=== PATIENT | female | born 1945 | race Caucasian/White ===

== ENCOUNTER → 2017-09-20 13:49 | Outpatient (CLI) | payer MEDICARE, SELFPAY ==
--- NOTE | 2017-09-20 | DI.RAD.S_ITS ---
PROCEDURE: XR CERVICAL SPINE 4V OR 5V INDICATIONS: neck pain TECHNIQUE: 5 views of the cervical spine acquired. COMPARISON: None. FINDINGS: Bones: No fractures or dislocations to the C7 level. There is diffuse, severe disc space narrowing throughout the cervical spine from the level of C3-C7. Diffuse facet arthropathy. Multilevel endplate spurring and sclerosis. On the right, there is severe diffuse bony foraminal narrowing at all levels. On the left, there is diffuse severe bony foraminal stenoses, with relative sparing at C5-C6. Soft tissues: No prevertebral soft tissue swelling. IMPRESSION: Multilevel C3-C7 severe cervical disc degeneration and facet arthropathy. Bilateral severe diffuse bony neuroforaminal stenoses, as above. Dictated by: David Melgar M.D. on 09/20/2017 at 14:56 Approved by: David Melgar M.D. on 09/20/2017 at 14:58
== END ==
PROVIDERS: Family Provider Internal Medicine; PCP Internal Medicine; Visit Provider Internal Medicine
DX: M50.30 Other cervical disc degeneration, unspecified cervical region (principal); M47.812 Spondylosis without myelopathy or radiculopathy, cervical region
CPT/HCPCS: 72050; 99214

== ENCOUNTER → 2017-11-07 16:53 | Outpatient (CLI) | payer MEDICARE, SELFPAY ==
--- NOTE | 2017-11-07 | DI.MRI.S_ITS ---
PROCEDURE: MR LUMBAR SPINE WO CON INDICATIONS: LUMBAR SPINE PAIN TECHNIQUE: Noncontrast sagittal T1 spin echo and T2 fast echo, sagittal STIR, axial T1 and T2 fast spin echo through the lumbar spine. In cases with scoliosis, additional coronal T2 fast spin echo may be performed. COMPARISON: [facility], MR, L-SPINE WITHOUT CONTRAST, 11/16/2013, 8:33. FINDINGS: Image quality: Excellent. Alignment and Curvature: Grade 1 anterolisthesis of L4-L5. This appears unchanged. Bone Marrow: Marrow is of normal overall signal. No acute vertebral body compression fractures. Spinal Cord: Conus medullaris terminates at the L2 level. Visualized cord demonstrates normal signal and size. Paraspinous Soft Tissues: No paravertebral masses. L1-L2: Normal appearance. L2-L3: Mild broad-based posterior disc bulge and bilateral facet arthropathy. Mild canal narrowing with partial effacement of the anterior thecal sac, which has progressed since 11/16/13. Mild left and moderate right foraminal stenoses, with slight interval progression on the right. L3-L4: Broad-based posterior disc bulge and bilateral facet arthropathy. There is also mild dorsal epidural lipomatosis. Moderate canal stenosis which has minimally progressed. Mild bilateral foraminal narrowing which has slightly progressed.. L4-L5: Broad-based posterior disc bulge, bilateral facet arthropathy and ligamentum flavum hypertrophy, with severe canal stenosis. Mild dorsal epidural lipomatosis is present. This is grossly unchanged since the prior study. Mild left and moderate right foraminal narrowing, no interval change. L5-S1: Posterior annular fissure and broad-based posterior disc bulge with small superimposed central disc protrusion. Bilateral facet arthropathy. There is mild epidural lipomatosis. Mild canal narrowing, unchanged. [id number]-[id number] left and right foraminal stenoses which appear grossly unchanged. IMPRESSION: Slight interval worsening of right L2-L3 foraminal narrowing, bilateral L3-L4 foraminal narrowing, and canal narrowing at L2-L3 and L3-L4. Otherwise, unchanged examination as detailed above by spinal level. Grade 1 anterolisthesis of L4 and L5 as before. Dictated by: David Melgar M.D. on 11/08/2017 at 9:20 Approved by: David Melgar M.D. on 11/08/2017 at 9:34
== END ==
PROVIDERS: PCP Internal Medicine; Visit Provider Orthopaedic Surgery Orthopaedic Surgery of the Spine
DX: M48.061 Spinal stenosis, lumbar region without neurogenic claudication (principal); M43.16 Spondylolisthesis, lumbar region; M54.5 Low back pain
CPT/HCPCS: 72148

== ENCOUNTER → 2017-11-21 16:30 | Outpatient (CLI) | payer MEDICARE, SELFPAY ==
--- NOTE | 2017-11-21 16:35 | DI.MRI.S_ITS ---
PROCEDURE: MR CERVICAL SPINE WO CON INDICATIONS: BILATERAL ARM RADICULOPATHY TECHNIQUE: Noncontrast sagittal T1 spin echo and T2 fast spin echo, sagittal STIR, foraminal oblique sagittal T2 fast spin echo, and axial gradient echo or T2 fast spin echo through the cervical spine. COMPARISON: None. FINDINGS: Image quality: Excellent. Alignment and Curvature: Straightening of the normal cervical lordosis. Grade 1 anterolisthesis of C4 on C5 grade 1 retrolisthesis of C5 on C6. Bone Marrow: Multilevel endplate degenerative signal change and spurring. Spinal Cord: Visualized spinal cord has normal size and signal. No cerebellar tonsillar herniation. Paraspinous Soft Tissues: No paravertebral masses. Prevertebral soft tissues are normal in thickness. C2-C3: Bilateral facet arthropathy, left greater than right. No definite canal stenosis. Moderate left foraminal narrowing. Mild right foraminal stenosis. C3-C4: Bilateral uncovertebral arthropathy and posterior intervening disc osteophyte complex, and bilateral facet disease. Moderate canal stenosis with effacement of anterior and posterior thecal sac. Moderate bilateral foraminal stenoses. C4-C5: Bilateral uncovertebral arthropathy and posterior intervening disc osteophyte complex, and bilateral facet arthropathy. Moderate to severe canal stenosis. Severe bilateral foraminal stenoses. C5-C6: Bilateral uncovertebral arthropathy and posterior intervening disc osteophyte complex, and bilateral facet arthropathy. Severe canal stenosis. Severe bilateral foraminal stenoses. C6-C7: No canal stenosis. Mild bilateral foraminal narrowing. Bilateral facet disease, mild. C7-T1: Normal appearance. IMPRESSION: Multilevel cervical disc degeneration, with high grade canal stenoses at C3-C4, C4-C5 and C5-C6. Diffuse bilateral foraminal stenoses as detailed above, most pronounced at C4-C5 (bilateral) and C5-C6 (bilateral). Grade 1 anterolisthesis of C4 on C5 and grade 1 retrolisthesis of C5 on C6. Dictated by: David Melgar M.D. on 11/21/2017 at 17:28 Approved by: David Melgar M.D. on 11/21/2017 at 17:35
== END ==
PROVIDERS: PCP Internal Medicine; Visit Provider Orthopaedic Surgery Orthopaedic Surgery of the Spine
DX: M50.11 Cervical disc disorder with radiculopathy, high cervical region (principal); M48.02 Spinal stenosis, cervical region; M43.12 Spondylolisthesis, cervical region
CPT/HCPCS: 72141

== ENCOUNTER → 2017-12-30 14:31 | Outpatient (CLI) | payer MEDICARE, SELFPAY ==
[2017-12-30 17:06] LABS: Add Manual Diff / Slide Review NO; Basophils Percent Auto 0.7 % (0-2); Eosinophils Percent Auto 1.3 % (2-4); Hematocrit 33.1 % (36-46); Hemoglobin 11.5 g/dL (12.0-16.0); Lymphocytes Percent Auto 30.8 % (25-40); Mean Corpuscular HGB Conc 34.8 % (30-36); Mean Corpuscular Hemoglobin 33.4 PG (26-34); Monocytes Percent Auto 7.5 % (3-14); Neutrophils Absolute Auto 5400 /uL (3000-5900); Neutrophils Percent Auto 59.7 % (50-75); Platelet Count 319 X10^3/uL (150-400); Red Blood Cell Count 3.45 X10^6/uL (4.0-5.2); Red Cell Distribution Width 12.8 % (11.6-14.8)
[2017-12-30 17:23] LABS: BUN Creatinine Ratio 22.2 (6-22); Blood Urea Nitrogen 20 mg/dL (7-17); Carbon Dioxide 25 mmol/L (22-32); Chloride 95 mmol/L (98-107); Estimated Glomerular Filt Rate > 60.0 mL/min (>60); Glucose 92 mg/dL (80-110); HEMOLYSIS < 15 (0-50); Sodium 134 mmol/L (137-145)
== END ==
PROVIDERS: PCP Internal Medicine; Visit Provider Physician Assistant
DX: M43.16 Spondylolisthesis, lumbar region (principal); M48.061 Spinal stenosis, lumbar region without neurogenic claudication; Z01.812 Encounter for preprocedural laboratory examination; Z01.818 Encounter for other preprocedural examination; I10 Essential (primary) hypertension
CPT/HCPCS: 36415; 80048; 85025

== ENCOUNTER 2018-01-12 06:26 | Inpatient (IN) | payer MEDICARE, SELFPAY ==
[2017-12-27 09:06] VITALS: BMI 28.6
[2018-01-12] VITALS (20 sets, daily range): BP systolic 99–183; BP diastolic 63–94; PULSE 67–106; RESP 9–20; TEMP 35.9–36.6; O2SAT 90–100; BMI 29.3
[2018-01-12] MEDS: LACTATED RINGERS 1,000 ML 42 ML IV ×2 (07:15→09:53)
[2018-01-12] MEDS: CEFAZOLIN 2 GM/100 ML FROZ.PIGGY IV ×3 (08:08→23:51)
--- NOTE | 2018-01-12 08:55 | SUR.OPER ---
Prone on spine table, head in foam head support, padded chest and pelvic supports, gel pad at knees, lower legs supported by pillows; nipples, genitalia and toes free of pressure, arms secured on foam padded arm boards at <90 degrees abduction. Tape over blanket at thigh secured to table.
[2018-01-12] MEDS: BUPIVACAINE 0.25% W/ EPI VIAL 50 ML INJ (09:17)
[2018-01-12] MEDS: BUPIVACAINE LIPOSOME 266 MG/20 ML VIAL INJ (09:34)
--- NOTE | 2018-01-12 11:24 | P.OP_ITS ---
Operative Date/Time/Diagnoses Date of procedure: 01/12/18 Time of procedure: 08:21 Pre-op diagnosis: 1. L4-5 spondylolisthesis 2. L4-5, L5-S1 spinal stenosis 3. L4-5, L5-S1 spondylosis with radiculopathy Post-op diagnosis: same Procedure & Clinicians Procedure: 1. L4-5, L5-S1 Postero-lateral and posterior interbody fusion 2. L4-5, L5-S1 interbody cage placement. 3. L4-5, L5-S1 decompressive laminectomy with bilateral facetecomies 4. L4-5, L5-S1 Posterior segmental instrumentation 5. [place] of bone marrow from iliac crest 6. Utilization of microsurgical technique and operating microscope Same procedure as scheduled: Yes Indications: Patient has been having chronic back pain and worsening lumbar radiculopathy. Patient failed multiple conservative management with worsening pain weakness and numbness in her lower extremity. Patient has been having difficulty performing activity of daily living. After discussing risks benefits of treatment options, patient elected proceed with surgery. Surgeon: Dorian John Promotions Producer: Alexsandra Avery Click Yes if Unassisted: No Anesthesia Type: General Operative Notes Closure Type: primary Specimen(s): none sent Implants & Drains: Globus revolve screws, Rise cages Applied: catheter Estimated Blood Loss (mL): 100 Blood products transfused: none Procedure in detail: Patient was seen in the preoperative area. Risks and benefits of the surgery was discussed with the patient. Informed consent was obtained from the patient and placed in the chart. Surgical site was marked. Patient was taken to the operative room. General anesthesia was administered. Prophylactic antibiotic was given to the patient less than 30 min before the incision was made. Patient was placed into a prone position on the Guru table. Patient's back was then prepped and draped in the sterile fashion. Time- out was performed at this time. Using AP and lateral C-arm imaging the interval between L4-S1 was identified and marked on patient's back. A 2 inch incision 2 in from midline was made on the left side first. The fascia was incised in line with skin incision. Globus MARS retractors was placed inside the incision and docked onto the L4 and L5 lamina. Using microsurgical technique and operating microscope, a L4 and L5 laminectomy and L4-5 L5-S1 facetectomy was performed using a Kerrison rongeur. The disc space at L4-5, L5-S1 was identified. And a total diskectomy was performed at L4-5, L5-S1 level. The endplates were decorticated using a rasp and shaver. The total diskectomy and decortication was performed at L4-5, L5- S1 level in order to to accomplish a L4-5, L5-S1 fusion. The local bone from the laminectomy and facetectomy was saved for local bone grafting. After the total diskectomy and decortication was completed, Globus viacell bone graft material was combined with local bone that was harvested earlier. At this time , a separate skin is incision was made over the iliac crest. A Jamshidi needle was inserted into the iliac crest through a separate skin incision. 5 cc of bone marrow aspiration was obtained through the separate skin incision using a Jamshidi needle from the iliac crest. The bone marrow aspiration was combined with local bone and the via cell bone grafting material. The bone grafting material was placed into the L4-5, L5-S1 interbody space along with two cages, one expandable cage at each level. The cages were expanded to their maximum height using the torque limiting screwdriver. At this time a mirror image incision was made on the right side. The fascia was incised in line with the skin incision. Globus MARS retractor was inserted and docked onto the L4-5, L5-S1 posterolateral gutter. Using the power drill, posterior-lateral decortication was performed at L4-5, L5-S1 level until bleeding cortical bone was identified. The remaining bone grafting material was placed into the L4-5 L5-S1 posterior lateral gutter he order to accomplish posterolateral fusion at the L4-5 L5-S1 levels. Using the double C-arm technique, pedicle screws were placed into the L4, L5, S1 pedicles bilaterally. This was done by placing the Jamshidi needle into the pedicles, then placing the guidewires over the Jamshidi needle, and finally placing the cannulated screws over the guidewires bilaterally. After the pedicle screws were placed, 2 titanium rods was locked into the heads of the pedicle screws using locking caps and torque limiting screwdriver. Total 6 pedicles screws were placed. After all the hardware was placed, and confirmed with AP and lateral C-arm imaging, the wound was then irrigated with sterile normal saline and packed with Ray-Dorota gauze for 3 min to accomplish hemostasis. After the gauze was removed the deep fascia was closed with #1 Vicryl suture. The subcutaneous layer was closed with 2-0 Vicryl. The skin was closed with skin lucius. Patient tolerated the procedure well. There were no complications. Complications: none Condition: stable Disposition: Acute Care Plan for aftercare: Admit to inpatient hospital
--- NOTE | 2018-01-12 11:36 | DI.RAD.S_ITS ---
PROCEDURE: XR LUMBAR SPINE 2-3V INDICATIONS: L4-5, L5-S1 TLIF TECHNIQUE: Fluoroscopic images were obtained during an operative procedure and submitted for interpretation following the completion of the procedure. COMPARISON: [facility], , MR LUMBAR SPINE WO CON, 11/07/2017, 17:09. FINDINGS: These fluoroscopic images were performed for intraoperative localization. On these images, pedicle screws are seen at the L4, L5, and S1 levels. Disc spacers are seen at L4-L5 and L5-S1. Please correlate with intraoperative findings. IMPRESSION: Normal intraoperative examination. Dictated by: Sherman Corea M.D. on 01/12/2018 at 11:47 Approved by: Sherman Corea M.D. on 01/12/2018 at 11:47
[2018-01-12] MEDS: HYDROMORPHONE 2 MG INJ 0.25 MG IV ×4 (11:56→12:21)
--- NOTE | 2018-01-12 12:52 | SUR.PHASEI ---
late entry: pt arrived to pacu, awake, followed commands, medicated with Dilaudid initially by dr sanchez, then by this rn, dressing remained c/d/i. and neuro checks wnl. pain started at 8/10 down to 5/10 tolerated oral fluids and pt stated she was comfortable. transported upn to room 212 with 02 n/c and left in stable condition.
[2018-01-12] MEDS: SODIUM CHLORIDE 0.9% 1,000 ML 100 ML IV ×2 (13:39→23:18)
[2018-01-12] MEDS: ONDANSETRON 4 MG/2 ML INJ IV ×2 (13:39→18:06)
[2018-01-12] MEDS: hydrOXYzine pamoate 25 MG CAPSULE PO ×3 (13:58→21:41)
[2018-01-12] MEDS: HYDROCODONE/ACET 5/325 TABLET 2 TAB PO ×2 (15:11→19:04)
--- NOTE | 2018-01-12 15:25 | PT.IIE ---
Current Diagnoses Sleep apnea, unspecified (01/12/18) Shortness of breath (01/12/18) Personal history of nicotine dependence (01/12/18) Surgery Performed Operation Date: 01/12/18 07:45 Actual Procedures p L4-5,L5-S1 TLIF w/Posterior Fusion - Dorian John MD Surgical History (Last Updated 12/27/17 @ 10:42 by Laisha Peck, RN) H/O oral surgery (Acute) H/O thumb surgery (Acute) History of appendectomy (Acute) History of colonoscopy with polypectomy (Acute) History of hernia repair (Acute) History of total abdominal hysterectomy (Acute) Medical History (Last Updated 12/27/17 @ 11:14 by Laisha Peck, RN) ADHD (Acute) Abnormal EKG (Acute) Anemia (Acute) Anxiety disorder (Acute) Asthma (Acute) Atrophic vaginitis (Acute) Benign positional vertigo (Acute) Bruises easily (Acute) CAD (coronary artery disease) (Acute) Concussion (Acute) Disorder of left rotator cuff (Acute) Familial tremor (Acute) Fibromyalgia (Acute) Former smoker (Acute) GERD (gastroesophageal reflux disease) (Acute) History of frequent headaches (Acute) History of left heart catheterization (Acute) History of stomach ulcers (Acute) Hyperlipidemia (Acute) Hypertension (Acute) Impaired hearing (Acute) Impaired vision (Acute) Osteoarthritis (Acute) PTSD (post-traumatic stress disorder) (Acute) PVCs (premature ventricular contractions) (Acute) Palpitations (Acute) Panic attacks (Acute) Peripheral sensory neuropathy (Acute) Precancerous lesion (Acute) Shortness of breath (Acute) Spastic colon (Acute) Spinal stenosis of lumbar region at multiple levels (Acute) Spondylolisthesis at L4-L5 level (Acute) Syncope (Acute) Physical Therapy Inpatient Evaluation/Re-Eval M1 PT/OT-IP Prior Functional Status Start: 01/12/18 16:54 Freq: NEEDED Status: Active Protocol: Document 01/12/18 15:25 AB (Rec: 01/12/18 17:11 AB [id number]) Medical Review Prior Functional Status Medical History Reviewed Yes Communication able to make needs known Mobility and Gait stated that she is modified independent with all mobilities and ambulation without AD indoors but uses SPC for outdoor mobility Social History Household Members spouse Living Arrangements RV Number of Floors (Floors) Two Floors Number of Stairs To Enter/Railing? has 5 steps to enter with L rail ascending; has 2 steps to bathroom without rails Home Environment Standard Height Toilet Walk in Shower Built-In Shower Seat Home Equipment Straight Cane Hand Held Shower Employment Status Retired Additional Social History Comment spouse still works but stated that he will be off work until jan.23 M2 PT-IP Current Condition Start: 01/12/18 16:54 Freq: NEEDED Status: Active Protocol: Document 01/12/18 15:25 AB (Rec: 01/12/18 17:11 AB [id number]) Physical Therapy Current Condition Current Condition Evaluation Date 01/12/18 Treatment Diagnosis s/p L4-5 L5S1 fusion/ laminectomy; difficulty in walking Onset Date 01/12/18 Precautions Lumbar Precautions Log Roll No Twisting Limit Bending Lifting Restriction of 10 lbs Gait Belt above Incisional Area M3 PT-IP Subjective Start: 01/12/18 16:54 Freq: NEEDED Status: Active Protocol: Document 01/12/18 15:25 AB (Rec: 01/12/18 17:11 AB [id number]) Subjective Physical Therapy Visit Type Type Initial Evaluation Visit Start Time 15:25 Visit Stop Time 16:20 Total Visit Minutes 55 Number of GERIATRIC PSYCHIATRIST Visits 0 Physical Therapy Visit Comments Patient Comments pt stated that she will try to move but she faints easily Therapy Pain Assessment Pain When Pain Assessed At Rest Pain Present Pain Present Pain Reported Location back Intensity 7 Scale Used Numeric (1 - 10) Pain Management Techniques Re-positioning Timing of Activity with Medications M4 PT-IP Mobility and Gait Start: 01/12/18 16:54 Freq: NEEDED Status: Active Protocol: Document 01/12/18 15:25 AB (Rec: 01/12/18 17:11 AB [id number]) PT-Bed Mobility Assessment Rolling Type of Rolling Log Rolling Level of Assist Moderate Assistance 1 Person Assistance Supine to Sit Supine to Sit Moderate Assistance 1 Person Assistance Sit to Supine Sit to Supine Moderate Assistance 1 Person Assistance Scooting Scooting to Edge of Bed Minimal Assistance PT-Transfer Assessment Sit to and From Stand Sit to and from Stand Moderate Assistance 1 Person Assistance Use of Upper Extremities Equipment Transfer Assistive Device Gait Belt Front Wheeled Walker Orthotic/Prosthetic Devices or Brace: No Comments Mobility Comments BP prior to standing 183/94; after standin/65 pt with c/o nausea with activity limiting movement. pt was able to take 2 steps forward and backwards using FWW mod A and requested to go back to bed afterwards. positioned pt in bed and requested to be on her side. ice pack provided. call light and table placed within reach . Left pt with spouse in room . PT-Balance Assessment Sitting Balance and Reactions Static Sitting Balance Ability Good Dynamic Sitting Balance Ability Fair Standing Balance and Reactions Static Standing Balance Ability Poor Dynamic Standing Balance Ability Poor Device Used FWW M5 PT-IP Objective Assessments Start: 01/12/18 16:54 Freq: NEEDED Status: Active Protocol: Document 01/12/18 15:25 AB (Rec: 01/12/18 17:11 AB [id number]) Orientation Orientation/Cognition Level of Alertness Alert Orientation Name Age Birthday Month Date Year Day of Week Place Situation Safety Awareness Decreased Safety Awareness Memory Description Short Term Impaired Gross Range of Motion Lower Extremity ROM Assessment Within Functional Limits Strength Lower Extremity Strength Assessment Bilaterally Impaired Hip 4-/5 Knee 4-/5 Sensation Assessment Sensation Gross Sensation Right LE Impaired Left LE Impaired Sensation Description Tingling Comments Sensation Comments pt stated that she has tingling on BLE even prior to surgery Muscle Tone Muscle Tone WNL Yes M6 PT-IP Treatment Start: 01/12/18 16:54 Freq: NEEDED Status: Active Protocol: Document 01/12/18 15:25 AB (Rec: 01/12/18 17:11 AB [id number]) Physical Therapy Treatment Education Education Provided Precautions Weight Bearing Status Post-Op Packet Safety M7 PT-IP Assessment and Plan Start: 01/12/18 16:54 Freq: NEEDED Status: Active Protocol: Document 01/12/18 15:25 AB (Rec: 01/12/18 17:11 AB [id number]) PT Summary Assessment and Plan Potential Rehabilitation Potential Fair Status of Condition at Evaluation Evolving Summary Impairments Pain ROM Strength Balance Coordination Sensation Tone Cognition Bed Mobility Transfers Gait Activity Tolerance Assessment Summary pt requiring mod A with sit to stand and has limitied activity tolerance at this time with c/o nausea with activity. pt plans to ghome with spouse to assist her at home. informed pt and spouse to acquire a FWW and ageed. will continue to assess pt for d/c plans. Goals Bed Mobility Goal Standby Assistance Transfer Goal Standby Assistance Front Wheeled Walker Gait Goal Standby Assistance Front Wheel Walker Gait Distance 150 Other Goals up/down steps with L rail ascending up/down 2 steps without rails using SPC/ FWW Days to Meet Goals 5 Frequency of Treatment Frequency Of Treatment Twice a Day Treatment Plan Physical Therapy Treatment Plan Bed Mobility Training Transfer Training Gait Training Therapeutic Exercise Balance Retraining Post Op Education Discharge Planning Hot or Cold Pack Neuromuscular Re-ed Coordination Retraining Manual Therapy Recommendations To Nursing Amount of Assist Needed 1 Person Assist Discharge Recommendations PT Discharge Recommendations Home with 15/11 Assist Home Health Equipment Needed for Home Before FWW Discharge
--- NOTE | 2018-01-12 15:26 | PC.NURSE ---
POST-OP PATIENT CONVERSANT. REPORTS MINIMAL PAIN. BARBARA CDI. IVF INFUSING PER ORDERS. REPORTS NAUSEA. ZOFRAN GIVEN FOLLOWED BY [facility]. DRINKING CRANBERRY JUICE. VSS.
[2018-01-12] MEDS: LOSARTAN 25 MG TABLET PO (17:17)
[2018-01-12] MEDS: ACETAMINOPHEN 325 MG TABLET 650 MG PO (18:00)
[2018-01-12] MEDS: DOCUSATE 100 MG CAPSULE PO (20:09)
[2018-01-12] MEDS: SENNOSIDES 8.6 MG TABLET 17.2 MG PO (20:10)
[2018-01-13] MEDS: ONDANSETRON 4 MG/2 ML INJ IV (00:49)
[2018-01-13] MEDS: ACETAMINOPHEN 325 MG TABLET 650 MG PO ×3 (00:52→12:30)
[2018-01-13 01:00] VITALS: BP 141/62; PULSE 75; RESP 18; TEMP 36.7; O2SAT 100
--- NOTE | 2018-01-13 01:07 | PC.NURSE ---
Addendum entered by Khadijah Mendez R.N. 01/13/18 07:00: Medicated with Tylenol for 4/10 back pain; requested not to have any Vicodin. Original Note: Addendum entered by Khadijah Mendez R.N. 01/13/18 06:59: Dressing completely off back except for some border tape. Patient states I probably did that with my scooting around in bed. Reminded she should not be twisting; verbalized understanding. Old dressing completely removed and coversite dressing applied. Original Note: Addendum entered by Khadijah Mendez R.N. 01/13/18 01:13: Patient reports history of balance problems and several near misses but no falls in past 3 months. Original Note: Patient is alert and oriented. Breath sounds are CTA. Currently on bipap (per home regimen) with 2L/min oxygen bled in and sat at 97% so decreased O2 to 1L/min. HRR. Complains of slight nausea without current emesis so medicated with Zofran. BT hypoactive and denies flatus. Indwelling catheter is patent and intact. Dressing to back intact with shadow drainage noted and outlined. States pain is 0/10 at rest but 4/10 with movement; requested only Tylenol so medicated as requested. Was able to turn self with help to position pillows. CMS intact but does have intermittent sciatica pain down left leg which was present pre-op. Wearing bilateral foot SCD's. Fall risk score is high and bed alarm is activated.
[2018-01-13] MEDS: PANTOPRAZOLE 20 MG TABLET PO (05:57)
[2018-01-13 06:12] VITALS: BP 118/83; PULSE 66; RESP 18; TEMP 36.8
[2018-01-13 06:22] LABS: Hematocrit 27.2 % (36-46); Hemoglobin 9.2 g/dL (12.0-16.0)
[2018-01-13 06:44] VITALS: O2SAT 97
--- NOTE | 2018-01-13 07:38 | P.PN_ITS ---
Subjective Date Patient Seen: 01/13/18 Time Patient Seen: 07:34 Interval history: POD #1 s/p lumbar fusion with Dr. John. Pain is well controlled with Tylenol, [place], and Vistaril. Patient has been up with physical therapy yesterday. She notes a history of fainting since she was 8, so she is just ambulating slowly and taking her time. She has a [place] catheter in. Exam Vital Signs (past 8 hours): - 01/13/18 01:00 01/13/18 06:12 01/13/18 06:44 Temperature 98.0 F 98.2 F Pulse Rate 75 66 Respiratory Rate 18 18 Blood Pressure 141/62 H 118/83 Pulse Oximetry 100 97 Oxygen Delivery Method BiPAP Oxygen Flow Rate 0 Narrative Exam Narrative: Patient is lying in bed in no acute distress. She is alert and oriented x3. Dressing on back is CDI. Calves are soft, compressible, nontender bilaterally. Objective Labs Result Diagrams: 01/13/18 06:05 Labs: Laboratory Results - last 24 hr 01/13/18 06:05 Hgb 9.2 L Hct 27.2 L Assessment & Plan Post-op (1) S/P lumbar fusion: Current Visit: Yes Status: Acute Postoperative Procedures Operation Date: 01/12/18 07:45 Actual Procedures Side Surgeon p L4-5,L5-S1 TLIF w/Posterior Fusion Dorian John MD POD #1 s/p lumbar fusion with Dr. John. DC Ha[place]on today. Continue to ambulate with PT. Continue to follow precautions of no excessive bending, lifting, or twisting. Plan to discharge home in next 1-2 days. Quality VTE Deep Vein Thrombosis/Pulmonary Embolism Present on Admission: No
[2018-01-13 07:55] VITALS: BP 139/49; PULSE 70; RESP 18; TEMP 36.5; O2SAT 99
[2018-01-13 08:42] VITALS: BP 139/61; PULSE 83
[2018-01-13] MEDS: DOCUSATE 100 MG CAPSULE PO (08:42)
[2018-01-13] MEDS: LOSARTAN 25 MG TABLET PO (08:42)
[2018-01-13] MEDS: ATORVASTATIN 20 MG TABLET 40 MG PO (08:42)
[2018-01-13] MEDS: METOPROLOL ER 50 MG TABLET PO (08:43)
[2018-01-13 09:23] VITALS: O2SAT 93
--- NOTE | 2018-01-13 10:30 | PT.IPTN ---
Current Diagnoses Sleep apnea, unspecified (01/12/18) Shortness of breath (01/12/18) Personal history of nicotine dependence (01/12/18) Arthrodesis status (01/12/18) Surgery Performed Operation Date: 01/12/18 07:45 Actual Procedures p L4-5,L5-S1 TLIF w/Posterior Fusion - Dorian John MD Physical Therapy Treatment Note M2 PT-IP Current Condition Start: 01/12/18 16:54 Freq: NEEDED Status: Active Protocol: Document 01/12/18 15:25 AB (Rec: 01/12/18 17:11 AB [id number]) Physical Therapy Current Condition Current Condition Evaluation Date 01/12/18 Treatment Diagnosis s/p L4-5 L5S1 fusion/ laminectomy; difficulty in walking Onset Date 01/12/18 Precautions Lumbar Precautions Log Roll No Twisting Limit Bending Lifting Restriction of 10 lbs Gait Belt above Incisional Area M3 PT-IP Subjective Start: 01/12/18 16:54 Freq: NEEDED Status: Active Protocol: Document 01/13/18 10:30 GGD (Rec: 01/13/18 12:12 GGD [id number]) Subjective Physical Therapy Visit Type Type Treatment Note Visit Start Time 10:05 Visit Stop Time 10:30 Total Visit Minutes 25 Number of SUSTAINABILITY COORDINATOR Visits 1 Physical Therapy Visit Comments Patient Comments Pt states she feeling better. Therapy Pain Assessment Pain When Pain Assessed At Rest Pain Present Pain Present Pain Reported Location back Intensity 2 Scale Used Numeric (1 - 10) M4 PT-IP Mobility and Gait Start: 01/12/18 16:54 Freq: NEEDED Status: Active Protocol: Document 01/13/18 10:30 GGD (Rec: 01/13/18 12:12 GGD [id number]) PT-Bed Mobility Assessment Rolling Type of Rolling Log Rolling Level of Assist Standby Assistance Supine to Sit Supine to Sit Contact Guard Assistance Sit to Supine Sit to Supine Contact Guard Assistance Scooting Scooting to Edge of Bed Standby Assistance PT-Transfer Assessment Sit to and From Stand Sit to and from Stand Contact Guard Assistance Use of Upper Extremities Equipment Transfer Assistive Device Gait Belt Front Wheeled Walker Orthotic/Prosthetic Devices or Brace: No Transfers Transfer Destination Chair Comments Mobility Comments BP supine 142/57, sitting 157/ 92, standing 157/94, after gait in sitting 167/27 Gait Assessment Gait Gait Assistance Required: Contact Guard Assist Distance (Feet) 75 Able to Maintain Weight Bearing Status Yes During Gait Assistive Devices Assistive Device Gait Belt Front Wheeled Walker Orthotic/Prosthetic Devices or Brace: No Gait Deviations General Gait Pattern Decreased Stride Length Decreased Feet Clearance Factors Limiting Gait Function Factors Limiting Gait Function Decreased Activity Tolerance Decreased Strength Limited Range of Motion Pain M5 PT-IP Objective Assessments Start: 01/12/18 16:54 Freq: NEEDED Status: Active Protocol: Document 01/12/18 15:25 AB (Rec: 01/12/18 17:11 AB [id number]) Orientation Orientation/Cognition Level of Alertness Alert Orientation Name Age Birthday Month Date Year Day of Week Place Situation Safety Awareness Decreased Safety Awareness Memory Description Short Term Impaired Gross Range of Motion Lower Extremity ROM Assessment Within Functional Limits Strength Lower Extremity Strength Assessment Bilaterally Impaired Hip 4-/5 Knee 4-/5 Sensation Assessment Sensation Gross Sensation Right LE Impaired Left LE Impaired Sensation Description Tingling Comments Sensation Comments pt stated that she has tingling on BLE even prior to surgery Muscle Tone Muscle Tone WNL Yes M6 PT-IP Treatment Start: 01/12/18 16:54 Freq: NEEDED Status: Active Protocol: Document 01/13/18 10:30 GGD (Rec: 01/13/18 12:12 GGD [id number]) Physical Therapy Treatment Education Education Provided Precautions M7 PT-IP Assessment and Plan Start: 01/12/18 16:54 Freq: NEEDED Status: Active Protocol: Document 01/13/18 10:30 GGD (Rec: 01/13/18 12:12 GGD [id number]) PT Summary Assessment and Plan Summary Assessment Summary Pt improving with mobility. She improved with bed mobility and didn't need assist, min v . cues. She was able to ambulate without increase in nausea. She does need a FWW, before D/C home. Frequency of Treatment Frequency Of Treatment Twice a Day Treatment Plan Physical Therapy Treatment Plan Bed Mobility Training Transfer Training Gait Training Therapeutic Exercise Balance Retraining Post Op Education Discharge Planning Hot or Cold Pack Neuromuscular Re-ed Coordination Retraining Manual Therapy Other Recommendations and Next Treatment stair training. Focus Recommendations To Nursing Amount of Assist Needed 1 Person Assist Discharge Recommendations PT Discharge Recommendations Home with Assistance Equipment Needed for Home Before FWW Discharge
--- NOTE | 2018-01-13 10:31 | PC.NURSE ---
Addendum entered by Jennifer Mcneill R.N. 01/13/18 14:44: Pt taken out to car by [employer] and to drive pt home. Original Note: Pt worked with PT/OT, [place] taken out and pt tolerated well. Sitting up in chair and resting comfortably.
--- NOTE | 2018-01-13 11:10 | OT.IP.EVAL ---
Current Diagnoses Sleep apnea, unspecified (01/12/18) Shortness of breath (01/12/18) Personal history of nicotine dependence (01/12/18) Arthrodesis status (01/12/18) Surgery Performed Operation Date: 01/12/18 07:45 Actual Procedures p L4-5,L5-S1 TLIF w/Posterior Fusion - Dorian John MD Past Medical History (Last Updated 12/27/17 @ 11:14 by Laisha Peck, RN) ADHD (Acute) Abnormal EKG (Acute) Anemia (Acute) Anxiety disorder (Acute) Asthma (Acute) Atrophic vaginitis (Acute) Benign positional vertigo (Acute) Bruises easily (Acute) CAD (coronary artery disease) (Acute) Concussion (Acute) Disorder of left rotator cuff (Acute) Familial tremor (Acute) Fibromyalgia (Acute) Former smoker (Acute) GERD (gastroesophageal reflux disease) (Acute) History of frequent headaches (Acute) History of left heart catheterization (Acute) History of stomach ulcers (Acute) Hyperlipidemia (Acute) Hypertension (Acute) Impaired hearing (Acute) Impaired vision (Acute) Osteoarthritis (Acute) PTSD (post-traumatic stress disorder) (Acute) PVCs (premature ventricular contractions) (Acute) Palpitations (Acute) Panic attacks (Acute) Peripheral sensory neuropathy (Acute) Precancerous lesion (Acute) Shortness of breath (Acute) Spastic colon (Acute) Spinal stenosis of lumbar region at multiple levels (Acute) Spondylolisthesis at L4-L5 level (Acute) Syncope (Acute) Surgical History (Last Updated 12/27/17 @ 10:42 by Laisha Peck RN) H/O oral surgery (Acute) H/O thumb surgery (Acute) History of appendectomy (Acute) History of colonoscopy with polypectomy (Acute) History of hernia repair (Acute) History of total abdominal hysterectomy (Acute) Occupational Therapy Inpatient Evaluation/Re-Eval M1 PT/OT-IP Prior Functional Status Start: 01/12/18 16:54 Freq: NEEDED Status: Active Protocol: Document 01/12/18 15:25 AB (Rec: 01/12/18 17:11 AB [id number]) Medical Review Prior Functional Status Medical History Reviewed Yes Communication able to make needs known Mobility and Gait stated that she is modified independent with all mobilities and ambulation without AD indoors but uses SPC for outdoor mobility Social History Household Members spouse Living Arrangements RV Number of Floors (Floors) Two Floors Number of Stairs To Enter/Railing? has 5 steps to enter with L rail ascending; has 2 steps to bathroom without rails Home Environment Standard Height Toilet Walk in Shower Built-In Shower Seat Home Equipment Straight Cane Hand Held Shower Employment Status Retired Additional Social History Comment spouse still works but stated that he will be off work until jan.23 M1 PT/OT-IP Prior Functional Status Start: 01/13/18 10:51 Freq: NEEDED Status: Active Protocol: Document 01/13/18 10:52 [facility] (Rec: 01/13/18 11:09 [facility] [id number]) Medical Review Prior Functional Status Medical History Reviewed Yes Communication able to make needs known Mobility and Gait stated that she is modified independent with all mobilities and ambulation without AD indoors but uses SPC for outdoor mobility Activities of Daily Living and IADL's Due to pain having a harder time with ADl's and hygiene needs for pericare. Social History Household Members spouse Living Arrangements RV Number of Floors (Floors) Two Floors Number of Stairs To Enter/Railing? has 5 steps to enter with L rail ascending; has 2 steps to bathroom without rails Home Environment Standard Height Toilet Walk in Shower Built-In Shower Seat Home Equipment Straight Cane Hand Held Shower Employment Status Retired Additional Social History Comment spouse still works but stated that he will be off work until jan.23 M2 OT-IP Current Condition Start: 01/13/18 10:51 Freq: Status: Active Protocol: Document 01/13/18 10:52 [facility] (Rec: 01/13/18 11:09 [facility] [id number]) Occupational Therapy Current Condition Current Condition Evaluation Date 01/13/18 Treatment Diagnosis SPinal stenosis, s/p L4-5, L5- S1 TLIF with Post. fusion Diagnosis Onset Date 01/12/18 Post Operative Precautions Lumbar Precautions Log Roll No Twisting Limit Bending Lifting Restriction of 10 lbs Gait Belt above Incisional Area M3 OT- IP Subjective and Pain Start: 01/13/18 10:51 Freq: Status: Active Protocol: Document 01/13/18 10:52 [facility] (Rec: 01/13/18 11:09 [facility] [id number]) OT- Subjective Occupational Therapy Visit Type Type Initial Evaluation Visit Start Time 10:05 Visit Stop Time 10:50 Total Visit Minutes 45 Occupational Therapy Visit Comments Patient/Caregiver Goals Pt wanting to go home today. OT Pain Assessment Pain When Pain Assessed At Rest Pain Present Pain Present Pain Reported Location back Intensity 3 Scale Used Numeric (1 - 10) Description Aching Management Techniques Re-positioning Timing of Activity with Medications M4 OT- IP ADL's Start: 01/13/18 10:51 Freq: Status: Active Protocol: Document 01/13/18 10:52 [facility] (Rec: 01/13/18 11:09 [facility] [id number]) OT ADL-Grooming General Evaluation Grooming Ability Independent OT ADL-Dressing General Eval Upper Body Dressing Ability Standby Assistance Lower Body Dressing Ability Moderate Assistance Areas Needing Assistance Socks Comments OT Dressing Comments Able to educate pt on use of AED for LB dressing needs and able to demonstrate good safety and awareness. OT ADL-Toileting Comments OT Toileting Comments Pt states has difficulty wiping and able to suggest use of toilet aid especially as , too squimish to assist. in addition to wipes for pericare needs. In addition, pt would benefit from BSC and to stand for pericare needs. OT ADL-Bathing Comments OT Bathing Comments Pt has a built in seat for WIS and HHS and will be there to assist. M6 OT- IP Functional Cognition Start: 01/13/18 10:51 Freq: Status: Active Protocol: Document 01/13/18 10:52 [facility] (Rec: 01/13/18 11:09 [facility] [id number]) Cognitive Factors Limiting Selfcare Function Cognitive Ability Level of Alertness Alert Drowsy Patient Orientation Name Place Situation Attention Span Ability Capable of Focused Attention Capable of Sustained Attention Ability to Follow Commands Able to Follow Multi-Step Commands Memory Description No Deficits Noted Safety Awareness Underestimates Need for Assistance Cognitive Comments Cognitive Assessment Comments Pt a bit droswy and needing increased time to process information and follow directions. OT- Vision and Hearing OT- Hearing Assessment OT- Hearing Assessment WFL M7 OT- IP Mobility and Balance Start: 01/13/18 10:51 Freq: Status: Active Protocol: Document 01/13/18 10:52 [facility] (Rec: 01/13/18 11:09 [facility] [id number]) OT- Bed Mobility Assessment Rolling Type of Rolling Roll to Left Level of Assistance Bedrails Supine to Sit Supine to Sit Assist Standby Assistance Sit to Supine Sit to Supine Assist Standby Assistance Scooting Scooting to Edge of Bed Standby Assistance Scooting Up and Down in Bed Standby Assistance OT-Transfer Assessment Sit to and From Stand Sit to and from Stand Standby Assistance Contact Guard Assistance Transfers Transfer Ability Standby Assistance Contact Guard Assistance Technique Transfer Destination Bed Chair Transfer Technique Stand Step Pivot Devices Transfer Assistive Devices Gait Belt Front Wheeled Walker Comments Mobility Comments CGA-SBA as pt a bit whoozy while initially getting up BP supine 142/57 and sitting 157/ 92. VC to push up from the chair/bed before standing. OT- Balance Assessment Sitting Balance and Reactions Static Sitting Balance Ability Normal Dynamic Sitting Balance Ability Normal Standing Balance and Reactions Static Standing Balance Ability Good Dynamic Standing Balance Ability Fair M8 OT- IP Objective Assessments Start: 01/13/18 10:51 Freq: Status: Active Protocol: Document 01/13/18 10:52 [facility] (Rec: 01/13/18 11:09 [facility] [id number]) OT Gross Range of Motion Upper Extremity Range of Motion Assessment Within Functional Limits OT Strength Comments Strength Comments Weakness in hands as having difficulty with her hands to get sock on all the way to the socks aid. M9 OT- IP Assessment and Plan Start: 01/13/18 10:51 Freq: Status: Active Protocol: Document 01/13/18 10:52 [facility] (Rec: 01/13/18 11:09 [facility] [id number]) OT Summary Assessment and Plan Potential Rehabilitation Potential Excellent Analytic Complexity at Evaluation Low Summary OT Impairments Pain Strength Balance Coordination Functional Cognition Functional Mobility Dressing Toileting Bathing Toilet Transfers Shower Transfers Progress Towards Goals Progressing Toward Goals Assessment Summary Pt Low complexity and main barrier is steps to RV . Pt will need assist for ADL's and safety awareness, per pt has a supportive to assist . Goals Dressing Goal Standby Assistance Toileting Goal Standby Assistance Bathing Goal Contact Guard Assistance Toilet Transfer Goal Contact Guard Assistance Shower Transfer Goal Contact Guard Assistance Patient/Caregiver Education Goal Demonstrate Post-Op Precautions Caregiver Independent Assisting Patient Days to Meet Goals 1 Frequency of Treatment Frequency Of Treatment Once a Day Treatment Plan OT Treatment Plan ADL Training Functional Cognition Training Functional Mobility Patient/Family Education Discharge Planning Other Treatment Recommendations and Next Family Training with . Treatment Focus Discharge Recommendations OT Discharge Recommendations Home with Assistance Home Equipment Needs BSC, FWW
--- NOTE | 2018-01-13 11:53 | PM.CN ---
History of Present Illness Chief complaint: [id number] Reason for consult: Obstructive sleep apnea Requesting provider: Dorian John Narrative: The patient is a 72-year-old female with a history of obstructive sleep apnea times 4-5 months on BiPAP, asthma, hypertension, history of right carotid artery stenosis who consultation of the hospitalist service will was to manage her obstructive sleep apnea. Patient states she was diagnosed with obstructive sleep apnea approximately 4-5 months ago. She has since been placed on BiPAP and is using her home BiPAP for her obstructive sleep apnea. She denies any chest tightness increased shortness of breath cough. [facility] Medical History ADHD (Acute) Abnormal EKG (Acute) Anemia (Acute) Anxiety disorder (Acute) Asthma (Acute) Atrophic vaginitis (Acute) Benign positional vertigo (Acute) Bruises easily (Acute) CAD (coronary artery disease) (Acute) Concussion (Acute) Disorder of left rotator cuff (Acute) Familial tremor (Acute) Fibromyalgia (Acute) Former smoker (Acute) GERD (gastroesophageal reflux disease) (Acute) History of frequent headaches (Acute) History of left heart catheterization (Acute) History of stomach ulcers (Acute) Hyperlipidemia (Acute) Hypertension (Acute) Impaired hearing (Acute) Impaired vision (Acute) Osteoarthritis (Acute) PTSD (post-traumatic stress disorder) (Acute) PVCs (premature ventricular contractions) (Acute) Palpitations (Acute) Panic attacks (Acute) Peripheral sensory neuropathy (Acute) Precancerous lesion (Acute) Shortness of breath (Acute) Spastic colon (Acute) Spinal stenosis of lumbar region at multiple levels (Acute) Spondylolisthesis at L4-L5 level (Acute) Syncope (Acute) Surgical History H/O oral surgery (Acute) H/O thumb surgery (Acute) History of appendectomy (Acute) History of colonoscopy with polypectomy (Acute) History of hernia repair (Acute) History of total abdominal hysterectomy (Acute) Social History household members: spouse Smoking Status: Former smoker alcohol intake: current Meds Home Medications Medication Instructions Recorded Confirmed Type [TURMERIC CURCUMIN] 500 mg PO Q DAY #0 03/18/16 01/12/18 History atorvastatin [Lipitor] 40 mg PO QDAY #0 03/18/16 01/12/18 History losartan 25 mg PO BID #0 03/18/16 01/12/18 History acetaminophen [Tylenol Arthritis 650 mg PO Q8H PRN 12/27/17 01/12/18 History Pain] calcium citrate-vitamin D3 1 tab PO BEDTIME 12/27/17 01/12/18 History [Citracal + D Petites] esomeprazole magnesium [Nexium] 20 mg PO DAILY 12/27/17 01/12/18 History estradiol 1 g VAGINAL DAILY PRN 12/27/17 01/12/18 History metoprolol succinate 50 mg PO DAILY 12/27/17 01/12/18 History hydrocodone-acetaminophen 1 tab PO Q4HR PRN #20 tab 01/13/18 Rx hydroxyzine pamoate 25 mg PO Q6HR #40 cap 01/13/18 Rx walker #1 each 01/13/18 Rx Allergies Allergy/AdvReac Type Severity Reaction Status Date / Time aspirin [ASPIRIN] Allergy Severe SUPRESSES Verified 01/12/18 07:06 BREATHING benazepril Allergy Severe Cough Verified 12/27/17 12:35 erythromycin base Allergy Severe RASH Verified 01/12/18 07:06 [ERYTHROMYCIN BASE] MOVING ABOUT BODY-6 MONTHS iodine Allergy Severe Couldn't Verified 01/12/18 07:06 breath, itch lisinopril Allergy Severe Cough Verified 01/12/18 07:06 oxycodone [OXYCODONE] Allergy Severe HIVES AND Verified 01/12/18 07:06 WELTS sertraline [From ZOLOFT] Allergy Severe IMPAIRED Verified 01/12/18 07:06 BALANCE NEUROLOGIST: BECAME TOXIC latex [LATEX] Allergy Intermediate BREATHING Verified 01/12/18 07:06 DIFFICULTIES rofecoxib [From VIOXX] Allergy Intermediate COULDN'T Verified 01/12/18 07:06 URINATE FOR A COUPLE OF DAYS ibuprofen Allergy Mild Impaired Verified 12/27/17 10:37 breathing, worse over time meloxicam Allergy Mild Unknown Verified 01/12/18 07:06 amlodipine Allergy Unknown Rash, Verified 12/27/17 12:35 trouble breathing, bradycardia Sulfa (Sulfonamide Allergy Unknown DON'T Verified 01/12/18 07:06 Antibiotics) REMEMBER [SULFA (SULFONAMIDE ANTIBIOTICS)] alprazolam AdvReac Severe confusion, Verified 01/12/18 07:06 stumbling, suicidal ideation diazepam [From VALIUM] AdvReac Intermediate GOT Verified 01/12/18 07:06 TERRIBLY DEPRESSED zolpidem [From Ambien] AdvReac Intermediate Slept for Verified 01/12/18 07:06 3 hours, then couldn't sleep lithium [LITHIUM] AdvReac Mild ELEVATED Verified 01/12/18 07:06 BP & DELIRIOUS simvastatin [From Zocor] AdvReac Mild Muscle Verified 12/27/17 10:37 cramps hydrochlorothiazide AdvReac Unknown DEPLETED Verified 01/12/18 07:06 [HYDROCHLOROTHIAZIDE] POTASSIUM, IN DAYS, DEHYDRATION meperidine [From Demerol] AdvReac Unknown Falling, Verified 12/27/17 10:37 my arms would flip out Review of Systems Review of Systems All systems reviewed & are unremarkable except as noted in HPI and below Exam Vital Signs (past 8 hours): - 01/13/18 06:12 01/13/18 06:44 01/13/18 07:55 Temperature 98.2 F 97.7 F Pulse Rate 66 70 Respiratory Rate 18 18 Blood Pressure 118/83 139/49 L Pulse Oximetry 97 99 01/13/18 08:42 01/13/18 09:23 Temperature Pulse Rate 83 Respiratory Rate Blood Pressure 139/61 Pulse Oximetry 93 Oxygen Delivery Method Room Air Oxygen Flow Rate 0 Narrative Exam Narrative: General NAD HEENT normocephalic atraumatic extraocular movement was intact pupils were equal round reactive fundi were not visualized sclera were nonicteric oropharynx was clear Neck is supple without thyromegaly bruits or jugular venous distention Respiratory clear to auscultation Cardiovascular regular rhythm S1-S2 was normal there were no loose sees rubs murmurs present Abdomen was rotund benign bowel sounds active Extremities no clubbing edema or cyanosis pulses are 2+ and equal active Neurologic grossly physiologic Psych gastric awake alert oriented x3 mood and affect were normal Objective Labs Result Diagrams: 01/13/18 06:05 Labs: Laboratory Results - last 24 hr 01/13/18 06:05 Hgb 9.2 L Hct 27.2 L Assessment & Plan Plan: Assessment/Plan Narrative: 1. Obstructive sleep apnea on BiPAP Patient states that she uses her BiPAP at night. As mentioned she has no increase the symptoms of shortness of breath or chest discomfort Plan continue her BiPAP nightly 2. Asthma Patient without any pulmonary symptoms. Physical exam was unremarkable for any adventitious breath sounds such as wheezes or rhonchi Will order duo nebs in case there should be any pulmonary problems Plan DuoNeb as needed 3. Hypertension Blood pressures are well controlled Plan Continue her Cozaar and Toprol XL 4. Hyponatremia Her sodium is slightly low at 134 will continue to monitor Plan Chem panel in a.m.
--- NOTE | 2018-01-13 14:15 | PT.IPTN ---
Current Diagnoses Sleep apnea, unspecified (01/12/18) Shortness of breath (01/12/18) Personal history of nicotine dependence (01/12/18) Arthrodesis status (01/12/18) Surgery Performed Operation Date: 01/12/18 07:45 Actual Procedures p L4-5,L5-S1 TLIF w/Posterior Fusion - Dorian John MD Physical Therapy Treatment Note M2 PT-IP Current Condition Start: 01/12/18 16:54 Freq: NEEDED Status: Discharge Protocol: Document 01/12/18 15:25 AB (Rec: 01/12/18 17:11 AB [id number]) Physical Therapy Current Condition Current Condition Evaluation Date 01/12/18 Treatment Diagnosis s/p L4-5 L5S1 fusion/ laminectomy; difficulty in walking Onset Date 01/12/18 Precautions Lumbar Precautions Log Roll No Twisting Limit Bending Lifting Restriction of 10 lbs Gait Belt above Incisional Area M3 PT-IP Subjective Start: 01/12/18 16:54 Freq: NEEDED Status: Discharge Protocol: Document 01/13/18 14:15 GGD (Rec: 01/13/18 16:02 GGD [id number]) Subjective Physical Therapy Visit Type Type Treatment Note Visit Start Time 13:45 Visit Stop Time 14:15 Total Visit Minutes 30 Number of SYSTEMS INTEGRATION ADVISOR Visits 2 Physical Therapy Visit Comments Patient Comments Pt states the got a FWW and BSC. Therapy Pain Assessment Pain When Pain Assessed At Rest Pain Present Pain Present Pain Reported M4 PT-IP Mobility and Gait Start: 01/12/18 16:54 Freq: NEEDED Status: Discharge Protocol: Document 01/13/18 14:15 GGD (Rec: 01/13/18 16:02 GGD [id number]) PT-Bed Mobility Assessment Rolling Type of Rolling Log Rolling Level of Assist Standby Assistance Supine to Sit Supine to Sit Contact Guard Assistance Sit to Supine Sit to Supine Contact Guard Assistance Scooting Scooting to Edge of Bed Standby Assistance PT-Transfer Assessment Sit to and From Stand Sit to and from Stand Contact Guard Assistance Use of Upper Extremities Equipment Transfer Assistive Device Gait Belt Front Wheeled Walker Orthotic/Prosthetic Devices or Brace: No Transfers Transfer Destination Chair Gait Assessment Gait Gait Assistance Required: Contact Guard Assist Distance (Feet) 100 Able to Maintain Weight Bearing Status Yes During Gait Assistive Devices Assistive Device Gait Belt Front Wheeled Walker Orthotic/Prosthetic Devices or Brace: No Gait Deviations General Gait Pattern Decreased Stride Length Decreased Feet Clearance Factors Limiting Gait Function Factors Limiting Gait Function Decreased Activity Tolerance Decreased Strength Limited Range of Motion Pain Stair Climbing Assessment Evaluation Level of Assist On Stairs Contact Guard Assistance Devices Stair Climbing Assistive Devices Straight Cane Left Railing Technique/Endurance Stair Climbing Direction Ascend and Descend Stair Climbing Technique Step to Step Number of Steps Climbed 3 Query Text: Stair Climbing Set # Repetitions (reps) 2 Comments Stair Climbing Comments 3 step stair trianing x1 with Left rail and SPC and x1 with SPC. M5 PT-IP Objective Assessments Start: 01/12/18 16:54 Freq: NEEDED Status: Discharge Protocol: Document 01/12/18 15:25 AB (Rec: 01/12/18 17:11 AB [id number]) Orientation Orientation/Cognition Level of Alertness Alert Orientation Name Age Birthday Month Date Year Day of Week Place Situation Safety Awareness Decreased Safety Awareness Memory Description Short Term Impaired Gross Range of Motion Lower Extremity ROM Assessment Within Functional Limits Strength Lower Extremity Strength Assessment Bilaterally Impaired Hip 4-/5 Knee 4-/5 Sensation Assessment Sensation Gross Sensation Right LE Impaired Left LE Impaired Sensation Description Tingling Comments Sensation Comments pt stated that she has tingling on BLE even prior to surgery Muscle Tone Muscle Tone WNL Yes M6 PT-IP Treatment Start: 01/12/18 16:54 Freq: NEEDED Status: Discharge Protocol: Document 01/13/18 14:15 GGD (Rec: 01/13/18 16:02 GGD [id number]) Physical Therapy Treatment Education Education Provided Precautions M7 PT-IP Assessment and Plan Start: 01/12/18 16:54 Freq: NEEDED Status: Discharge Protocol: Document 01/13/18 14:15 GGD (Rec: 01/13/18 16:02 GGD [id number]) PT Summary Assessment and Plan Summary Assessment Summary Pt improving with mobility. She able to progress gait distance. She was safe and stable with stair mobility. She is safe for home D/C when medically stable. Frequency of Treatment Frequency Of Treatment Twice a Day Treatment Plan Physical Therapy Treatment Plan Bed Mobility Training Transfer Training Gait Training Therapeutic Exercise Balance Retraining Post Op Education Discharge Planning Hot or Cold Pack Neuromuscular Re-ed Coordination Retraining Manual Therapy Other Recommendations and Next Treatment stair training. Focus Recommendations To Nursing Amount of Assist Needed 1 Person Assist Discharge Recommendations PT Discharge Recommendations Home with Assistance Equipment Needed for Home Before FWW Discharge
--- NOTE | 2018-01-13 15:19 | PM.DS.1 ---
History of Present Illness Date Patient Seen: 01/13/18 Time Patient Seen: 08:19 Chief complaint: [id number] Narrative: Courtney presented for lumbar fusion with Dr. John. Discharge Providers Date of admission: 01/12/18 06:26 Primary care physician: Mat Moran MD Consults: 01/12/18 12:51 Consult to Occupational Therapy Evaluate & Treat Comment: Physician Instructions: Evaluate and treat Consult to Physical Therapy Evaluate & Treat Comment: Physician Instructions: Evaluate and Treat 01/12/18 13:53 Consult to Pastoral Services Routine Comment: per patient request Discharge provider: Dilcia Castellon PA-C Summary Discharge Diagnosis: Status post lumbar fusion Hyperlipidemia GERD Hypertension Hospital Course: Courtney was admitted for lumbar fusion with Dr. John, and she consented to procedure. Hospital course was unremarkable. On postop day 1. She was feeling well and want to go home. She is eating and voiding without difficulty or assistance. She has been up with physical therapy and ambulating in the [facility]. She is taking Tylenol, and Vistaril with good control pain. [place] was removed prior to discharge. Exam Vital Signs (past 8 hours): - 01/13/18 07:55 01/13/18 08:42 01/13/18 09:23 Temperature 97.7 F Pulse Rate 70 83 Respiratory Rate 18 Blood Pressure 139/49 L 139/61 Pulse Oximetry 99 93 Oxygen Delivery Method Room Air Oxygen Flow Rate 0 Narrative Exam Narrative: Patient lying in bed in no acute distress. She is alert and oriented x3. Dressing on back is CDI. Calves are soft, compressible, nontender bilaterally. Sensation intact to light touch throughout bilateral lower extremities. She is able to actively dorsiflex plantar flex. Her pain is well controlled. She denies any nausea or lightheadedness. Objective Labs Result Diagrams: 01/13/18 06:05 01/13/18 14:05 Labs: Laboratory Results - last 24 hr 01/13/18 06:05 Hgb 9.2 L Hct 27.2 L Discharge Plan Discharge Plan Patient Disposition: Home Discharge comment: DC home today with coversite dressing on Discharge Med Rec/Prescriptions Prescriptions: New hydroxyzine pamoate 25 mg Capsule 25 mg PO Q6HR Qty: 40 RF: 1 hydrocodone-acetaminophen 5-325 mg Tablet 1 tab PO Q4HR PRN (Reason: Pain, Severe (7-10)) Qty: 20 RF: 0 walker misc .ROUTE .MEDSUPPLY Qty: 1 RF: 0 Continue atorvastatin [Lipitor] 40 MG tablet 40 mg PO QDAY Qty: 0 RF: 0 losartan 25 MG tablet 25 mg PO BID Qty: 0 RF: 0 [TURMERIC CURCUMIN] 500 mg PO Q DAY Qty: 0 RF: 0 metoprolol succinate 50 mg Tablet Extended Release 24 Hr 50 mg PO DAILY RF: 0 estradiol 0.01 % (0.1 mg/gram) Cream 1 g VAGINAL DAILY PRN (Reason: unknown) RF: 0 acetaminophen [Tylenol Arthritis Pain] 650 mg Tablet Extended Release 650 mg PO Q8H PRN (Reason: Pain) RF: 0 esomeprazole magnesium [Nexium] 20 mg Capsule,Delayed Release(Dr/Ec) 20 mg PO DAILY RF: 0 calcium citrate-vitamin D3 [Citracal + D Petites] 200 mg calcium -250 unit Tablet 1 tab PO BEDTIME RF: 0 Follow up/Referrals: Mat Moran MD [Primary Care Provider] - Dorian John MD [Physician] - (Please follow up in 10-14 days) Provider Discharge Instructions Diet: Diet as Tolerated Activity: No excessive bending, lifting, or twisting Cold/Heat Therapy: As needed Skin/Wound/Dressing Care Report to your healthcare provider any signs of infection, such as:: chills, fever and increased pain Dressing: Dressing in place until appointment Visit Report/Discharge Packet Instructions: Hydrocodone, DI for Transforaminal Lumbar Interbody Fusion Visit Report Forms: Stroke Signs & Symptoms Discharge Data Primary Care Provider: Mat Moran Attending Provider: Dorian John Admit Date/Time: 01/12/18 06:26 Discharges patient from system. Discharge Date/Time: 01/13/18 12:38 Quality VTE Deep Vein Thrombosis/Pulmonary Embolism Present on Admission: No
[2018-01-13 15:22] LABS: Blood Urea Nitrogen 14 mg/dL (7-17); Carbon Dioxide 28 mmol/L (22-32); Chloride 98 mmol/L (98-107); Estimated Glomerular Filt Rate > 60.0 mL/min (>60); Glucose 151 mg/dL (80-110); HEMOLYSIS < 15 (0-50); Potassium 4.7 mmol/L (3.4-5.1); Sodium 135 mmol/L (137-145)
== END 2018-01-13 12:38 | disposition home or self-care (01) | DRG 455 ==
PROVIDERS: Internal Medicine; Admitting Provider Orthopaedic Surgery Orthopaedic Surgery of the Spine; PCP Internal Medicine; Visit Provider Orthopaedic Surgery Orthopaedic Surgery of the Spine
PROC: 0SG00AJ Fusion of Lumbar Vertebral Joint with Interbody Fusion Device, Posterior Approach, Anterior Column, Open Approach (ICD-10-PCS; principal; 2018-01-12 07:45)
DX: M48.061 Spinal stenosis, lumbar region without neurogenic claudication (principal); M43.16 Spondylolisthesis, lumbar region; G47.33 Obstructive sleep apnea (adult) (pediatric); I10 Essential (primary) hypertension; E78.5 Hyperlipidemia, unspecified; K21.9 Gastro-esophageal reflux disease without esophagitis; M79.7 Fibromyalgia; J45.909 Unspecified asthma, uncomplicated; Z87.891 Personal history of nicotine dependence; G25.0 Essential tremor; M48.07 Spinal stenosis, lumbosacral region; M47.27 Other spondylosis with radiculopathy, lumbosacral region; I25.10 Atherosclerotic heart disease of native coronary artery without angina pectoris
CPT/HCPCS: 36415; 72100; 76001; 80048; 85014; 85018; 94760; 97116; 97162; 97165; 97530; 97535; C1776; C9290; J0330; J0690; J1100; J1170; J2250; J2405; J2704; J3010

== ENCOUNTER 2018-01-22 10:11 | Emergency (ER) | payer MEDICARE, SELFPAY ==
[2018-01-12 13:44] VITALS: BMI 29.3
[2018-01-22 10:19] VITALS: PULSE 168; RESP 104; TEMP 36.8; O2SAT 18; BMI 29.2
--- NOTE | 2018-01-22 10:29 | PC.NURSE ---
Recent back surgery. 2 incisions to low back are clean and healing. [place] intact
--- NOTE | 2018-01-22 10:51 | ED.FEMALEGU ---
HPI - Female Genitourinary General Chief complaint: Urogenital-Female Stated complaint: FEVER Time Seen by Provider: 01/22/18 10:31 Source: patient and old records reviewed History of Present Illness HPI Narrative: Patient is a 72-year-old male who presents with painful frequent bloody urination. She thought she had a bladder infection prior to her surgery. She took 4 days of Bactrim and had a reaction to it so she stopped. She had a lumbar fusion on 01/12/2018. She had a catheter at that time and she said it was a difficult procedure. She started having weakness and fever during the night. She now has blood in her urine which is how her UTIs present. She denies any back pain numbness or tingling. She feels like her back surgery went well. MD Complaint: dysuria and UTI Related Data Home Medications Medication Instructions Recorded Confirmed [TURMERIC CURCUMIN] 500 mg PO Q DAY #0 03/18/16 01/12/18 atorvastatin [Lipitor] 40 mg PO QDAY #0 03/18/16 01/12/18 losartan 25 mg PO BID #0 03/18/16 01/12/18 acetaminophen [Tylenol Arthritis 650 mg PO Q8H PRN 12/27/17 01/12/18 Pain] calcium citrate-vitamin D3 1 tab PO BEDTIME 12/27/17 01/12/18 [Citracal + D Petites] esomeprazole magnesium [Nexium] 20 mg PO DAILY 12/27/17 01/12/18 estradiol 1 g VAGINAL DAILY PRN 12/27/17 01/12/18 metoprolol succinate 50 mg PO DAILY 12/27/17 01/12/18 Previous Rx's Medication Instructions Recorded hydrocodone-acetaminophen 1 tab PO Q4HR PRN #20 tab 01/13/18 hydroxyzine pamoate 25 mg PO Q6HR #40 cap 01/13/18 walker #1 each 01/13/18 levofloxacin 750 mg PO DAILY #7 tab 01/22/18 Allergies Allergy/AdvReac Type Severity Reaction Status Date / Time aspirin [ASPIRIN] Allergy Severe SUPRESSES Verified 01/22/18 10:19 BREATHING benazepril Allergy Severe Cough Verified 01/22/18 10:19 erythromycin base Allergy Severe RASH Verified 01/22/18 10:19 [ERYTHROMYCIN BASE] MOVING ABOUT BODY-6 MONTHS iodine Allergy Severe Couldn't Verified 01/22/18 10:19 breath, itch lisinopril Allergy Severe Cough Verified 01/22/18 10:19 oxycodone [OXYCODONE] Allergy Severe HIVES AND Verified 01/22/18 10:19 WELTS sertraline [From ZOLOFT] Allergy Severe IMPAIRED Verified 01/22/18 10:19 BALANCE NEUROLOGIST: BECAME TOXIC latex [LATEX] Allergy Intermediate BREATHING Verified 01/22/18 10:19 DIFFICULTIES rofecoxib [From VIOXX] Allergy Intermediate COULDN'T Verified 01/22/18 10:19 URINATE FOR A COUPLE OF DAYS ibuprofen Allergy Mild Impaired Verified 01/22/18 10:19 breathing, worse over time meloxicam Allergy Mild Unknown Verified 01/22/18 10:19 amlodipine Allergy Unknown Rash, Verified 01/22/18 10:19 trouble breathing, bradycardia Sulfa (Sulfonamide Allergy Unknown DON'T Verified 01/22/18 10:19 Antibiotics) REMEMBER [SULFA (SULFONAMIDE ANTIBIOTICS)] alprazolam AdvReac Severe confusion, Verified 01/22/18 10:19 stumbling, suicidal ideation diazepam [From VALIUM] AdvReac Intermediate GOT Verified 01/22/18 10:19 TERRIBLY DEPRESSED zolpidem [From Ambien] AdvReac Intermediate Slept for Verified 01/22/18 10:19 3 hours, then couldn't sleep lithium [LITHIUM] AdvReac Mild ELEVATED Verified 01/22/18 10:19 BP & DELIRIOUS simvastatin [From Zocor] AdvReac Mild Muscle Verified 01/22/18 10:19 cramps hydrochlorothiazide AdvReac Unknown DEPLETED Verified 01/22/18 10:19 [HYDROCHLOROTHIAZIDE] POTASSIUM, IN DAYS, DEHYDRATION meperidine [From Demerol] AdvReac Unknown Falling, Verified 01/22/18 10:19 my arms would flip out Review of Systems Review of Systems All systems reviewed & are unremarkable except as noted in HPI and below Constitutional Reports body ache(s), Reports chills and Reports fever(s) Cardiovascular Denies chest pain, Denies irregular heart rhythm, Denies lightheadedness, Denies palpitations, Denies dyspnea, Denies dyspnea on exertion and Denies orthopnea Respiratory Denies cough, Denies dyspnea, Denies dyspnea on exertion and Denies wheezing Gastrointestinal Gastrointestinal: Denies abdominal pain, Denies change in bowel habits, Denies diarrhea, Denies nausea and Denies vomiting Genitourinary Reports as per HPI Musculoskeletal Denies back pain, Denies muscle weakness, Denies numbness and Denies tingling Integumentary/Breasts Denies pruritus, Denies erythema, Denies rash and Denies wounds Neurologic Denies numbness and Denies tingling Endocrine Denies palpitations Allergic/Immunologic Denies wheezing PFSH Medical History ADHD (Acute) Abnormal EKG (Acute) Anemia (Acute) Anxiety disorder (Acute) Asthma (Acute) Atrophic vaginitis (Acute) Benign positional vertigo (Acute) Bruises easily (Acute) CAD (coronary artery disease) (Acute) Concussion (Acute) Disorder of left rotator cuff (Acute) Familial tremor (Acute) Fibromyalgia (Acute) Former smoker (Acute) GERD (gastroesophageal reflux disease) (Acute) History of frequent headaches (Acute) History of left heart catheterization (Acute) History of stomach ulcers (Acute) Hyperlipidemia (Acute) Hypertension (Acute) Impaired hearing (Acute) Impaired vision (Acute) Osteoarthritis (Acute) PTSD (post-traumatic stress disorder) (Acute) PVCs (premature ventricular contractions) (Acute) Palpitations (Acute) Panic attacks (Acute) Peripheral sensory neuropathy (Acute) Precancerous lesion (Acute) Shortness of breath (Acute) Spastic colon (Acute) Spinal stenosis of lumbar region at multiple levels (Acute) Spondylolisthesis at L4-L5 level (Acute) Syncope (Acute) Surgical History H/O oral surgery (Acute) H/O thumb surgery (Acute) History of appendectomy (Acute) History of colonoscopy with polypectomy (Acute) History of hernia repair (Acute) History of total abdominal hysterectomy (Acute) Social History household members: spouse Smoking Status: Former smoker alcohol intake: current Exam Initial Vital Signs Initial Vital Signs: Vital Signs Temperature 98.2 F 01/22/18 10:19 Pulse Rate 168 H 01/22/18 10:19 Respiratory Rate 104 H 01/22/18 10:19 Pulse Oximetry 18 L 01/22/18 10:19 GENERAL: Well-appearing, well-nourished and in no acute distress. HEENT: Head atraumatic,EOMI, pupils reactive, face symmetric, CARDIOVASCULAR: Regular rate and rhythm without murmurs, rubs or gallops. RESPIRATORY: Breath sounds equal bilaterally, no wheezes rales or rhonchi. ABDOMEN: Soft, nontender. Normoactive bowel sounds all 4 quadrants. No guarding or rebound. : No CVA tenderness EXTREMITIES: Normal range of motion, no clubbing or edema. Neurovascularly intact NEUROLOGICAL: Alert and oriented x4.Normal gait and speech. Cranial nerves II through XII grossly intact. SKIN: Incision site is clean and dry he has no sign of infection. She does have some mild contusions Scores qSOFA Altered Mental Status (GCS <15): No Respiratory rate greater than/equal to 22: No Systolic blood pressure less than or equal to 100: No qSOFA Total: 0 0-1 Not High Risk 1-3 High risk Course Orders Ordered: ED Orders 01/22/18 10:30 Urine Microscopic Stat 01/22/18 11:15 Complete Blood Count AUTO DIFF Stat Comprehensive Metabolic Panel Stat Lactate (Lactic Acid) Stat Procalcitonin Stat 01/22/18 11:52 XR chest 1V Stat 01/22/18 11:55 Blood Culture Stat Discontinued Medications Sodium Chloride (Normal Saline 0.9%) 1,000 mls @ 1,000 mls/hr IV CONT LINETTE Last Infusion: 01/22/18 12:19 Dose: 0 mls/hr Admin: 01/22/18 11:20 Dose: 1,000 mls/hr Ceftriaxone Sodium/Dextrose (Rocephin) 1 gm in 50 mls @ 100 mls/hr IV NOW ONE Stop: 01/22/18 12:21 Last Infusion: 01/22/18 12:22 Dose: 0 mls/hr Admin: 01/22/18 11:57 Dose: 100 mls/hr Vital Signs - 8 hr 01/22/18 10:19 01/22/18 11:30 01/22/18 12:00 Temperature 98.2 F Pulse Rate 168 H 95 H 87 Respiratory Rate 104 H 25 H 24 Blood Pressure Blood Pressure [Right Arm] 157/60 H 155/68 H Pulse Oximetry 18 L 97 97 01/22/18 12:55 01/22/18 13:03 Temperature Pulse Rate 86 90 Respiratory Rate 21 18 Blood Pressure 176/66 H Blood Pressure [Right Arm] 176/86 H Pulse Oximetry 97 97 MDM - Female Genitourinary Lab Data Result diagrams: 01/22/18 11:15 01/22/18 11:15 Lab Results 01/22/18 01/22/18 01/22/18 Range/Units 10:30 11:15 11:15 WBC 24.4 H (4.5-11.0) X10^3/uL RBC 3.15 L (4.0-5.2) X10^6/uL Hgb 10.2 L (12.0-16.0) g/dL Hct 29.8 L (36-46) % MCV 94.5 (80-100) fL MCH 32.3 (26-34) PG MCHC 34.2 (30-36) % RDW 12.4 (11.6-14.8) % Plt Count 442 H (150-400) X10^3/uL Neut % (Auto) 89.9 H (50-75) % Lymph % (Auto) 6.2 L (25-40) % [place] % (Auto) 3.6 (3-14) % Eos % (Auto) 0.0 L (2-4) % Baso % (Auto) 0.3 (0-2) % Neut # (Auto) 94646 H (0315-5389) /uL Sodium (137-145) mmol/L Potassium (3.4-5.1) mmol/L Chloride (98-107) mmol/L Carbon Dioxide (22-32) mmol/L BUN (7-17) mg/dL Creatinine (0.52-1.04) mg/dL Estimated GFR (>60) mL/min BUN/Creatinine Ratio (6-22) Glucose (80-110) mg/dL Lactate (0.7-2.1) mmol/L Calcium (8.4-10.2) mg/dL Total Bilirubin (0.2-1.3) mg/dL AST (14-36) IU/L ALT (9-52) IU/L Alkaline Phosphatase (38-126) U/L Total Protein (6.3-8.2) g/dL Albumin (3.5-5.0) g/dL Globulin (1.7-4.1) g/dL Albumin/Globulin Ratio (1.0-2.8) Procalcitonin < 0.05 (<0.5) ng/mL Urine RBC 0-1/hpf (0-5/HPF) Urine WBC None seen (0-5/HPF) Ur Squamous Epith Cells 0-1 /hpf Urine Bacteria None seen (None) Ur Culture Indicated? Cult not indicated Micro UA Comment Not Reportable 01/22/18 01/22/18 Range/Units 11:15 11:15 WBC (4.5-11.0) X10^3/uL RBC (4.0-5.2) X10^6/uL Hgb (12.0-16.0) g/dL Hct (36-46) % MCV (80-100) fL MCH (26-34) PG MCHC (30-36) % RDW (11.6-14.8) % Plt Count (150-400) X10^3/uL Neut % (Auto) (50-75) % Lymph % (Auto) (25-40) % [place] % (Auto) (3-14) % Eos % (Auto) (2-4) % Baso % (Auto) (0-2) % Neut # (Auto) (3887-4925) /uL Sodium 130 L (137-145) mmol/L Potassium 4.5 (3.4-5.1) mmol/L Chloride 92 L (98-107) mmol/L Carbon Dioxide 25 (22-32) mmol/L BUN 15 (7-17) mg/dL Creatinine 0.60 (0.52-1.04) mg/dL Estimated GFR > 60.0 (>60) mL/min BUN/Creatinine Ratio 25.0 H (6-22) Glucose 132 H (80-110) mg/dL Lactate 1.1 (0.7-2.1) mmol/L Calcium 9.7 (8.4-10.2) mg/dL Total Bilirubin 0.8 (0.2-1.3) mg/dL AST 24 (14-36) IU/L ALT 34 (9-52) IU/L Alkaline Phosphatase 106 (38-126) U/L Total Protein 8.0 (6.3-8.2) g/dL Albumin 4.7 (3.5-5.0) g/dL Globulin 3.3 (1.7-4.1) g/dL Albumin/Globulin Ratio 1.4 (1.0-2.8) Procalcitonin (<0.5) ng/mL Urine RBC (0-5/HPF) Urine WBC (0-5/HPF) Ur Squamous Epith Cells Urine Bacteria (None) Ur Culture Indicated? Micro UA Comment Urine Dip Bedside Urine Glucose Negative Bedside Urine Bilirubin - Negative Bedside Urine Ketone - Negative Urine Specific [place] 1.020 Bedside Urine Occult Blood +/- Bedside Urine pH 6.0 Bedside Urine Protein - Negative Bedside Urine Urobilinogen - Negative Bedside Urine Nitrite - Negative Bedside Urine Leukocytes - Negative Esterase MDM Narrative Medical decision making narrative: The patient has elevated white count SIRS negative but normal lactic acid normal procalcitonin. She is has signs and symptoms consistent with a UTI and blood in her urine. At this time I will treat her for UTI. She otherwise looks well and is not toxic. Discharge Plan Departure Patient Disposition: Home Clinical Impression: UTI (urinary tract infection) Discharge Date/Time: 01/22/18 13:04 Interventions: ED Discharge Assessment Last Done: 01/22/18 13:03 Instructions: DI for Urinary Tract Infection (UTI) Activity Restrictions/Additional Instructions: *You have been diagnosed with UTI *What to do: Elevated white count but other labs are within normal limits. At this time indication for outpatient antibiotics. *Continue to take medications as directed Levaquin 1 tablet once a day for 7 days *Follow up with your primary care provider in 2-3 days *Return to ER if you should have increasing fever, weakness, confusion or any new, worsening or concerning symptoms Prescriptions: New levofloxacin 750 mg tablet 750 mg PO DAILY Qty: 7 RF: 0 No Action atorvastatin [Lipitor] 40 MG tablet 40 mg PO QDAY Qty: 0 RF: 0 losartan 25 MG tablet 25 mg PO BID Qty: 0 RF: 0 [TURMERIC CURCUMIN] 500 mg PO Q DAY Qty: 0 RF: 0 metoprolol succinate 50 mg Tablet Extended Release 24 Hr 50 mg PO DAILY RF: 0 estradiol 0.01 % (0.1 mg/gram) Cream 1 g VAGINAL DAILY PRN (Reason: unknown) RF: 0 acetaminophen [Tylenol Arthritis Pain] 650 mg Tablet Extended Release 650 mg PO Q8H PRN (Reason: Pain) RF: 0 esomeprazole magnesium [Nexium] 20 mg Capsule,Delayed Release(Dr/Ec) 20 mg PO DAILY RF: 0 calcium citrate-vitamin D3 [Citracal + D Petites] 200 mg calcium -250 unit Tablet 1 tab PO BEDTIME RF: 0 hydroxyzine pamoate 25 mg Capsule 25 mg PO Q6HR Qty: 40 RF: 1 hydrocodone-acetaminophen 5-325 mg Tablet 1 tab PO Q4HR PRN (Reason: Pain, Severe (7-10)) Qty: 20 RF: 0 walker misc .ROUTE .MEDSUPPLY Qty: 1 RF: 0
[2018-01-22 11:14] LABS: Bacteria Urine None Seen; WBC Urine None Seen (0-5/HPF)
[2018-01-22] MEDS: SODIUM CHLORIDE 0.9% 1,000 ML 1000 ML IV (11:20)
[2018-01-22 11:23] LABS: Culture Indicated Urine Cult Not Indicated; RBC Urine 0-1/HPF (0-5/HPF); Squamous Epithelial Cell Urine 0-1 /HPF
[2018-01-22 11:30] VITALS: BP 157/60; PULSE 95; RESP 25; O2SAT 97
[2018-01-22 11:37] LABS: Lactate (Lactic Acid) 1.1 mmol/L (0.7-2.1)
[2018-01-22 11:41] LABS: Add Manual Diff / Slide Review NO; Alanine Aminotransferase 34 IU/L (9-52); Albumin 4.7 g/dL (3.5-5.0); Albumin Globulin Ratio 1.4 (1.0-2.8); Alkaline Phosphatase 106 U/L (38-126); Aspartate Aminotransferase 24 IU/L (14-36); Basophils Percent Auto 0.3 % (0-2); Bilirubin Total 0.8 mg/dL (0.2-1.3); Blood Urea Nitrogen 15 mg/dL (7-17); Calcium 9.7 mg/dL (8.4-10.2); Carbon Dioxide 25 mmol/L (22-32); Chloride 92 mmol/L (98-107); Estimated Glomerular Filt Rate > 60.0 mL/min (>60); Globulin 3.3 g/dL (1.7-4.1); Glucose 132 mg/dL (80-110); HEMOLYSIS < 15 (0-50); Hematocrit 29.8 % (36-46); Hemoglobin 10.2 g/dL (12.0-16.0); Lymphocytes Percent Auto 6.2 % (25-40); Mean Corpuscular HGB Conc 34.2 % (30-36); Mean Corpuscular Hemoglobin 32.3 PG (26-34); Mean Corpuscular Volume 94.5 fL (80-100); Monocytes Percent Auto 3.6 % (3-14); Neutrophils Absolute Auto 22000 /uL (3000-5900); Neutrophils Percent Auto 89.9 % (50-75); Platelet Count 442 X10^3/uL (150-400); Potassium 4.5 mmol/L (3.4-5.1); Red Blood Cell Count 3.15 X10^6/uL (4.0-5.2); Red Cell Distribution Width 12.4 % (11.6-14.8); Sodium 130 mmol/L (137-145); White Blood Cell Count 24.4 X10^3/uL (4.5-11.0)
--- NOTE | 2018-01-22 11:52 | DI.RAD.S_ITS ---
PROCEDURE: XR CHEST 1V INDICATIONS: fever TECHNIQUE: One view of the chest was acquired. COMPARISON: None. FINDINGS: Surgical changes and devices: None. Lungs and pleura: No pleural effusions or pneumothorax. Lungs are clear. Mediastinum: Mediastinal contours appear normal. Heart size is normal. Bones and chest wall: No suspicious bony lesions. Overlying soft tissues appear unremarkable. IMPRESSION: No acute cardiopulmonary disease. Dictated by: Bret Guerrero M.D. on 01/22/2018 at 12:23 Approved by: Bret Guerrero M.D. on 01/22/2018 at 12:24
[2018-01-22] MEDS: CEFTRIAXONE 1 GM/50 ML FROZ.PIGGY IV (11:57)
[2018-01-22 12:00] VITALS: BP 155/68; PULSE 87; RESP 24; O2SAT 97
[2018-01-22 12:02] LABS: Procalcitonin < 0.05 ng/mL (<0.5)
[2018-01-22 12:55] VITALS: BP 176/86; PULSE 86; RESP 21; O2SAT 97
[2018-01-22 13:03] VITALS: BP 176/66; PULSE 90; RESP 18; O2SAT 97
== END 2018-01-22 13:04 | disposition home or self-care (01) ==
PROVIDERS: Emergency Provider Emergency Medicine; PCP Internal Medicine
DX: N39.0 Urinary tract infection, site not specified (principal)
CPT/HCPCS: 36415; 36591; 71045; 80053; 81003; 81015; 83605; 84145; 85025; 87040; 96361; 96365; 99284

== ENCOUNTER → 2018-01-26 09:54 | Outpatient (CLI) | payer MEDICARE, SELFPAY ==
[2018-01-12 13:44] VITALS: BMI 29.3
--- NOTE | 2018-01-26 | DI.CT.S_ITS ---
PROCEDURE: CT ABDOMEN PELVIS W CON INDICATIONS: ABDOMINAL PAIN TECHNIQUE: After the administration of oral and intravenous contrast, 5 mm thick sections acquired from the diaphragms to the symphysis. 5 mm thick coronal and sagittal reformats were performed. For radiation dose reduction, the following was used: automated exposure control, adjustment of mA and/or kV according to patient size. COMPARISON: [facility], CT, ABDOMEN/PELVIS WITH CONTRAST, 05/21/2016, 10:13. FINDINGS: Image quality: Excellent. ABDOMEN: No acute consolidation. There is scattered atelectasis and/or scarring Heart size is normal Esophagus is grossly unremarkable Solid organs: Scattered sub-5 cm hepatic hypodensities are present, too small to characterize although grossly unchanged. Gallbladder negative. Biliary system is non-dilated. Pancreas enhances normally. Spleen is normal in size and enhancement. No adrenal nodules. Kidneys are normal in size and enhancement, without hydronephrosis. Peritoneum and bowel: Stomach, small bowel, and colon loops are normal in caliber and wall thickness. No free fluid or air. The appendix is not clearly identified however no suspicious pericecal inflammatory changes are identified. Nodes and vessels: No retroperitoneal or mesenteric adenopathy. Aorta and inferior vena cava are normal in caliber. Miscellaneous: No ventral hernias. PELVIS: Genitourinary: Bladder wall thickness is normal. Miscellaneous: No inguinal hernias or adenopathy. Bones: Lower lumbar postsurgical changes related to paraspinal janeen and pedicle screw fixation. Interbody cage graft present at the L4-L5 level. There is also posterior decompression. Hardware appears intact. No definite paravertebral fluid collection is seen given the constraints of hardware artifact. There is superficial fascial fluid and overlying edema which may be postoperative although recommend clinical correlation. IMPRESSION: Overall, no intra-abdominal or intrapelvic abnormality. The appendix is not clearly identified however no suspicious pericecal inflammatory changes are identified No evidence of bowel obstruction. Dictated by: David Melgar M.D. on 01/26/2018 at 11:24 Approved by: David Melgar M.D. on 01/26/2018 at 11:39
== END ==
PROVIDERS: Visit Provider Student in an Organized Health Care Education/Training Program
DX: R10.9 Unspecified abdominal pain (principal)
CPT/HCPCS: 74177; Q9967

== ENCOUNTER → 2018-03-01 12:25 | Outpatient (CLI) | payer MEDICARE, SELFPAY ==
[2018-01-12 13:44] VITALS: BMI 29.3
[2018-03-01 13:29] LABS: Hematocrit 33.3 % (36-46); Hemoglobin 11.4 g/dL (12.0-16.0); Mean Corpuscular HGB Conc 34.3 % (30-36); Mean Corpuscular Hemoglobin 32.5 PG (26-34); Mean Corpuscular Volume 94.8 fL (80-100); Platelet Count 364 X10^3/uL (150-400); Red Blood Cell Count 3.51 X10^6/uL (4.0-5.2); Red Cell Distribution Width 13.1 % (11.6-14.8); White Blood Cell Count 7.2 X10^3/uL (4.5-11.0)
[2018-03-01 13:43] LABS: BUN Creatinine Ratio 28.3 (6-22); Blood Urea Nitrogen 17 mg/dL (7-17); Calcium 10.2 mg/dL (8.4-10.2); Carbon Dioxide 25 mmol/L (22-32); Chloride 95 mmol/L (98-107); Estimated Glomerular Filt Rate > 60.0 mL/min (>60); Glucose 100 mg/dL (80-110); HEMOLYSIS < 15 (0-50); Sodium 134 mmol/L (137-145)
[2018-03-01 13:45] LABS: Potassium 5.4 mmol/L (3.4-5.1)
== END ==
PROVIDERS: Physician Assistant; Visit Provider Orthopaedic Surgery Orthopaedic Surgery of the Spine
DX: Z01.818 Encounter for other preprocedural examination (principal)
CPT/HCPCS: 36415; 80048; 85027

== ENCOUNTER 2018-03-20 13:02 | Inpatient (IN) | payer MEDICARE, SELFPAY ==
[2018-01-12 13:44] VITALS: BMI 29.3
[2018-03-10 12:04] VITALS: BMI 29.0
[2018-03-20] VITALS (24 sets, daily range): BP systolic 113–220; BP diastolic 44–107; PULSE 70–97; RESP 10–20; TEMP 36.3–37.3; O2SAT 91–99; BMI 29.6
--- NOTE | 2018-03-20 | DI.RAD.S_ITS ---
PROCEDURE: XR CERVICAL SPINE 2V OR 3V INDICATIONS: C4-5, C5-6 ACDF TECHNIQUE: Fluoroscopic images were obtained during an operative procedure and submitted for interpretation following the completion of the procedure. COMPARISON: Merged With [facility], MR, MR CERVICAL SPINE WO CON, 11/21/2017, 17:01. Merged With [facility], CR, XR CERVICAL SPINE 4V OR 5V, 09/20/2017, 13:34. FINDINGS: These fluoroscopic images were performed for intraoperative localization. On these images, there is placement of anterior fixation plate from C4-C6. Please correlate with intraoperative findings. Intraoperative equipment can be seen. IMPRESSION: Normal intraoperative examination. Dictated by: Sherman Corea M.D. on 03/20/2018 at 10:52 Approved by: Sherman Corea M.D. on 03/20/2018 at 10:53
[2018-03-20] MEDS: LACTATED RINGERS 1,000 ML 42 ML IV ×2 (07:12→09:22)
--- NOTE | 2018-03-20 07:22 | SUR.PREOP ---
Pt has baseline tremors. Pt also reports has numbness and tingling in both arms.
--- NOTE | 2018-03-20 07:57 | PM.PREOP ---
Pre-operative Note Interval Note Pre-op Check: Yes History & Physical Reviewed by Physician, Yes Exam Performed and Yes History & Physical exam performed today by Physician Changes: No
[2018-03-20] MEDS: CEFAZOLIN 2 GM/100 ML FROZ.PIGGY IV ×3 (08:03→23:38)
--- NOTE | 2018-03-20 08:35 | SUR.OPER ---
Supine on padded OR bed, head on gel pad, towel roll between shoulders, arm papoosed wigh gel pads, legs uncrossed, safety belt at thigh, tape over blanket over lower legs. Surgeon taped pt from shoulders to foot of bed.
[2018-03-20] MEDS: ACETAMINOPHEN IV 1,000 MG/100 ML VIAL 400 MG IV (09:34)
--- NOTE | 2018-03-20 10:24 | PM.OP.1 ---
Operative Date/Time/Diagnoses Date of procedure: 03/20/18 Time of procedure: 08:25 Pre-op diagnosis: 1. C4-5, C5-6 spinal stenosis 2. C4-5, C5-6 spondylolisthesis Post-op diagnosis: same Procedure & Clinicians Procedure: 1. C4-5, C5-6 anterior cervical diskectomy and fusion 2. C4-5, C5-6 anterior interbody cage placement 3. C4-5, C5-6 anterior instrumentation with plate and screw placement in C4-5, C5-6 vertebrae 4. Utilization of microsurgical technique and operating microscope Same procedure as scheduled: Yes Indications: Patient has been having chronic neck pain and worsening cervical radiculopathy. Patient failed multiple conservative management with worsening pain weakness and numbness in her upper extremity. Patient has been having difficulty performing activity of daily living. After discussing risks benefits of treatment options, patient elected proceed with surgery. Surgeon: Dorian John Licensed Optical Dispenser: Alexsandra Avery Click Yes if Unassisted: No Anesthesia Type: General Operative Notes Closure Type: primary Specimen(s): none sent Implants & Drains: Globus Extend plate, PEEK cages Estimated Blood Loss (mL): 50 Blood products transfused: none Procedure in detail: Patient was seen in the preoperative area. Risks and benefits of the surgery was discussed with the patient. Operative consent was obtained and placed in the chart. Patient was then taken to the operative room. Prophylactic antibiotic was given less than 0.5 hr prior to skin incision. General anesthesia was administered. Patient was placed into a supine position on her radiolucent table. Bilateral shoulders were taped down to allow proper C-arm imaging. Anterior cervical area was prepped and draped in a sterile fashion. Time-out was performed at this time. Using lateral C-arm imaging, the level between C4-5, C5-6 was identified and marked on patient's neck. A oblique incision from midline towards medial border of sternocleidomastoid muscle was made. The platysma muscle was incised in line with skin incision. Metzenbaum scissor was used to develop the plane between the medial border of sternocleidomastoid d and the strap muscles medially. The carotid sheath and its contents were identified and protected behind the hand-held retractor during the entire case. The plane between the carotid sheath and strap muscles was developed with Metzenbaum scissors. Dissection was made down to the level of the anterior cervical fascia. Longus colli muscle was incised on the anterior aspect of vertebral bodies bilaterally from C4-5, C5-6. Spinal needle was placed into the C5-6 disc space and confirmed with lateral C-arm imaging. Using microsurgical technique and operative microscope, anterior cervical diskectomy was performed at C4-5, C5-6 level. This was done by removing the disc material, removing the anterior and posterior osteophytes posterior longitudinal ligaments along with performing bilateral foraminotomies at both levels. Patient was found to have severe central and foraminal stenosis at both levels. Patient's stenosis was fully decompressed after decompression was completed. After the diskectomy was completed, 2 anterior interbody cages were obtained. The cages were packed with globus via cell bone grafting material. One cage each along with the bone grafting material was then packed into the interbody spaces from C4-5, C5-6 with one cage into each interbody level. After the cages were placed, the anterior cervical plate was stabilized to the C4-5, C5-6 vertebrae using 2 screws at each each level. Total 6 screws were placed. After confirming placement of the hardware with AP and lateral C-arm imaging, the screws were locked into the plate using the locking mechanism and torque limiting screwdriver. After the hardware was placed and confirmed with AP and lateral C-arm imaging, the wound was irrigated with sterile normal saline. The platysma muscle and the subcutaneous tissue was closed with 2-0 Vicryl. The skin was closed with 4-0 Monocryl and Steri-Strips. Patient tolerated the procedure well. Patient was transferred recovery room in stable condition. There were no complications. Complications: none Condition: stable Disposition: other Plan for aftercare: Admit to hospital for over night
[2018-03-20] MEDS: hydrOXYzine 50 MG/ML INJ 25 MG IM (10:50)
[2018-03-20] MEDS: METOPROLOL TARTRATE 5 MG/5 ML INJ IV (10:52)
[2018-03-20] MEDS: fentaNYL 100 MCG/2 ML INJ 50 MCG IV ×2 (10:55→11:28)
[2018-03-20] MEDS: HYDRALAZINE 20 MG/ML VIAL 5 MG IV (11:16)
--- NOTE | 2018-03-20 11:17 | SUR.PHASEI ---
DR BOSTON IN TO SEE PT REGARDING HIGH BP, WILL CONTINUE TO MEDICATE AND OBSERVE PT. PT ABLE TO DOZE OFF TO SLEEP, C/O PAIN IN NECK, ICE PACK TO NECK , SOFT COLLAR ON DRESSING REMAINS DRY AND INTACT, NO SWELLING NOTED AROUND INCISION SITE, PT TOLERATING PO ICE CHIPS, CPAP ON PT IS SLEEPY.
--- NOTE | 2018-03-20 11:22 | SUR.PHASEI ---
REPORT OFF TO YOON KOEHLER
--- NOTE | 2018-03-20 11:33 | SUR.PREOP ---
Pt. currently having difficulty getting comfortable with neck brace inplace. This author/RN placed a rolled towel behind pt. neck and one just behind pt. head, slight improvement but still trying to get comfortable.
[2018-03-20] MEDS: HYDROMORPHONE 2 MG INJ 0.5 MG IV ×2 (11:59→12:06)
[2018-03-20] MEDS: ONDANSETRON 4 MG/2 ML INJ IV (12:02)
--- NOTE | 2018-03-20 14:48 | PT.IPTN ---
Current Diagnoses Spondylolisthesis, cervical region (03/20/18) Other spondylosis with radiculopathy, cervical region (03/20/18) Spinal stenosis, cervical region (03/20/18) Surgery Performed Operation Date: 03/20/18 07:45 Actual Procedures p C4-5, C5-6 ACDF w/Anterior Instru. - Dorian John MD Physical Therapy Treatment Note Notes RN reports pt is having high pain levels at the moment and is unable to handle stronger pain meds. RN recommends pt not participate in PT until tomorrow.
--- NOTE | 2018-03-20 14:56 | PC.NURSE ---
Pt to floor from PACU following ant cervical fusion. Dressing to ant neck CDI. Pt anxious about C-PAP - RT called to advise staff cannot change settings. Set up so that O2 bleeds through it. Wearing her mask at this time. Got up with 2 person assist and voided 850 cc of urine. C/of dizziness but pt remains hypertensive. Plan to advise surgeon to order prn meds.
[2018-03-20] MEDS: LOSARTAN 25 MG TABLET PO (16:35)
[2018-03-20] MEDS: ACETAMINOPHEN 325 MG TABLET 975 MG PO ×2 (16:57→23:37)
[2018-03-20] MEDS: ATORVASTATIN 20 MG TABLET 40 MG PO (21:04)
[2018-03-20] MEDS: DOCUSATE 100 MG CAPSULE PO (21:04)
[2018-03-20] MEDS: SENNOSIDES 8.6 MG TABLET 17.2 MG PO (21:04)
[2018-03-20] MEDS: SODIUM CHLORIDE 0.9% 1,000 ML 100 ML IV ×2 (22:12)
--- NOTE | 2018-03-20 22:15 | PC.NURSE ---
kyara shift- assumed care of pt from outgoing shift at 1500. PA in to assess pt about high bp and new orders written. Pt frequently asks about meds and when they are due even though discussed and pt verbalized understanding. Pt in and helping with dinner. Pt compliant and voids at [facility]. up with SBA and walker to br to void as well. asking for Tylenol and ice. given per request. 2200- Pt uses call light. bed alarm on. pt has some anxiety about medications she is taking and keeps making sure doses are correct and states that she takes only what she will want and that shes worried we are giving her too much medication. Pt also worried about CPAP and oxygen saturation. continuous pulse ox on as per order. discussed with pt her tylenol orders and doses and frequency as she stated that the doctor earlier had her taking too much so she was worried. then she forgot that we had changed it. and that she takes something different at home for the arthritis. pt refuses narcotics and felt very groggy from the Vistaril she got post op. Pt had a sore throat but once she drank a little more that seemed to get better. pt does take her time drinking/eating. will continue to monitor pt for safety.
[2018-03-21] VITALS: O2SAT 97
[2018-03-21 04:55] VITALS: BP 162/84; PULSE 80; RESP 16; TEMP 36.9; O2SAT 98
[2018-03-21] MEDS: ACETAMINOPHEN 325 MG TABLET 975 MG PO (05:34)
[2018-03-21 05:56] LABS: Hematocrit 30.2 % (36-46)
--- NOTE | 2018-03-21 07:16 | PM.DS.1 ---
History of Present Illness Date Patient Seen: 03/21/18 Time Patient Seen: 07:25 Chief complaint: [id number] C4-5 C5-6 ACDF Narrative: Patient seen bedside s/p C4-5, C5-6 ACDF on 03/20/[address] John. Patient is doing well, she is more awake and less anxious. She has been taking tylenol only for her pain. She did have a dose of vistaril but it made her feel sleepy. Her blood pressure has improved since yesterday. She no longer has a diastolic of >100. She denies any numbness/tingling into the UE, no SOB, CP. Her throat is a little sore. Discharge Providers Date of admission: 03/20/18 06:03 Consults: 03/20/18 12:25 Consult to Occupational Therapy Evaluate & Treat Comment: Physician Instructions: Evaluate and treat Consult to Physical Therapy Evaluate & Treat Comment: Physician Instructions: Evaluate and Treat 03/20/18 12:54 Consult to Pastoral Services Routine Comment: would like to have prayers 03/20/18 15:23 Consult to Respiratory Therapy Evaluate & Treat Comment: Physician Instructions: Evaluate and treat Discharge provider: Amber Lopez PA-C Discharge Date: 03/21/18 Summary Discharge Diagnosis: 1. C4-5, C5-6 spinal stenosis 2. C4-5, C5-6 spondylolisthesis Hospital Course: Patient was admitted s/p C4-5, C5-[address] John on 03/20/18. Patient tolerated the procedure well with no major complications except for a spike in her blood pressure in the PACU. She was given IV hydralazine which had the desired effect. She was transferred to the acute care floor where she continued to have hypertension. She was given her home dose of Losartan as well as PRN PO hydralazine and her pressure improved. Her blood pressure was stable overnight. She was seen by PT and recommended for discharge home on 03/21/18. She was discharged with a prescription for vistaril only per patient request. Status at Discharge Cognitive/behavioral status at discharge: Alert & oriented x3 Functional status at discharge: independent ambulation Overall status at discharge: patient is progressing back to baseline Time Spent with Patient Less than 30 minutes Exam Vital Signs (past 8 hours): - 03/20/18 23:25 03/21/18 00:00 03/21/18 04:55 Temperature 99.2 F 98.4 F Pulse Rate 85 80 Respiratory Rate 16 16 Blood Pressure 187/82 H 162/84 H Pulse Oximetry 97 97 98 Oxygen Delivery Method CPAP Oxygen Flow Rate 0 Narrative Exam Narrative: WDWN NAD A&OX3. Dressing on anterior neck is CDI with minimal swelling. No focal deficits noted in upper extremities, pulses present. Objective Labs Result Diagrams: 03/21/18 05:08 Labs: Laboratory Results - last 24 hr 03/21/18 05:08 Hgb 10.0 L Hct 30.2 L Discharge Plan Discharge Plan Patient Disposition: Home Discharge Med Rec/Prescriptions Prescriptions: New hydroxyzine pamoate 25 mg Capsule 25 mg PO Q4HR PRN (Reason: Nausea And Vomiting) Qty: 60 RF: 0 Continue atorvastatin [Lipitor] 40 MG tablet 40 mg PO QDAY Qty: 0 RF: 0 losartan 25 MG tablet 25 mg PO BID Qty: 0 RF: 0 metoprolol succinate 50 mg Tablet Extended Release 24 Hr 50 mg PO DAILY RF: 0 estradiol 0.01 % (0.1 mg/gram) Cream 1 g VAGINAL DAILY PRN (Reason: unknown) RF: 0 acetaminophen [Tylenol Arthritis Pain] 650 mg Tablet Extended Release 1,300 mg PO Q8H PRN (Reason: Pain) RF: 0 esomeprazole magnesium [Nexium] 20 mg Capsule,Delayed Release(Dr/Ec) 20 mg PO DAILY RF: 0 calcium citrate-vitamin D3 [Citracal + D Petites] 200 mg calcium -250 unit Tablet 1 tab PO BEDTIME RF: 0 walker misc .ROUTE .MEDSUPPLY Qty: 1 RF: 0 Provider Discharge Instructions Diet: Diet as Tolerated Activity: Weightbearing as tolerated, limit turning head, wear soft collar, no lifting greater than 10 lbs. Cold/Heat Therapy: Apply ice 10 minutes at a time as needed for swelling/pain. Other treatments: May use Chloraseptic spray as needed for sore throat Skin/Wound/Dressing Care Report to your healthcare provider any signs of infection, such as:: chills, fever, night sweats, increased pain and unusual drainage Dressing: Keep surgical dressing clean, dry, and intact until 1st post-op visit. Visit Report/Discharge Packet Instructions: DI for Anterior Cervical Discectomy and Fusion Visit Report Forms: Stroke Signs & Symptoms Discharge Data Attending Provider: Dorian John Admit Date/Time: 03/20/18 06:03 Discharges patient from system. Discharge Date/Time: 03/21/18 10:23 Quality VTE Deep Vein Thrombosis/Pulmonary Embolism Present on Admission: No
[2018-03-21 07:45] VITALS: BP 151/76; PULSE 69; RESP 18; TEMP 36.6; O2SAT 95
[2018-03-21] MEDS: LOSARTAN 25 MG TABLET PO (08:38)
[2018-03-21] MEDS: DOCUSATE 100 MG CAPSULE PO (08:39)
[2018-03-21] MEDS: PANTOPRAZOLE 20 MG TABLET PO (08:39)
[2018-03-21] MEDS: METOPROLOL ER 50 MG TABLET PO (08:39)
--- NOTE | 2018-03-21 08:47 | PT.IIE ---
Current Diagnoses Anxiety disorder, unspecified (03/20/18) Obstructive sleep apnea (adult) (pediatric) (03/20/18) Spondylolisthesis, cervical region (03/20/18) Other spondylosis with radiculopathy, cervical region (03/20/18) Spinal stenosis, cervical region (03/20/18) Surgery Performed Operation Date: 03/20/18 07:45 Actual Procedures p C4-5, C5-6 ACDF w/Anterior Instru. - Dorian John MD Surgical History (Last Updated 03/10/18 @ 12:40 by Laisha Peck, RN) H/O oral surgery (Acute) H/O thumb surgery (Acute) History of appendectomy (Acute) History of breast biopsy (Acute) History of colonoscopy with polypectomy (Acute) History of hernia repair (Acute) History of total abdominal hysterectomy (Acute) Medical History (Last Updated 03/10/18 @ 12:40 by Laisha Peck, RN) ADHD (Acute) Abnormal EKG (Acute) Anemia (Acute) Anxiety disorder (Acute) Asthma (Acute) Atrophic vaginitis (Acute) Benign positional vertigo (Acute) Bruises easily (Acute) CAD (coronary artery disease) (Acute) Cervical spinal stenosis (Acute) Concussion (Acute) Disorder of left rotator cuff (Acute) Familial tremor (Acute) Fibromyalgia (Acute) Former smoker (Acute) Fracture (Acute) GERD (gastroesophageal reflux disease) (Acute) History of endometriosis (Acute) History of frequent headaches (Acute) History of left heart catheterization (Acute) History of stomach ulcers (Acute) Hyperlipidemia (Acute) Hypertension (Acute) Impaired hearing (Acute) Impaired vision (Acute) Leg weakness (Acute) Lumbar pain (Acute) Lumbar spinal stenosis (Acute) Osteoarthritis (Acute) Osteomyelitis (Acute) PTSD (post-traumatic stress disorder) (Acute) PVCs (premature ventricular contractions) (Acute) Palpitations (Acute) Panic attacks (Acute) Peripheral sensory neuropathy (Acute) Precancerous lesion (Acute) Shortness of breath (Acute) Sleep apnea treated with nocturnal BiPAP (Acute) Spastic colon (Acute) Spinal stenosis of lumbar region at multiple levels (Acute) Spondylolisthesis at L4-L5 level (Acute) Stenosis of right carotid artery (Acute) Syncope (Acute) Physical Therapy Inpatient Evaluation/Re-Eval M1 PT/OT-IP Prior Functional Status Start: 03/20/18 14:47 Freq: NEEDED Status: Active Protocol: Document 03/21/18 08:20 AMB (Rec: 03/21/18 08:47 AMB [email or web address]) Medical Review Prior Functional Status Medical History Reviewed Yes Mobility and Gait Recent lumbar surgery Social History Household Members spouse Living Arrangements RV Number of Stairs To Enter/Railing? 5 stairs into the RV with a handle, 3 steps into bedroom without (but has a wall). Home Environment Standard Height Toilet Employment Status Retired Additional Social History Comment Lives with who will be available 15/11. M2 PT-IP Current Condition Start: 03/20/18 14:47 Freq: NEEDED Status: Active Protocol: Document 03/21/18 08:20 AMB (Rec: 03/21/18 08:47 AMB [email or web address]) Physical Therapy Current Condition Current Condition Evaluation Date 03/21/18 Treatment Diagnosis s/p C4-5, C5-6 anterior diskectomy and fusion Onset Date 03/20/18 Precautions Cervical Spine Precautions Soft Collar for Comfort Soft Collar at all Times No Heavy Lifting Log Roll Weight Bearing Status Weight Bearing Status Full Weight Bearing M3 PT-IP Subjective Start: 03/20/18 14:47 Freq: NEEDED Status: Active Protocol: Document 03/21/18 08:20 AMB (Rec: 03/21/18 08:47 AMB [email or web address]) Subjective Physical Therapy Visit Type Type Initial Evaluation Visit Start Time 07:45 Visit Stop Time 08:10 Total Visit Minutes 25 Physical Therapy Visit Comments Patient Comments Pt is up from bathroom when PT enters. Not using assistive device. Patient Goals Go home with . Therapy Pain Assessment Pain When Pain Assessed At Rest Pain Present Pain Present Pain Reported Location Neck Intensity 2 Scale Used Numeric (1 - 10) M4 PT-IP Mobility and Gait Start: 03/20/18 14:47 Freq: NEEDED Status: Active Protocol: Document 03/21/18 08:20 AMB (Rec: 03/21/18 08:47 AMB [email or web address]) PT-Bed Mobility Assessment Rolling Type of Rolling Log Rolling Level of Assist Independent Supine to Sit Supine to Sit Independent Sit to Supine Sit to Supine Independent PT-Transfer Assessment Sit to and From Stand Sit to and from Stand Independent Equipment Transfer Assistive Device None Transfers Transfer Destination Chair Gait Assessment Gait Gait Assistance Required: Independent Distance (Feet) 400 Assistive Devices Assistive Device None Gait Deviations General Gait Pattern Decreased Stride Length Decreased Feet Clearance Factors Limiting Gait Function Factors Limiting Gait Function Pain Stair Climbing Assessment Evaluation Level of Assist On Stairs Standby Assistance Devices Stair Climbing Assistive Devices Right Railing Technique/Endurance Stair Climbing Direction Ascend and Descend Stair Climbing Technique Step to Step Stair Climbing Set # Repetitions (reps) 2 PT-Balance Assessment Sitting Balance and Reactions Static Sitting Balance Ability Normal Dynamic Sitting Balance Ability Normal Standing Balance and Reactions Static Standing Balance Ability Good Dynamic Standing Balance Ability Good M5 PT-IP Objective Assessments Start: 03/20/18 14:47 Freq: NEEDED Status: Active Protocol: Document 03/21/18 08:20 AMB (Rec: 03/21/18 08:47 AMB [email or web address]) Sensation Assessment Comments Sensation Comments bilateral hand numbness M6 PT-IP Treatment Start: 03/20/18 14:47 Freq: NEEDED Status: Active Protocol: Document 03/21/18 08:20 AMB (Rec: 03/21/18 08:47 AMB [email or web address]) Physical Therapy Treatment Education Education Provided Precautions M7 PT-IP Assessment and Plan Start: 03/20/18 14:47 Freq: NEEDED Status: Active Protocol: Document 03/21/18 08:20 AMB (Rec: 03/21/18 08:47 AMB [email or web address]) PT Summary Assessment and Plan Potential Rehabilitation Potential Good Status of Condition at Evaluation Stable Summary Impairments Pain Activity Tolerance Assessment Summary The patient attends s/p cervical fusion. She was able to independently ambulate and ascend and descend stairs. Her will be able to assist her at home and she has outpatient therapy set up. She is cleared for discharge home when medically stable. Goals Bed Mobility Goal Independent Transfer Goal Independent Gait Goal Independent Frequency of Treatment Frequency Of Treatment Discharge Recommendations To Nursing Amount of Assist Needed Standby Assistance Discharge Recommendations PT Discharge Recommendations Home with Assistance
--- NOTE | 2018-03-21 09:19 | OT.IP.EVAL ---
Current Diagnoses Anxiety disorder, unspecified (03/20/18) Obstructive sleep apnea (adult) (pediatric) (03/20/18) Spondylolisthesis, cervical region (03/20/18) Other spondylosis with radiculopathy, cervical region (03/20/18) Spinal stenosis, cervical region (03/20/18) Surgery Performed Operation Date: 03/20/18 07:45 Actual Procedures p C4-5, C5-6 ACDF w/Anterior Instru. - Dorian John MD Past Medical History (Last Updated 03/10/18 @ 12:40 by Laisha Peck, RN) ADHD (Acute) Abnormal EKG (Acute) Anemia (Acute) Anxiety disorder (Acute) Asthma (Acute) Atrophic vaginitis (Acute) Benign positional vertigo (Acute) Bruises easily (Acute) CAD (coronary artery disease) (Acute) Cervical spinal stenosis (Acute) Concussion (Acute) Disorder of left rotator cuff (Acute) Familial tremor (Acute) Fibromyalgia (Acute) Former smoker (Acute) Fracture (Acute) GERD (gastroesophageal reflux disease) (Acute) History of endometriosis (Acute) History of frequent headaches (Acute) History of left heart catheterization (Acute) History of stomach ulcers (Acute) Hyperlipidemia (Acute) Hypertension (Acute) Impaired hearing (Acute) Impaired vision (Acute) Leg weakness (Acute) Lumbar pain (Acute) Lumbar spinal stenosis (Acute) Osteoarthritis (Acute) Osteomyelitis (Acute) PTSD (post-traumatic stress disorder) (Acute) PVCs (premature ventricular contractions) (Acute) Palpitations (Acute) Panic attacks (Acute) Peripheral sensory neuropathy (Acute) Precancerous lesion (Acute) Shortness of breath (Acute) Sleep apnea treated with nocturnal BiPAP (Acute) Spastic colon (Acute) Spinal stenosis of lumbar region at multiple levels (Acute) Spondylolisthesis at L4-L5 level (Acute) Stenosis of right carotid artery (Acute) Syncope (Acute) Surgical History (Last Updated 03/10/18 @ 12:40 by Laisha Peck RN) H/O oral surgery (Acute) H/O thumb surgery (Acute) History of appendectomy (Acute) History of breast biopsy (Acute) History of colonoscopy with polypectomy (Acute) History of hernia repair (Acute) History of total abdominal hysterectomy (Acute) Occupational Therapy Inpatient Evaluation/Re-Eval M1 PT/OT-IP Prior Functional Status Start: 03/21/18 17:32 Freq: NEEDED Status: Active Protocol: Document 03/21/18 09:19 PJM (Rec: 03/21/18 17:45 PJ [id number]) Medical Review Prior Functional Status Medical History Reviewed Yes Diet/Fluid Consistency Regular Communication WNL Mobility and Gait Recent lumbar surgery 12/2017 but fully recovered per pt; pt ambulating without a device Activities of Daily Living and IADL's Independent with all self care , IADLS, driving Social History Household Members spouse Living Arrangements RV Number of Stairs To Enter/Railing? 5 stairs into the 43 ft RV with a handle, 3 steps into bedroom without (but has a door jamb). Home Environment Standard Height Toilet Walk in Shower Built-In Shower Seat Employment Status Retired Additional Social History Comment Lives with who will be available 15/11. M2 OT-IP Current Condition Start: 03/21/18 17:32 Freq: Status: Active Protocol: Document 03/21/18 09:19 PJM (Rec: 03/21/18 17:45 PJ [id number]) Occupational Therapy Current Condition Current Condition Evaluation Date 03/21/18 Treatment Diagnosis C4-6 ACDF Diagnosis Onset Date 03/20/18 Post Operative Precautions Cervical Spine Precautions Soft Collar for Comfort Soft Collar at all Times No Heavy Lifting Log Roll Weight Bearing Status Weight Bearing Status Full Weight Bearing M3 OT- IP Subjective and Pain Start: 03/21/18 17:32 Freq: Status: Active Protocol: Document 03/21/18 09:19 PJM (Rec: 03/21/18 17:45 PJM [id number]) OT- Subjective Occupational Therapy Visit Type Type Initial Evaluation Visit Start Time 08:50 Visit Stop Time 09:19 Total Visit Minutes 29 Occupational Therapy Visit Comments Patient Comments My is on his way here. Patient/Caregiver Goals to go home today OT Pain Assessment Pain When Pain Assessed After Treatment Pain Present Pain Present Pain Reported Location Neck Intensity 1 Scale Used sore throat Description Aching Acute M4 OT- IP ADL's Start: 03/21/18 17:32 Freq: Status: Active Protocol: Document 03/21/18 09:19 PJM (Rec: 03/21/18 17:45 PJ [id number]) OT [id number] General Evaluation Self-Feeding Ability Independent Comments OT Self-Feeding Comments recommended soft foods to pt OT ADL-Grooming General Evaluation Grooming Ability Independent Areas Needing Assistance Combing/Brushing Hair Face Washing Comments OT Grooming Comments standing at sink after education re: body mechanics OT ADL-Oral Care General Eval Oral Care Ability Independent Areas of Assistance Brushing Teeth Comments Oral Care Comments standing at sink after education re: body mechanics OT ADL-Dressing General Eval Upper Body Dressing Ability Independent Lower Body Dressing Ability Independent Areas Needing Assistance Pull-Over Shirt Pants/Shorts Socks Shoes Comments OT Dressing Comments wears slip on shoes; 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 Provided education re: methods to keep incision dry. M5 OT- IP IADL's Start: 03/21/18 17:32 Freq: Status: Active Protocol: Document 03/21/18 09:19 PJ (Rec: 03/21/18 17:45 [facility] [id number]) OT-Instrumental Activities of Daily Living Deficits IADL Deficits Identified Deficits Home Safety Awareness Awareness of Need for Assistance at Home Good Awareness Ability to Problem Solve Emergency Able to Problem Solve Situations Medication Management Medication Management No Deficits Identified Money Management Money Management No Deficits Identified Meal Preparation Meal Preparation Caregiver Provides Assist Meal Preparation Comments to assist until pt able Manufacturing Team Leader Manufacturing Team Leader Caregiver Provides Assist Manufacturing Team Leader Comments to assist until pt able Driving Driving Caregiver Provides Assist Driving Comments to assist until pt able M6 OT- IP Functional Cognition Start: 03/21/18 17:32 Freq: Status: Active Protocol: Document 03/21/18 09:19 PJM (Rec: 03/21/18 17:45 [facility] [id number]) Cognitive Factors Limiting Selfcare Function Cognitive Ability Level of Alertness Alert Patient Orientation Name Age Birthday Month Date Year Day of Week Place Situation Attention Span Ability Capable of Focused Attention Capable of Sustained Attention Ability to Follow Commands Able to Follow Multi-Step Commands Memory Description No Deficits Noted Safety Awareness No Deficits Noted Problem Solving Ability No deficits Noted Executive Function Ability No Deficits Noted Abstract Thinking Ability No Deficits Noted OT- Vision and Hearing OT- Hearing Assessment OT- Hearing Assessment WFL OT- Vision Assessment Visual Acuity WFL Vision Assessment Comments Pt denies any recent vision changes. M7 OT- IP Mobility and Balance Start: 03/21/18 17:32 Freq: Status: Active Protocol: Document 03/21/18 09:19 PJ (Rec: 03/21/18 17:45 [facility] NR) OT-Transfer Assessment Sit to and From Stand Sit to and from Stand Independent Transfers Transfer Ability Independent Technique Transfer Destination Chair Transfer Technique Stand Step Pivot Comments Mobility Comments Pt up in chair when therapist arrived. OT- Gait Assessment Gait Gait Assistance Required: Independent Comments Gait Ability Comments pt up in room ad akin without a device OT- Balance Assessment Sitting Balance and Reactions Static Sitting Balance Ability Good Dynamic Sitting Balance Ability Good Standing Balance and Reactions Static Standing Balance Ability Good Dynamic Standing Balance Ability Good M8 OT- IP Objective Assessments Start: 03/21/18 17:32 Freq: Status: Active Protocol: Document 03/21/18 09:19 PJ (Rec: 03/21/18 17:45 [facility] NR) OT Gross Range of Motion Upper Extremity Range of Motion Assessment Within Functional Limits ROM Impairments within C spine precautions OT Strength Upper Extremity Strength Assessment Within Functional Limits Hand Bark Scaler Strength Hand Dominance Right Comments Strength Comments strength not formally tested due to recent C spine surgery OT- Coordination Assessment Upper Extremity Finger to Nose Test Within Functional Limits Finger Tapping Test Within Functional Limits OT-Muscle Tone Assessment Muscle Tone WNL Yes OT Sensation Assessment Comments Summary Comments Pt reports episodes of tingling down BUE's into finders (not thumbs), but none of these symptoms since surgery. Edema Edema Absent M9 OT- IP Assessment and Plan Start: 03/21/18 17:32 Freq: Status: Active Protocol: Document 03/21/18 09:19 PJ (Rec: 03/21/18 17:45 [facility] NR) OT Summary Assessment and Plan Potential Rehabilitation Potential Excellent Analytic Complexity at Evaluation Low Summary Progress Towards Goals Safe For Discharge Assessment Summary Low complexity OT assessment and all OT education completed in one session with emphasis on C spine precautions. Pt familiar with some adapted self care techniques from recent lumbar surgery 2 months ago. Pt plans to d/c home today with 24 hr assist from supportive . No further OT services needed. Frequency of Treatment Frequency Of Treatment Discharge Discharge Recommendations OT Discharge Recommendations Home with 24/7 Assist
== END 2018-03-21 10:23 | disposition home or self-care (01) | DRG 473 ==
LOC: AC 03-21 07:14 → OR 03-21 14:14 → AC 03-21 14:19 → OR 03-21 14:19
PROVIDERS: Admitting Provider Orthopaedic Surgery Orthopaedic Surgery of the Spine; Visit Provider Orthopaedic Surgery Orthopaedic Surgery of the Spine
PROC: 0RG20A0 Fusion of 2 or more Cervical Vertebral Joints with Interbody Fusion Device, Anterior Approach, Anterior Column, Open Approach (ICD-10-PCS; principal; 2018-03-20 07:45)
DX: M47.22 Other spondylosis with radiculopathy, cervical region (principal); M48.02 Spinal stenosis, cervical region; M43.12 Spondylolisthesis, cervical region; G47.33 Obstructive sleep apnea (adult) (pediatric); I10 Essential (primary) hypertension; E78.5 Hyperlipidemia, unspecified; K21.9 Gastro-esophageal reflux disease without esophagitis; M79.7 Fibromyalgia; Z87.891 Personal history of nicotine dependence; J45.909 Unspecified asthma, uncomplicated
CPT/HCPCS: 36415; 72040; 76001; 85014; 85018; 97161; 97165; 97535; C1776; J0131; J0330; J0360; J0690; J1100; J1170; J2250; J2405; J2704; J3010; J3410

== ENCOUNTER 2018-03-28 21:25 | Emergency (ER) | payer MEDICARE, SELFPAY ==
[2018-03-20 12:38] VITALS: BMI 29.6
[2018-03-28 21:36] VITALS: BP 199/96; PULSE 90; RESP 18; TEMP 36.9; O2SAT 100; BMI 28.8
--- NOTE | 2018-03-28 21:38 | DI.RAD.S_ITS ---
PROCEDURE: XR CHEST 1V INDICATIONS: chest pain, HTN emergency TECHNIQUE: One view of the chest was acquired. COMPARISON: [facility], CR, XR CHEST 1V, 01/22/2018, 11:59. FINDINGS: Surgical changes and devices: Post-fusion hardware in lower cervical spine is seen. Lungs and pleura: No pleural effusions or pneumothorax. Lungs are clear. Mediastinum: Mediastinal contours appear normal. Heart size is enlarged. Bones and chest wall: No suspicious bony lesions. Overlying soft tissues appear unremarkable. IMPRESSION: No acute cardiopulmonary pathology. Dictated by: Jacoby Gorman M.D. on 03/28/2018 at 21:55 Approved by: Jacoby Gorman M.D. on 03/28/2018 at 21:56
--- NOTE | 2018-03-28 22:06 | DI.CT.S_ITS ---
PROCEDURE: CT HEAD/BRAIN WO CON INDICATIONS: BOYCE, RUE weakness, HTN emergency TECHNIQUE: Noncontrast 4.5 mm thick angled axial sections acquired from the foramen magnum to the vertex, with coronal and sagittal reformats. For radiation dose reduction, the following was used: automated exposure control, adjustment of mA and/or kV according to patient size. COMPARISON: [facility], CT, CT ANGIO HEAD AND NECK, 03/28/2018, 22:55. FINDINGS: Image quality: Excellent. CSF spaces: Basal cisterns are patent. No extra-axial fluid collections. The ventricles are symmetric in size and shape. Brain: No intracranial bleeds or masses. There is mild cerebral volume loss for age, with resultant ventricular and sulcal prominence. There are mild periventricular and deep white matter chronic small vessel ischemic changes. Skull and face: Calvarium and visualized facial bones appear intact, without suspicious lesions. Sinuses: Visualized sinuses and mastoids are clear. IMPRESSION: No acute intracranial disease process. Dictated by: Patria Burr MD, PhD on 03/29/2018 at 7:24 Approved by: Patria Burr MD, PhD on 03/29/2018 at 7:27
[2018-03-28] MEDS: SODIUM CHLORIDE 0.9% 1,000 ML 150 ML IV (22:10)
[2018-03-28 22:11] LABS: Add Manual Diff / Slide Review NO; Basophils Percent Auto 0.6 % (0-2); Eosinophils Percent Auto 0.6 % (2-4); Hemoglobin 12.4 g/dL (12.0-16.0); Lymphocytes Percent Auto 26.4 % (25-40); Mean Corpuscular HGB Conc 33.6 % (30-36); Mean Corpuscular Hemoglobin 31.8 PG (26-34); Mean Corpuscular Volume 94.6 fL (80-100); Monocytes Percent Auto 7.5 % (3-14); Neutrophils Absolute Auto 7600 /uL (3000-5900); Neutrophils Percent Auto 64.9 % (50-75); Platelet Count 468 X10^3/uL (150-400); Red Blood Cell Count 3.91 X10^6/uL (4.0-5.2); Red Cell Distribution Width 13.4 % (11.6-14.8); White Blood Cell Count 11.7 X10^3/uL (4.5-11.0)
[2018-03-28 22:19] LABS: Alanine Aminotransferase 29 IU/L (9-52); Albumin Globulin Ratio 1.4 (1.0-2.8); Alkaline Phosphatase 74 U/L (38-126); Aspartate Aminotransferase 22 IU/L (14-36); BUN Creatinine Ratio 31.7 (6-22); Bilirubin Total 0.7 mg/dL (0.2-1.3); Blood Urea Nitrogen 19 mg/dL (7-17); Carbon Dioxide 24 mmol/L (22-32); Chloride 87 mmol/L (98-107); Creatine Kinase 33 U/L (30-135); Estimated Glomerular Filt Rate > 60.0 mL/min (>60); Globulin 3.5 g/dL (1.7-4.1); Glucose 132 mg/dL (80-110); HEMOLYSIS < 15 (0-50); Lipase 169 U/L (23-300); Sodium 127 mmol/L (137-145); Total Protein 8.5 g/dL (6.3-8.2)
[2018-03-28 22:32] VITALS: BP 173/87; PULSE 81; RESP 18; O2SAT 99
[2018-03-28 22:40] LABS: Troponin I < 0.012 ng/mL (0.01-0.034)
--- NOTE | 2018-03-28 22:58 | DI.CT.S_ITS ---
PROCEDURE: CT ANGIO HEAD AND NECK INDICATIONS: Headache, Right upper extremety weakness, recent cervical spinal surgery TECHNIQUE: Pre-contrast 4.5 mm thick sections acquired from the foramen magnum to the vertex. After the administration of intravenous contrast, 1 mm thick sections acquired from the aortic arch through the [place]. Post-contrast 4.5 mm thick sections then re-acquired from the foramen magnum to the vertex. 3-dimensional wapdqmy-[id number]-tmyohhnjhx (MIP) and/or volume rendering reformats were acquired of the central intracranial vasculature and neck separately. COMPARISON: None. FINDINGS: Image quality: Excellent. BRAIN: CSF spaces: Ventricles are normal in size and shape. Basal cisterns are patent. No extra-axial fluid collections. Brain: No midline shift. No intracranial bleeds or masses. Reyes-white matter interface appears intact. Skull and face: Calvarium and facial bones appear intact, without suspicious lesions. Orbits appear normal. Sinuses: Sinuses and mastoids are clear. HEAD CT ANGIOGRAPHY: Anterior circulation: Intracranial internal carotid arteries are normal in size and flow. The flow within the paired anterior cerebral arteries is normal and symmetric. 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 The flow within the middle cerebral arteries is normal and symmetric. The anterior communicating artery is seen. No aneurysms are seen. Posterior circulation: Visualized portions of the vertebral arteries demonstrate normal caliber, and join to form a normal appearing basilar artery. Flow within the posterior cerebral arteries is normal and symmetric. Left posterior cerebral artery has a No aneurysms are seen. NECK CT ANGIOGRAPHY: Carotid system: The great vessels demonstrate a conventional anatomy as they arise from the aortic arch. The origins of the common carotid arteries appear patent. The common carotid arteries demonstrate normal caliber and courses. The bifurcation regions are both widely patent. The internal carotid arteries demonstrate normal courses. Calcified atherosclerotic plaque noted in the origin of the right internal carotid artery which causes moderate, approximately 50-60% stenosis of the vessel. Atherosclerotic plaque noted in the origin of the left internal carotid artery which causes less than 50% stenosis of the vessel. Posterior circulation: The origins of the vertebral arteries both appear widely patent. 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 The more superior extracranial portions of both vertebral arteries also demonstrate normal courses and calibers. Patient is left vertebral artery dominant. They join to form a normal appearing basilar artery. Soft tissues: Visualized neck soft tissues demonstrate no suspicious abnormalities. Bones: No suspicious bony lesions. Spine degenerative disc disease and facet arthropathy. Postsurgical changes compatible C4-C6 ACDF are noted. Visualized cervical spine appears normally aligned. IMPRESSION: 1. No acute intracranial disease process. 2. 50-60% stenosis of the origin of the right internal carotid artery. Less than 50% stenosis of the origin of the left internal carotid artery. 3. Vertebral arteries appear fully patent. 4. No large vessel occlusion, vascular dissection or cerebral aneurysm. Any quantitative measurements of stenosis were performed using NASCET criteria. Dictated by: Patria Burr MD, PhD on 03/29/2018 at 7:27 Approved by: Patria Burr MD, PhD on 03/29/2018 at 14:56
[2018-03-29] MEDS: HYDROCODONE/ACET 5/325 TABLET 0.5 TAB PO (00:01)
--- NOTE | 2018-03-29 00:39 | ED_ITS ---
HPI - Chest Pain General Chief Complaint: Chest Pain Stated Complaint: STATES HIGH BP Time Seen by Provider: 03/28/18 21:33 Source: patient and family Mode of arrival: ambulatory Limitations: no limitations History of Present Illness HPI narrative: 72-year-old female, former smoker, presents with her and a chief complaint of elevated blood pressure with some mild headache and epigastric discomfort. Her epigastric discomfort had resolved prior to arrival. She had blood pressures at home in the 200s over 100s which has been occurring off and on since before a recent cervical fusion performed here on March 21. At 1 point during her admission she was receiving hydralazine to help supplement her metoprolol and losartan. Since 1 or 2 days after the surgery the patient has had profound weakness of her right upper extremity which has been addressed by her orthopedist on multiple occasions, as recently as earlier today. Initially she had near complete paralysis of the arm but she is demonstrating the ability to move the wrist and move her fingers in his going forward under her surgeons care. She denies shortness of breath and is not dizzy nor weak or lightheaded. She denies any new neurologic findings. She denies any abdominal pain or nausea, vomiting MD complaint: chest pain Onset (ago): hour(s) Duration: now resolved Onset: during rest Pain location: epigastric Severity: mild Quality: heaviness Pain radiation: none Relieving factors: nothing Exacerbating factors: nothing Context: recent surgery Treatments prior to arrival chest pain: none Related Data Home Medications Medication Instructions Recorded Confirmed atorvastatin [Lipitor] 40 mg PO QDAY #0 03/18/16 03/28/18 losartan 25 mg PO BID #0 03/18/16 03/28/18 acetaminophen [Tylenol Arthritis 1,300 mg PO Q8H PRN 12/27/17 03/28/18 Pain] calcium citrate-vitamin D3 1 tab PO BEDTIME 12/27/17 03/28/18 [Citracal + D Petites] esomeprazole magnesium [Nexium] 20 mg PO DAILY 12/27/17 03/28/18 estradiol 1 g VAGINAL DAILY PRN 12/27/17 03/28/18 metoprolol succinate 50 mg PO DAILY 12/27/17 03/28/18 cyclobenzaprine 10 mg PO TID PRN 03/28/18 03/28/18 tramadol 50 mg PO PRN PRN 03/28/18 03/28/18 Previous Rx's Medication Instructions Recorded walker #1 each 01/13/18 hydroxyzine pamoate 25 mg PO Q4HR PRN #60 cap 03/21/18 Allergies Allergy/AdvReac Type Severity Reaction Status Date / Time aspirin [ASPIRIN] Allergy Severe SUPRESSES Verified 03/28/18 21:46 BREATHING benazepril Allergy Severe Cough Verified 03/28/18 21:46 erythromycin base Allergy Severe RASH Verified 03/28/18 21:46 [ERYTHROMYCIN BASE] MOVING ABOUT BODY-6 MONTHS iodine Allergy Severe Couldn't Verified 03/28/18 21:46 breath, itch lisinopril Allergy Severe Cough Verified 03/28/18 21:46 oxycodone [OXYCODONE] Allergy Severe HIVES AND Verified 03/28/18 21:46 WELTS sertraline [From ZOLOFT] Allergy Severe IMPAIRED Verified 03/28/18 21:46 BALANCE NEUROLOGIST: BECAME TOXIC latex [LATEX] Allergy Intermediate BREATHING Verified 03/28/18 21:46 DIFFICULTIES rofecoxib [From VIOXX] Allergy Intermediate COULDN'T Verified 03/28/18 21:46 URINATE FOR A COUPLE OF DAYS ibuprofen Allergy Mild Impaired Verified 03/28/18 21:46 breathing, worse over time meloxicam Allergy Mild Unknown Verified 03/28/18 21:46 amlodipine Allergy Unknown Rash, Verified 03/28/18 21:46 trouble breathing, bradycardia naproxen Allergy Unknown Unlisted Verified 03/28/18 21:46 nitroglycerin Allergy Unknown Unlisted Verified 03/28/18 21:46 Sulfa (Sulfonamide Allergy Unknown DON'T Verified 03/28/18 21:46 Antibiotics) REMEMBER [SULFA (SULFONAMIDE ANTIBIOTICS)] alprazolam AdvReac Severe confusion, Verified 03/28/18 21:46 stumbling, suicidal ideation diazepam [From VALIUM] AdvReac Intermediate GOT Verified 03/28/18 21:46 TERRIBLY DEPRESSED zolpidem [From Ambien] AdvReac Intermediate Slept for Verified 03/28/18 21:46 3 hours, then couldn't sleep lithium [LITHIUM] AdvReac Mild ELEVATED Verified 03/28/18 21:46 BP & DELIRIOUS simvastatin [From Zocor] AdvReac Mild Muscle Verified 03/28/18 21:46 cramps hydrochlorothiazide AdvReac Unknown DEPLETED Verified 03/28/18 21:46 [HYDROCHLOROTHIAZIDE] POTASSIUM, IN DAYS, DEHYDRATION meperidine [From Demerol] AdvReac Unknown Falling, Verified 03/28/18 21:46 my arms would flip out Review of Systems Review of Systems All systems reviewed & are unremarkable except as noted in HPI and below Constitutional Denies chills, Denies fever(s), Reports headache(s), Denies lethargy and Denies weakness Eyes Denies change in vision, Denies eye discharge, Denies irritation and Denies loss of vision ENT Ears, Nose, Mouth, and Throat: Denies change in voice, Reports headache(s), Denies neck pain and Denies sore throat Cardiovascular Reports chest pain, Denies irregular heart rhythm, Denies lightheadedness, Denies palpitations, Denies dyspnea, Denies dyspnea on exertion and Denies orthopnea Respiratory Denies cough, Denies dyspnea, Denies dyspnea on exertion and Denies wheezing Gastrointestinal Gastrointestinal: Denies abdominal pain, Denies change in bowel habits, Denies diarrhea, Denies nausea and Denies vomiting Genitourinary Denies hematuria, Denies flank pain, Denies urinary incontinence and Denies urinary urgency Musculoskeletal Denies neck pain Integumentary/Breasts Denies pruritus, Denies erythema, Denies rash and Denies wounds Neurologic Denies confusion, Reports headache(s), Reports focal weakness, Denies loss of vision and Denies weakness Psychiatric Denies anxiety, Denies confusion, Denies depression, Denies homicidal ideation and Denies suicidal ideation Endocrine Denies palpitations Hematologic/Lymphatic Denies easy bruising Allergic/Immunologic Denies wheezing [facility] Medical History Obstructive sleep apnea of adult (Chronic) Snoring (Resolved) ADHD (Acute) Abnormal EKG (Acute) Anemia (Acute) Anxiety disorder (Acute) Asthma (Acute) Atrophic vaginitis (Acute) Benign positional vertigo (Acute) Bruises easily (Acute) CAD (coronary artery disease) (Acute) Cervical spinal stenosis (Acute) Concussion (Acute) Disorder of left rotator cuff (Acute) Familial tremor (Acute) Fibromyalgia (Acute) Former smoker (Acute) Fracture (Acute) GERD (gastroesophageal reflux disease) (Acute) History of endometriosis (Acute) History of frequent headaches (Acute) History of left heart catheterization (Acute) History of stomach ulcers (Acute) Hyperlipidemia (Acute) Hypertension (Acute) Impaired hearing (Acute) Impaired vision (Acute) Leg weakness (Acute) Lumbar pain (Acute) Lumbar spinal stenosis (Acute) Osteoarthritis (Acute) Osteomyelitis (Acute) PTSD (post-traumatic stress disorder) (Acute) PVCs (premature ventricular contractions) (Acute) Palpitations (Acute) Panic attacks (Acute) Peripheral sensory neuropathy (Acute) Precancerous lesion (Acute) Shortness of breath (Acute) Sleep apnea treated with nocturnal BiPAP (Acute) Spastic colon (Acute) Spinal stenosis of lumbar region at multiple levels (Acute) Spondylolisthesis at L4-L5 level (Acute) Stenosis of right carotid artery (Acute) Syncope (Acute) Surgical History H/O oral surgery (Acute) H/O thumb surgery (Acute) History of appendectomy (Acute) History of breast biopsy (Acute) History of cervical spinal arthrodesis (Acute 03/20/18) History of colonoscopy with polypectomy (Acute) History of hernia repair (Acute) History of lumbar spinal fusion (Acute 01/13/18) History of total abdominal hysterectomy (Acute) Social History household members: spouse Smoking Status: Former smoker alcohol intake: current Exam Narrative Exam Narrative: GENERAL: 72-year-old female is resting comfortably in no obvious distress HEAD: Atraumatic. Normocephalic. No temporal or scalp tenderness. EYES: Pupils equal round and reactive. Extraocular motions intact. No scleral icterus. No injection or drainage. ENT: Nose without bleeding, purulent drainage or septal hematoma. Throat without erythema, tonsillar hypertrophy or exudate. Uvula midline. Airway patent. NECK: Trachea midline. No JVD or lymphadenopathy. Supple, nontender, no meningeal signs. CARDIOVASCULAR: Regular rate and rhythm without murmurs, gallops, or rubs. RESPIRATORY: Clear to auscultation. Breath sounds equal bilaterally. No wheezes , rales, or rhonchi. GASTROINTESTINAL: Abdomen soft, non-tender, nondistended. No hepato-splenomegaly , or palpable masses. No guarding. EXTREMITIES: No clubbing, cyanosis, or edema. No joint tenderness, effusion, or edema noted. BACK: Nontender without deformity or crepitance. No flank tenderness. NEURO: AOx3. RUE with 4/5 strength at wrist/fingers, sensation in tact. 1/5 strength at biceps SKIN: No rash or erythema. Initial Vital Signs Initial Vital Signs: Vital Signs Temperature 98.4 F 03/28/18 21:36 Pulse Rate 90 03/28/18 21:36 Respiratory Rate 18 03/28/18 21:36 Blood Pressure 199/96 H 03/28/18 21:36 Pulse Oximetry 100 03/28/18 21:36 Course Orders Ordered: ED Orders 03/28/18 21:38 XR chest 1V Stat EKG-12 Lead Stat 03/28/18 21:55 Complete Blood Count AUTO DIFF Stat Comprehensive Metabolic Panel Stat Lipase Stat Troponin & CK Cardiac Panel Stat 03/28/18 22:06 CT head/brain wo con Stat 03/28/18 22:58 CT angio head and neck Stat Discontinued Medications Hydrocodone Bitart/Acetaminophen ([place] 5/325) 0.5 tab PO NOW ONE Stop: 03/28/18 23:54 Last Admin: 03/29/18 00:01 Dose: 0.5 tab Aspirin (Aspirin Chew) 324 mg PO NOW ONE Stop: 03/28/18 21:39 Last Admin: 03/28/18 21:47 Dose: Not Given Sodium Chloride (Normal Saline 0.9%) 1,000 mls @ 150 mls/hr IV CONT LINETTE Last Infusion: 03/29/18 01:26 Dose: 0 mls/hr Admin: 03/28/18 22:10 Dose: 150 mls/hr Vital Signs - 8 hr 03/28/18 21:36 03/28/18 22:32 03/29/18 01:26 Temperature 98.4 F Pulse Rate 90 81 77 Respiratory Rate 18 18 Blood Pressure 199/96 H 162/91 H Blood Pressure [Left Arm] 173/87 H Pulse Oximetry 100 99 MDM - Chest Pain Lab Data Result diagrams: 03/28/18 21:55 03/28/18 21:55 Lab Results 03/28/18 03/28/18 Range/Units 21:55 21:55 WBC 11.7 H (4.5-11.0) X10^3/uL RBC 3.91 L (4.0-5.2) X10^6/uL Hgb 12.4 (12.0-16.0) g/dL Hct 37.0 (36-46) % MCV 94.6 (80-100) fL MCH 31.8 (26-34) PG MCHC 33.6 (30-36) % RDW 13.4 (11.6-14.8) % Plt Count 468 H (150-400) X10^3/uL Neut % (Auto) 64.9 (50-75) % Lymph % (Auto) 26.4 (25-40) % Loving % (Auto) 7.5 (3-14) % Eos % (Auto) 0.6 L (2-4) % Baso % (Auto) 0.6 (0-2) % Neut # (Auto) 7600 H (1226-6515) /uL Sodium 127 L (137-145) mmol/L Potassium 4.0 (3.4-5.1) mmol/L Chloride 87 L (98-107) mmol/L Carbon Dioxide 24 (22-32) mmol/L BUN 19 H (7-17) mg/dL Creatinine 0.60 (0.52-1.04) mg/dL Estimated GFR > 60.0 (>60) mL/min BUN/Creatinine Ratio 31.7 H (6-22) Glucose 132 H (80-110) mg/dL Calcium 10.0 (8.4-10.2) mg/dL Total Bilirubin 0.7 (0.2-1.3) mg/dL AST 22 (14-36) IU/L ALT 29 (9-52) IU/L Alkaline Phosphatase 74 (38-126) U/L Total Creatine Kinase 33 (30-135) U/L CK-MB (CK-2) TNP CK-MB (CK-2) Rel Index TNP Troponin I < 0.012 (0.01-0.034) ng/mL Total Protein 8.5 H (6.3-8.2) g/dL Albumin 5.0 (3.5-5.0) g/dL Globulin 3.5 (1.7-4.1) g/dL Albumin/Globulin Ratio 1.4 (1.0-2.8) Lipase 169 (23-300) U/L Urine Dip Bedside Urine Glucose Negative Bedside Urine Bilirubin - Negative Bedside Urine Ketone - Negative Urine Specific [place] 1.015 Bedside Urine Occult Blood - Negative Bedside Urine pH 6.5 Bedside Urine Protein - Negative Bedside Urine Urobilinogen - Negative Bedside Urine Nitrite - Negative Bedside Urine Leukocytes - Negative Esterase Discharge Plan Departure Patient Disposition: Home Clinical Impression: HTN (hypertension) Discharge Date/Time: 03/29/18 01:27 Interventions: ED Discharge Assessment Last Done: 03/29/18 01:26 Instructions: Essential Hypertension Activity Restrictions/Additional Instructions: *You have been diagnosed with [ hypertension post surgical neck pain ] *What to do: *Take medications as directed *Follow up with your primary care provider in 2-3 days, call for an appointment. Let them know you were seen in the Emergency Department and that we ask that you be seen in follow up *Return to ER if you should have any new, worsening or concerning symptoms , such as [increasing pain, worsening numbness, tingling or weakness of her extremities, worsening headache, chest pain or other bothersome symptoms ] Prescriptions: No Action atorvastatin [Lipitor] 40 MG tablet 40 mg PO QDAY Qty: 0 RF: 0 losartan 25 MG tablet 25 mg PO BID Qty: 0 RF: 0 metoprolol succinate 50 mg Tablet Extended Release 24 Hr 50 mg PO DAILY RF: 0 estradiol 0.01 % (0.1 mg/gram) Cream 1 g VAGINAL DAILY PRN (Reason: unknown) RF: 0 acetaminophen [Tylenol Arthritis Pain] 650 mg Tablet Extended Release 1,300 mg PO Q8H PRN (Reason: Pain) RF: 0 esomeprazole magnesium [Nexium] 20 mg Capsule,Delayed Release(Dr/Ec) 20 mg PO DAILY RF: 0 calcium citrate-vitamin D3 [Citracal + D Petites] 200 mg calcium -250 unit Tablet 1 tab PO BEDTIME RF: 0 walker misc .ROUTE .MEDSUPPLY Qty: 1 RF: 0 hydroxyzine pamoate 25 mg Capsule 25 mg PO Q4HR PRN (Reason: Nausea And Vomiting) Qty: 60 RF: 0 cyclobenzaprine 10 mg Tablet 10 mg PO TID PRN (Reason: Muscle Spasm) RF: 0 tramadol 50 mg tablet 50 mg PO PRN PRN (Reason: Pain (Scale Score 1-3)) RF: 0
[2018-03-29 01:26] VITALS: BP 162/91; PULSE 77
== END 2018-03-29 01:27 | disposition home or self-care (01) ==
PROVIDERS: Emergency Provider Emergency Medicine
DX: I10 Essential (primary) hypertension (principal); R07.89 Other chest pain; R51 Headache
CPT/HCPCS: 36591; 70450; 70496; 70498; 71045; 80053; 81003; 82550; 83690; 84484; 85025; 93005; 93010; 96360; 96361; 99283; 99285; Q9967

== ENCOUNTER 2018-04-03 13:30 | Inpatient (IN) | payer MEDICARE, SELFPAY ==
[2018-03-20 12:38] VITALS: BMI 29.6
[2018-03-31 09:17] VITALS: BMI 29.1
[2018-04-03] VITALS (10 sets, daily range): BP systolic 163–218; BP diastolic 79–122; PULSE 77–96; RESP 12–22; TEMP 36.3–36.8; O2SAT 94–100; BMI 29.1
--- NOTE | 2018-04-03 | DI.RAD.S_ITS ---
PROCEDURE: XR CERVICAL SPINE 2V OR 3V INDICATIONS: C4-5, C5-6 HARDWARE REVISION TECHNIQUE: 2 view(s) of the cervical spine were acquired. COMPARISON: [facility], CT, CT CERVICAL SPINE WITHOUT CONTRAST, 03/23/2018, 16:42. [facility], CR, XR CERVICAL SPINE 2V OR 3V, 03/20/2018, 8:43. FINDINGS: 2 intraoperative fluoroscopy images demonstrate discectomy and anterior fusion at C4-C5 and C5-C6. IMPRESSION: C4-C5 and C5-C6 anterior fusion. Dictated by: Noe Peguero M.D. on 04/03/2018 at 18:26 Approved by: Noe Peguero M.D. on 04/03/2018 at 18:28
[2018-04-03] MEDS: LACTATED RINGERS 1,000 ML 42 ML IV ×2 (14:15→17:31)
--- NOTE | 2018-04-03 16:10 | PM.PREOP ---
Pre-operative Note Interval Note Pre-op Check: Yes History & Physical Reviewed by Physician, Yes Exam Performed and Yes History & Physical exam performed today by Physician Changes: No
[2018-04-03] MEDS: CEFAZOLIN 2 GM/100 ML FROZ.PIGGY IV (16:26)
--- NOTE | 2018-04-03 16:55 | SUR.OPER ---
Supine on padded OR bed, head on pillow, arms wrapped in gel and papoosed with draw sheet, legs uncrossed, safety belt at thigh, tape over blanket over lower legs.
--- NOTE | 2018-04-03 18:02 | P.OP_ITS ---
Operative Date/Time/Diagnoses Date of procedure: 04/03/18 Time of procedure: 16:02 Pre-op diagnosis: 1. Hx of C5-6, C6-7 anterior cervical discectomy and fusion 2. 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 C5-6, C6-7 anterior instrumentation removal 2. C5-6, C6-7 interbody cage removal 3. C5-6, C6-7 epidural space irrigation and debridement 4. C5-6, C6-7 anterior interbody cage placement with revision of interbody spacer 5. Anterior instrumentation with C5-6, C6-7 plate and screw placement 6. Utilization of microsurgical technique and operating microscope Same procedure as scheduled: Yes Indications: Ms. Jackson is a 72 yo F 10 days post C5-6, C6-7 ACDF. She was doing well post op. 2 days after surgery, she developed right deltoid and biceps weakness that progressed over the next couple of days. CT of c-spine showed no obvious hardware complication with post op findings expected. Due to acute onset of her nerve root palsy at C5 level, plans for exploration and revision hardware surgery was discussed with patient. Risks and benefits was discussed, patient understands and would like to proceed. Surgeon: [facility] Administrator: Dilcia Marin'Brien Click Yes if Unassisted: No Anesthesia Type: General Operative Notes Closure Type: primary Implants & Drains: Globus extend plate, peek cages Estimated Blood Loss (mL): 20 Procedure in detail: Patient was seen in the preoperative area. Risks and benefits of the surgery was discussed with the patient. Operative consent was obtained and placed in the chart. Patient was then taken to the operative room. Prophylactic antibiotic was given less than 0.5 hr prior to skin incision. General anesthesia was administered. Patient was placed into a supine position on her radiolucent table. Bilateral shoulders were taped down to allow proper C-arm imaging. Anterior cervical area was prepped and draped in a sterile fashion. Time-out was performed at this time. Using lateral C-arm imaging, the level between C5 and C7 was identified and marked on patient's neck. A oblique incision from midline towards medial border of sternocleidomastoid muscle was made. The platysma muscle was incised in line with skin incision. Metzenbaum scissor was used to develop the plane between the medial border of sternocleidomastoid d and the strap muscles medially. The carotid sheath and its contents were identified and protected behind the hand- held retractor during the entire case. The plane between the carotid sheath and strap muscles was developed with Metzenbaum scissors. Dissection was made down to the level of the anterior cervical fascia. Anterior cervical plate placed previously was visualized. Using the Globus screw feedmobile driver for locking mechanism and for the screws, the hardware was removed from the C5, C6, C7 vertebrae without difficulty. The interbody cages were re-assembled onto the insertion tool and removed from the C5-6, C6-7 disc spaces. The epidural spaces at C5-6, C6-7 was explorated. Revision foramenotomies was performed at C5-6, C6-7 level using microsurgical technique and operating microscope. There was small amount of epidural blood which was cleared using irrigation and currette and removed from the wound. There was no compression on the thecal sac or the neuro structures. One 6-mm and one 7-mm PEEK interbody cage was obtained and packed with Osteocel bone grafting material that was inside of the previously placed cages. After the cages were placed. The removed anterior cervical plate was re- insertated and secured to the anterior vertebral bodies of C5, C6, and C7 using two screws at each level. Total 6 screws were placed. After confirming placement of the hardware with AP and lateral C-arm imaging, the screws were locked into the plate using the locking mechanism and torque limiting screwdriver. After the hardware was placed and confirmed with AP and lateral C-arm imaging, the wound was irrigated with sterile normal saline. The platysma muscle and the subcutaneous tissue was closed with 2-0 Vicryl. The skin was closed with 4- 0Monocryl and Steri-Strips. Patient tolerated the procedure well. Patient was transferred recovery room in stable condition. There were no complications. Complications: none Condition: stable Disposition: PACU Plan for aftercare: Discharge to home
[2018-04-03] MEDS: HYDROMORPHONE 2 MG INJ 0.5 MG IV ×4 (18:16→18:38)
[2018-04-03] MEDS: HYDROMORPHONE 0.5 MG INJ IV (19:45)
--- NOTE | 2018-04-03 19:48 | SUR.PHASEI ---
called Dr. John to obtain admission orders for icu nurse
[2018-04-03] MEDS: SODIUM CHLORIDE 0.9% 1,000 ML 100 ML IV (20:47)
[2018-04-03] MEDS: HYDROCODONE/ACET 10/325 TABLET 1 TAB PO (20:49)
[2018-04-03] MEDS: LOSARTAN 25 MG TABLET PO (21:11)
[2018-04-03] MEDS: GABAPENTIN 300 MG CAPSULE PO (21:12)
--- NOTE | 2018-04-03 23:22 | PC.NURSE ---
1914- Patient arrived from PACU via stretcher. Assisted to the bed in room 102. Patient states her pain is 9/10. Patient arrived with no transfer orders or admit orders. Dr. John called and verbal orders obtained. Patient medicated per orders.
[2018-04-04] VITALS (11 sets, daily range): BP systolic 117–187; BP diastolic 58–119; PULSE 66–91; RESP 14–18; TEMP 36–37.1; O2SAT 96–100
--- NOTE | 2018-04-04 01:23 | PC.NURSE ---
At 0100 patients BP 174/119 (133) up to bedside commode. At 0115 patients BP 181/83 back in bed.
[2018-04-04] MEDS: ACETAMINOPHEN 325 MG TABLET 975 MG PO (05:32)
--- NOTE | 2018-04-04 05:47 | PC.NURSE ---
Up to BSC and cheri well,talking easier and swelling appears decreased around neck. Taking H2O with no choking or coughing and able to swallow Tylenol whole without problem. Will saline lock IV when bag empty.
--- NOTE | 2018-04-04 08:29 | PM.DS.1 ---
History of Present Illness Date Patient Seen: 04/04/18 Time Patient Seen: 08:29 Chief complaint: [id number] C4-5 C5-6 EXPLORATION OF WOUND Narrative: Hospital day 2, postop day 1 following C5-6, C6-7 hardware removal and new cage and anterior plate. Patient was hypertensive and had some trouble with swallowing and was brought to ICU for stabilization. Remained stable overnight. Used [place] for pain. Does have some discomfort with swallowing but does able to swallow fluids. She thinks her right arm has improved a little bit in regards to function since this last surgery. Still has weakness of arm. Discharge Providers Primary care physician: Mat Moran MD Consults: 04/03/18 21:36 Consult to Pastoral Services Routine Comment: Recent multiple life stressors Discharge provider: Nixon Perez PA-C Discharge Date: 04/04/18 Summary Discharge Diagnosis: Status post C5-6, C6-7 hardware removal, fusion exploration and replacement cage and anterior plate. Hospital Course: Patient brought to hospital on 04/03/2018 for above-noted surgery. She was hypertensive postoperatively and brought to the ICU where she remained stable. Patient doing better in the morning. Some discomfort with swallowing. Her right arm weakness has improved some since her last surgery. She was stable and ready for discharge home on postop day 1. Status at Discharge Cognitive/behavioral status at discharge: Alert, oriented no acute distress. Overall status at discharge: patient is progressing back to baseline Time Spent with Patient Less than 30 minutes Exam Vital Signs (past 8 hours): - 04/04/18 00:34 04/04/18 01:01 04/04/18 01:22 Temperature 96.8 F L Pulse Rate 74 84 84 Respiratory Rate 14 14 Blood Pressure 187/91 H 174/119 H 181/83 H Pulse Oximetry 100 100 100 04/04/18 03:03 04/04/18 04:49 04/04/18 06:00 Temperature Pulse Rate 66 67 91 H Respiratory Rate 14 14 16 Blood Pressure 117/63 119/62 122/58 L Pulse Oximetry 99 98 97 04/04/18 07:25 04/04/18 07:59 Temperature 98.7 F Pulse Rate 68 Respiratory Rate 18 Blood Pressure 145/70 H 169/93 H Pulse Oximetry 96 Oxygen Delivery Method CPAP Oxygen Flow Rate 0 Narrative Exam Narrative: Neck. Soft collar in place. Dressing to left anterior neck is dry without drainage. 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 Pulses symmetrical. Sensation symmetrical to touch to both hands. Arm strength notes weakness to elbow flexion but good strength on extension. Weak right shoulder AB duction. Legs. Good strength bilateral. Pulses and sensation symmetrical. Discharge Plan Discharge Plan Patient Disposition: Home Discharge comment: She will use a soft cervical collar for over the next week stabilization. Keep dressing to left neck dry. Discharge Med Rec/Prescriptions Prescriptions: New tramadol 50 mg tablet 50 mg PO Q4-6H PRN (Reason: pain) Qty: 60 RF: 0 cyclobenzaprine 10 mg tablet 10 mg PO Q6-8H PRN (Reason: muscle spasm) Qty: 30 RF: 0 acetaminophen 325 mg Tablet 975 mg PO Q8HR PRN (Reason: Mild pain) Qty: 30 RF: 0 benzocaine-menthol [Cepacol Sore Throat (chapis-men)] 15-3.6 mg Lozenge 1 ea PO Q1HR PRN (Reason: Sore Throat) 30 Days RF: 0 Continue atorvastatin [Lipitor] 40 MG tablet 40 mg PO QDAY Qty: 0 RF: 0 losartan 25 MG tablet 25 mg PO BID Qty: 0 RF: 0 estradiol 0.01 % (0.1 mg/gram) Cream 1 g VAGINAL DAILY PRN (Reason: unknown) RF: 0 acetaminophen [Tylenol Arthritis Pain] 650 mg Tablet Extended Release 1,300 mg PO Q8H PRN (Reason: Pain) RF: 0 esomeprazole magnesium [Nexium] 20 mg Capsule,Delayed Release(Dr/Ec) 20 mg PO DAILY RF: 0 calcium citrate-vitamin D3 [Citracal + D Petites] 200 mg calcium -250 unit Tablet 1 tab PO BEDTIME RF: 0 walker misc .ROUTE .MEDSUPPLY Qty: 1 RF: 0 hydroxyzine pamoate 25 mg Capsule 25 mg PO Q4HR PRN (Reason: Nausea And Vomiting) Qty: 60 RF: 0 metoprolol succinate 50 mg Tablet Extended Release 24 Hr 50 mg PO DAILY RF: 0 hydrocodone-acetaminophen [[place]] 5-325 mg Tablet 1 - 2 tab PO Q4-6H PRN (Reason: Pain) RF: 0 methylprednisolone [Medrol (Abdiel)] 4 mg Tablets,Dose Pack DIRECTED RF: 0 gabapentin 300 mg 300 mg TID RF: 0 Discontinued cyclobenzaprine 10 mg Tablet 10 mg PO Q12H PRN (Reason: Pain/Muscle Spasm) RF: 0 tramadol 50 mg tablet 50 mg PO PRN PRN (Reason: Pain (Scale Score 1-3)) RF: 0 Follow up/Referrals: Mat Moran MD [Primary Care Provider] - Discharge Orders: Discharge (Order); Ordered 04/04/18 Ordered By: Dorian John Provider Discharge Instructions Diet: Diet as Tolerated and Regular Diet comment: Liquid and soft diet until she is able to swallow well. Activity: Limit neck bending and twisting Wear soft collar as needed for comfort and support Skin/Wound/Dressing Care Report to your healthcare provider any signs of infection, such as:: chills, fever, night sweats, increased pain, unusual drainage and unusual redness Dressing: Keep dressing clean and dry for 1 week and keep incision clean and dry and cover to shower for 2 weeks. Visit Report/Discharge Packet Instructions: DI for Anterior Cervical Discectomy and Fusion Stand Alone Forms: Surgery Discharge Discharge Data Primary Care Provider: Mat Moran Attending Provider: Dorian John
--- NOTE | 2018-04-04 08:35 | P.DS_ITS ---
History of Present Illness Date Patient Seen: 04/04/18 Time Patient Seen: 08:29 Chief complaint: [id number] C4-5 C5-6 EXPLORATION OF WOUND Narrative: Hospital day 2, postop day 1 following C5-6, C6-7 hardware removal and new cage and anterior plate. Patient was hypertensive and had some trouble with swallowing and was brought to ICU for stabilization. Remained stable overnight. Used [place] for pain. Does have some discomfort with swallowing but does able to swallow fluids. She thinks her right arm has improved a little bit in regards to function since this last surgery. Still has weakness of arm. Discharge Providers Primary care physician: aMt Moran MD Consults: 04/03/18 21:36 Consult to Pastoral Services Routine Comment: Recent multiple life stressors Discharge provider: Nixon Perez PA-C Discharge Date: 04/04/18 Summary Discharge Diagnosis: Status post C5-6, C6-7 hardware removal, fusion exploration and replacement cage and anterior plate. Hospital Course: Patient brought to hospital on 04/03/2018 for above-noted surgery. She was hypertensive postoperatively and brought to the ICU where she remained stable. Patient doing better in the morning. Some discomfort with swallowing. Her right arm weakness has improved some since her last surgery. She was stable and ready for discharge home on postop day 1. Status at Discharge Cognitive/behavioral status at discharge: Alert, oriented no acute distress. Overall status at discharge: patient is progressing back to baseline Time Spent with Patient Less than 30 minutes Exam Vital Signs (past 8 hours): - 04/04/18 00:34 04/04/18 01:01 04/04/18 01:22 Temperature 96.8 F L Pulse Rate 74 84 84 Respiratory Rate 14 14 Blood Pressure 187/91 H 174/119 H 181/83 H Pulse Oximetry 100 100 100 04/04/18 03:03 04/04/18 04:49 04/04/18 06:00 Temperature Pulse Rate 66 67 91 H Respiratory Rate 14 14 16 Blood Pressure 117/63 119/62 122/58 L Pulse Oximetry 99 98 97 04/04/18 07:25 04/04/18 07:59 Temperature 98.7 F Pulse Rate 68 Respiratory Rate 18 Blood Pressure 145/70 H 169/93 H Pulse Oximetry 96 Oxygen Delivery Method CPAP Oxygen Flow Rate 0 Narrative Exam Narrative: Neck. Soft collar in place. Dressing to left anterior neck is dry without drainage. 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 Pulses symmetrical. Sensation symmetrical to touch to both hands. Arm strength notes weakness to elbow flexion but good strength on extension. Weak right shoulder AB duction. Legs. Good strength bilateral. Pulses and sensation symmetrical. Discharge Plan Discharge Plan Patient Disposition: Home Discharge comment: She will use a soft cervical collar for over the next week stabilization. Keep dressing to left neck dry. Discharge Med Rec/Prescriptions Prescriptions: New tramadol 50 mg tablet 50 mg PO Q4-6H PRN (Reason: pain) Qty: 60 RF: 0 cyclobenzaprine 10 mg tablet 10 mg PO Q6-8H PRN (Reason: muscle spasm) Qty: 30 RF: 0 acetaminophen 325 mg Tablet 975 mg PO Q8HR PRN (Reason: Mild pain) Qty: 30 RF: 0 benzocaine-menthol [Cepacol Sore Throat (chapis-men)] 15-3.6 mg Lozenge 1 ea PO Q1HR PRN (Reason: Sore Throat) 30 Days RF: 0 Continue atorvastatin [Lipitor] 40 MG tablet 40 mg PO QDAY Qty: 0 RF: 0 losartan 25 MG tablet 25 mg PO BID Qty: 0 RF: 0 estradiol 0.01 % (0.1 mg/gram) Cream 1 g VAGINAL DAILY PRN (Reason: unknown) RF: 0 acetaminophen [Tylenol Arthritis Pain] 650 mg Tablet Extended Release 1,300 mg PO Q8H PRN (Reason: Pain) RF: 0 esomeprazole magnesium [Nexium] 20 mg Capsule,Delayed Release(Dr/Ec) 20 mg PO DAILY RF: 0 calcium citrate-vitamin D3 [Citracal + D Petites] 200 mg calcium -250 unit Tablet 1 tab PO BEDTIME RF: 0 walker misc .ROUTE .MEDSUPPLY Qty: 1 RF: 0 hydroxyzine pamoate 25 mg Capsule 25 mg PO Q4HR PRN (Reason: Nausea And Vomiting) Qty: 60 RF: 0 metoprolol succinate 50 mg Tablet Extended Release 24 Hr 50 mg PO DAILY RF: 0 hydrocodone-acetaminophen [[place]] 5-325 mg Tablet 1 - 2 tab PO Q4-6H PRN (Reason: Pain) RF: 0 methylprednisolone [Medrol (Abdiel)] 4 mg Tablets,Dose Pack DIRECTED RF: 0 gabapentin 300 mg 300 mg TID RF: 0 Discontinued cyclobenzaprine 10 mg Tablet 10 mg PO Q12H PRN (Reason: Pain/Muscle Spasm) RF: 0 tramadol 50 mg tablet 50 mg PO PRN PRN (Reason: Pain (Scale Score 1-3)) RF: 0 Follow up/Referrals: Mat Moran MD [Primary Care Provider] - Discharge Orders: Discharge (Order); Ordered 04/04/18 Ordered By: Dorian John Provider Discharge Instructions Diet: Diet as Tolerated and Regular Diet comment: Liquid and soft diet until she is able to swallow well. Activity: Limit neck bending and twisting Wear soft collar as needed for comfort and support Skin/Wound/Dressing Care Report to your healthcare provider any signs of infection, such as:: chills, fever, night sweats, increased pain, unusual drainage and unusual redness Dressing: Keep dressing clean and dry for 1 week and keep incision clean and dry and cover to shower for 2 weeks. Visit Report/Discharge Packet Instructions: DI for Anterior Cervical Discectomy and Fusion Stand Alone Forms: Surgery Discharge Discharge Data Primary Care Provider: Mat Moran Attending Provider: Dorian John
[2018-04-04] MEDS: GABAPENTIN 300 MG CAPSULE PO (09:29)
[2018-04-04] MEDS: METOPROLOL ER 50 MG TABLET PO (09:30)
[2018-04-04] MEDS: LOSARTAN 25 MG TABLET PO (10:01)
[2018-04-04] MEDS: PANTOPRAZOLE 40 MG VIAL 20 MG IV (10:03)
[2018-04-04] MEDS: BENZOCAINE/MENTHOL 1 LOZ PKT 1 EACH PO (10:08)
--- NOTE | 2018-04-04 11:20 | PT.IIE ---
Addendum entered and electronically signed by Kindra He, PT 04/04/18 13:58: I certify I directly supervised and guided this session. Amara He DPT Original Note: Current Diagnoses Nerve root and plexus disorder, unspecified (04/03/18) Spondylolisthesis, cervical region (04/03/18) Spinal stenosis, cervical region (04/03/18) Surgery Performed Operation Date: 04/03/18 15:45 Actual Procedures p C4-5,C5-6 exploration of wound, Irrigation and debridement, Hardware revision - Dorian John MD Surgical History (Last Updated 03/31/18 @ 10:21 by Laisha Peck, RN) H/O oral surgery (Acute) H/O thumb surgery (Acute) History of appendectomy (Acute) History of breast biopsy (Acute) History of colonoscopy with polypectomy (Acute) History of hernia repair (Acute) History of lumbar spinal fusion (Acute 01/13/18) History of tonsillectomy (Acute) History of total abdominal hysterectomy (Acute) Status post cervical spinal fusion (Acute ~03/20/18) Medical History (Last Updated 03/31/18 @ 10:18 by Laisha Peck, RN) Obstructive sleep apnea of adult (Chronic) Snoring (Resolved) ADHD (Acute) Abnormal EKG (Acute) Anemia (Acute) Anxiety disorder (Acute) Arrhythmia (Acute) Asthma (Acute) Atrophic vaginitis (Acute) Benign positional vertigo (Acute) Bruises easily (Acute) CAD (coronary artery disease) (Acute) Cervical spinal stenosis (Acute) Concussion (Acute) Difficulty sleeping (Acute) Disorder of left rotator cuff (Acute) Familial tremor (Acute) Fibromyalgia (Acute) Former smoker (Acute) Fracture (Acute) GERD (gastroesophageal reflux disease) (Acute) History of endometriosis (Acute) History of frequent headaches (Acute) History of left heart catheterization (Acute) History of stomach ulcers (Acute) Hyperlipidemia (Acute) Hypertension (Acute) Impaired hearing (Acute) Impaired vision (Acute) Leg weakness (Acute) Lumbar pain (Acute) Lumbar spinal stenosis (Acute) Osteoarthritis (Acute) Osteoarthritis cervical spine (Acute) Osteomyelitis (Acute) PTSD (post-traumatic stress disorder) (Acute) PVCs (premature ventricular contractions) (Acute) Palpitations (Acute) Panic attacks (Acute) Peripheral sensory neuropathy (Acute) Precancerous lesion (Acute) Shortness of breath (Acute) Sleep apnea treated with nocturnal BiPAP (Acute) Spastic colon (Acute) Spinal stenosis of lumbar region at multiple levels (Acute) Spondylolisthesis at L4-L5 level (Acute) Spondylolisthesis of cervical region (Acute) Stenosis of right carotid artery (Acute) Syncope (Acute) Physical Therapy Inpatient Evaluation/Re-Eval M1 PT/OT-IP Prior Functional Status Start: 04/04/18 10:55 Freq: NEEDED Status: Discharge Protocol: Document 04/04/18 11:20 (Rec: 04/04/18 13:45 [email or web address]) Medical Review Prior Functional Status Medical History Reviewed Yes Communication No deficits noted. Mobility and Gait Previously ambulates using no AD. She did use a spc for some time after her last lumbar surgery, however has not used any AD in the last 6 wks. Ambulation distances are limited. She can get through her shopping, but uses the cart for balance. Self care and driving are independent ( although she has not driven for a long time since her last lumbar surgery). Social History Household Members spouse Living Arrangements RV Number of Floors (Floors) Two Floors Number of Stairs To Enter/Railing? 5 steps L grab bar to enter. 3 steps to upper floor where bed and bathroom are located. Home Environment Standard Height Toilet Walk in Shower Built-In Shower Seat Home Equipment Straight Cane Hand Held Shower Employment Status Retired Additional Social History Comment Pt can reach the threshold to grab onto ascending 3 steps up to bed/bath. Ascending from toilet can also reach door threshold to assist sit <> stand. M2 PT-IP Current Condition Start: 04/04/18 10:55 Freq: NEEDED Status: Discharge Protocol: Document 04/04/18 11:20 (Rec: 04/04/18 13:45 [email or web address]) Physical Therapy Current Condition Current Condition Evaluation Date 04/04/18 Treatment Diagnosis Cervical spine fusion/ laminectomy; difficulty walking Onset Date 04/03/18 Precautions Cervical Spine Precautions Soft Collar for Comfort Soft Collar at all Times No Heavy Lifting Log Roll M3 PT-IP Subjective Start: 04/04/18 10:55 Freq: NEEDED Status: Discharge Protocol: Document 04/04/18 11:20 (Rec: 04/04/18 13:45 [email or web address]) Subjective Physical Therapy Visit Type Type Initial Evaluation Visit Start Time 11:20 Visit Stop Time 11:52 Total Visit Minutes 32 Number of MEDICAL ASSISTANT OB GYN Visits 0 Physical Therapy Visit Comments Patient Comments Pt agreeable to mobilize with PT. Patient Goals Pt looking forward to going home with her . Therapy Pain Assessment Pain Present Pain Present Pain Reported Location RUE Intensity 3 Scale Used Numeric (1 - 10) Pain Management Techniques Modification of Treatment Timing of Activity with Medications M4 PT-IP Mobility and Gait Start: 04/04/18 10:55 Freq: NEEDED Status: Discharge Protocol: Document 04/04/18 11:20 (Rec: 04/04/18 13:45 [email or web address]) PT-Transfer Assessment Sit to and From Stand Sit to and from Stand Independent Use of Upper Extremities Equipment Transfer Assistive Device None Gait Belt Orthotic/Prosthetic Devices or Brace: Yes Comments Mobility Comments Seated BP 178/75 HR 115. Pt states that she has been doing a log roll for a long time now. She has been up and out of bed with ease with nursing. States very comfortable with bed mobility, thus not formally assessed. Sit <> stand from recliner is performed independently, no AD . She denies symptoms of dizziness or BOYCE and is agreeable to ambulate. Gait Assessment Gait Gait Assistance Required: Standby Assistance Distance (Feet) 300 Able to Maintain Weight Bearing Status Yes During Gait Assistive Devices Assistive Device None Gait Belt Orthotic/Prosthetic Devices or Brace: No Gait Deviations General Gait Pattern Decreased Stride Length Narrow Based Gait Factors Limiting Gait Function Factors Limiting Gait Function Decreased Activity Tolerance Decreased Strength Limited Range of Motion Pain Poor Balance Comments Gait Comments Pt ambulates 300 ft to/from stairs with no AD SBA. Gait is notable for slight sway with walking, and narrow step width. No LOB noted and pt able to improve step width with min cues. Stair Climbing Assessment Evaluation Level of Assist On Stairs Contact Guard Assistance Devices Stair Climbing Assistive Devices Left Railing Technique/Endurance Stair Climbing Direction Ascend and Descend Stair Climbing Technique Step Over Step Number of Steps Climbed 6 Query Text: Stair Climbing Set # Repetitions (reps) 1 Comments Stair Climbing Comments Pt demonstrates up/down 6 steps with L rail, her provides CGA (PT SBA for safety). requires min cues but is able to complete safely and both pt and state feeling comfortable with performance. PT-Balance Assessment Sitting Balance and Reactions Static Sitting Balance Ability Good Dynamic Sitting Balance Ability Good Standing Balance and Reactions Static Standing Balance Ability Good Dynamic Standing Balance Ability Fair Device Used no AD M5 PT-IP Objective Assessments Start: 04/04/18 10:55 Freq: NEEDED Status: Discharge Protocol: Document 04/04/18 11:20 (Rec: 04/04/18 13:45 [email or web address]) Orientation Orientation/Cognition Level of Alertness Alert Orientation Name Age Birthday Month Date Year Day of Week Place Situation Language Function Ability No Deficits Noted Memory Description No Deficits Noted Gross Range of Motion Lower Extremity ROM Assessment Within Functional Limits Strength Upper Extremity Strength Assessment Right Impaired Lower Extremity Strength Assessment Within Functional Limits Comments Strength Comments Pt unable to flex R shoulder or elbow. 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 Pt states R hand dominance. M6 PT-IP Treatment Start: 04/04/18 10:55 Freq: NEEDED Status: Discharge Protocol: Document 04/04/18 11:20 (Rec: 04/04/18 13:45 [email or web address]) Physical Therapy Treatment Education Education Provided Precautions Weight Bearing Status Post-Op Packet Safety Brace Education [place] Patient Caregiver Other Treatments Other Treatment Performed Caregiver training included safeguarding during ambulation and stair climbing. Pt and are able to demonstrate safely with min cues. M7 PT-IP Assessment and Plan Start: 04/04/18 10:55 Freq: NEEDED Status: Discharge Protocol: Document 04/04/18 11:20 (Rec: 04/04/18 13:45 [email or web address]) PT Summary Assessment and Plan Potential Rehabilitation Potential Good Status of Condition at Evaluation Stable Summary Impairments Pain ROM Strength Balance Bed Mobility Transfers Gait Activity Tolerance Progress Towards Goals Progressing Toward Goals Assessment Summary Pt s/p cervical lami/fusion with difficulty walking. She ambulated community distances and completed stair climbing using no AD, with providing safe guarding with min cues (PT standby for safety). Recommend d/c to home with assist. Discussed continuing outpatient PT for balance intervention as the patients variable step pattern and increased sway with walking does demonstrate increased risk for falls. Pt agreed. Goals Bed Mobility Goal Independent Transfer Goal Independent Gait Goal Independent Gait Distance 400 Other Goals up/down 6 steps L rail indep. Days to Meet Goals 2 Frequency of Treatment Frequency Of Treatment Twice a Day Treatment Plan Physical Therapy Treatment Plan Bed Mobility Training Transfer Training Gait Training Therapeutic Exercise Balance Retraining Post Op Education Discharge Planning Hot or Cold Pack Neuromuscular Re-ed Coordination Retraining Manual Therapy Recommendations To Nursing Amount of Assist Needed Standby Assistance Discharge Recommendations PT Discharge Recommendations Home with Assistance Outpatient PT
--- NOTE | 2018-04-04 11:27 | PC.NURSE ---
Addendum entered by Swati Wisdom R.N. 04/04/18 12:41: 1241-patient given discharge assessment, Rx and reviewed discharge instructions. Patient states she has follow up appointments already scheduled, unsure of times and she will call to confirm dates and times. Patient's is driving patient home via private vehicle. all belongings sent home, no valuables in the safe and no meds from home. Original Note: 0700-Received report, bedside safety checks done. assumed care of patient. 0800-Patient denies numbness/tingling of BLE. 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 L U extremity intact. Patient reports soreness of throat; passed nursing swallow screen w/thins. 0900-PA @bedside; plan for discharge later this morning; pending PT/OT evaluation and awaiting orders for lozenges for sore throat complaints. No issues swallowing medications or consuming meals. 1130-PT @bedside w/patient's spouse for evaluation.
--- NOTE | 2018-04-04 11:27 | CM.DANOTE ---
Discharge Planning/Care Management DCP: assessment: case received, EMR reviewed and spoke with ortho JAIMIE Perez in [facility]. Met then with pt and introduced self and role. Pt is a 72 year old female who admitted for a planned cervical spinal surgery yesterday. Soft collar is in place. Surgeon: Dr. AVINA Payer[facility] Medicare [facility] PCP: Dr. Moran. She has some difficulties with swallow post surgery but she confirms she has been ok'd for home today and is expecting her to pick her up shortly. PT was ordered. Pt confirms she will not need an assistive device. Any support needed will come from my . He treats me like a dea. P: home today to [facility]. Discharge Assessment Start: 04/04/18 11:18 Freq: Status: Active Protocol: Document 04/04/18 11:19 ITV (Rec: 04/04/18 11:26 ITV [id number]) Discharge Planning Assessment Advance Directives? Yes: DPOA for health care/ health care directive History Provided By Patient Medical Record Household Members spouse Independent with ADL's Yes Is patient alert and oriented? Yes Whiteboard Updated in Patient Room with Yes name and ext. # of Cigar Maker Review Status In Process Next Review Type Continued Stay Review Pre-Anesthesia Assessment Start: 03/31/18 09:17 Freq: Status: Complete Protocol: Document 03/31/18 09:17 VL (Rec: 03/31/18 10:09 [facility] [email or web address]) Pre-Anesthesia Assessment Patient Also Known As (AKA) Jennifer Patient Information Reviewed Via Chart Review Consent for Planned Operative Procedure( No s) Verified H&P Completed Within 30 Days Yes Primary Care Provider Mat Moran Seen Specialist in Last 12 Months Yes Specialist Seen Concession Supervisor Orthopedist Comment Chronic anemia, surgeon aware per previous record Primary Language Paraguayan Lead Engineer Required No Height 158.75 cm Weight 73.482 kg Body Mass Index (BMI) 29.1 Visual Impairment Partially Limited Visual Assist Glasses Dentition Type Teeth, Broken Barriers to Learning Auditory Visual Comment Reading glasses Hx Anesthesia Reactions Yes: Vomiting from the gas as a kid, woke up screaming after dental surg Hx Family Anesthesia Reaction No Hx Malignant Hyperthermia No Hx Blood Transfusions Yes Hx Blood Transfusion Reaction No Anesthesia Review Requested No Cartography/Mapping Technician No alcohol intake current alcohol intake frequency a few times a week Smoking Status Former smoker Tobacco type cigarettes how long ago did patient quit smoking 1971 Substance Use Type does not use Pain Present Pain Reported Comment Neck, Upper extremities Musculoskeletal Symptoms Muscle Weakness Neck Pain Numbness Patient is completely paralyzed or No completely immobile Ambulatory Aid None/bed rest/nurse assist Is patient on oxygen? No Does patient have KEYES/SOB Yes Hx Sleep Apnea Yes CPAP/BIPAP use prescribed and used routinely Currently Taking a Beta Ingrid Yes: Metoprolol Can You Climb a Flight of Stairs Without Yes SOB Hx Chest Pain No Hx SOB Yes Hx Syncope or Dizziness Yes: 2015, states dr blane what[place] stroke, 'I've never been the same Anti-Coagulant Therapy No Has a Concession Supervisor Yes Cardiac Testing Yes: Pharm stress & Echo 12/10 to med records to scan Hx Pacemaker/ICD No Diet Type At Home Regular Low Sodium dysphagia Yes Bladder Pattern Nocturia Urinary Catheter Present No Hx Urinary Self Catheterization No Diabetes No Patient No Lactating No Hx Drug Resistant Organism No Presence of External or Internal Medical No Devices Have you traveled outside the [facility] in the last 30 days? Marital Status Lives With spouse Prior Living Arrangements Skilled Nurse Facility Patient Discharge Plan Description Return Home Comment Lives in 5th wheel w/spouse, daughter terminally ill Been Physically Hurt or Threatened By a No Person in Current Environment Do you have thoughts of harming yourself None or others? Are you currently considering suicide? No Do you have a plan to hurt yourself or No Plan others? Do You Have Any Spiritual Beliefs That No May Affect Your HC Choices? Do You Have Any Cultural Practices That No May Affect Your HC Choices? Spiritual Referral In-House Director Transition Comment Tenriism Who Can We Speak to About Patient's Care Family & Friends Identifying Code for Release of Patient Declined Information Health Care Proxy/Next of Kin Tyrone Jackson Health Care Proxy Emergency Contact Name TYRONE JACKSON Emergency Contact Advance Directives? Yes: DPOA for health care/ health care directive Power of Ecological Risk Assessor No PAC Comment Data taken from previous PAC and available records; Had discussed K+ intake with the patient, she had been eating a lot of bananas a agreed to reduce high K+ foods. K+ now 4 .0.
== END 2018-04-04 12:39 | disposition home or self-care (01) | DRG 473 ==
LOC: OR 13:30 → ICU 04-04 08:34
PROVIDERS: Admitting Provider Orthopaedic Surgery Orthopaedic Surgery of the Spine; PCP Internal Medicine; Visit Provider Orthopaedic Surgery Orthopaedic Surgery of the Spine
PROC: 0RG20A0 Fusion of 2 or more Cervical Vertebral Joints with Interbody Fusion Device, Anterior Approach, Anterior Column, Open Approach (ICD-10-PCS; principal; 2018-04-03 15:45)
DX: M47.22 Other spondylosis with radiculopathy, cervical region (principal); M48.02 Spinal stenosis, cervical region; M43.12 Spondylolisthesis, cervical region; I10 Essential (primary) hypertension; J45.909 Unspecified asthma, uncomplicated; K21.9 Gastro-esophageal reflux disease without esophagitis; G47.33 Obstructive sleep apnea (adult) (pediatric); G25.81 Restless legs syndrome; G58.8 Other specified mononeuropathies; R13.10 Dysphagia, unspecified
CPT/HCPCS: 72040; 76000; 97161; 97530; C1776; C9113; J0330; J0690; J1100; J1170; J2405; J2704; J3010

== ENCOUNTER → 2019-02-20 12:34 | Outpatient (ROUT) | payer MEDICARE, SELFPAY ==
[2018-04-03 21:31] VITALS: BMI 29.1
[2019-02-20 12:40] LABS: Add Manual Diff / Slide Review NO; Basophils Absolute Auto 100 /uL (0-100); Basophils Percent Auto 0.4 % (0-2); Eosinophils Absolute Auto 100 /uL (0-450); Eosinophils Percent Auto 0.3 % (2-4); Hematocrit 32.8 % (36-46); Hemoglobin 11.2 g/dL (12.0-16.0); Lymphocytes Absolute Auto 2100 /uL (1100-4500); Mean Corpuscular HGB Conc 34.3 % (30-36); Mean Corpuscular Hemoglobin 32.4 PG (26-34); Mean Corpuscular Volume 94.6 fL (80-100); Monocytes Absolute Auto 700 /uL (0-900); Monocytes Percent Auto 3.2 % (3-14); Neutrophils Absolute Auto 18400 /uL (1500-7000); Neutrophils Percent Auto 86.1 % (50-75); Platelet Count 390 X10^3/uL (150-400); Red Blood Cell Count 3.47 X10^6/uL (4.0-5.2); Red Cell Distribution Width 12.8 % (11.6-14.8); White Blood Cell Count 21.4 X10^3/uL (4.5-11.0)
[2019-02-20 12:47] LABS: BUN Creatinine Ratio 15.7 (6-22); Blood Urea Nitrogen 11 mg/dL (7-17); Calcium 10.1 mg/dL (8.4-10.2); Carbon Dioxide 24 mmol/L (22-32); Chloride 94 mmol/L (98-107); Estimated Glomerular Filt Rate > 60.0 mL/min (>60); Glucose 118 mg/dL (80-110); HEMOLYSIS < 15 (0-50); Iron 30 ug/dL (37-170); Potassium 4.4 mmol/L (3.4-5.1); Sodium 132 mmol/L (137-145)
[2019-02-20 12:58] LABS: Percent Iron Saturation 9 % (15-50); Total Iron Binding Capacity 321 ug/dL (265-497); Transferrin 258 mg/dL (206-381)
[2019-02-20 13:54] LABS: Folate 14.2 ng/mL (2.76-20.0); Vitamin B12 541 pg/mL (239-931)
[2019-02-20 15:19] LABS: Troponin I 0.022 ng/mL (0.01-0.034)
== END ==
PROVIDERS: PCP Internal Medicine; Visit Provider Internal Medicine
DX: R06.02 Shortness of breath (principal); D64.9 Anemia, unspecified; R07.9 Chest pain, unspecified
CPT/HCPCS: 80048; 82607; 82728; 82746; 83540; 83550; 84484; 85025

== ENCOUNTER → 2019-02-21 11:50 | Outpatient (CLI) | payer MEDICARE, SELFPAY ==
[2018-04-03 21:31] VITALS: BMI 29.1
--- NOTE | 2019-02-21 13:41 | DI.CT.S_ITS ---
PROCEDURE: CT CHEST ABD PEL WO CON INDICATIONS: Right lower quadrant pain TECHNIQUE: After the administration of oral contrast, 5 mm thick sections acquired from the lung apices to the symphysis pubis. 5 mm thick coronal and sagittal reformats acquired, with additional 7 mm coronal MIP reformats through the lungs. For radiation dose reduction, the following was used: automated exposure control, adjustment of mA and/or kV according to patient size. COMPARISON: CT abdomen and pelvis 01/26/2018. CT head and neck angiogram 03/28/2018. FINDINGS: Image quality: Excellent. CHEST: Lungs and pleura: No acute pulmonary opacities. Nodular groundglass opacity in the right upper lobe measuring 6 mm, (3/120), previously 6 mm on 03/28/2018. No pleural effusions or pneumothorax. Central and peripheral airways are patent are normal in caliber. Mediastinum: Left ventricle and left atrium are prominent in size. Coronary artery calcifications. No pericardial effusion. No mediastinal adenopathy by CT size criteria. Thoracic aorta and central pulmonary arteries are normal in size. Esophagus is normal in caliber. No hiatal hernia. Chest wall: No axillary or supraclavicular adenopathy by size criteria. Thyroid gland is unremarkable. ABDOMEN: Solid organs: Liver is normal in size. Well-circumscribed hypodensity in the left lobe of liver is unchanged and most likely represents a benign cyst or hemangioma. Gallbladder is unremarkable. Pancreas is normal in contours. Spleen is normal in size. No adrenal nodules. Both kidneys are normal in size, without hydronephrosis or nephrolithiasis. Peritoneum and bowel: Small and large bowel loops are normal in caliber and wall thickness. No inflammatory change. The appendix is not identified. No free fluid or air. Nodes and vessels: No retroperitoneal or mesenteric adenopathy by size criteria. Aorta and inferior vena cava are normal in size. Miscellaneous: No ventral hernias. PELVIS: Genitourinary: Bladder wall thickness is normal. Miscellaneous: No inguinal hernias or adenopathy. Bones: Cervical spine ACDF. L4-L5 intervertebral body spacer. L4-S1 pedicle screws. No suspicious bony lesions. No vertebral body compression fractures. IMPRESSION: 1. No abnormality identified to explain the patient's right lower quadrant abdominal pain. 2. Indeterminate right upper lobe ground glass nodular opacity measuring 6 mm is not significantly changed compared to March 2018. This could represent a slow growing pulmonary malignancy. -Followup chest CT in 2 years is recommended based on the Fleischner Society recommendation. Dictated by: Sam Funk M.D. on 02/21/2019 at 15:30 Approved by: Sam Funk M.D. on 02/21/2019 at 15:47
== END ==
PROVIDERS: PCP Internal Medicine; Visit Provider Internal Medicine
DX: R10.31 Right lower quadrant pain (principal); R91.1 Solitary pulmonary nodule; Z98.1 Arthrodesis status
CPT/HCPCS: 71250; 74176

== ENCOUNTER → 2020-06-27 19:54 | Outpatient (ROUT) | payer MEDICARE, SELFPAY ==
[2018-04-03 21:31] VITALS: BMI 29.1
== END ==
PROVIDERS: PCP Internal Medicine; Visit Provider Student in an Organized Health Care Education/Training Program
DX: R31.9 Hematuria, unspecified (principal)
CPT/HCPCS: 87077; 87086; 87186

== ENCOUNTER 2020-11-17 12:56 | Emergency (ER) | payer MEDICARE, SELFPAY ==
[2018-04-03 21:31] VITALS: BMI 29.1
[2020-11-17 13:05] VITALS: BP 224/102; PULSE 94; RESP 16; TEMP 35.9; O2SAT 96; BMI 29.2
[2020-11-17 14:25] LABS: Adenovirus Not Detected (Not Detect); B. parapertussis Not Detected (Not Detecte); Bordetella pertussis Not Detected (Not Detecte); Chlamydophila pneumoniae Not Detected (Not Detect); Coronavirus 229E Not Detected (Not Detect); Coronavirus HKU1 Not Detected (Not Detect); Coronavirus NL 63 Not Detected (Not Detect); Coronavirus OC43 Not Detected (Not Detect); Human Metapneumovirus Not Detected (Not Detect); Human Rhinovirus/Enterovirus Detected (Not Detect); Influenza A Not Detected (Not Detect); Influenza B Not Detected (Not Detect); Mycoplasma pneumoniae Not Detected (Not Detect); Parainfluenza Virus 1 Not Detected (Not Detect); Parainfluenza Virus 2 Not Detected (Not Detect); Parainfluenza Virus 3 Not Detected (Not Detect); Parainfluenza Virus 4 Not Detected (Not Detect); Respiratory Syncytial Virus Not Detected (Not Detect); SARS- CoV-2 Not Detected (Not Detecte)
--- NOTE | 2020-11-17 16:35 | ED_ITS ---
HPI - URI/Sore Throat General Chief Complaint: Upper Respiratory Symptoms Stated Complaint: JAIMIE Wants Eval Time Seen by Provider: 11/17/20 16:35 Source: patient Mode of arrival: Ambulatory History of Present Illness HPI Narrative: 75-year-old female former smoker with noncontributory medical history presents with a chief complaint of a few days of runny nose, dry scratchy throat, ear fullness and some dry hacking cough. She denies any fever or chills. She has had no nausea, vomiting or diarrhea. She denies any chest pain or significant shortness of breath. She is convinced she has a common cold but was at another hospital visiting a family member and wanted to be sure she does not have COVID. Related Data Home Medications Medication Instructions Recorded Confirmed atorvastatin 40 mg tablet (Lipitor) 40 mg PO QDAY #0 03/18/16 11/23/18 acetaminophen 650 mg 1,300 mg PO Q8H PRN 12/27/17 11/23/18 tablet,extended release (Tylenol Arthritis Pain) calcium citrate 200 mg 1 tab PO BEDTIME 12/27/17 11/23/18 calcium-vitamin D3 6.25 mcg (250 unit) tablet (Citracal-D3 Petites) esomeprazole magnesium 20 mg 20 mg PO DAILY 12/27/17 11/23/18 capsule,delayed release (Nexium) metoprolol succinate 50 mg 50 mg PO DAILY 03/31/18 11/23/18 tablet,extended release 24 hr ResMed AirSense 10 CPAP #1 ea 05/25/18 11/23/18 losartan 100 mg tablet 100 mg PO DAILY 05/25/18 11/23/18 Allergies Allergy/AdvReac Type Severity Reaction Status Date / Time aspirin [ASPIRIN] Allergy Severe SUPRESSES Verified 11/23/18 11:06 BREATHING benazepril Allergy Severe Cough Verified 11/23/18 11:06 erythromycin base Allergy Severe RASH Verified 11/23/18 11:06 [ERYTHROMYCIN BASE] MOVING ABOUT BODY-6 MONTHS iodine Allergy Severe Couldn't Verified 11/23/18 11:06 breath, itch lisinopril Allergy Severe Cough Verified 11/23/18 11:06 oxycodone [OXYCODONE] Allergy Severe HIVES AND Verified 11/23/18 11:06 WELTS sertraline [From ZOLOFT] Allergy Severe IMPAIRED Verified 11/23/18 11:06 BALANCE NEUROLOGIST: BECAME TOXIC latex [LATEX] Allergy Intermediate BREATHING Verified 11/23/18 11:06 DIFFICULTIES rofecoxib [From VIOXX] Allergy Intermediate COULDN'T Verified 11/23/18 11:06 URINATE FOR A COUPLE OF DAYS ibuprofen Allergy Mild Impaired Verified 11/23/18 11:06 breathing, worse over time meloxicam Allergy Mild Unknown Verified 11/23/18 11:06 amlodipine Allergy Unknown Rash, Verified 11/23/18 11:06 trouble breathing, bradycardia naproxen Allergy Unknown Unlisted Verified 11/23/18 11:06 nitroglycerin Allergy Unknown Unlisted Verified 11/23/18 11:06 Sulfa (Sulfonamide Allergy Unknown DON'T Verified 11/23/18 11:06 Antibiotics) REMEMBER [SULFA (SULFONAMIDE ANTIBIOTICS)] sulfur dioxide Allergy Unknown Not listed Verified 11/23/18 11:06 alprazolam AdvReac Severe confusion, Verified 11/23/18 11:06 stumbling, suicidal ideation diazepam [From VALIUM] AdvReac Intermediate GOT Verified 11/23/18 11:06 TERRIBLY DEPRESSED zolpidem [From Ambien] AdvReac Intermediate Slept for Verified 11/23/18 11:06 3 hours, then couldn't sleep lithium [LITHIUM] AdvReac Mild ELEVATED Verified 11/23/18 11:06 BP & DELIRIOUS simvastatin [From Zocor] AdvReac Mild Muscle Verified 11/23/18 11:06 cramps hydrochlorothiazide AdvReac Unknown DEPLETED Verified 11/23/18 11:06 [HYDROCHLOROTHIAZIDE] POTASSIUM, IN DAYS, DEHYDRATION meperidine [From Demerol] AdvReac Unknown Falling, Verified 11/23/18 11:06 my arms would flip out Review of Systems Review of Systems Narrative: GENERAL: See HPI HEENT: See HPI RESPIRATORY: See HPI CARDIOVASCULAR: Denies chest pain, palpitations, orthopnea, edema, GASTROINTESTINAL: Denies nausea, vomiting, abdominal pain, diarrhea, constipation, melena. : Denies dysuria, frequency, incontinence, hematuria, urinary retention. MUSCULOSKELETAL: denies weakness, joint pain, or bony pain SKIN: Denies rash, skin lesions, or other NEUROLOGIC: Denies weakness, headache, numbness, change in speech, confusion, seizures, incoordination. PSYCHIATRIC: No concerning psychosocial issues. 12 point review of systems is negative except for those stated above Patient History Medical History Abnormal EKG ADHD Anemia Anxiety disorder Arrhythmia Asthma Atrophic vaginitis Benign positional vertigo Bruises easily CAD (coronary artery disease) Cervical spinal stenosis Concussion Difficulty sleeping Disorder of left rotator cuff Familial tremor Fibromyalgia Former smoker Fracture GERD (gastroesophageal reflux disease) History of endometriosis History of frequent headaches History of left heart catheterization History of stomach ulcers Hyperlipidemia Hypertension Impaired hearing Impaired vision Leg weakness Lumbar pain Lumbar spinal stenosis Obstructive sleep apnea of adult Osteoarthritis Osteoarthritis cervical spine Osteomyelitis Palpitations Panic attacks Peripheral sensory neuropathy Precancerous lesion PTSD (post-traumatic stress disorder) PVCs (premature ventricular contractions) Shortness of breath Sleep apnea treated with nocturnal BiPAP Snoring Spastic colon Spinal stenosis of lumbar region at multiple levels Spondylolisthesis at L4-L5 level Spondylolisthesis of cervical region Stenosis of right carotid artery Syncope Surgical History H/O oral surgery H/O thumb surgery History of appendectomy History of breast biopsy History of colonoscopy with polypectomy History of hernia repair History of lumbar spinal fusion (01/13/18) History of tonsillectomy History of total abdominal hysterectomy Status post cervical spinal fusion (~03/20/18) Social History marital status: details: segundo Hansen, lives in [place] number of children: 1 household members: spouse lives independently: Yes caregiver/support person: No housing: house Smoking Status: Former smoker alcohol intake: current Smoking Status: Former smoker alcohol intake frequency: a few times a week Substance Use Type: does not use Exam Narrative Exam Narrative: GEN: AOx3 and in mild distress, well appearing, no evidence of respiratory distress EYES: Pupils are equal, round, and reactive to light and accommodation. Extraoccular muscles are intact bilaterally. There is no subconjunctival hemorrhage or exudate. ENT: clear postnasal drip, no redness, swelling bulging of TMs CHEST: Lungs are clear to auscultation bilaterally and free of wheezes, rales, or rhonchi. Heart rate is regular rhythm, there are no murmurs, clicks, rubs, or gallops. There is no chest wall tenderness. ABD: Abdomen is soft and nontender. There is no guarding or rebound. Bowel sounds are normal in all 4 quadrants. There is no mass or organomegaly. EXT: Full painless ROM of all extremities with no loss of sensation or strength. SKIN: Warm, pink, and dry. No erythema or rash Initial Vital Signs Initial Vital Signs: Vital Signs Temperature 96.6 F L 11/17/20 13:05 Pulse Rate 94 H 11/17/20 13:05 Respiratory Rate 16 11/17/20 13:05 Blood Pressure 224/102 H 11/17/20 13:05 Pulse Oximetry 96 11/17/20 13:05 Course Orders Ordered: ED Orders 11/17/20 13:13 Respiratory Panel (Film Array) Stat Vital Signs Vital signs: Vital Signs - 8 hr 11/17/20 13:05 Temperature 96.6 F L Pulse Rate 94 H Respiratory Rate 16 Blood Pressure 224/102 H Pulse Oximetry 96 MDM - URI/Sore Throat Lab Data Labs: Lab Results 11/17/20 Range/Units 13:13 Chlamy pneumoniae PCR Not detected (Not Detect) Adenovirus (PCR) Not detected (Not Detect) B. pertussis DNA (PCR) Not detected (Not Detecte) B.parapertussis DNA PCR Not detected (Not Detecte) Coronavirus OC43 (PCR) Not detected (Not Detect) Coronavirus HKU1 (PCR) Not detected (Not Detect) Coronavirus 229E (PCR) Not detected (Not Detect) SARS-CoV-2 (PCR) Not detected (Not Detecte) Coronavirus NL63 (PCR) Not detected (Not Detect) Human Metapneumovir PCR Not detected (Not Detect) Influenza Type A (PCR) Not detected (Not Detect) Influenza Type B (PCR) Not detected (Not Detect) M. pneumoniae (PCR) Not detected (Not Detect) Parainfluenza 1 (PCR) Not detected (Not Detect) Parainfluenza 2 (PCR) Not detected (Not Detect) Parainfluenza 3 (PCR) Not detected (Not Detect) Parainfluenza 4 (PCR) Not detected (Not Detect) RSV (PCR) Not detected (Not Detect) Entero/Rhino (PCR) Detected H (Not Detect) MDM Narrative Medical decision making narrative: Well-appearing 75-year-old female with reassuring physical exam and vitals. Respiratory panel notes rhino virus. Patient is not septic and shows no sign of respiratory distress. Discharge Plan Departure Patient Disposition: Home Clinical Impression: Rhinovirus infection Instructions: Common Cold Activity Restrictions/Additional Instructions: *You have been diagnosed with [multiple upper respiratory symptoms due to rhino virus (common cold). COVID swab and flu were both negative] *What to do: *Please continue to take your regular medications as directed. [ ] New medication prescriptions sent to your pharmacy: [ ] [ ] New medication written as a paper prescription [x ] No new medications given *Please follow up with your primary care provider in 2-3 days, call for an appointment. Let them know you were seen in the Emergency Department and that we ask that you be seen in follow up. We will electronically transmit a record of today's note if your PCP is in our system *If you do not have a primary care provider please contact the [facility] Resource line at [phone]. They will ask some questions about your medical history and help get you set up with a doctor in the community. *Return to Emergency Department if you should have any new, worsening or concerning symptoms, such as [fever greater than 101 F, shaking chills, worsening pain, persistent vomiting or other bothersome symptoms] Prescriptions: No Action atorvastatin [Lipitor] 40 MG tablet 40 mg PO QDAY Qty: 0 RF: 0 acetaminophen [Tylenol Arthritis Pain] 650 mg Tablet Extended Release 1,300 mg PO Q8H PRN (Reason: Pain) RF: 0 esomeprazole magnesium [Nexium] 20 mg Capsule,Delayed Release(Dr/Ec) 20 mg PO DAILY RF: 0 calcium citrate-vitamin D3 [Citracal-D3 Petites] 200 mg calcium -250 unit Tablet 1 tab PO BEDTIME RF: 0 metoprolol succinate 50 mg Tablet Extended Release 24 Hr 50 mg PO DAILY RF: 0 (DME) ResMed AirSense 10 CPAP Qty: 1 RF: 0 losartan 100 mg tablet 100 mg PO DAILY RF: 0 Referrals: Mariella Guillory PA-C [Primary Care Provider] -
--- NOTE | 2021-02-23 15:27 | PM.AN.REGBLK ---
Regional Block Pre-procedure Allergies: Allergies Allergy/AdvReac Type Severity Reaction Status Date / Time aspirin [ASPIRIN] Allergy Severe SUPRESSES Verified 02/11/21 19: BREATHING benazepril Allergy Severe Cough Verified 02/11/21 19:01 erythromycin base Allergy Severe RASH Verified 02/11/21 19: [ERYTHROMYCIN BASE] MOVING ABOUT BODY-6 MONTHS iodine Allergy Severe Couldn't Verified 02/11/21 19: breath, itch lisinopril Allergy Severe Cough Verified 02/11/21 19:01 oxycodone [OXYCODONE] Allergy Severe HIVES AND Verified 02/11/21 19: WELTS sertraline [From ZOLOFT] Allergy Severe IMPAIRED Verified 02/11/21 19: BALANCE NEUROLOGIST: BECAME TOXIC latex [LATEX] Allergy Intermediate BREATHING Verified 02/11/21 19:01 DIFFICULTIES rofecoxib [From VIOXX] Allergy Intermediate COULDN'T Verified 02/11/21 19: URINATE FOR A COUPLE OF DAYS ibuprofen Allergy Mild Impaired Verified 02/11/21 19:01 breathing, worse over time meloxicam Allergy Mild Unknown Verified 02/11/21 19:01 amlodipine Allergy Unknown Rash, Verified 02/11/21 19: trouble breathing, bradycardia naproxen Allergy Unknown Unlisted Verified 02/11/21 19: nitroglycerin Allergy Unknown Unlisted Verified 02/11/21 19:01 Sulfa (Sulfonamide Allergy Unknown DON'T Verified 02/11/21 19: Antibiotics) REMEMBER [SULFA (SULFONAMIDE ANTIBIOTICS)] sulfur dioxide Allergy Unknown Not listed Verified 02/11/21 19: alprazolam AdvReac Severe confusion, Verified 02/11/21 19:01 stumbling, suicidal ideation diazepam [From VALIUM] AdvReac Intermediate GOT Verified 02/11/21 19:01 TERRIBLY DEPRESSED zolpidem [From Ambien] AdvReac Intermediate Slept for Verified 02/11/21 19:01 3 hours, then couldn't sleep lithium [LITHIUM] AdvReac Mild ELEVATED Verified 02/11/21 19:01 BP & DELIRIOUS simvastatin [From Zocor] AdvReac Mild Muscle Verified 02/11/21 19:01 cramps hydrochlorothiazide AdvReac Unknown DEPLETED Verified 02/11/21 19: [HYDROCHLOROTHIAZIDE] POTASSIUM, IN DAYS, DEHYDRATION meperidine [From Demerol] AdvReac Unknown Falling, Verified 02/11/21 19:01 my arms would flip out
--- NOTE | 2021-02-23 15:29 | PM.PROC.1 ---
Procedures Date/Time Date of procedure: 02/12/21 Time of procedure: 01:00 Arterial Line Time out performed: Yes (Pt diagnosed with hypertensive crisis.) Size (Gauge): 20 Technique used: direct puncture technique Post-Procedure: dry sterile dressing placed Patient tolerated procedure: Well Complications: none Site: right (Radial)
== END 2020-11-17 16:49 | disposition home or self-care (01) ==
PROVIDERS: Emergency Provider Emergency Medicine; PCP Student in an Organized Health Care Education/Training Program
DX: J06.9 Acute upper respiratory infection, unspecified (principal); B34.8 Other viral infections of unspecified site; Z20.822 Contact with and (suspected) exposure to COVID-19
CPT/HCPCS: 87633; 99281; 99282

== ENCOUNTER 2021-02-11 18:37 | Inpatient (IN) | payer MEDICARE, SELFPAY ==
[2018-04-03 21:31] VITALS: BMI 29.1
[2021-02-11] VITALS (30 sets, daily range): BP systolic 168–235; BP diastolic 74–132; PULSE 66–87; RESP 14–37; TEMP 36.4–36.6; O2SAT 96–100; BMI 28.1; BMI 28.4
--- NOTE | 2021-02-11 18:50 | ED_ITS ---
HPI - General Adult General Stated complaint: t-14 fatigue, sob, shaky, hurting legs, pain+chest Time Seen by Provider: 02/11/21 18:50 Related Data Home Medications Medication Instructions Recorded Confirmed atorvastatin 40 mg tablet (Lipitor) 40 mg PO QDAY #0 03/18/16 11/23/18 acetaminophen 650 mg 1,300 mg PO Q8H PRN 12/27/17 11/23/18 tablet,extended release (Tylenol Arthritis Pain) calcium citrate 200 mg 1 tab PO BEDTIME 12/27/17 11/23/18 calcium-vitamin D3 6.25 mcg (250 unit) tablet (Citracal-D3 Petites) esomeprazole magnesium 20 mg 20 mg PO DAILY 12/27/17 11/23/18 capsule,delayed release (Nexium) metoprolol succinate 50 mg 50 mg PO DAILY 03/31/18 11/23/18 tablet,extended release 24 hr ResMed AirSense 10 CPAP #1 ea 05/25/18 11/23/18 losartan 100 mg tablet 100 mg PO DAILY 05/25/18 11/23/18 Allergies Allergy/AdvReac Type Severity Reaction Status Date / Time aspirin [ASPIRIN] Allergy Severe SUPRESSES Verified 11/23/18 11:06 BREATHING benazepril Allergy Severe Cough Verified 11/23/18 11:06 erythromycin base Allergy Severe RASH Verified 11/23/18 11:06 [ERYTHROMYCIN BASE] MOVING ABOUT BODY-6 MONTHS iodine Allergy Severe Couldn't Verified 11/23/18 11:06 breath, itch lisinopril Allergy Severe Cough Verified 11/23/18 11:06 oxycodone [OXYCODONE] Allergy Severe HIVES AND Verified 11/23/18 11:06 WELTS sertraline [From ZOLOFT] Allergy Severe IMPAIRED Verified 11/23/18 11:06 BALANCE NEUROLOGIST: BECAME TOXIC latex [LATEX] Allergy Intermediate BREATHING Verified 11/23/18 11:06 DIFFICULTIES rofecoxib [From VIOXX] Allergy Intermediate COULDN'T Verified 11/23/18 11:06 URINATE FOR A COUPLE OF DAYS ibuprofen Allergy Mild Impaired Verified 11/23/18 11:06 breathing, worse over time meloxicam Allergy Mild Unknown Verified 11/23/18 11:06 amlodipine Allergy Unknown Rash, Verified 11/23/18 11:06 trouble breathing, bradycardia naproxen Allergy Unknown Unlisted Verified 11/23/18 11:06 nitroglycerin Allergy Unknown Unlisted Verified 11/23/18 11:06 Sulfa (Sulfonamide Allergy Unknown DON'T Verified 11/23/18 11:06 Antibiotics) REMEMBER [SULFA (SULFONAMIDE ANTIBIOTICS)] sulfur dioxide Allergy Unknown Not listed Verified 11/23/18 11:06 alprazolam AdvReac Severe confusion, Verified 11/23/18 11:06 stumbling, suicidal ideation diazepam [From VALIUM] AdvReac Intermediate GOT Verified 11/23/18 11:06 TERRIBLY DEPRESSED zolpidem [From Ambien] AdvReac Intermediate Slept for Verified 11/23/18 11:06 3 hours, then couldn't sleep lithium [LITHIUM] AdvReac Mild ELEVATED Verified 11/23/18 11:06 BP & DELIRIOUS simvastatin [From Zocor] AdvReac Mild Muscle Verified 11/23/18 11:06 cramps hydrochlorothiazide AdvReac Unknown DEPLETED Verified 11/23/18 11:06 [HYDROCHLOROTHIAZIDE] POTASSIUM, IN DAYS, DEHYDRATION meperidine [From Demerol] AdvReac Unknown Falling, Verified 11/23/18 11:06 my arms would flip out Patient History Medical History Abnormal EKG ADHD Anemia Anxiety disorder Arrhythmia Asthma Atrophic vaginitis Benign positional vertigo Bruises easily CAD (coronary artery disease) Cervical spinal stenosis Concussion Difficulty sleeping Disorder of left rotator cuff Familial tremor Fibromyalgia Former smoker Fracture GERD (gastroesophageal reflux disease) History of endometriosis History of frequent headaches History of left heart catheterization History of stomach ulcers Hyperlipidemia Hypertension Impaired hearing Impaired vision Leg weakness Lumbar pain Lumbar spinal stenosis Obstructive sleep apnea of adult Osteoarthritis Osteoarthritis cervical spine Osteomyelitis Palpitations Panic attacks Peripheral sensory neuropathy Precancerous lesion PTSD (post-traumatic stress disorder) PVCs (premature ventricular contractions) Shortness of breath Sleep apnea treated with nocturnal BiPAP Snoring Spastic colon Spinal stenosis of lumbar region at multiple levels Spondylolisthesis at L4-L5 level Spondylolisthesis of cervical region Stenosis of right carotid artery Syncope Surgical History H/O oral surgery H/O thumb surgery History of appendectomy History of breast biopsy History of colonoscopy with polypectomy History of hernia repair History of lumbar spinal fusion (01/13/18) History of tonsillectomy History of total abdominal hysterectomy Status post cervical spinal fusion (~03/20/18) Social History marital status: details: segundo Hansen, lives in [place] number of children: 1 household members: spouse lives independently: Yes caregiver/support person: No housing: house Smoking Status: Former smoker alcohol intake: current Smoking Status: Former smoker alcohol intake frequency: a few times a week Substance Use Type: does not use Discharge Plan Departure Prescriptions: No Action atorvastatin [Lipitor] 40 MG tablet 40 mg PO QDAY Qty: 0 RF: 0 acetaminophen [Tylenol Arthritis Pain] 650 mg Tablet Extended Release 1,300 mg PO Q8H PRN (Reason: Pain) RF: 0 esomeprazole magnesium [Nexium] 20 mg Capsule,Delayed Release(Dr/Ec) 20 mg PO DAILY RF: 0 calcium citrate-vitamin D3 [Citracal-D3 Petites] 200 mg calcium -250 unit Tablet 1 tab PO BEDTIME RF: 0 metoprolol succinate 50 mg Tablet Extended Release 24 Hr 50 mg PO DAILY RF: 0 (DME) ResMed AirSense 10 CPAP Qty: 1 RF: 0 losartan 100 mg tablet 100 mg PO DAILY RF: 0 Referrals: Mariella Guillory PA-C [Primary Care Provider] -
--- NOTE | 2021-02-11 19:00 | DI.RAD.S_ITS ---
PROCEDURE: XR CHEST 2V INDICATIONS: shortness of breath TECHNIQUE: 2 views of the chest were acquired. COMPARISON: [facility], CR, XR CHEST 2 VIEWS, 09/09/2018, 12:20. FINDINGS: Surgical changes and devices: Cervical spine fixation hardware. Lungs and pleura: Lungs are clear. No pleural effusions or pneumothorax. Mediastinum: Mediastinal contours are normal. Heart size is normal. Bones and chest wall: No suspicious bony abnormalities. Soft tissues appear unremarkable. IMPRESSION: No acute cardiopulmonary disease process. Dictated by: Patria Burr MD, PhD on 02/11/2021 at 19:39 Approved by: Patria Burr MD, PhD on 02/11/2021 at 19:40
--- NOTE | 2021-02-11 19:09 | ED_ITS ---
HPI - General Adult <Hazel Altman MD - Last Filed: 02/11/21 21:37> General Chief complaint: Shortness of Breath/Dyspnea Stated complaint: t-14 fatigue, sob, shaky, hurting legs, pain+chest Time Seen by Provider: 02/11/21 18:50 Source: patient Mode of arrival: Ambulatory Limitations: no limitations History of Present Illness HPI narrative: 75-year-old woman with a history of hypertension, reflux, hyperlipidemia fibromyalgia presents with 2-3 weeks of episodes of weak spells associated with dyspnea, severe enough that her legs almost gave out and she has a near syncope feeling all associated with severe fatigue. All of these symptoms have gotten progressively worse to the point where they are almost continuous today. She notes that she has chronic palpitations and is currently on metoprolol. She describes heaviness in her chest particularly worse after eating and has incr eased her omeprazole to twice a day over the last 1-2 weeks. She describes significant dyspnea while speaking in full sentences with oxygen saturations at 99%. She states that she has a history of hyponatremia. Recently she has been having increasing headaches and difficulty thinking but does not describe localized weakness or numbness and has not been having any expressive or receptive aphasia symptoms. Up until 2 weeks ago she had been checking her blood pressure regularly and had numbers ranging in the 119-153 systolic range and 62-73 diastolic range. She does note that her daughter of pancreatic cancer in early November and she has been having some difficulty adjusting to that but seems to be improving with time. She notes that she received her 3rd COVID booster shot 1 week ago. She reports minor bilateral inguinal hernia pain that is chronic and unchanged. No vomiting, no diarrhea constipation no black or bloody stools. Related Data Home Medications Medication Instructions Recorded Confirmed atorvastatin 40 mg tablet (Lipitor) 40 mg PO QDAY #0 03/18/16 11/23/18 acetaminophen 650 mg 1,300 mg PO Q8H PRN 12/27/17 11/23/18 tablet,extended release (Tylenol Arthritis Pain) calcium citrate 200 mg 1 tab PO BEDTIME 12/27/17 11/23/18 calcium-vitamin D3 6.25 mcg (250 unit) tablet (Citracal-D3 Petites) esomeprazole magnesium 20 mg 20 mg PO DAILY 12/27/17 11/23/18 capsule,delayed release (Nexium) metoprolol succinate 50 mg 50 mg PO DAILY 03/31/18 11/23/18 tablet,extended release 24 hr ResMed AirSense 10 CPAP #1 ea 05/25/18 11/23/18 losartan 100 mg tablet 100 mg PO DAILY 05/25/18 11/23/18 Allergies Allergy/AdvReac Type Severity Reaction Status Date / Time aspirin [ASPIRIN] Allergy Severe SUPRESSES Verified 02/11/21 19:01 BREATHING benazepril Allergy Severe Cough Verified 02/11/21 19:01 erythromycin base Allergy Severe RASH Verified 02/11/21 19: [ERYTHROMYCIN BASE] MOVING ABOUT BODY-6 MONTHS iodine Allergy Severe Couldn't Verified 02/11/21 19:01 breath, itch lisinopril Allergy Severe Cough Verified 02/11/21 19:01 oxycodone [OXYCODONE] Allergy Severe HIVES AND Verified 02/11/21 19:01 WELTS sertraline [From ZOLOFT] Allergy Severe IMPAIRED Verified 02/11/21 19:01 BALANCE NEUROLOGIST: BECAME TOXIC latex [LATEX] Allergy Intermediate BREATHING Verified 02/11/21 19:01 DIFFICULTIES rofecoxib [From VIOXX] Allergy Intermediate COULDN'T Verified 02/11/21 19:01 URINATE FOR A COUPLE OF DAYS ibuprofen Allergy Mild Impaired Verified 02/11/21 19:01 breathing, worse over time meloxicam Allergy Mild Unknown Verified 02/11/21 19:01 amlodipine Allergy Unknown Rash, Verified 02/11/21 19:01 trouble breathing, bradycardia naproxen Allergy Unknown Unlisted Verified 02/11/21 19:01 nitroglycerin Allergy Unknown Unlisted Verified 02/11/21 19:01 Sulfa (Sulfonamide Allergy Unknown DON'T Verified 02/11/21 19:01 Antibiotics) REMEMBER [SULFA (SULFONAMIDE ANTIBIOTICS)] sulfur dioxide Allergy Unknown Not listed Verified 02/11/21 19:01 alprazolam AdvReac Severe confusion, Verified 02/11/21 19:01 stumbling, suicidal ideation diazepam [From VALIUM] AdvReac Intermediate GOT Verified 02/11/21 19:01 TERRIBLY DEPRESSED zolpidem [From Ambien] AdvReac Intermediate Slept for Verified 02/11/21 19:01 3 hours, then couldn't sleep lithium [LITHIUM] AdvReac Mild ELEVATED Verified 02/11/21 19:01 BP & DELIRIOUS simvastatin [From Zocor] AdvReac Mild Muscle Verified 02/11/21 19:01 cramps hydrochlorothiazide AdvReac Unknown DEPLETED Verified 02/11/21 19:01 [HYDROCHLOROTHIAZIDE] POTASSIUM, IN DAYS, DEHYDRATION meperidine [From Demerol] AdvReac Unknown Falling, Verified 02/11/21 19:01 my arms would flip out Review of Systems <Hazel Altman MD - Last Filed: 02/11/21 21:37> Review of Systems Narrative: Remainder of complete review of systems is otherwise unremarkable except for that included in the HPI. Patient History <Hazel Altman MD - Last Filed: 02/11/21 21:37> Medical History Abnormal EKG ADHD Anemia Anxiety disorder Arrhythmia Asthma Atrophic vaginitis Benign positional vertigo Bruises easily CAD (coronary artery disease) Cervical spinal stenosis Concussion Difficulty sleeping Disorder of left rotator cuff Familial tremor Fibromyalgia Former smoker Fracture GERD (gastroesophageal reflux disease) History of endometriosis History of frequent headaches History of left heart catheterization History of stomach ulcers Hyperlipidemia Hypertension Impaired hearing Impaired vision Leg weakness Lumbar pain Lumbar spinal stenosis Obstructive sleep apnea of adult Osteoarthritis Osteoarthritis cervical spine Osteomyelitis Palpitations Panic attacks Peripheral sensory neuropathy Precancerous lesion PTSD (post-traumatic stress disorder) PVCs (premature ventricular contractions) Shortness of breath Sleep apnea treated with nocturnal BiPAP Snoring Spastic colon Spinal stenosis of lumbar region at multiple levels Spondylolisthesis at L4-L5 level Spondylolisthesis of cervical region Stenosis of right carotid artery Syncope Surgical History H/O oral surgery H/O thumb surgery History of appendectomy History of breast biopsy History of colonoscopy with polypectomy History of hernia repair History of lumbar spinal fusion (01/13/18) History of tonsillectomy History of total abdominal hysterectomy Status post cervical spinal fusion (~03/20/18) Social History marital status: details: to Tyrone, lives in [place] number of children: 1 household members: spouse lives independently: Yes caregiver/support person: No housing: house Smoking Status: Former smoker alcohol intake: current Smoking Status: Former smoker alcohol intake frequency: a few times a week Substance Use Type: does not use Exam <Hazel Altman MD - Last Filed: 02/11/21 21:37> Narrative Exam Narrative: General: Appears to feel unwell but in no acute distress. Able to give a complete and coherent history. Well-nourished well-developed HEENT: Moist mucous membranes, normal sclera with reactive pupils, Neck: No JVD, supple Respiratory: Lungs are clear to auscultation, no wheezing no rales no rhonchi. Full and symmetrical air movement Cardiac: Very frequent PVCs with underlying sinus rhythm, no murmurs no bruits Abdomen: Soft, nontender, good bowel tones, no flank pain Skin: Warm and dry, no rashes Neurologic: Grossly neurologically intact with no obvious asymmetries or abnormalities, NIH=0 Extremities: No trauma, well perfused Psych: Cooperative, appropriate insight and affect Initial Vital Signs Initial Vital Signs: Vital Signs Temperature 97.9 F 02/11/21 18:51 Pulse Rate 81 02/11/21 18:51 Respiratory Rate 16 02/11/21 18:51 Blood Pressure 226/116 H 02/11/21 18:51 Pulse Oximetry 99 02/11/21 18:51 <Liz Milligan MD - Last Filed: 02/11/21 23:25> Initial Vital Signs Initial Vital Signs: Vital Signs Temperature 97.9 F 02/11/21 18:51 Pulse Rate 81 02/11/21 18:51 Respiratory Rate 16 02/11/21 18:51 Blood Pressure 226/116 H 02/11/21 18:51 Pulse Oximetry 99 02/11/21 18:51 Course <Hazel Altman MD - Last Filed: 02/11/21 21:37> Orders Ordered: ED Orders 02/11/21 19:00 XR chest 2V Stat EKG-12 Lead Stat 02/11/21 19:11 Urine Culture Stat Urine Microscopic Stat 02/11/21 19:20 COVID19 -Nasal swab/Pre-Proc Stat Complete Blood Count AUTO DIFF Stat Comprehensive Metabolic Panel Stat Lactate (Lactic Acid) Stat NT-proBNP (BNP-Adult 18+) Stat Trop I [Troponin I] Stat 02/11/21 21:35 CT head/brain wo con Stat Acetaminophen (Acetaminophen 325 Mg Tablet) 650 mg PO Q6HR PRN PRN Reason: Fever Atorvastatin Calcium (Atorvastatin 20 Mg Tablet) 40 mg PO BEDTIME LINETTE Bisacodyl (Bisacodyl 10 Mg Supp) 10 mg DE DAILY PRN PRN Reason: Constipation Docusate Sodium (Docusate 100 Mg Capsule) 100 mg PO BID LINETTE Enoxaparin Sodium (Enoxaparin 40 Mg/0.4 Ml Syringe) 40 mg SUBCUT DAILY LINETTE Hydralazine HCl (Hydralazine 20 Mg/Ml Vial) 10 mg IV Q6HR PRN PRN Reason: Hypertension Esmolol HCl (Brevibloc) 2.5 gm in 250 mls @ 20.956 mls/hr IV TITRATE LINETTE; Protocol Last Titration: 02/11/21 22:44 Dose: 100 mcg/kg/min, 41.912 mls/hr Documented by: Titration: 02/11/21 22:34 Dose: 49.87 mcg/kg/min, 20.9 mls/hr Documented by: Admin: 02/11/21 21:44 Dose: 50 mcg/kg/min, 20.956 mls/hr Documented by: MEIR Sodium Chloride (Normal Saline 0.9%) 1,000 mls @ 100 mls/hr IV CONT LINETTE Esmolol HCl (Brevibloc) 2.5 gm in 250 mls @ 20.956 mls/hr IV TITRATE LINETTE; Protocol Nitroglycerin (Nitroglycerin) 50 mg in 250 mls @ 1.5 mls/hr IV TITRATE LINETTE; Protocol Losartan Potassium (Losartan 50 Mg Tablet) 100 mg PO DAILY LINETTE Naloxone HCl (Naloxone 0.4 Mg/Ml Vial) 0.2 mg IV Q2MIN PRN PRN Reason: Opiate Reversal Pantoprazole Sodium (Pantoprazole Dr 40 Mg Tablet) 40 mg PO 0700 LINETTE Discontinued Medications Acetaminophen (Acetaminophen 325 Mg Tablet) 975 mg PO NOW ONE Stop: 02/11/21 20:51 Last Admin: 02/11/21 20:56 Dose: 975 mg Documented by: MEIR Hydralazine HCl (Hydralazine 20 Mg/Ml Vial) 10 mg IV NOW ONE Stop: 02/11/21 22:43 Last Admin: 02/11/21 23:09 Dose: 10 mg Documented by: Hydralazine HCl (Hydralazine 20 Mg/Ml Vial) 20 mg IV NOW ONE Stop: 02/11/21 22:48 Labetalol HCl (Labetalol 20 Mg/4 Ml Syringe) 20 mg IV NOW ONE Stop: 02/11/21 19:21 Last Admin: 02/11/21 19:31 Dose: 20 mg Documented by: MEIR Vital Signs Vital signs: Vital Signs - 8 hr 02/11/21 18:51 02/11/21 18:52 02/11/21 18:53 Temperature 97.9 F Pulse Rate 81 82 Respiratory Rate 16 Blood Pressure 226/116 H 226/116 H Pulse Oximetry 99 99 02/11/21 19:00 02/11/21 19:06 02/11/21 19:30 Temperature Pulse Rate 72 77 71 Respiratory Rate 19 37 H 20 Blood Pressure 228/97 H Pulse Oximetry 99 98 98 02/11/21 19:31 02/11/21 19:37 02/11/21 20:00 Temperature Pulse Rate 69 80 75 Respiratory Rate 19 22 Blood Pressure 228/97 H 206/83 H Pulse Oximetry 97 96 02/11/21 20:01 02/11/21 20:30 02/11/21 20:31 Temperature Pulse Rate 75 69 68 Respiratory Rate 14 14 14 Blood Pressure 208/132 H 201/84 H Pulse Oximetry 98 98 99 <Liz Milligan MD - Last Filed: 02/11/21 23:25> Orders Ordered: ED Orders 02/11/21 19:00 XR chest 2V Stat EKG-12 Lead Stat 02/11/21 19:11 Urine Culture Stat Urine Microscopic Stat 02/11/21 19:20 COVID19 -Nasal swab/Pre-Proc Stat Complete Blood Count AUTO DIFF Stat Comprehensive Metabolic Panel Stat Lactate (Lactic Acid) Stat NT-proBNP (BNP-Adult 18+) Stat Trop I [Troponin I] Stat 02/11/21 21:35 CT head/brain wo con Stat Acetaminophen (Acetaminophen 325 Mg Tablet) 650 mg PO Q6HR PRN PRN Reason: Fever Atorvastatin Calcium (Atorvastatin 20 Mg Tablet) 40 mg PO BEDTIME LINETTE Bisacodyl (Bisacodyl 10 Mg Supp) 10 mg DE DAILY PRN PRN Reason: Constipation Docusate Sodium (Docusate 100 Mg Capsule) 100 mg PO BID LINETTE Enoxaparin Sodium (Enoxaparin 40 Mg/0.4 Ml Syringe) 40 mg SUBCUT DAILY LINETTE Hydralazine HCl (Hydralazine 20 Mg/Ml Vial) 10 mg IV Q6HR PRN PRN Reason: Hypertension Esmolol HCl (Brevibloc) 2.5 gm in 250 mls @ 20.956 mls/hr IV TITRATE LINETTE; Mary Jo col Last Titration: 02/11/21 22:44 Dose: 100 mcg/kg/min, 41.912 mls/hr Documented by: [email or web address] Titration: 02/11/21 22:34 Dose: 49.87 mcg/kg/min, 20.9 mls/hr Documented by: Admin: 02/11/21 21:44 Dose: 50 mcg/kg/min, 20.956 mls/hr Documented by: MEIR Sodium Chloride (Normal Saline 0.9%) 1,000 mls @ 100 mls/hr IV CONT LINETTE Esmolol HCl (Brevibloc) 2.5 gm in 250 mls @ 20.956 mls/hr IV TITRATE LINETTE; Protocol Nitroglycerin (Nitroglycerin) 50 mg in 250 mls @ 1.5 mls/hr IV TITRATE LINETTE; Protocol Losartan Potassium (Losartan 50 Mg Tablet) 100 mg PO DAILY LINETTE Naloxone HCl (Naloxone 0.4 Mg/Ml Vial) 0.2 mg IV Q2MIN PRN PRN Reason: Opiate Reversal Pantoprazole Sodium (Pantoprazole Dr 40 Mg Tablet) 40 mg PO 0700 LINETTE Discontinued Medications Acetaminophen (Acetaminophen 325 Mg Tablet) 975 mg PO NOW ONE Stop: 02/11/21 20:51 Last Admin: 02/11/21 20:56 Dose: 975 mg Documented by: MEIR Hydralazine HCl (Hydralazine 20 Mg/Ml Vial) 10 mg IV NOW ONE Stop: 02/11/21 22:43 Last Admin: 02/11/21 23:09 Dose: 10 mg Documented by: Hydralazine HCl (Hydralazine 20 Mg/Ml Vial) 20 mg IV NOW ONE Stop: 02/11/21 22:48 Labetalol HCl (Labetalol 20 Mg/4 Ml Syringe) 20 mg IV NOW ONE Stop: 02/11/21 19:21 Last Admin: 02/11/21 19:31 Dose: 20 mg Documented by: MEIR Vital Signs Vital signs: Vital Signs - 8 hr 02/11/21 18:51 02/11/21 18:52 02/11/21 18:53 Temperature 97.9 F Pulse Rate 81 82 Respiratory Rate 16 Blood Pressure 226/116 H 226/116 H Pulse Oximetry 99 99 02/11/21 19:00 02/11/21 19:06 02/11/21 19:30 Temperature Pulse Rate 72 77 71 Respiratory Rate 19 37 H 20 Blood Pressure 228/97 H Pulse Oximetry 99 98 98 02/11/21 19:31 02/11/21 19:37 02/11/21 20:00 Temperature Pulse Rate 69 80 75 Respiratory Rate 19 22 Blood Pressure 228/97 H 206/83 H Pulse Oximetry 97 96 02/11/21 20:01 02/11/21 20:30 02/11/21 20:31 Temperature Pulse Rate 75 69 68 Respiratory Rate 14 14 14 Blood Pressure 208/132 H 201/84 H Pulse Oximetry 98 98 99 Medical Decision Making <Hazel Altman MD - Last Filed: 02/11/21 21:37> Lab Data Result diagrams: 02/11/21 19:20 02/11/21 19:20 Labs: Lab Results 02/11/21 02/11/21 02/11/21 Range/Units 19:11 19:20 19:20 WBC 8.9 (4.5-11.0) X10^3/uL RBC 3.54 L (4.0-5.2) X10^6/uL Hgb 11.8 L (12.0-16.0) g/dL Hct 34.3 L (36-46) % MCV 96.8 (80-100) fL MCH 33.3 (26-34) PG MCHC 34.4 (30-36) % RDW 13.2 (11.6-14.8) % Plt Count 325 (150-400) X10^3/uL Neut % (Auto) 49.1 L (50-75) % Lymph % (Auto) 41.6 H (25-40) % [place] % (Auto) 7.2 (3-14) % Eos % (Auto) 1.2 L (2-4) % Baso % (Auto) 0.9 (0-2) % Neut # (Auto) 4400 (1794-4402) /uL Lymph # (Auto) 3700 (2850-7942) /uL [place] # (Auto) 600 (0-900) /uL Eos # (Auto) 100 (0-450) /uL Baso # (Auto) 100 (0-100) /uL Sodium 130 L (137-145) mmol/L Potassium 4.1 (3.4-5.1) mmol/L Chloride 96 L (98-107) mmol/L Carbon Dioxide 24 (22-32) mmol/L BUN 17 (7-17) mg/dL Creatinine 0.81 (0.52-1.04) mg/dL Estimated GFR > 60.0 (>60) mL/min BUN/Creatinine Ratio 21.0 (6-22) Glucose 120 H (80-110) mg/dL Lactate (0.7-2.1) mmol/L Calcium 9.6 (8.4-10.2) mg/dL Total Bilirubin 0.5 (0.2-1.3) mg/dL AST 28 (14-36) IU/L ALT 19 (<35) IU/L Alkaline Phosphatase 87 (38-126) U/L Troponin I (0.01-0.034) ng/mL NT-Pro-B Natriuret Pep 1810 H (<125) pg/mL Total Protein 8.1 (6.3-8.2) g/dL Albumin 4.8 (3.5-5.0) g/dL Globulin 3.3 (1.7-4.1) g/dL Albumin/Globulin Ratio 1.5 (1.0-2.8) Urine RBC 0-1/hpf (0-5/HPF) Urine WBC 5-10/hpf H (0-5/HPF) Ur Squamous Epith Cells None seen (0-5/HPF) Urine Bacteria Few (2-10) H (None) Ur Culture Indicated? Specimen cultured SARS-CoV-2 (PCR) (Negative) 02/11/21 02/11/21 02/11/21 Range/Units 19:20 19:20 19:20 WBC (4.5-11.0) X10^3/uL RBC (4.0-5.2) X10^6/uL Hgb (12.0-16.0) g/dL Hct (36-46) % MCV (80-100) fL MCH (26-34) PG MCHC (30-36) % RDW (11.6-14.8) % Plt Count (150-400) X10^3/uL Neut % (Auto) (50-75) % Lymph % (Auto) (25-40) % [place]vert % (Auto) (3-14) % Eos % (Auto) (2-4) % Baso % (Auto) (0-2) % Neut # (Auto) (3516-3512) /uL Lymph # (Auto) (0717-4683) /uL [place]vert # (Auto) (0-900) /uL Eos # (Auto) (0-450) /uL Baso # (Auto) (0-100) /uL Sodium (137-145) mmol/L Potassium (3.4-5.1) mmol/L Chloride (98-107) mmol/L Carbon Dioxide (22-32) mmol/L BUN (7-17) mg/dL Creatinine (0.52-1.04) mg/dL Estimated GFR (>60) mL/min BUN/Creatinine Ratio (6-22) Glucose (80-110) mg/dL Lactate 1.3 (0.7-2.1) mmol/L Calcium (8.4-10.2) mg/dL Total Bilirubin (0.2-1.3) mg/dL AST (14-36) IU/L ALT (<35) IU/L Alkaline Phosphatase (38-126) U/L Troponin I < 0.012 (0.01-0.034) ng/mL NT-Pro-B Natriuret Pep (<125) pg/mL Total Protein (6.3-8.2) g/dL Albumin (3.5-5.0) g/dL Globulin (1.7-4.1) g/dL Albumin/Globulin Ratio (1.0-2.8) Urine RBC (0-5/HPF) Urine WBC (0-5/HPF) Ur Squamous Epith Cells (0-5/HPF) Urine Bacteria (None) Ur Culture Indicated? SARS-CoV-2 (PCR) Negative (Negative) Urine Dip Bedside Urine Glucose Negative Bedside Urine Bilirubin - Negative Bedside Urine Ketone - Negative Urine Specific [place] 1.015 Bedside Urine Occult Blood - Negative Bedside Urine pH 6.0 Bedside Urine Protein - Negative Bedside Urine Urobilinogen - Negative Bedside Urine Nitrite - Negative Bedside Urine Leukocytes + 70 Esterase Point of care testing: Urine Dip Bedside Urine Glucose Negative Bedside Urine Bilirubin - Negative Bedside Urine Ketone - Negative Urine Specific [place] 1.015 Bedside Urine Occult Blood - Negative Bedside Urine pH 6.0 Bedside Urine Protein - Negative Bedside Urine Urobilinogen - Negative Bedside Urine Nitrite - Negative Bedside Urine Leukocytes + 70 Esterase Imaging Data Chest x-ray: Radiologist's Impression: FINDINGS:? ? Surgical changes and devices:? Cervical spine fixation hardware. ? Lungs and pleura:? Lungs are clear.? No pleural effusions or pneumothorax.? ? Mediastinum:? Mediastinal contours are normal.? Heart size is normal.? ? Bones and chest wall:? No suspicious bony abnormalities.? Soft tissues appear unremarkable.? ? IMPRESSION:? ? No acute cardiopulmonary disease process. ? Dictated by: Patria Burr MD, PhD on 02/11/2021 at 19:39 ? ? ECG Data Interpretation: S for sinus rhythm with frequent PVCs rate of [address] T wave changes MDM Narrative Medical decision making narrative: 75-year-old woman presents with general malaise getting worse over the last couple of weeks now almost daily. Blood pressures had been within appropriate ranges however currently are significantly elevated with initial blood pressure 226/116 only coming down slightly with IV labetalol. I am concerned that her blood pressure may be precipitating the dyspnea, increased exertional dyspnea,mental fogginess and chest tightness. She does not have evidence of acute coronary syndrome, congestive heart failure, pneumonia or COVID. Urine micro has occasional white blood cells and bacteria however patient has absolutely no symptoms suggesting urinary tract infection. Do not think that she has UTI this time. Will await culture and treat if it comes back positive. Patient had a significant adverse reaction to amlodipine so will avoid nicardipine. Labetalol continuous IV infusion is started with goal of systolic blood pressure in the 160 range in re-evaluation symptoms. She continues to have a headache more like some Tylenol at this point. Will need ICU admission. Care is reviewed with Dr. Curry and admission is excepted. Will do a head CT prior to going up to the floor to make sure there is no intracranial abnormalities or obvious intracranial bleed. <Liz Milligan MD - Last Filed: 02/11/21 23:25> Lab Data Labs: Lab Results 02/11/21 02/11/21 02/11/21 Range/Units 19:11 19:20 19:20 WBC 8.9 (4.5-11.0) X10^3/uL RBC 3.54 L (4.0-5.2) X10^6/uL Hgb 11.8 L (12.0-16.0) g/dL Hct 34.3 L (36-46) % MCV 96.8 (80-100) fL MCH 33.3 (26-34) PG MCHC 34.4 (30-36) % RDW 13.2 (11.6-14.8) % Plt Count 325 (150-400) X10^3/uL Neut % (Auto) 49.1 L (50-75) % Lymph % (Auto) 41.6 H (25-40) % [place] % (Auto) 7.2 (3-14) % Eos % (Auto) 1.2 L (2-4) % Baso % (Auto) 0.9 (0-2) % Neut # (Auto) 4400 (0900-9616) /uL Lymph # (Auto) 3700 (5708-1426) /uL [place] # (Auto) 600 (0-900) /uL Eos # (Auto) 100 (0-450) /uL Baso # (Auto) 100 (0-100) /uL Sodium 130 L (137-145) mmol/L Potassium 4.1 (3.4-5.1) mmol/L Chloride 96 L (98-107) mmol/L Carbon Dioxide 24 (22-32) mmol/L BUN 17 (7-17) mg/dL Creatinine 0.81 (0.52-1.04) mg/dL Estimated GFR > 60.0 (>60) mL/min BUN/Creatinine Ratio 21.0 (6-22) Glucose 120 H (80-110) mg/dL Lactate (0.7-2.1) mmol/L Calcium 9.6 (8.4-10.2) mg/dL Total Bilirubin 0.5 (0.2-1.3) mg/dL AST 28 (14-36) IU/L ALT 19 (<35) IU/L Alkaline Phosphatase 87 (38-126) U/L Troponin I (0.01-0.034) ng/mL NT-Pro-B Natriuret Pep 1810 H (<125) pg/mL Total Protein 8.1 (6.3-8.2) g/dL Albumin 4.8 (3.5-5.0) g/dL Globulin 3.3 (1.7-4.1) g/dL Albumin/Globulin Ratio 1.5 (1.0-2.8) Urine RBC 0-1/hpf (0-5/HPF) Urine WBC 5-10/hpf H (0-5/HPF) Ur Squamous Epith Cells None seen (0-5/HPF) Urine Bacteria Few (2-10) H (None) Ur Culture Indicated? Specimen cultured SARS-CoV-2 (PCR) (Negative) 02/11/21 02/11/21 02/11/21 Range/Units 19:20 19:20 19:20 WBC (4.5-11.0) X10^3/uL RBC (4.0-5.2) X10^6/uL Hgb (12.0-16.0) g/dL Hct (36-46) % MCV (80-100) fL MCH (26-34) PG MCHC (30-36) % RDW (11.6-14.8) % Plt Count (150-400) X10^3/uL Neut % (Auto) (50-75) % Lymph % (Auto) (25-40) % [place] % (Auto) (3-14) % Eos % (Auto) (2-4) % Baso % (Auto) (0-2) % Neut # (Auto) (7909-6865) /uL Lymph # (Auto) (1367-2088) /uL [place] # (Auto) (0-900) /uL Eos # (Auto) (0-450) /uL Baso # (Auto) (0-100) /uL Sodium (137-145) mmol/L Potassium (3.4-5.1) mmol/L Chloride (98-107) mmol/L Carbon Dioxide (22-32) mmol/L BUN (7-17) mg/dL Creatinine (0.52-1.04) mg/dL Estimated GFR (>60) mL/min BUN/Creatinine Ratio (6-22) Glucose (80-110) mg/dL Lactate 1.3 (0.7-2.1) mmol/L Calcium (8.4-10.2) mg/dL Total Bilirubin (0.2-1.3) mg/dL AST (14-36) IU/L ALT (<35) IU/L Alkaline Phosphatase (38-126) U/L Troponin I < 0.012 (0.01-0.034) ng/mL NT-Pro-B Natriuret Pep (<125) pg/mL Total Protein (6.3-8.2) g/dL Albumin (3.5-5.0) g/dL Globulin (1.7-4.1) g/dL Albumin/Globulin Ratio (1.0-2.8) Urine RBC (0-5/HPF) Urine WBC (0-5/HPF) Ur Squamous Epith Cells (0-5/HPF) Urine Bacteria (None) Ur Culture Indicated? SARS-CoV-2 (PCR) Negative (Negative) Urine Dip Bedside Urine Glucose Negative Bedside Urine Bilirubin - Negative Bedside Urine Ketone - Negative Urine Specific [place] 1.015 Bedside Urine Occult Blood - Negative Bedside Urine pH 6.0 Bedside Urine Protein - Negative Bedside Urine Urobilinogen - Negative Bedside Urine Nitrite - Negative Bedside Urine Leukocytes + 70 Esterase Point of care testing: Urine Dip Bedside Urine Glucose Negative Bedside Urine Bilirubin - Negative Bedside Urine Ketone - Negative Urine Specific [place] 1.015 Bedside Urine Occult Blood - Negative Bedside Urine pH 6.0 Bedside Urine Protein - Negative Bedside Urine Urobilinogen - Negative Bedside Urine Nitrite - Negative Bedside Urine Leukocytes + 70 Esterase Critical Care Time <Hazel Altman MD - Last Filed: 02/11/21 21:37> Critical Care Time Critical Care Time: Yes Total Critical Care Time: 33 Attestation: Critical care time is separate from other billable procedures. There is a high probability of a significant, sudden or life-threatening deterioration that requires my full and direct attention, intervention and personal management. This critical care time includes consultation with family and other consulting doctors, review of records, and interpretation of data from labs, EKGs and imagi ng as well as managements of hypertensive emergency with IV management. Discharge Plan Departure Patient Disposition: Admitted as Observation Clinical Impression: Hypertensive crisis without congestive heart failure
[2021-02-11 19:30] LABS: Add Manual Diff / Slide Review NO; Basophils Absolute Auto 100 /uL (0-100); Basophils Percent Auto 0.9 % (0-2); Eosinophils Absolute Auto 100 /uL (0-450); Eosinophils Percent Auto 1.2 % (2-4); Hematocrit 34.3 % (36-46); Hemoglobin 11.8 g/dL (12.0-16.0); Lymphocytes Absolute Auto 3700 /uL (1100-4500); Lymphocytes Percent Auto 41.6 % (25-40); Mean Corpuscular HGB Conc 34.4 % (30-36); Mean Corpuscular Hemoglobin 33.3 PG (26-34); Mean Corpuscular Volume 96.8 fL (80-100); Monocytes Absolute Auto 600 /uL (0-900); Monocytes Percent Auto 7.2 % (3-14); Neutrophils Absolute Auto 4400 /uL (1500-7000); Neutrophils Percent Auto 49.1 % (50-75); Platelet Count 325 X10^3/uL (150-400); Red Blood Cell Count 3.54 X10^6/uL (4.0-5.2); Red Cell Distribution Width 13.2 % (11.6-14.8); White Blood Cell Count 8.9 X10^3/uL (4.5-11.0)
[2021-02-11] MEDS: LABETALOL 20 MG/4 ML SYRINGE IV (19:31)
[2021-02-11 19:43] LABS: COVID19 -Nasal RAPID Negative (Negative)
[2021-02-11 19:45] LABS: HEMOLYSIS < 15 (0-50)
[2021-02-11 19:52] LABS: Lactate (Lactic Acid) 1.3 mmol/L (0.7-2.1)
[2021-02-11 19:59] LABS: Alanine Aminotransferase 19 IU/L (<35); Albumin 4.8 g/dL (3.5-5.0); Albumin Globulin Ratio 1.5 (1.0-2.8); Alkaline Phosphatase 87 U/L (38-126); Aspartate Aminotransferase 28 IU/L (14-36); Bilirubin Total 0.5 mg/dL (0.2-1.3); Blood Urea Nitrogen 17 mg/dL (7-17); Calcium 9.6 mg/dL (8.4-10.2); Carbon Dioxide 24 mmol/L (22-32); Chloride 96 mmol/L (98-107); Estimated Glomerular Filt Rate > 60.0 mL/min (>60); Globulin 3.3 g/dL (1.7-4.1); Glucose 120 mg/dL (80-110); NT-proBNP (BNP-Adult 18+) 1810 pg/mL (<125); Potassium 4.1 mmol/L (3.4-5.1); Sodium 130 mmol/L (137-145); Total Protein 8.1 g/dL (6.3-8.2)
[2021-02-11 20:25] LABS: Troponin I < 0.012 ng/mL (0.01-0.034)
[2021-02-11 20:36] LABS: Bacteria Urine Few (2-10); Culture Indicated Urine Specimen Cultured; RBC Urine 0-1/HPF (0-5/HPF); Squamous Epithelial Cell Urine None Seen (0-5/HPF); WBC Urine 5-10/HPF (0-5/HPF)
[2021-02-11] MEDS: ACETAMINOPHEN 325 MG TABLET 975 MG PO (20:56)
--- NOTE | 2021-02-11 21:35 | DI.CT.S_ITS ---
PROCEDURE: CT HEAD/BRAIN WO CON INDICATIONS: hypertensive crisis, headache TECHNIQUE: Noncontrast 4.5 mm thick angled axial sections acquired from the foramen magnum to the vertex, with coronal and sagittal reformats. For radiation dose reduction, the following was used: automated exposure control, adjustment of mA and/or kV according to patient size. COMPARISON: [facility], CT, CT HEAD/BRAIN WO CON, 03/28/2018, 22:03. FINDINGS: Image quality: Excellent. CSF spaces: Basal cisterns are patent. No extra-axial fluid collections. The ventricles are symmetric in size and shape. Brain: No intracranial bleeds or masses. There is cerebral volume loss for age, with resultant ventricular and sulcal prominence. There are periventricular and deep white matter chronic small vessel ischemic changes. There is intracranial internal carotid artery atherosclerosis. Skull and face: Calvarium and visualized facial bones appear intact, without suspicious lesions. Sinuses: Visualized sinuses and mastoids are clear. IMPRESSION: No acute intracranial disease process. Dictated by: Patria Burr MD, PhD on 02/11/2021 at 22:04 Approved by: Patria Burr MD, PhD on 02/11/2021 at 22:06
[2021-02-11] MEDS: ESMOLOL 2.5 GM/250 ML IV.SOLN IV ×2 (21:44→23:23)
--- NOTE | 2021-02-11 22:51 | DI.ECHO.S_ITS ---
[facility] +---------+ : : [address] [place] : : : : [id number] : : : : Phone: [phone]+ Echocardiogram Report + + :Name: ZAINAB MAJANO Study Date: 02/12/2021 Height: 62 in : :[facility] ReadingLocation: Weight: 154 lb : : Gender: Female BSA: 1.7 m2 : :: 1945 Age: 75 yrs BP: 144/94 mmHg: :Reason For Study: MALIGNANT HYPERTENSION : :Ordering Physician: GERALDINE, : :JANEEN Performed By: Madelaine Tomlinson : :Referring: JANEEN CHANDLER : + + Interpretation Summary The left ventricle is normal in size and wall thickness. Left ventricular systolic function appears normal without focal wall motion abnormalities. The ejection fraction is estimated to be 55-60%. Diastolic parameters suggest probable normal left ventricular diastolic function and normal filling pressures. The right ventricle is mildly dilated. The right ventricular systolic function is normal. The right ventricular systolic pressure is estimated to be at least 39 mmHg based on an estimated right atrial pressure of 3 mm Hg. The left atrium is severely dilated. The right atrium is mildly dilated. There is mild mitral regurgitation. There is mild to moderate tricuspid regurgitation. There is no other significant valvular heart disease. The aortic root is normal size. Procedure: A two-dimensional transthoracic echocardiogram with color flow and Doppler was performed. The study quality was technically adequate. There is no prior echocardiogram noted for this patient. The heart rate ranged between 58-82 bpm during the study. Left Ventricle: The left ventricle is normal in size and wall thickness. Left ventricular systolic function appears normal without focal wall motion abnormalities. The ejection fraction is estimated to be 55-60%. Diastolic parameters suggest probable normal left ventricular diastolic function and normal filling pressures. Right Ventricle: The right ventricle is mildly dilated. The right ventricular systolic function is normal. Atria: The left atrium is severely dilated. The right atrium is mildly dilated. There is no Doppler evidence for an interatrial shunt. Mitral Valve: The mitral valve is normal in structure and function. There is mild mitral annular calcification. There is mild mitral regurgitation. Aortic Valve: The aortic valve is trileaflet. The aortic valve opens well. There is no aortic valve stenosis. No aortic regurgitation is present. Tricuspid Valve: The tricuspid valve is normal in structure and function. There is mild to moderate tricuspid regurgitation. The right ventricular systolic pressure is estimated to be at least 39 mmHg based on an estimated right atrial pressure of 3 mm Hg. Pulmonic Valve: The pulmonic valve leaflets are thin and pliable; valve motion is normal. There is no pulmonic valvular regurgitation. There is no other significant valvular heart disease. Great Vessels: The aortic root is normal size. The ascending aorta could not be visualized. The IVC is of normal diameter and collapses greater than 50% with a sniff. This suggests a low right atrial pressure of 3 mm Hg. Pericardium/ Pleura There is no pericardial effusion. There is no pleural effusion. MMode/2D Measurements & Calculations LVIDd: 5.4 cm LVOT diam: 2.1 cm LVIDs: 3.9 cm Ao root diam: 3.0 cm FS: 28.4 % Ao Arch Diam (Prox Trans): 3.2 cm IVSd: 0.88 cm LVPWd: 0.84 cm LV zaragoza. diameter/BSA (cm/m^2): 3.2 LV sys. diameter/BSA (cm/m^2): 2.3 LA A2 area: 25.5 cm2 RA long axis: 5.0 cm LA A4 area: 24.6 cm2 RA area: 18.8 cm2 LA length (vol): 5.6 cm RA vol: 59.7 ml LA vol: 94.8 ml RA : 34.9 ml/m2 LA vol index: 55.4 ml/m2 IVC diam: 1.9 cm RVD1 (basal): 4.4 cm TAPSE: 2.5 cm Doppler Measurements & Calculations Ao V2 max: 153.1 cm/sec LVOT Max Lucien: 80.1 cm/sec Ao V2 mean: 112.8 cm/sec LV V1 max P.6 mmHg Ao max P.4 mmHg LV V1 VTI: 19.4 cm Ao mean P.5 mmHg [place](I,D): 1.8 cm2 Ao V2 VTI: 37.8 cm [place](V,D): 1.8 cm2 sev ratio: 0.51 [place] indexed to BSA (cm^2/m^2): 1.1 MV E max lucien: 67.8 cm/sec TR max lucien: 301.1 cm/sec MV A max lucien: 49.9 cm/sec TR max P.3 mmHg MV E/A: 1.4 PA V2 max: 89.0 cm/sec Med Peak E' Lucien: 4.2 cm/sec PA V2 mean: 57.8 cm/sec E/E' med: 16.2 PA mean P.6 mmHg Lat Peak E' Lucien: 7.2 cm/sec PA pr(Accel): 49.9 mmHg E/E' lat: 9.4 E/e' average: 12.8 MV dec time: 0.35 sec SV(LVOT): 67.9 ml Reading Physician:12:59 PM
[2021-02-11] MEDS: HYDRALAZINE 20 MG/ML VIAL 10 MG IV (23:09)
--- NOTE | 2021-02-11 23:09 | DI.CT.S_ITS ---
PROCEDURE: CT CHEST ABD PEL WO CON INDICATIONS: aortic dissection, back pain TECHNIQUE: After the administration of oral contrast, 5 mm thick sections acquired from the lung apices to the symphysis pubis. 5 mm thick coronal and sagittal reformats acquired, with additional 7 mm coronal MIP reformats through the lungs. For radiation dose reduction, the following was used: automated exposure control, adjustment of mA and/or kV according to patient size. COMPARISON: CT, CT ABDOMEN PELVIS W CON, 01/26/2018, 10:36. [facility], CT, CT CHEST ABD PEL WO CON, 02/21/2019, 13:28. FINDINGS: Image quality: Excellent. CHEST: Lungs and pleura: No acute pulmonary opacities. No pleural effusions or pneumothorax. Central and peripheral airways are patent are normal in caliber. Mediastinum: Heart size is normal. Mild coronary artery calcification. No pericardial effusion. No mediastinal adenopathy by CT size criteria. Thoracic aorta and central pulmonary arteries are normal in size. Mild atherosclerotic calcification. No CT findings to suggest intimal displacement. Esophagus is normal in caliber. No hiatal hernia. Chest wall: No axillary or supraclavicular adenopathy by size criteria. Thyroid gland is normal. ABDOMEN: Solid organs: Liver is normal in size. Gallbladder is normal . Pancreas is normal in contours. Spleen is normal in size. No adrenal nodules. Both kidneys are normal in size, without hydronephrosis. A small focus of calcification in the anterior cortex of the right kidney. Peritoneum and bowel: Small and large bowel loops are normal in caliber and wall thickness. Diverticulosis without diverticulitis. No free fluid or air. Nodes and vessels: No retroperitoneal or mesenteric adenopathy by size criteria. Aorta and inferior vena cava are normal in size. [id number] atherosclerotic calcification. Miscellaneous: No ventral hernias. PELVIS: Genitourinary: Bladder wall thickness is normal. Miscellaneous: No inguinal hernias or adenopathy. Bones: No suspicious bony lesions. No vertebral body compression fractures. There are degenerative and postsurgical changes in lumbar spine. IMPRESSION: 1. No acute abnormalities are identified. The examination is performed without intravenous contrast. Cannot rule out aortic dissection. If clinically indicated, CT angiogram is recommended. 2. Diverticulosis without diverticulitis. 3. Degenerative and postsurgical changes in lumbar spine. 4. Mild coronary artery calcification. Dictated by: Noe Peguero M.D. on 02/12/2021 at 8:22 Approved by: Noe Peguero M.D. on 02/12/2021 at 8:37
[2021-02-11] MEDS: SODIUM CHLORIDE 0.9% 1,000 ML 100 ML IV (23:14)
[2021-02-11] MEDS: NITROGLYCERIN 50 MG/250 ML INFUS..BTL 6 MG IV (23:30)
--- NOTE | 2021-02-11 23:30 | PM.CN.EICU ---
History of Present Illness Consult details Chief complaint: t-14 fatigue, sob, shaky, hurting legs, pain+chest :: This patient was seen via real time interactive two-way audiovisual telecommunication. Narrative: 75-year-old woman with a history of hypertension, GERD, HLP, fibromyalgia, hyponatremia, and palpitation, got her her 3rd COVID booster shot 1 week ago, H/o of allergy to many antihypertensive meds, admitted for 2-3 wks H/o of dyspnea, near syncope, fatigue, found hypertensive emergency, trop, EKG & CXR un remarkable. ? Assessment: Hypertensive emergency Leukocytosis Hyponatremia ( mild) ? ? Rec: Currently on Esmolol, adding Nitro drip, can?t get nicardipine drip bec of H/o of anaphylactic reaction to amlodipine, Goal to drop the MAP by 10- 20% in the first hour then gradually over the next 23 hr to a total MAP drop by 25% STAT Chest , abd & pelvis to R/O dissection ( no contrast bec of allergy) Trend Trop, EKG, 2 D echo and Card consult Need full work up for secondary hypertension/ Nephrology consult Check urine lytes, urine and serum osm F/U urine CX SCD for DVT ppx, chemical only after BP is well controlled PPI for GERD Plan discussed with the RN & the [facility] Medical History Abnormal EKG ADHD Anemia Anxiety disorder Arrhythmia Asthma Atrophic vaginitis Benign positional vertigo Bruises easily CAD (coronary artery disease) Cervical spinal stenosis Concussion Difficulty sleeping Disorder of left rotator cuff Familial tremor Fibromyalgia Former smoker Fracture GERD (gastroesophageal reflux disease) History of endometriosis History of frequent headaches History of left heart catheterization History of stomach ulcers Hyperlipidemia Hypertension Impaired hearing Impaired vision Leg weakness Lumbar pain Lumbar spinal stenosis Obstructive sleep apnea of adult Osteoarthritis Osteoarthritis cervical spine Osteomyelitis Palpitations Panic attacks Peripheral sensory neuropathy Precancerous lesion PTSD (post-traumatic stress disorder) PVCs (premature ventricular contractions) Shortness of breath Sleep apnea treated with nocturnal BiPAP Snoring Spastic colon Spinal stenosis of lumbar region at multiple levels Spondylolisthesis at L4-L5 level Spondylolisthesis of cervical region Stenosis of right carotid artery Syncope Surgical History H/O oral surgery H/O thumb surgery History of appendectomy History of breast biopsy History of colonoscopy with polypectomy History of hernia repair History of lumbar spinal fusion (01/13/18) History of tonsillectomy History of total abdominal hysterectomy Status post cervical spinal fusion (~03/20/18) Social History marital status: details: segundo Hansen, lives in [place] number of children: 1 household members: spouse lives independently: Yes caregiver/support person: No housing: house Smoking Status: Former smoker alcohol intake: current Current Medications Current Medications Medications: Home Medications atorvastatin 40 mg tablet (Lipitor) 40 mg PO QDAY #0 03/18/16 [History Confirmed 11/23/18] acetaminophen 650 mg tablet,extended release (Tylenol Arthritis Pain) 1,300 mg PO Q8H PRN 12/27/17 [History Confirmed 11/23/18] calcium citrate 200 mg calcium-vitamin D3 6.25 mcg (250 unit) tablet (Citracal-D3 Petites) 1 tab PO BEDTIME 12/27/17 [History Confirmed 11/23/18] esomeprazole magnesium 20 mg capsule,delayed release (Nexium) 20 mg PO DAILY 12/27/17 [History Confirmed 11/23/18] metoprolol succinate 50 mg tablet,extended release 24 hr 50 mg PO DAILY 03/31/18 [History Confirmed 11/23/18] ResMed AirSense 10 CPAP #1 ea 05/25/18 [History Confirmed 11/23/18] losartan 100 mg tablet 100 mg PO DAILY 05/25/18 [History Confirmed 11/23/18] Visit Medications (administered) Generic Name Dose Route Start Last Admin Trade Name Freq PRN Reason Stop Dose Admin Esmolol HCl 2.5 gm in 250 mls @ 20.956 mls/hr 02/11/21 21:30 02/11/21 23:22 Brevibloc IV 0 mcg/kg/min TITRATE LINETTE 0 mls/hr Titration Protocol 50 MCG/KG/MIN Sodium Chloride 1,000 mls @ 100 mls/hr 02/11/21 23:00 02/11/21 23:14 Normal Saline 0.9% IV 100 mls/hr CONT LINETTE Administration Esmolol HCl 2.5 gm in 250 mls @ 20.956 mls/hr 02/11/21 23:00 02/11/21 23:23 Brevibloc IV 100 mcg/kg/min TITRATE LINETTE 41.912 mls/hr Administration Protocol 50 MCG/KG/MIN Exam Vital Signs (past 8 hours): - 02/11/21 18:51 02/11/21 18:52 02/11/21 18:53 Temperature 97.9 F Pulse Rate 81 82 Respiratory Rate 16 Blood Pressure 226/116 H 226/116 H Pulse Oximetry 99 99 02/11/21 19:00 02/11/21 19:06 02/11/21 19:30 Temperature Pulse Rate 72 77 71 Respiratory Rate 19 37 H 20 Blood Pressure 228/97 H Pulse Oximetry 99 98 98 02/11/21 19:31 02/11/21 19:37 02/11/21 20:00 Temperature Pulse Rate 69 80 75 Respiratory Rate 19 22 Blood Pressure 228/97 H 206/83 H Pulse Oximetry 97 96 02/11/21 20:01 02/11/21 20:30 02/11/21 20:31 Temperature Pulse Rate 75 69 68 Respiratory Rate 14 14 14 Blood Pressure 208/132 H 201/84 H Pulse Oximetry 98 98 99 02/11/21 22:32 Temperature 97.6 F Pulse Rate 84 Respiratory Rate 23 Blood Pressure 232/107 H Pulse Oximetry 99 Oxygen Delivery Method Room Air Objective Labs Result Diagrams: 02/11/21 19:20 02/11/21 19:20 Labs: Laboratory Results - last 24 hr 02/11/21 02/11/21 02/11/21 19:11 19:20 19:20 WBC 8.9 RBC 3.54 L Hgb 11.8 L Hct 34.3 L MCV 96.8 MCH 33.3 MCHC 34.4 RDW 13.2 Plt Count 325 Neut % (Auto) 49.1 L Lymph % (Auto) 41.6 H Hickman % (Auto) 7.2 Eos % (Auto) 1.2 L Baso % (Auto) 0.9 Neut # (Auto) 4400 Lymph # (Auto) 3700 Hickman # (Auto) 600 Eos # (Auto) 100 Baso # (Auto) 100 Sodium 130 L Potassium 4.1 Chloride 96 L Carbon Dioxide 24 BUN 17 Creatinine 0.81 Estimated GFR > 60.0 BUN/Creatinine Ratio 21.0 Glucose 120 H Lactate Calcium 9.6 Total Bilirubin 0.5 AST 28 ALT 19 Alkaline Phosphatase 87 Troponin I NT-Pro-B Natriuret Pep 1810 H Total Protein 8.1 Albumin 4.8 Globulin 3.3 Albumin/Globulin Ratio 1.5 Urine RBC 0-1/hpf Urine WBC 5-10/hpf H Ur Squamous Epith Cells None seen Urine Bacteria Few (2-10) H Ur Culture Indicated? Specimen cultured SARS-CoV-2 (PCR) 02/11/21 02/11/21 02/11/21 19:20 19:20 19:20 WBC RBC Hgb Hct MCV MCH MCHC RDW Plt Count Neut % (Auto) Lymph % (Auto) Hickman % (Auto) Eos % (Auto) Baso % (Auto) Neut # (Auto) Lymph # (Auto) Hickman # (Auto) Eos # (Auto) Baso # (Auto) Sodium Potassium Chloride Carbon Dioxide BUN Creatinine Estimated GFR BUN/Creatinine Ratio Glucose Lactate 1.3 Calcium Total Bilirubin AST ALT Alkaline Phosphatase Troponin I < 0.012 NT-Pro-B Natriuret Pep Total Protein Albumin Globulin Albumin/Globulin Ratio Urine RBC Urine WBC Ur Squamous Epith Cells Urine Bacteria Ur Culture Indicated? SARS-CoV-2 (PCR) Negative Assessment & Plan Time Spent With Patient Critical Care time: I spent a total of [] minutes of critical care time on this patient's care today; this time is exclusive of procedural time.
[2021-02-11] MEDS: ATORVASTATIN 20 MG TABLET 40 MG PO (23:39)
--- NOTE | 2021-02-11 23:46 | PM.EICU.INT ---
Teleintensivist Intervention Date/Time Was camera activated?: Yes Time Patient Seen: 11:30 Issue(s) Addressed Issue(s): Hypertension Intervention(s) Plan discussed with: Physician/provider, Nurse and Other (Recommended A line for management of hypertensive emergency with 2 IV drip of antihypertensives, MD working on getting that.)
[2021-02-12] VITALS (71 sets, daily range): BP systolic 124–208; BP diastolic 55–95; PULSE 60–86; RESP 10–42; TEMP 36.2–36.9; O2SAT 73–99
--- NOTE | 2021-02-12 00:05 | P.HP_ITS ---
History of Present Illness History of Present Illness Date Patient Seen: 02/12/21 Chief complaint: t-14 fatigue, sob, shaky, hurting legs, pain+chest Narrative: The patient is a 75 y/o female with a history of hypertension,GERD, Hyperlipidemia, Anxiety disorder, Asthma, CAD, Arrhythmia , fibromyalgia, who presents with 2 weeks of progressive weakness, fatigue, shortness of breath, and chest discomfort. The patient also complains of near syncope. She has been feeling very poorly and presented to the ED for evaluation. She complained of feeling foggy and also had a slight headache on admission. In the Emergency Department the patient was found to have significant hypertension with systolic blood pressure over 230 and diastolic blood pressures greater than 110. She was given IV lebetalol with minimal improvement. She has multiple drug allergies including a near anaphylactic reaction to amlodipine and as such was not started on a nicardipine drip. She continues to complain of chest tightness, shortness of breath and generalized malaise. She underwent Head CT in the ED which was negative for an acute bleed or stroke. Her chest Xray was unremarkable. Her EKG reveals sinus rhythm with no acute ST -Twave abnormalities. Her Troponin was negative. Her proBNP was elevated at 1810. Patient is admitted to the hospital for inpatient treatment of malignant hypertension. Patient reports she does take her blood pressure at home, but has failed to do so for the last 2 weeks. Patient History Medical History Abnormal EKG ADHD Anemia Anxiety disorder Arrhythmia Asthma Atrophic vaginitis Benign positional vertigo Bruises easily CAD (coronary artery disease) Cervical spinal stenosis Concussion Difficulty sleeping Disorder of left rotator cuff Familial tremor Fibromyalgia Former smoker Fracture GERD (gastroesophageal reflux disease) History of endometriosis History of frequent headaches History of left heart catheterization History of stomach ulcers Hyperlipidemia Hypertension Impaired hearing Impaired vision Leg weakness Lumbar pain Lumbar spinal stenosis Obstructive sleep apnea of adult Osteoarthritis Osteoarthritis cervical spine Osteomyelitis Palpitations Panic attacks Peripheral sensory neuropathy Precancerous lesion PTSD (post-traumatic stress disorder) PVCs (premature ventricular contractions) Shortness of breath Sleep apnea treated with nocturnal BiPAP Snoring Spastic colon Spinal stenosis of lumbar region at multiple levels Spondylolisthesis at L4-L5 level Spondylolisthesis of cervical region Stenosis of right carotid artery Syncope Surgical History H/O oral surgery H/O thumb surgery History of appendectomy History of breast biopsy History of colonoscopy with polypectomy History of hernia repair History of lumbar spinal fusion (01/13/18) History of tonsillectomy History of total abdominal hysterectomy Status post cervical spinal fusion (~03/20/18) Family & Social History Social History: household members spouse lives independently Yes caregiver/support person No Safety & Behavioral: Feels Safe in Current Yes Environment Been Physically Hurt or No Threatened By a Person Tobacco & Substance use: Tobacco type cigarettes Smoking Status Former smoker alcohol intake current alcohol intake frequency 3 or more drinks per day Substance Use Type does not use Meds Home Medications and Allergies Home Medications Medication Instructions Recorded Confirmed Type atorvastatin 40 mg tablet (Lipitor) 40 mg PO QDAY #0 03/18/16 11/23/18 History acetaminophen 650 mg 1,300 mg PO Q8H PRN 12/27/17 11/23/18 History tablet,extended release (Tylenol Arthritis Pain) calcium citrate 200 mg 1 tab PO BEDTIME 12/27/17 11/23/18 History calcium-vitamin D3 6.25 mcg (250 unit) tablet (Citracal-D3 Petites) esomeprazole magnesium 20 mg 20 mg PO DAILY 12/27/17 11/23/18 History capsule,delayed release (Nexium) metoprolol succinate 50 mg 50 mg PO DAILY 03/31/18 11/23/18 History tablet,extended release 24 hr ResMed AirSense 10 CPAP #1 ea 05/25/18 11/23/18 History losartan 100 mg tablet 100 mg PO DAILY 05/25/18 11/23/18 History Allergies Allergy/AdvReac Type Severity Reaction Status Date / Time aspirin [ASPIRIN] Allergy Severe SUPRESSES Verified 02/11/21 19:01 BREATHING benazepril Allergy Severe Cough Verified 02/11/21 19:01 erythromycin base Allergy Severe RASH Verified 02/11/21 19:01 [ERYTHROMYCIN BASE] MOVING ABOUT BODY-6 MONTHS iodine Allergy Severe Couldn't Verified 02/11/21 19:01 breath, itch lisinopril Allergy Severe Cough Verified 02/11/21 19:01 oxycodone [OXYCODONE] Allergy Severe HIVES AND Verified 02/11/21 19:01 WELTS sertraline [From ZOLOFT] Allergy Severe IMPAIRED Verified 02/11/21 19:01 BALANCE NEUROLOGIST: BECAME TOXIC latex [LATEX] Allergy Intermediate BREATHING Verified 02/11/21 19:01 DIFFICULTIES rofecoxib [From VIOXX] Allergy Intermediate COULDN'T Verified 02/11/21 19:01 URINATE FOR A COUPLE OF DAYS ibuprofen Allergy Mild Impaired Verified 02/11/21 19:01 breathing, worse over time meloxicam Allergy Mild Unknown Verified 02/11/21 19:01 amlodipine Allergy Unknown Rash, Verified 02/11/21 19:01 trouble breathing, bradycardia naproxen Allergy Unknown Unlisted Verified 02/11/21 19:01 nitroglycerin Allergy Unknown Unlisted Verified 02/11/21 19:01 Sulfa (Sulfonamide Allergy Unknown DON'T Verified 02/11/21 19:01 Antibiotics) REMEMBER [SULFA (SULFONAMIDE ANTIBIOTICS)] sulfur dioxide Allergy Unknown Not listed Verified 02/11/21 19:01 alprazolam AdvReac Severe confusion, Verified 02/11/21 19:01 stumbling, suicidal ideation diazepam [From VALIUM] AdvReac Intermediate GOT Verified 02/11/21 19:01 TERRIBLY DEPRESSED zolpidem [From Ambien] AdvReac Intermediate Slept for Verified 02/11/21 19:01 3 hours, then couldn't sleep lithium [LITHIUM] AdvReac Mild ELEVATED Verified 02/11/21 19:01 BP & DELIRIOUS simvastatin [From Zocor] AdvReac Mild Muscle Verified 02/11/21 19:01 cramps hydrochlorothiazide AdvReac Unknown DEPLETED Verified 02/11/21 19:01 [HYDROCHLOROTHIAZIDE] POTASSIUM, IN DAYS, DEHYDRATION meperidine [From Demerol] AdvReac Unknown Falling, Verified 02/11/21 19:01 my arms would flip out Review of Systems Review of Systems Narrative: 10 point review of system is negative Exam Vital Signs (past 8 hours): - 02/11/21 18:51 02/11/21 18:52 02/11/21 18:53 Temperature 97.9 F Pulse Rate 81 82 Respiratory Rate 16 Blood Pressure 226/116 H 226/116 H Pulse Oximetry 99 99 02/11/21 19:00 02/11/21 19:06 02/11/21 19:30 Temperature Pulse Rate 72 77 71 Respiratory Rate 19 37 H 20 Blood Pressure 228/97 H Pulse Oximetry 99 98 98 02/11/21 19:31 02/11/21 19:37 02/11/21 20:00 Temperature Pulse Rate 69 80 75 Respiratory Rate 19 22 Blood Pressure 228/97 H 206/83 H Pulse Oximetry 97 96 02/11/21 20:01 02/11/21 20:30 02/11/21 20:31 Temperature Pulse Rate 75 69 68 Respiratory Rate 14 14 14 Blood Pressure 208/132 H 201/84 H Pulse Oximetry 98 98 99 02/11/21 22:32 02/11/21 23:41 Temperature 97.6 F Pulse Rate 84 81 Respiratory Rate 23 Blood Pressure 232/107 H 168/74 H Pulse Oximetry 99 Oxygen Delivery Method Room Air Narrative Exam Narrative: Anxious, ill appearing female lying in bed HENMT Other: NC/AT, EOMI, Sclera anicteric, oropharyx clear to auscultation, Neck supple with no adenopathy or thyromegaly Resp Other: Lungs: clear to auscultation Cardio Other: CV: RRR nl Sl S2 GI Other: Abd: soft/ non tender/ non distended, no hepatosplenomegaly no rebound tenderness or boardlike rigidity Skin Other: no lesions Neuro Other: Cranial nerves 2-12 intact, strength symmetric and equal, sensation grossly intact, gait is not assessed. Extrem Other: no edema Psych Other: Awake, alert and appropriate, no delusions, hallucinations, abmornal thought content Objective ECG Impression: Sinus rhythm, no acute ST Twave abnormality, occassional PAC's noted Labs Result Diagrams: 02/11/21 19:20 02/11/21 19:20 Labs: Laboratory Results - last 24 hr 02/11/21 02/11/21 02/11/21 19:11 19:20 19:20 WBC 8.9 RBC 3.54 L Hgb 11.8 L Hct 34.3 L MCV 96.8 MCH 33.3 MCHC 34.4 RDW 13.2 Plt Count 325 Neut % (Auto) 49.1 L Lymph % (Auto) 41.6 H Emanuel % (Auto) 7.2 Eos % (Auto) 1.2 L Baso % (Auto) 0.9 Neut # (Auto) 4400 Lymph # (Auto) 3700 Emanuel # (Auto) 600 Eos # (Auto) 100 Baso # (Auto) 100 Sodium 130 L Potassium 4.1 Chloride 96 L Carbon Dioxide 24 BUN 17 Creatinine 0.81 Estimated GFR > 60.0 BUN/Creatinine Ratio 21.0 Glucose 120 H Lactate Calcium 9.6 Total Bilirubin 0.5 AST 28 ALT 19 Alkaline Phosphatase 87 Troponin I NT-Pro-B Natriuret Pep 1810 H Total Protein 8.1 Albumin 4.8 Globulin 3.3 Albumin/Globulin Ratio 1.5 Urine RBC 0-1/hpf Urine WBC 5-10/hpf H Ur Squamous Epith Cells None seen Urine Bacteria Few (2-10) H Ur Culture Indicated? Specimen cultured SARS-CoV-2 (PCR) 02/11/21 02/11/21 02/11/21 19:20 19:20 19:20 WBC RBC Hgb Hct MCV MCH MCHC RDW Plt Count Neut % (Auto) Lymph % (Auto) Emanuel % (Auto) Eos % (Auto) Baso % (Auto) Neut # (Auto) Lymph # (Auto) Emanuel # (Auto) Eos # (Auto) Baso # (Auto) Sodium Potassium Chloride Carbon Dioxide BUN Creatinine Estimated GFR BUN/Creatinine Ratio Glucose Lactate 1.3 Calcium Total Bilirubin AST ALT Alkaline Phosphatase Troponin I < 0.012 NT-Pro-B Natriuret Pep Total Protein Albumin Globulin Albumin/Globulin Ratio Urine RBC Urine WBC Ur Squamous Epith Cells Urine Bacteria Ur Culture Indicated? SARS-CoV-2 (PCR) Negative Assessment & Plan Assessment & Plan narrative: 75 y/o female with a history of hypertension, hyperlipidemia, fibromyalgia, GERD, and palpitations admitted to the hospital with Malignant Hypertension Patient was significantly hypertensive initially Head CT negative for bleed or intracranial lesions EKG -sinus rhythm no acute ST T wave changes Troponin negative, Chest Xray negative ProBnp 1810 Will continue esmolol drip, started nitroglycerine drip, given 20 mg IV hydralazine Art line to be placed by anesthesia CT of Chest/abd/pelvis per ICU to r/o aortic dissection Unable to get renal duplex here to r/o renal artery stenosis Echo in Am, continue to trend troponin's Stress test tomorrow if blood pressure better will check urine electrolytes agree with work up for secondary causes of hypertension (likely as an outpatient) resume losartan in am, would increase metoprolol in am once off drips Hyperlipidemia -continue statin GERD Continue PPI Blood pressure improved, will continue with lovenox for DVT prophylaxis Patient reports she is a full code. Her is her surrogate decision maker. Patient will be admitted as an inpatient I have utilized all available resources to review, update, and confirm her medications Time Spent With Patient Critical Care time: I spent a total of [] minutes of critical care time on this patient's care today; this time is exclusive of procedural time.
[2021-02-12] MEDS: LIDOCAINE 2% INJ MDV 20 ML (01:03)
[2021-02-12] MEDS: ACETAMINOPHEN 325 MG TABLET 650 MG PO ×3 (04:27→20:26)
--- NOTE | 2021-02-12 04:36 | ED_ITS ---
HPI - General Adult General Chief complaint: Shortness of Breath/Dyspnea Stated complaint: t-14 fatigue, sob, shaky, hurting legs, pain+chest Time Seen by Provider: 02/11/21 18:50 Source: patient Mode of arrival: Ambulatory Limitations: no limitations History of Present Illness HPI narrative: 75-year-old woman with a history of hypertension, hyperlipidemia, reflux fibromyalgia who for the last number of weeks has been having episodes of ?weak spells? associated with increasing shortness of breath sense that her legs are going to give out on her and significant fatigue. Over the last week these episodes have been more frequent and more intense and today she presents complaining that it is almost continuous. She is having some chest tightness she has chronic palpitations with frequent PVCs she notes a heavy chest sensation after eating. She tried increasing her omeprazole and did not notice this made any difference. She notes that she had a daughter of pancreatic cancer in early November but she does seem to be adjusting to this. She brings in record of home blood pressures from a and number of weeks ago with systolics consistently in the 119-153 range and diastolics in the 62-73 range. She denies nausea, vomiting, abdominal pain urinary frequency or urgency no constipation or diarrhea. She states that she has been having constant low-grade headaches in the sense of mental fogginess but no specific numbness or weakness in the extremities. She has had no expressive or receptive aphasia complaints. She states that she has been very good about taking blood pressure medications as prescribed and comes in today for further evaluation Related Data Home Medications Medication Instructions Recorded Confirmed atorvastatin 40 mg tablet (Lipitor) 40 mg PO QDAY #0 03/18/16 11/23/18 acetaminophen 650 mg 1,300 mg PO Q8H PRN 12/27/17 11/23/18 tablet,extended release (Tylenol Arthritis Pain) calcium citrate 200 mg 1 tab PO BEDTIME 12/27/17 11/23/18 calcium-vitamin D3 6.25 mcg (250 unit) tablet (Citracal-D3 Petites) esomeprazole magnesium 20 mg 20 mg PO DAILY 12/27/17 11/23/18 capsule,delayed release (Nexium) metoprolol succinate 50 mg 50 mg PO DAILY 03/31/18 02/12/21 tablet,extended release 24 hr ResMed AirSense 10 CPAP #1 ea 05/25/18 11/23/18 losartan 100 mg tablet 100 mg PO DAILY 05/25/18 11/23/18 Allergies Allergy/AdvReac Type Severity Reaction Status Date / Time aspirin [ASPIRIN] Allergy Severe SUPRESSES Verified 02/11/21 19:01 BREATHING benazepril Allergy Severe Cough Verified 02/11/21 19:01 erythromycin base Allergy Severe RASH Verified 02/11/21 19:01 [ERYTHROMYCIN BASE] MOVING ABOUT BODY-6 MONTHS iodine Allergy Severe Couldn't Verified 02/11/21 19: breath, itch lisinopril Allergy Severe Cough Verified 02/11/21 19:01 oxycodone [OXYCODONE] Allergy Severe HIVES AND Verified 02/11/21 19:01 WELTS sertraline [From ZOLOFT] Allergy Severe IMPAIRED Verified 02/11/21 19:01 BALANCE NEUROLOGIST: BECAME TOXIC latex [LATEX] Allergy Intermediate BREATHING Verified 02/11/21 19:01 DIFFICULTIES rofecoxib [From VIOXX] Allergy Intermediate COULDN'T Verified 02/11/21 19:01 URINATE FOR A COUPLE OF DAYS ibuprofen Allergy Mild Impaired Verified 02/11/21 19:01 breathing, worse over time meloxicam Allergy Mild Unknown Verified 02/11/21 19:01 amlodipine Allergy Unknown Rash, Verified 02/11/21 19:01 trouble breathing, bradycardia naproxen Allergy Unknown Unlisted Verified 02/11/21 19:01 nitroglycerin Allergy Unknown Unlisted Verified 02/11/21 19:01 Sulfa (Sulfonamide Allergy Unknown DON'T Verified 02/11/21 19:01 Antibiotics) REMEMBER [SULFA (SULFONAMIDE ANTIBIOTICS)] sulfur dioxide Allergy Unknown Not listed Verified 02/11/21 19:01 alprazolam AdvReac Severe confusion, Verified 02/11/21 19:01 stumbling, suicidal ideation diazepam [From VALIUM] AdvReac Intermediate GOT Verified 02/11/21 19:01 TERRIBLY DEPRESSED zolpidem [From Ambien] AdvReac Intermediate Slept for Verified 02/11/21 19:01 3 hours, then couldn't sleep lithium [LITHIUM] AdvReac Mild ELEVATED Verified 02/11/21 19:01 BP & DELIRIOUS simvastatin [From Zocor] AdvReac Mild Muscle Verified 02/11/21 19:01 cramps hydrochlorothiazide AdvReac Unknown DEPLETED Verified 02/11/21 19:01 [HYDROCHLOROTHIAZIDE] POTASSIUM, IN DAYS, DEHYDRATION meperidine [From Demerol] AdvReac Unknown Falling, Verified 02/11/21 19:01 my arms would flip out Review of Systems Review of Systems Narrative: Remainder of complete review of systems is otherwise unremarkable except for that included in the HPI. Patient History Medical History Abnormal EKG ADHD Anemia Anxiety disorder Arrhythmia Asthma Atrophic vaginitis Benign positional vertigo Bruises easily CAD (coronary artery disease) Cervical spinal stenosis Concussion Difficulty sleeping Disorder of left rotator cuff Familial tremor Fibromyalgia Former smoker Fracture GERD (gastroesophageal reflux disease) History of endometriosis History of frequent headaches History of left heart catheterization History of stomach ulcers Hyperlipidemia Hypertension Impaired hearing Impaired vision Leg weakness Lumbar pain Lumbar spinal stenosis Obstructive sleep apnea of adult Osteoarthritis Osteoarthritis cervical spine Osteomyelitis Palpitations Panic attacks Peripheral sensory neuropathy Precancerous lesion PTSD (post-traumatic stress disorder) PVCs (premature ventricular contractions) Shortness of breath Sleep apnea treated with nocturnal BiPAP Snoring Spastic colon Spinal stenosis of lumbar region at multiple levels Spondylolisthesis at L4-L5 level Spondylolisthesis of cervical region Stenosis of right carotid artery Syncope Surgical History H/O oral surgery H/O thumb surgery History of appendectomy History of breast biopsy History of colonoscopy with polypectomy History of hernia repair History of lumbar spinal fusion (01/13/18) History of tonsillectomy History of total abdominal hysterectomy Status post cervical spinal fusion (~03/20/18) Social History marital status: details: segundo Hansen, lives in [place] number of children: 1 household members: spouse lives independently: Yes caregiver/support person: No housing: house Smoking Status: Former smoker alcohol intake: current Smoking Status: Former smoker alcohol intake frequency: 3 or more drinks per day Substance Use Type: does not use Exam Narrative Exam Narrative: General: Mildly ill-appearing but in no acute distress. Able to give a complete and coherent history. Well-nourished well-developed HEENT: Moist mucous membranes, normal sclera with reactive pupils, Neck: No JVD, supple Respiratory: Lungs are clear to auscultation, no wheezing no rales no rhonchi. Full and symmetrical air movement Cardiac: Regular rate and rhythm no murmurs no bruits Abdomen: Soft, nontender, good bowel tones, no flank pain Skin: Warm and dry, no rashes Neurologic: Grossly neurologically intact with no obvious asymmetries or abnormalities Extremities: No trauma, well perfused Psych: Cooperative, appropriate insight and affect Initial Vital Signs Initial Vital Signs: Vital Signs Temperature 97.9 F 02/11/21 18:51 Pulse Rate 81 02/11/21 18:51 Respiratory Rate 16 02/11/21 18:51 Blood Pressure 226/116 H 02/11/21 18:51 Pulse Oximetry 99 02/11/21 18:51 Course Orders Ordered: ED Orders 02/11/21 21:35 CT head/brain wo con Stat Acetaminophen (Acetaminophen 325 Mg Tablet) 650 mg PO Q6HR PRN PRN Reason: Fever Last Admin: 02/12/21 04:27 Dose: 650 mg Documented by: [email or web address] Atorvastatin Calcium (Atorvastatin 20 Mg Tablet) 40 mg PO BEDTIME LINETTE Last Admin: 02/11/21 23:39 Dose: 40 mg Documented by: [email or web address] Bisacodyl (Bisacodyl 10 Mg Supp) 10 mg MD DAILY PRN PRN Reason: Constipation Docusate Sodium (Docusate 100 Mg Capsule) 100 mg PO BID LINETTE Enoxaparin Sodium (Enoxaparin 40 Mg/0.4 Ml Syringe) 40 mg SUBCUT DAILY LINETTE Hydralazine HCl (Hydralazine 20 Mg/Ml Vial) 10 mg IV Q6HR PRN PRN Reason: Hypertension Esmolol HCl (Brevibloc) 2.5 gm in 250 mls @ 20.956 mls/hr IV TITRATE LINETTE; Protocol Last Titration: 02/11/21 23:22 Dose: 0 mcg/kg/min, 0 mls/hr Documented by: [email or web address] Titration: 02/11/21 22:44 Dose: 100 mcg/kg/min, 41.912 mls/hr Documented by: [email or web address] Titration: 02/11/21 22:34 Dose: 49.87 mcg/kg/min, 20.9 mls/hr Documented by: Admin: 02/11/21 21:44 Dose: 50 mcg/kg/min, 20.956 mls/hr Documented by: MEIR Sodium Chloride (Normal Saline 0.9%) 1,000 mls @ 100 mls/hr IV CONT LINETTE Last Admin: 02/11/21 23:14 Dose: 100 mls/hr Documented by: [email or web address] Esmolol HCl (Brevibloc) 2.5 gm in 250 mls @ 20.956 mls/hr IV TITRATE LINETTE; Protocol Last Titration: 02/12/21 03:00 Dose: 0 mcg/kg/min, 0 mls/hr Documented by: [email or web address] Titration: 02/12/21 02:24 Dose: 2 mcg/kg/min, 0.838 mls/hr Documented by: [email or web address] Titration: 02/12/21 00:04 Dose: 5 mcg/kg/min, 2.096 mls/hr Documented by: [email or web address] Admin: 02/11/21 23:23 Dose: 100 mcg/kg/min, 41.912 mls/hr Documented by: [email or web address] Nitroglycerin (Nitroglycerin) 50 mg in 250 mls @ 1.5 mls/hr IV TITRATE LINETTE; Protocol Last Titration: 02/12/21 04:31 Dose: 10 mcg/min, 3 mls/hr Documented by: [email or web address] Titration: 02/12/21 03:00 Dose: 15 mcg/min, 4.5 mls/hr Documented by: [email or web address] Titration: 02/12/21 01:10 Dose: 10 mcg/min, 3 mls/hr Documented by: [email or web address] Titration: 02/12/21 00:04 Dose: 5 mcg/min, 1.5 mls/hr Documented by: [email or web address] Admin: 02/11/21 23:30 Dose: 20 mcg/min, 6 mls/hr Documented by: [email or web address] Losartan Potassium (Losartan 50 Mg Tablet) 100 mg PO DAILY LINETTE Naloxone HCl (Naloxone 0.4 Mg/Ml Vial) 0.2 mg IV Q2MIN PRN PRN Reason: Opiate Reversal Pantoprazole Sodium (Pantoprazole Dr 40 Mg Tablet) 40 mg PO 0700 LINETTE Discontinued Medications Acetaminophen (Acetaminophen 325 Mg Tablet) 975 mg PO NOW ONE Stop: 02/11/21 20:51 Last Admin: 02/11/21 20:56 Dose: 975 mg Documented by: MEIR Hydralazine HCl (Hydralazine 20 Mg/Ml Vial) 10 mg IV NOW ONE Stop: 02/11/21 22:43 Last Admin: 02/11/21 23:09 Dose: 10 mg Documented by: [email or web address] Hydralazine HCl (Hydralazine 20 Mg/Ml Vial) 20 mg IV NOW ONE Stop: 02/11/21 22:48 Last Admin: 02/11/21 23:39 Dose: Not Given Documented by: [email or web address] Labetalol HCl (Labetalol 20 Mg/4 Ml Syringe) 20 mg IV NOW ONE Stop: 02/11/21 19:21 Last Admin: 02/11/21 19:31 Dose: 20 mg Documented by: MEIR Lidocaine HCl (Lidocaine 2% Inj Mdv) 1 ml SUBCUT NOW ONE Stop: 02/12/21 00:41 Last Admin: 02/12/21 01:27 Dose: Not Given Documented by: [email or web address] Midazolam HCl (Midazolam 2 Mg/2 Ml Vial) 2 mg IV NOW ONE Stop: 02/12/21 00:42 Last Admin: 02/12/21 01:25 Dose: Not Given Documented by: [email or web address] Vital Signs Vital signs: Vital Signs - 8 hr 02/11/21 20:45 02/11/21 21:00 02/11/21 21:01 Pulse Rate 75 73 74 Respiratory Rate 29 H 23 21 Blood Pressure 231/93 H Pulse Oximetry 97 98 98 02/11/21 21:15 02/11/21 21:32 Pulse Rate 66 86 Respiratory Rate 16 Blood Pressure Pulse Oximetry 97 Medical Decision Making Lab Data Result diagrams: 02/11/21 19:20 02/11/21 19:20 Labs: Lab Results 02/11/21 02/11/21 02/11/21 Range/Units 19:11 19:20 19:20 WBC 8.9 (4.5-11.0) X10^3/uL RBC 3.54 L (4.0-5.2) X10^6/uL Hgb 11.8 L (12.0-16.0) g/dL Hct 34.3 L (36-46) % MCV 96.8 (80-100) fL MCH 33.3 (26-34) PG MCHC 34.4 (30-36) % RDW 13.2 (11.6-14.8) % Plt Count 325 (150-400) X10^3/uL Neut % (Auto) 49.1 L (50-75) % Lymph % (Auto) 41.6 H (25-40) % [place] % (Auto) 7.2 (3-14) % Eos % (Auto) 1.2 L (2-4) % Baso % (Auto) 0.9 (0-2) % Neut # (Auto) 4400 (7890-0324) /uL Lymph # (Auto) 3700 (8115-0457) /uL [place] # (Auto) 600 (0-900) /uL Eos # (Auto) 100 (0-450) /uL Baso # (Auto) 100 (0-100) /uL Sodium 130 L (137-145) mmol/L Potassium 4.1 (3.4-5.1) mmol/L Chloride 96 L (98-107) mmol/L Carbon Dioxide 24 (22-32) mmol/L BUN 17 (7-17) mg/dL Creatinine 0.81 (0.52-1.04) mg/dL Estimated GFR > 60.0 (>60) mL/min BUN/Creatinine Ratio 21.0 (6-22) Glucose 120 H (80-110) mg/dL Lactate (0.7-2.1) mmol/L Calcium 9.6 (8.4-10.2) mg/dL Total Bilirubin 0.5 (0.2-1.3) mg/dL AST 28 (14-36) IU/L ALT 19 (<35) IU/L Alkaline Phosphatase 87 (38-126) U/L Troponin I (0.01-0.034) ng/mL NT-Pro-B Natriuret Pep 1810 H (<125) pg/mL Total Protein 8.1 (6.3-8.2) g/dL Albumin 4.8 (3.5-5.0) g/dL Globulin 3.3 (1.7-4.1) g/dL Albumin/Globulin Ratio 1.5 (1.0-2.8) Urine RBC 0-1/hpf (0-5/HPF) Urine WBC 5-10/hpf H (0-5/HPF) Ur Squamous Epith Cells None seen (0-5/HPF) Urine Bacteria Few (2-10) H (None) Ur Culture Indicated? Specimen cultured SARS-CoV-2 (PCR) (Negative) 02/11/21 02/11/21 02/11/21 Range/Units 19:20 19:20 19:20 WBC (4.5-11.0) X10^3/uL RBC (4.0-5.2) X10^6/uL Hgb (12.0-16.0) g/dL Hct (36-46) % MCV (80-100) fL MCH (26-34) PG MCHC (30-36) % RDW (11.6-14.8) % Plt Count (150-400) X10^3/uL Neut % (Auto) (50-75) % Lymph % (Auto) (25-40) % [place] % (Auto) (3-14) % Eos % (Auto) (2-4) % Baso % (Auto) (0-2) % Neut # (Auto) (9573-5702) /uL Lymph # (Auto) (6898-9219) /uL [place] # (Auto) (0-900) /uL Eos # (Auto) (0-450) /uL Baso # (Auto) (0-100) /uL Sodium (137-145) mmol/L Potassium (3.4-5.1) mmol/L Chloride (98-107) mmol/L Carbon Dioxide (22-32) mmol/L BUN (7-17) mg/dL Creatinine (0.52-1.04) mg/dL Estimated GFR (>60) mL/min BUN/Creatinine Ratio (6-22) Glucose (80-110) mg/dL Lactate 1.3 (0.7-2.1) mmol/L Calcium (8.4-10.2) mg/dL Total Bilirubin (0.2-1.3) mg/dL AST (14-36) IU/L ALT (<35) IU/L Alkaline Phosphatase (38-126) U/L Troponin I < 0.012 (0.01-0.034) ng/mL NT-Pro-B Natriuret Pep (<125) pg/mL Total Protein (6.3-8.2) g/dL Albumin (3.5-5.0) g/dL Globulin (1.7-4.1) g/dL Albumin/Globulin Ratio (1.0-2.8) Urine RBC (0-5/HPF) Urine WBC (0-5/HPF) Ur Squamous Epith Cells (0-5/HPF) Urine Bacteria (None) Ur Culture Indicated? SARS-CoV-2 (PCR) Negative (Negative) Urine Dip Bedside Urine Glucose Negative Bedside Urine Bilirubin - Negative Bedside Urine Ketone - Negative Urine Specific [place] 1.015 Bedside Urine Occult Blood - Negative Bedside Urine pH 6.0 Bedside Urine Protein - Negative Bedside Urine Urobilinogen - Negative Bedside Urine Nitrite - Negative Bedside Urine Leukocytes + 70 Esterase Point of care testing: Urine Dip Bedside Urine Glucose Negative Bedside Urine Bilirubin - Negative Bedside Urine Ketone - Negative Urine Specific [place] 1.015 Bedside Urine Occult Blood - Negative Bedside Urine pH 6.0 Bedside Urine Protein - Negative Bedside Urine Urobilinogen - Negative Bedside Urine Nitrite - Negative Bedside Urine Leukocytes + 70 Esterase Imaging Data Chest x-ray: Radiologist's Impression: FINDINGS:? ? Surgical changes and devices:? Cervical spine fixation hardware. ? Lungs and pleura:? Lungs are clear.? No pleural effusions or pneumothorax.? ? Mediastinum:? Mediastinal contours are normal.? Heart size is normal.? ? Bones and chest wall:? No suspicious bony abnormalities.? Soft tissues appear unremarkable.? ? IMPRESSION:? ? No acute cardiopulmonary disease process. ? Dictated by: Patria Burr MD, PhD on 02/11/2021 at 19:39 ? ? CT scan - head: Radiologist's Impression: FINDINGS:? Image quality:? Excellent.? ? CSF spaces:? Basal cisterns are patent.? No extra-axial fluid collections.? The ventricles are symmetric in size and shape.? ? Brain:? No intracranial bleeds or masses.? There is cerebral volume loss for age, with resultant ventricular and sulcal prominence.? There are periventricular and deep white matter chronic small vessel ischemic changes.? There is intracranial internal carotid artery atherosclerosis.? ? Skull and face:? Calvarium and visualized facial bones appear intact, without suspicious lesions.? ? Sinuses:? Visualized sinuses and mastoids are clear.? ? IMPRESSION:? No acute intracranial disease process. ? ? Dictated by: Patria Burr MD, PhD on 02/11/2021 at 22:04 ? ? ECG Data Interpretation: Sinus rhythm with frequent PVCs rate of 70 Normal axis, nonspecific ST T wave changes MDM Narrative Medical decision making narrative: 75-year-old woman presents with chest tightness low-grade headache total fog and general sense of not feeling well and is noted to have significantly elevated blood pressure. She is initially given a dose of 20 mg of IV labetalol with little effect. She is allergic to amlodipine so an esmolol drip for blood pressure control is initiated. This ryan e there is no evidence of stroke, infection, acute coronary syndrome, congestive heart failure. With her increasing symptoms and significantly elevated blood pressure most likely diagnosis at this point is hypertensive crisis with end- organ damage without evidence of congestive heart failure. As malate drip is started and care is reviewed with Dr. Curry, hospitalist. She is admitted to the intensive care unit for further evaluation and management of her hypertensive emergency Critical Care Time Critical Care Time Critical Care Time: Yes Total Critical Care Time: 33 Attestation: Critical care time is separate from other billable procedures. There is a high probability of a significant, sudden or life-threatening deterioration that requires my full and direct attention, intervention and personal management. This critical care time includes consultation with family and other consulting doctors, review of records, and interpretation of data from labs, EKGs and imaging as well as managements of severely elevated blood pressure with IV m edications. Discharge Plan Departure Patient Disposition: Admitted as Observation Clinical Impression: Hypertensive crisis without congestive heart failure Admit Date/Time: 02/11/21 21:39 Admit Provider: Brandi Curry
[2021-02-12 05:28] LABS: Add Manual Diff / Slide Review NO; Basophils Absolute Auto 100 /uL (0-100); Basophils Percent Auto 0.6 % (0-2); Eosinophils Absolute Auto 0 /uL (0-450); Eosinophils Percent Auto 0.3 % (2-4); Hematocrit 31.2 % (36-46); Hemoglobin 10.7 g/dL (12.0-16.0); Lymphocytes Absolute Auto 3600 /uL (1100-4500); Lymphocytes Percent Auto 34.8 % (25-40); Mean Corpuscular HGB Conc 34.1 % (30-36); Mean Corpuscular Hemoglobin 33.2 PG (26-34); Mean Corpuscular Volume 97.4 fL (80-100); Monocytes Absolute Auto 600 /uL (0-900); Monocytes Percent Auto 5.8 % (3-14); Neutrophils Absolute Auto 6000 /uL (1500-7000); Neutrophils Percent Auto 58.5 % (50-75); Platelet Count 299 X10^3/uL (150-400); Red Cell Distribution Width 13.1 % (11.6-14.8); White Blood Cell Count 10.3 X10^3/uL (4.5-11.0)
[2021-02-12 05:39] LABS: Alanine Aminotransferase 18 IU/L (<35); Albumin 4.3 g/dL (3.5-5.0); Albumin Globulin Ratio 1.5 (1.0-2.8); Alkaline Phosphatase 73 U/L (38-126); Aspartate Aminotransferase 23 IU/L (14-36); BUN Creatinine Ratio 18.8 (6-22); Bilirubin Total 0.6 mg/dL (0.2-1.3); Blood Urea Nitrogen 13 mg/dL (7-17); Calcium 9.3 mg/dL (8.4-10.2); Carbon Dioxide 25 mmol/L (22-32); Chloride 99 mmol/L (98-107); Creatine Kinase 36 U/L (30-135); Estimated Glomerular Filt Rate > 60.0 mL/min (>60); Globulin 2.9 g/dL (1.7-4.1); Glucose 115 mg/dL (80-110); HEMOLYSIS < 15 (0-50); Magnesium 1.5 mg/dL (1.6-2.3); Potassium 4.5 mmol/L (3.4-5.1); Sodium 131 mmol/L (137-145); Total Protein 7.2 g/dL (6.3-8.2)
[2021-02-12 05:51] LABS: NT-proBNP (BNP-Adult 18+) 3620 pg/mL (<125); Troponin I < 0.012 ng/mL (0.01-0.034)
[2021-02-12 06:23] LABS: Thyroid Stimulating Hormone 1.97 uIU/mL (0.47-4.68)
--- NOTE | 2021-02-12 07:01 | PC.NURSE ---
02/11/[id number] Mccann arriving to place art line. Prepare for this procedure. Hold hydralazine. Systolic of 175 is ok. --- Dr. Curry
[2021-02-12] MEDS: DOCUSATE 100 MG CAPSULE PO ×2 (08:25→20:22)
[2021-02-12] MEDS: ENOXAPARIN 40 MG/0.4 ML SYRINGE SUBCUT (08:25)
[2021-02-12] MEDS: PANTOPRAZOLE DR 40 MG TABLET PO (08:25)
[2021-02-12] MEDS: LOSARTAN 50 MG TABLET 100 MG PO (08:25)
[2021-02-12] MEDS: SODIUM CHLORIDE 0.9% 1,000 ML 100 ML IV (09:22)
--- NOTE | 2021-02-12 09:33 | PM.PN.EICU ---
Subjective Subjective :: This patient was seen via real time interactive two-way audiovisual telecommunication. No acute issues overnight. Off esmolol infusion. Currently no nitro 5 mcg. Restarted back losartan 100 mg. Pending myocardial perfusion study and echo. No complaints of focal deficits or blurry vision. Current Medications Current Medications Medications: Home Medications atorvastatin 40 mg tablet (Lipitor) 40 mg PO BEDTIME #0 03/18/16 [History Confirmed 02/12/21] acetaminophen 650 mg tablet,extended release (Tylenol Arthritis Pain) 1,300 mg PO BID 12/27/17 [History Confirmed 02/12/21] calcium citrate 200 mg calcium-vitamin D3 6.25 mcg (250 unit) tablet (Citracal-D3 Petites) 1 tab PO BEDTIME 12/27/17 [History Confirmed 02/12/21] esomeprazole magnesium 20 mg capsule,delayed release (Nexium) 20 mg PO BID 12/27/17 [History Confirmed 02/12/21] metoprolol succinate 50 mg tablet,extended release 24 hr 50 mg PO 1630 03/31/18 [History Confirmed 02/12/21] ResMed AirSense 10 CPAP #1 ea 05/25/18 [History Confirmed 02/12/21] irbesartan 75 mg tablet 150 mg DAILY 02/12/21 [History Confirmed 02/12/21] metoprolol succinate 100 mg tablet,extended release 24 hr 100 mg PO DAILY 02/12/21 [History Confirmed 02/12/21] Visit Medications (administered) Generic Name Dose Route Start Last Admin Trade Name Freq PRN Reason Stop Dose Admin Acetaminophen 650 mg 02/11/21 22:47 02/12/21 04:27 Acetaminophen 325 Mg Tablet PO 650 mg Q6HR PRN Administration Fever Atorvastatin Calcium 40 mg 02/11/21 23:00 02/11/21 23:39 Atorvastatin 20 Mg Tablet PO 40 mg BEDTIME LINETTE Administration Docusate Sodium 100 mg 02/12/21 09:00 02/12/21 08:25 Docusate 100 Mg Capsule PO 100 mg BID LINETTE Administration Enoxaparin Sodium 40 mg 02/12/21 09:00 02/12/21 08:25 Enoxaparin 40 Mg/0.4 Ml Syringe SUBCUT 40 mg DAILY LINETTE Administration Sodium Chloride 1,000 mls @ 100 mls/hr 02/11/21 23:00 02/12/21 09:22 Normal Saline 0.9% IV 100 mls/hr CONT LINETTE Administration Esmolol HCl 2.5 gm in 250 mls @ 20.956 mls/hr 02/11/21 23:00 02/12/21 03:00 Brevibloc IV 0 mcg/kg/min TITRATE LINETTE 0 mls/hr Titration Protocol 50 MCG/KG/MIN Nitroglycerin 50 mg in 250 mls @ 1.5 mls/hr 02/11/21 23:00 02/12/21 09:22 Nitroglycerin IV 5 mcg/min TITRATE LINETTE 1.5 mls/hr Titration Protocol 5 MCG/MIN Losartan Potassium 100 mg 02/12/21 09:00 02/12/21 08:25 Losartan 50 Mg Tablet PO 100 mg DAILY LINETTE Administration Pantoprazole Sodium 40 mg 02/12/21 07:00 02/12/21 08:[address] 40 Mg Tablet PO 40 mg 0700 LINETTE Administration Objective Labs Result Diagrams: 02/12/21 05:01 02/12/21 05:01 Labs: Laboratory Results - last 24 hr 02/11/21 02/11/21 02/11/21 19:11 19:20 19:20 WBC 8.9 RBC 3.54 L Hgb 11.8 L Hct 34.3 L MCV 96.8 MCH 33.3 MCHC 34.4 RDW 13.2 Plt Count 325 Neut % (Auto) 49.1 L Lymph % (Auto) 41.6 H [place] % (Auto) 7.2 Eos % (Auto) 1.2 L Baso % (Auto) 0.9 Neut # (Auto) 4400 Lymph # (Auto) 3700 [place] # (Auto) 600 Eos # (Auto) 100 Baso # (Auto) 100 Sodium 130 L Potassium 4.1 Chloride 96 L Carbon Dioxide 24 BUN 17 Creatinine 0.81 Estimated GFR > 60.0 BUN/Creatinine Ratio 21.0 Glucose 120 H Lactate Calcium 9.6 Magnesium Total Bilirubin 0.5 AST 28 ALT 19 Alkaline Phosphatase 87 Total Creatine Kinase CK-MB (CK-2) CK-MB (CK-2) Rel Index Troponin I NT-Pro-B Natriuret Pep 1810 H Total Protein 8.1 Albumin 4.8 Globulin 3.3 Albumin/Globulin Ratio 1.5 TSH Urine RBC 0-1/hpf Urine WBC 5-10/hpf H Ur Squamous Epith Cells None seen Urine Bacteria Few (2-10) H Ur Culture Indicated? Specimen cultured SARS-CoV-2 (PCR) 02/11/21 02/11/21 02/11/21 19:20 19:20 19:20 WBC RBC Hgb Hct MCV MCH MCHC RDW Plt Count Neut % (Auto) Lymph % (Auto) [place] % (Auto) Eos % (Auto) Baso % (Auto) Neut # (Auto) Lymph # (Auto) [place] # (Auto) Eos # (Auto) Baso # (Auto) Sodium Potassium Chloride Carbon Dioxide BUN Creatinine Estimated GFR BUN/Creatinine Ratio Glucose Lactate 1.3 Calcium Magnesium Total Bilirubin AST ALT Alkaline Phosphatase Total Creatine Kinase CK-MB (CK-2) CK-MB (CK-2) Rel Index Troponin I < 0.012 NT-Pro-B Natriuret Pep Total Protein Albumin Globulin Albumin/Globulin Ratio TSH Urine RBC Urine WBC Ur Squamous Epith Cells Urine Bacteria Ur Culture Indicated? SARS-CoV-2 (PCR) Negative 02/12/21 02/12/21 02/12/21 05:01 05:01 05:01 WBC 10.3 RBC 3.20 L Hgb 10.7 L Hct 31.2 L MCV 97.4 MCH 33.2 MCHC 34.1 RDW 13.1 Plt Count 299 Neut % (Auto) 58.5 Lymph % (Auto) 34.8 [place] % (Auto) 5.8 Eos % (Auto) 0.3 L Baso % (Auto) 0.6 Neut # (Auto) 6000 Lymph # (Auto) 3600 [place] # (Auto) 600 Eos # (Auto) 0 Baso # (Auto) 100 Sodium 131 L Potassium 4.5 Chloride 99 Carbon Dioxide 25 BUN 13 Creatinine 0.69 Estimated GFR > 60.0 BUN/Creatinine Ratio 18.8 Glucose 115 H Lactate Calcium 9.3 Magnesium 1.5 L Total Bilirubin 0.6 AST 23 ALT 18 Alkaline Phosphatase 73 Total Creatine Kinase 36 CK-MB (CK-2) TNP CK-MB (CK-2) Rel Index TNP Troponin I < 0.012 NT-Pro-B Natriuret Pep 3620 H Total Protein 7.2 Albumin 4.3 Globulin 2.9 Albumin/Globulin Ratio 1.5 TSH 1.97 Urine RBC Urine WBC Ur Squamous Epith Cells Urine Bacteria Ur Culture Indicated? SARS-CoV-2 (PCR) Exam Vital Signs (past 8 hours): - 02/12/21 01:45 02/12/21 02:00 02/12/21 02:15 Temperature Pulse Rate 67 66 73 Respiratory Rate 14 15 17 Blood Pressure 180/61 H 164/64 H Pulse Oximetry 96 96 97 02/12/21 02:25 02/12/21 02:30 02/12/21 02:45 Temperature Pulse Rate 71 70 79 Respiratory Rate 21 15 42 H Blood Pressure 131/63 178/64 H 193/77 H Pulse Oximetry 97 97 97 02/12/21 03:00 02/12/21 03:01 02/12/21 03:15 Temperature Pulse Rate 67 68 67 Respiratory Rate 15 18 15 Blood Pressure 193/71 H 154/66 H 166/56 H Pulse Oximetry 98 98 97 02/12/21 03:30 02/12/21 03:44 02/12/21 03:45 Temperature Pulse Rate 66 67 Respiratory Rate 12 13 Blood Pressure 168/55 H 171/58 H 164/56 H Pulse Oximetry 98 98 02/12/21 04:00 02/12/21 04:01 02/12/21 04:03 Temperature Pulse Rate 69 67 Respiratory Rate 17 14 Blood Pressure 124/60 124/60 166/59 H Pulse Oximetry 96 96 02/12/21 04:15 02/12/21 04:30 02/12/21 04:45 Temperature Pulse Rate 65 68 63 Respiratory Rate 26 H 20 12 Blood Pressure 168/68 H 177/68 H 183/64 H Pulse Oximetry 98 98 97 02/12/21 05:00 02/12/21 05:15 02/12/21 05:30 Temperature 97.6 F Pulse Rate 64 Respiratory Rate 18 Blood Pressure 139/73 173/59 H 164/60 H Pulse Oximetry 97 02/12/21 05:45 02/12/21 06:00 02/12/21 06:15 Temperature Pulse Rate 61 62 Respiratory Rate 13 11 L Blood Pressure 152/65 H 149/67 H 158/61 H Pulse Oximetry 96 95 02/12/21 06:30 02/12/21 06:45 02/12/21 07:00 Temperature Pulse Rate 62 63 61 Respiratory Rate 14 23 24 Blood Pressure 159/62 H 181/78 H 187/77 H Pulse Oximetry 97 97 97 02/12/21 07:01 02/12/21 08:00 02/12/21 09:00 Temperature 98.4 F Pulse Rate 61 76 61 Respiratory Rate 11 L 13 11 L Blood Pressure 151/83 H 151/83 H 172/59 H Pulse Oximetry 98 98 95 Oxygen Delivery Method Room Air Oxygen Flow Rate 0 Narrative Exam Narrative: NAD. Speaking in full full sentence. Assessment & Plan Assessment & Plan narrative: # Hypertensive urgency -- Currently no nitro infusion and off esmolol -- Restarted back losartan 100 mg daily -- Recommend restarting metoprolol and titrate for goal SBP 160-180 -- If additional oral agents needed then recommend starting hydralazine TID -- Pending TTE and myocardial perfusion -- Recommend secondary HTN workup per primary team Case d/w hospitalist, pharmacist, and RN. Time Spent With Patient Critical Care time: I spent a total of [] minutes of critical care time on this patient's care today; this time is exclusive of procedural time.
[2021-02-12] MEDS: MAGNESIUM SULFATE 2 GM/50 ML PIGGYBACK IV (09:47)
[2021-02-12] MEDS: METOPROLOL ER 50 MG TABLET 100 MG PO (10:16)
[2021-02-12 13:01] LABS: Creatinine Urine Random 41.1 mg/dL; Potassium Urine Random 13.9 mmol/L; Protein (Total) Urine Random 13 mg/dL (0-12); Protein Creatinine Ratio Urine 0.31 GRAM/24H; Sodium Urine Random 33 mmol/L (30-90)
--- NOTE | 2021-02-12 14:46 | CM.DANOTE ---
Patient is a 75 yo female and was admitted on 02/11/21 for Hypertension. Pt has [facility] and [employer] for insurance and her PCP is Mariella Guillory. EMR was reviewed. Per MD, pt admitted for malignant hypertension and due to her allergies was placed on nitro drip and to have Echo and Stress test. Per RN, pt independent in room with supportive spouse bedside and no anticipated needs at d/c. SW met briefly bedside with pt and spouse and explained role and pt confirms that they live together and are active and independent at baseline and do not use DME for ambulation. Pt has medical co-morbidities and does not anticipate any SW needs at d/c and confirms spouse plans to provide transport at d/c. Plan: SW to follow for stress test and echo results towards confirming safe d/c plan back home with spouse and any further identified d/c needs. FERNANDA Sood Discharge Planning/Care Management CM Discharge Assessment Start: 02/12/21 14:45 Freq: Status: Active Protocol: Document 02/12/21 14:45 BF (Rec: 02/12/21 14:46 BF [id number]) Discharge Planning Assessment Assigned Chargemaster Analyst FERNANDA Maher DPOA/Assigned Designee Name spouse Tyrone Contact Information [phone] Advance Directives? Yes: DPOA for health care/ health care directive Advance Directives on File Yes History Provided By Patient,Significant Other, Medical Record Has Patient been admitted in last 30 No days? Prior Living Arrangements RV Household Members spouse Type of transporation used prior to Drives own vehicle admit Independent with ADL's Yes Is patient alert and oriented? Yes Caregiver for Another No Comment Bipap at home through [employer]. Barriers to Discharge No Discharge Plan Home Transportation Arrangement Spouse bedside and can transport Referrals Initiated None needed Review Status In Process Please Provide Date Initial DC 02/12/21 Assessment Was Performed Next Review Type Continued Stay Review
--- NOTE | 2021-02-12 15:55 | P.PN_ITS ---
Subjective Subjective Date Patient Seen: 02/12/21 Time Patient Seen: 08:00 Interval history: This morning she states she has a slight headache while on nitro. Was able to be weaned off and started oral blood pressure medications. Plan was for stress test and possible discharge; however, per nursing stress test unable to be performed due to understaffing. Exam Vital Signs (past 8 hours): - 02/12/21 08:00 02/12/21 09:00 02/12/21 10:16 Temperature 98.4 F Pulse Rate 76 61 65 Respiratory Rate 13 11 L Blood Pressure 151/83 H 172/59 H 176/63 H Pulse Oximetry 98 95 02/12/21 10:40 02/12/21 11:35 02/12/21 12:30 Temperature 98.0 F 98.0 F Pulse Rate 61 62 75 Respiratory Rate 17 14 16 Blood Pressure 144/95 H 144/94 H 146/71 H Pulse Oximetry 96 97 98 02/12/21 13:00 02/12/21 14:00 02/12/21 14:01 Temperature 97.3 F L Pulse Rate 78 79 86 Respiratory Rate 22 20 30 H Blood Pressure 170/72 H 153/67 H Pulse Oximetry 98 97 97 02/12/21 14:08 02/12/21 15:00 Temperature Pulse Rate 75 73 Respiratory Rate 18 20 Blood Pressure 153/67 H 167/72 H Pulse Oximetry 98 96 Oxygen Delivery Method Room Air Oxygen Flow Rate 0 Narrative Exam Narrative: GEN: no acute distress PULM: clear bilaterally CV: regular rate and rhythm with no murmurs ABD: soft, nontender, nondistended, no organomegaly, normal bowel sounds NEURO: awake alert and oriented, no focal deficits Objective Labs Result Diagrams: 02/12/21 05:01 02/12/21 05:01 Labs: Laboratory Results - last 24 hr 02/11/21 02/11/21 02/11/21 19:11 19:20 19:20 WBC 8.9 RBC 3.54 L Hgb 11.8 L Hct 34.3 L MCV 96.8 MCH 33.3 MCHC 34.4 RDW 13.2 Plt Count 325 Neut % (Auto) 49.1 L Lymph % (Auto) 41.6 H [place] % (Auto) 7.2 Eos % (Auto) 1.2 L Baso % (Auto) 0.9 Neut # (Auto) 4400 Lymph # (Auto) 3700 [place] # (Auto) 600 Eos # (Auto) 100 Baso # (Auto) 100 Sodium 130 L Potassium 4.1 Chloride 96 L Carbon Dioxide 24 BUN 17 Creatinine 0.81 Estimated GFR > 60.0 BUN/Creatinine Ratio 21.0 Glucose 120 H Lactate Calcium 9.6 Magnesium Total Bilirubin 0.5 AST 28 ALT 19 Alkaline Phosphatase 87 Total Creatine Kinase CK-MB (CK-2) CK-MB (CK-2) Rel Index Troponin I NT-Pro-B Natriuret Pep 1810 H Total Protein 8.1 Albumin 4.8 Globulin 3.3 Albumin/Globulin Ratio 1.5 TSH Urine RBC 0-1/hpf Urine WBC 5-10/hpf H Ur Squamous Epith Cells None seen Urine Bacteria Few (2-10) H Ur Culture Indicated? Specimen cultured U Random Total Protein Ur Random Sodium Ur Random Potassium Urine Creatinine Protein/Creatinin Ratio SARS-CoV-2 (PCR) 02/11/21 02/11/21 02/11/21 19:20 19:20 19:20 WBC RBC Hgb Hct MCV MCH MCHC RDW Plt Count Neut % (Auto) Lymph % (Auto) [place] % (Auto) Eos % (Auto) Baso % (Auto) Neut # (Auto) Lymph # (Auto) [place] # (Auto) Eos # (Auto) Baso # (Auto) Sodium Potassium Chloride Carbon Dioxide BUN Creatinine Estimated GFR BUN/Creatinine Ratio Glucose Lactate 1.3 Calcium Magnesium Total Bilirubin AST ALT Alkaline Phosphatase Total Creatine Kinase CK-MB (CK-2) CK-MB (CK-2) Rel Index Troponin I < 0.012 NT-Pro-B Natriuret Pep Total Protein Albumin Globulin Albumin/Globulin Ratio TSH Urine RBC Urine WBC Ur Squamous Epith Cells Urine Bacteria Ur Culture Indicated? U Random Total Protein Ur Random Sodium Ur Random Potassium Urine Creatinine Protein/Creatinin Ratio SARS-CoV-2 (PCR) Negative 02/12/21 02/12/21 02/12/21 00:05 05:01 05:01 WBC 10.3 RBC 3.20 L Hgb 10.7 L Hct 31.2 L MCV 97.4 MCH 33.2 MCHC 34.1 RDW 13.1 Plt Count 299 Neut % (Auto) 58.5 Lymph % (Auto) 34.8 [place] % (Auto) 5.8 Eos % (Auto) 0.3 L Baso % (Auto) 0.6 Neut # (Auto) 6000 Lymph # (Auto) 3600 [place] # (Auto) 600 Eos # (Auto) 0 Baso # (Auto) 100 Sodium 131 L Potassium 4.5 Chloride 99 Carbon Dioxide 25 BUN 13 Creatinine 0.69 Estimated GFR > 60.0 BUN/Creatinine Ratio 18.8 Glucose 115 H Lactate Calcium 9.3 Magnesium 1.5 L Total Bilirubin 0.6 AST 23 ALT 18 Alkaline Phosphatase 73 Total Creatine Kinase 36 CK-MB (CK-2) TNP CK-MB (CK-2) Rel Index TNP Troponin I < 0.012 NT-Pro-B Natriuret Pep 3620 H Total Protein 7.2 Albumin 4.3 Globulin 2.9 Albumin/Globulin Ratio 1.5 TSH Urine RBC Urine WBC Ur Squamous Epith Cells Urine Bacteria Ur Culture Indicated? U Random Total Protein 13 H Ur Random Sodium 33 Ur Random Potassium 13.9 Urine Creatinine 41.1 Protein/Creatinin Ratio 0.31 SARS-CoV-2 (PCR) 02/12/21 05:01 WBC RBC Hgb Hct MCV MCH MCHC RDW Plt Count Neut % (Auto) Lymph % (Auto) [place] % (Auto) Eos % (Auto) Baso % (Auto) Neut # (Auto) Lymph # (Auto) [place] # (Auto) Eos # (Auto) Baso # (Auto) Sodium Potassium Chloride Carbon Dioxide BUN Creatinine Estimated GFR BUN/Creatinine Ratio Glucose Lactate Calcium Magnesium Total Bilirubin AST ALT Alkaline Phosphatase Total Creatine Kinase CK-MB (CK-2) CK-MB (CK-2) Rel Index Troponin I NT-Pro-B Natriuret Pep Total Protein Albumin Globulin Albumin/Globulin Ratio TSH 1.97 Urine RBC Urine WBC Ur Squamous Epith Cells Urine Bacteria Ur Culture Indicated? U Random Total Protein Ur Random Sodium Ur Random Potassium Urine Creatinine Protein/Creatinin Ratio SARS-CoV-2 (PCR) [facility], [facility] Medical History Abnormal EKG ADHD Anemia Anxiety disorder Arrhythmia Asthma Atrophic vaginitis Benign positional vertigo Bruises easily CAD (coronary artery disease) Cervical spinal stenosis Concussion Difficulty sleeping Disorder of left rotator cuff Familial tremor Fibromyalgia Former smoker Fracture GERD (gastroesophageal reflux disease) History of endometriosis History of frequent headaches History of left heart catheterization History of stomach ulcers Hyperlipidemia Hypertension Impaired hearing Impaired vision Leg weakness Lumbar pain Lumbar spinal stenosis Obstructive sleep apnea of adult Osteoarthritis Osteoarthritis cervical spine Osteomyelitis Palpitations Panic attacks Peripheral sensory neuropathy Precancerous lesion PTSD (post-traumatic stress disorder) PVCs (premature ventricular contractions) Shortness of breath Sleep apnea treated with nocturnal BiPAP Snoring Spastic colon Spinal stenosis of lumbar region at multiple levels Spondylolisthesis at L4-L5 level Spondylolisthesis of cervical region Stenosis of right carotid artery Syncope Surgical History H/O oral surgery H/O thumb surgery History of appendectomy History of breast biopsy History of colonoscopy with polypectomy History of hernia repair History of lumbar spinal fusion (01/13/18) History of tonsillectomy History of total abdominal hysterectomy Status post cervical spinal fusion (~03/20/18) Social History marital status: details: segundo Hansen, lives in [place] number of children: 1 household members: spouse lives independently: Yes caregiver/support person: No housing: house Smoking Status: Former smoker alcohol intake: current Assessment & Plan Assessment & Plan narrative: Ms. Jackson is a 75W with PMH of HTN, HL, fibromyalgia, GERD, and palpitations admitted to the hospital with malignant hypertension 1. Acute malignant hypertension -patient was significantly hypertensive initially systolic in 240s -head CT negative for bleed or intracranial lesions -EKG -sinus rhythm no acute ST T wave changes -Troponin negative, Chest Xray negative, BNP 1810 -was initially on esmolol and nitro drip but was able to stop due to improved blood pressure -ok to discontinued arterial line -CT of Chest/abd/pelvis per ICU to r/o aortic dissection, but has significant iodine allergy -unable to get renal duplex here to r/o renal artery stenosis -echo ordered and showed severe LA dilation, mild RA dilation, normal EF 55-60%, mildly dilated RV with RVSP estimated at least 39 -stress test ordered and unable to be done per nursing due to staffing -work up for secondary causes of hypertension (likely as an outpatient) -resumed losartan and metoprolol 2. Hyperlipidemia -continue statin 3. GERD -continue PPI Time Spent With Patient Critical Care time: I spent a total of [] minutes of critical care time on this patient's care today; this time is exclusive of procedural time.
[2021-02-12] MEDS: METOPROLOL ER 50 MG TABLET PO (16:17)
[2021-02-12] MEDS: ATORVASTATIN 20 MG TABLET 40 MG PO (20:22)
[2021-02-12] MEDS: HYDRALAZINE 25 MG TABLET PO (20:22)
--- NOTE | 2021-02-12 21:08 | PM.ICURNDS ---
- Note: Patient discussed on mltidisciplinary rounds with bedside nurse and JAIMIE Melgar. Pt continues to be hyPERtensive, now off NTG infusion. Oral hydralazine and lopressor being uptitrated. PRN hydralazine available as well. I will order PRN labetalol as well.
[2021-02-12] MEDS: HYDRALAZINE 20 MG/ML VIAL 10 MG IV (22:02)
[2021-02-13] VITALS (19 sets, daily range): BP systolic 128–213; BP diastolic 56–91; PULSE 66–91; RESP 9–22; TEMP 35.8–36.6; O2SAT 95–99
[2021-02-13] MEDS: HYDRALAZINE 20 MG/ML VIAL 10 MG IV (04:09)
[2021-02-13 05:44] LABS: Hematocrit 33.7 % (36-46); Hemoglobin 11.4 g/dL (12.0-16.0); Mean Corpuscular HGB Conc 33.8 % (30-36); Mean Corpuscular Hemoglobin 32.9 PG (26-34); Mean Corpuscular Volume 97.3 fL (80-100); Platelet Count 324 X10^3/uL (150-400); Red Blood Cell Count 3.46 X10^6/uL (4.0-5.2); Red Cell Distribution Width 13.4 % (11.6-14.8); White Blood Cell Count 7.9 X10^3/uL (4.5-11.0)
[2021-02-13 05:56] LABS: BUN Creatinine Ratio 17.1 (6-22); Blood Urea Nitrogen 12 mg/dL (7-17); Calcium 9.6 mg/dL (8.4-10.2); Carbon Dioxide 25 mmol/L (22-32); Chloride 99 mmol/L (98-107); Estimated Glomerular Filt Rate > 60.0 mL/min (>60); Glucose 115 mg/dL (80-110); HEMOLYSIS < 15 (0-50); Potassium 4.1 mmol/L (3.4-5.1); Sodium 132 mmol/L (137-145)
[2021-02-13] MEDS: DOCUSATE 100 MG CAPSULE PO (08:15)
[2021-02-13] MEDS: ENOXAPARIN 40 MG/0.4 ML SYRINGE SUBCUT (08:15)
[2021-02-13] MEDS: LOSARTAN 50 MG TABLET 100 MG PO (08:15)
[2021-02-13] MEDS: HYDRALAZINE 25 MG TABLET PO ×2 (08:15→14:23)
[2021-02-13] MEDS: METOPROLOL ER 50 MG TABLET 100 MG PO (08:15)
--- NOTE | 2021-02-13 12:01 | PC.NURSE ---
Day shift: Nicolas REGALADO RN and Bridger hull for Pt to have water and ice chips at this time.
[2021-02-13 12:13] LABS: Osmolality Urine 242 mOsmol/kg (.)
[2021-02-13 12:13] LABS: Osmolality, Serum 277 mOsmol/kg (280-301)
--- NOTE | 2021-02-13 12:14 | PC.NURSE ---
Day shift: This hand sign writer has taken over care of this Pt at this time. She reports mild headache at this time. Independent in room. Spouse in room for support. Call light in reach. She is to have 2nd part of stress test in the next hour.
--- NOTE | 2021-02-13 12:46 | PC.NURSE ---
Day shift: Pt off unit for next part of Stress Test at approx 1245.
--- NOTE | 2021-02-13 13:15 | PC.NURSE ---
Addendum entered by Shady Ray R.N. 02/13/21 14:33: Pt back on AC unit at approx 1420. Stress test is complete and Pt can have food. Original Note: Day shift: Pt remais off of AC unit at this time.
[2021-02-13] MEDS: ACETAMINOPHEN 325 MG TABLET 650 MG PO (14:21)
[2021-02-13] MEDS: PANTOPRAZOLE DR 40 MG TABLET PO (14:52)
--- NOTE | 2021-02-13 15:22 | PM.DS.1 ---
History of Present Illness History of Present Illness Chief complaint: t-14 fatigue, sob, shaky, hurting legs, pain+chest Narrative: Per Dr. Curry: The patient is a 75 y/o female with a history of hypertension,GERD, Hyperlipidemia, Anxiety disorder, Asthma, CAD, Arrhythmia , fibromyalgia, who presents with 2 weeks of progressive weakness, fatigue, shortness of breath, and chest discomfort.? The patient also complains of near syncope.? She has been feeling very poorly and presented to the ED for evaluation. She complained of feeling foggy and also had a slight headache on admission.? In the Emergency Department the patient was found to have significant hypertension with systolic blood pressure over 230 and diastolic blood pressures greater than 110. She was given IV lebetalol with minimal improvement.? She has multiple drug allergies including a near anaphylactic reaction to amlodipine and as such was not started on a nicardipine drip.? She continues to complain of chest tightness, shortness of breath and generalized malaise. She underwent Head CT in the ED which was negative for an acute bleed or stroke.? Her chest Xray was unremarkable. Her EKG reveals sinus rhythm with no acute ST -Twave abnormalities. Her Troponin was negative. Her proBNP was elevated at 1810.? Patient is admitted to the hospital for inpatient treatment of malignant hypertension. Patient reports she does take her blood pressure at home, but has failed to do so for the last 2 weeks. Discharge Providers Provider Date of admission: 02/11/21 21:39 Discharge Date: 02/13/21 Primary care physician: Mariella Guillory PA-C Consults: 02/11/21 22:43 Consult to Tele-payroll administrative assistant Routine Comment: Consulting Provider: [employer] Reason for consultation: Head Host/Hostess services Has provider been notified: Yes 02/12/21 08:26 Consult to Tele-payroll administrative assistant Routine Comment: Consulting Provider: [employer] Reason for consultation: Head Host/Hostess services Has provider been notified: Yes Discharge provider: Allan Abraham MD Summary Hospital Course Discharge Diagnosis: 1. Acute malignant hypertension 2. Hyperlipidemia 3. GERD Hospital Course: Ms. Jackson was initially admitted from the ED on nitro and esmolol due to an initial blood pressure in the systolic of 240s. She initially had symptoms with this. She denied missing any medications. She has been under quite significant stress lately in her personal life. Her blood pressure improved on the drips, and these were transitioned off. She was restarted on her home medications. She remained hypertensive so hydralazine was added. She had a stress test that showed no acute abnormalities. She was able to be discharged home. She should follow up with her PCP within a week and consider secondary causes of hypertension. Exam Vital Signs (past 8 hours): Oxygen Delivery Method Room Air Oxygen Flow Rate 0 Narrative Exam Narrative: GEN: no acute distress PULM: clear bilaterally CV: regular rate and rhythm with no murmurs ABD: soft, nontender, nondistended, no organomegaly, normal bowel sounds NEURO: awake alert and oriented, no focal deficits Objective Labs Result Diagrams: 02/13/21 05:01 02/13/21 05:01 [facility] Medical History Abnormal EKG ADHD Anemia Anxiety disorder Arrhythmia Asthma Atrophic vaginitis Benign positional vertigo Bruises easily CAD (coronary artery disease) Cervical spinal stenosis Concussion Difficulty sleeping Disorder of left rotator cuff Familial tremor Fibromyalgia Former smoker Fracture GERD (gastroesophageal reflux disease) History of endometriosis History of frequent headaches History of left heart catheterization History of stomach ulcers Hyperlipidemia Hypertension Impaired hearing Impaired vision Leg weakness Lumbar pain Lumbar spinal stenosis Obstructive sleep apnea of adult Osteoarthritis Osteoarthritis cervical spine Osteomyelitis Palpitations Panic attacks Peripheral sensory neuropathy Precancerous lesion PTSD (post-traumatic stress disorder) PVCs (premature ventricular contractions) Shortness of breath Sleep apnea treated with nocturnal BiPAP Snoring Spastic colon Spinal stenosis of lumbar region at multiple levels Spondylolisthesis at L4-L5 level Spondylolisthesis of cervical region Stenosis of right carotid artery Syncope Surgical History H/O oral surgery H/O thumb surgery History of appendectomy History of breast biopsy History of colonoscopy with polypectomy History of hernia repair History of lumbar spinal fusion (01/13/18) History of tonsillectomy History of total abdominal hysterectomy Status post cervical spinal fusion (~03/20/18) Social History marital status: details: to Tyrone, lives in [place] number of children: 1 household members: spouse lives independently: Yes caregiver/support person: No housing: house Smoking Status: Former smoker alcohol intake: current Discharge Plan Discharge Plan Patient Disposition: Home Provider Discharge Comment: Ms. Jackson came in with significantly high symptomatic blood pressure. She initially was on IV blood pressure medication and her blood pressure improved. She was switched over to pills and continued to do well. She had a stress test and ultrasound of her heart which showed good functioning so she was able to be discharged home. She should follow up with her doctor next week to make sure she's still doing well and to consider doing additional testing to see if she has a hormone or kidney reason that her blood pressure was high. Discharge orders & Medications Prescriptions: New hydralazine 25 mg Tablet 25 mg PO TID Qty: 90 RF: 0 Continued atorvastatin [Lipitor] 40 MG tablet 40 mg PO BEDTIME Qty: 0 RF: 0 acetaminophen [Tylenol Arthritis Pain] 650 mg Tablet Extended Release 1,300 mg PO BID RF: 0 esomeprazole magnesium [Nexium] 20 mg Capsule,Delayed Release(Dr/Ec) 20 mg PO BID RF: 0 calcium citrate-vitamin D3 [Citracal-D3 Petites] 200 mg calcium -250 unit Tablet 1 tab PO BEDTIME RF: 0 metoprolol succinate 50 mg Tablet Extended Release 24 Hr 50 mg PO 1630 RF: 0 metoprolol succinate 100 mg tablet extended release 24 hr 100 mg PO DAILY RF: 0 irbesartan 75 mg tablet 150 mg DAILY RF: 0 No Action (DME) ResMed AirSense 10 CPAP Qty: 1 RF: 0 Follow up/Referrals: Mariella Guillory PA-C [Primary Care Provider] - Visit Report/Discharge Packet Instructions: Cardiac Stress Test, DI for Cardiac Stress Test Discharge Data Primary Care Provider: Mariella Guillory
[2021-02-13] MEDS: METOPROLOL ER 50 MG TABLET PO (16:57)
--- NOTE | 2021-02-13 17:48 | PC.NURSE ---
Patient discharged home with spouse, taken down by [employer] via wheelchair. IV and tele removed. Discharge instructions reviewed with patient, all questions answered. All personal items taken with patient.
--- NOTE | 2021-02-13 20:00 | DI.NM.S_ITS ---
DATE OF SERVICE: 02/13/2021 PROCEDURE PERFORMED: Pharmacologic vasodilator stress and rest myocardial perfusion imaging study with gating to assess ejection fraction and regional wall motion. ORDERING PROVIDER: Dr. Brandi Curry. INDICATIONS: The patient is a 75-year-old female with hypertension who was admitted with dyspnea and chest discomfort but a normal troponin and was severely hypertensive. PHARMACOLOGIC STRESS: Per protocol, 0.4 mg of regadenoson was infused with a normal hemodynamic response although the patient was very hypertensive at rest at 198 systolic. With regadenoson, she developed some mild chest pressure that resolved with caffeine. Her resting ECG shows sinus rhythm with occasional PVCs but relatively normal ST segments. She develops more frequent PVCs, at times in a bigeminal pattern, but no significant ST-segment shifts to suggest ischemia. Per protocol, 25.7 millicuries of technetium-99m Myoview was injected and she was imaged 10 minutes later using a gated SPECT acquisition protocol. Earlier in the day while at rest, she was injected with 13.0 millicuries of technetium-99m Myoview and imaged 15 minutes later, again using a gated SPECT acquisition protocol. FINDINGS: 1. Raw data: There is fair myocardial tracer uptake with mild breast shadows noted. Lung/heart ratio is mildly increased at 0.46 which can be a sign of pulmonary congestion. TID ratio was normal at 1.19. 2. Quantitated gated SPECT: Post-stress ejection fraction is estimated at 64% without any focal wall motion abnormality. Resting ejection fraction is 70% with an end-diastolic volume of 113 mL. 3. Myocardial perfusion imaging: Post-stress supine images shows a fairly normal myocardial perfusion pattern without any obvious perfusion defects, supported by normal perfusion imaging in the prone images, although prone image quality is somewhat poor. The resting images show a similar perfusion pattern without any obvious areas of significant improvement. IMPRESSION: 1. Normal myocardial perfusion study. 2. No evidence of myocardial ischemia or previous myocardial infarction. 3. Normal left ventricular systolic function without any focal wall motion abnormality. The lung/heart ratio is elevated which can be a sign of pulmonary congestion but clinical correlation is recommended. 4. The patient developed mild chest discomfort with regadenoson infusion but without ECG changes of ischemia. She was hypertensive at rest with a normal blood pressure response. She had frequent PVCs at times, in a bigeminal pattern, but no other complex ventricular ectopy. Alexsandra Jackson Alyx doc#: [id number]/job#: [id number] dd: 02/13/2021 16:52:00 dt: 02/13/2021 19:22:00 DICTATING MD/COPIES TO: Alberto Hackett MD; Brandi Curry MD COPIES MNE: ARCELIA;
== END 2021-02-13 17:48 | disposition home or self-care (01) | DRG 305 ==
LOC: ED 20:48 → ICU 02-12 07:56 → AC 02-12 14:07 → ICU 02-12 14:08 → AC 02-13 16:58 → ICU 02-16 14:03
PROVIDERS: Internal Medicine; Admitting Provider Internal Medicine; Emergency Provider Emergency Medicine; PCP Student in an Organized Health Care Education/Training Program; Referring Provider Emergency Medicine; Visit Provider Internal Medicine
DX: I16.1 Hypertensive emergency (principal); E87.1 Hypo-osmolality and hyponatremia; E78.5 Hyperlipidemia, unspecified; K21.9 Gastro-esophageal reflux disease without esophagitis; Z20.822 Contact with and (suspected) exposure to COVID-19; Z87.891 Personal history of nicotine dependence
CPT/HCPCS: 36415; 70450; 71046; 71250; 74176; 78452; 80048; 80053; 81003; 81015; 82088; 82550; 82570; 83605; 83735; 83880; 83930; 83935; 84133; 84156; 84300; 84443; 84484; 85025; 85027; 87086; 87635; 93005; 93010; 93017; 93306; 96365; 96375; 99284; 99291; C9803; A9502; J0360; J1650; J2785; J3475

== ENCOUNTER → 2021-04-01 09:32 | Outpatient (CLI) | payer MEDICARE, SELFPAY ==
[2021-02-11 22:30] VITALS: BMI 28.4
[2021-04-01 12:08] LABS: COVID19 -Nasal RAPID Negative (Negative)
== END ==
PROVIDERS: PCP Student in an Organized Health Care Education/Training Program; Visit Provider Surgery
DX: Z01.812 Encounter for preprocedural laboratory examination (principal); Z20.822 Contact with and (suspected) exposure to COVID-19
CPT/HCPCS: 87635; C9803

== ENCOUNTER 2021-04-02 08:47 | Day surgery (SDC) | payer MEDICARE, SELFPAY ==
[2018-04-03 21:31] VITALS: BMI 29.1
[2021-02-11 22:30] VITALS: BMI 28.4
[2021-04-02] MEDS: LACTATED RINGERS 1,000 ML 84 ML IV (09:13)
[2021-04-02 09:14] VITALS: BP 137/75; PULSE 75; RESP 18; TEMP 36.7; O2SAT 99; BMI 27.3
--- NOTE | 2021-04-02 14:24 | PM.HP.1 ---
History of Present Illness History of Present Illness Date Patient Seen: 04/02/21 Time Patient Seen: 14:24 Chief complaint: SCREENING COLONOSCOPY Narrative: The patient presents for colorectal sreening. She had previous colonoscopy greater than 5 years ago which demonstrated benign polyps. No personal or family history of colon cancer. Over the past 6-8 months she says she has been experiencing irregular bowel movements. Occasional blood per rectum bright red which she attributes to hemorrhoids. Past medical history is significant for hypertensive crisis and congestive heart failure. Patient History Medical History Abnormal EKG ADHD Anemia Anxiety disorder Arrhythmia Asthma Atrophic vaginitis Benign positional vertigo Bruises easily CAD (coronary artery disease) Cervical spinal stenosis Concussion Difficulty sleeping Disorder of left rotator cuff Familial tremor Fibromyalgia Former smoker Fracture GERD (gastroesophageal reflux disease) History of endometriosis History of frequent headaches History of left heart catheterization History of stomach ulcers Hyperlipidemia Hypertension Impaired hearing Impaired vision Leg weakness Lumbar pain Lumbar spinal stenosis Obstructive sleep apnea of adult Osteoarthritis Osteoarthritis cervical spine Osteomyelitis Palpitations Panic attacks Peripheral sensory neuropathy Precancerous lesion PTSD (post-traumatic stress disorder) PVCs (premature ventricular contractions) Shortness of breath Sleep apnea treated with nocturnal BiPAP Snoring Spastic colon Spinal stenosis of lumbar region at multiple levels Spondylolisthesis at L4-L5 level Spondylolisthesis of cervical region Stenosis of right carotid artery Syncope Surgical History H/O oral surgery H/O thumb surgery History of appendectomy History of breast biopsy History of colonoscopy with polypectomy History of hernia repair History of lumbar spinal fusion (01/13/18) History of tonsillectomy History of total abdominal hysterectomy Status post cervical spinal fusion (~03/20/18) Family & Social History Social History: household members spouse lives independently Yes caregiver/support person No Tobacco & Substance use: Tobacco type cigarettes Smoking Status Former smoker alcohol intake current alcohol intake frequency 3 or more drinks per day Substance Use Type does not use Meds Home Medications and Allergies Home Medications Medication Instructions Recorded Confirmed Type acetaminophen 650 mg 1,300 mg PO BID 12/27/17 04/02/21 History tablet,extended release (Tylenol Arthritis Pain) calcium citrate 200 mg 1 tab PO BEDTIME 12/27/17 02/12/21 History calcium-vitamin D3 6.25 mcg (250 unit) tablet (Citracal-D3 Petites) metoprolol succinate 50 mg 50 mg PO 1630 03/31/18 02/12/21 History tablet,extended release 24 hr ResMed AirSense 10 CPAP #1 ea 05/25/18 02/12/21 History irbesartan 75 mg tablet 150 mg DAILY 02/12/21 04/02/21 History metoprolol succinate 100 mg 100 mg PO DAILY 02/12/21 04/02/21 History tablet,extended release 24 hr hydralazine 25 mg tablet 25 mg PO TID #90 tab 02/13/21 04/02/21 Rx Allergies Allergy/AdvReac Type Severity Reaction Status Date / Time aspirin [ASPIRIN] Allergy Severe SUPRESSES Verified 04/02/21 09:05 BREATHING benazepril Allergy Severe Cough Verified 04/02/21 09:05 erythromycin base Allergy Severe RASH Verified 04/02/21 09:05 [ERYTHROMYCIN BASE] MOVING ABOUT BODY-6 MONTHS iodine Allergy Severe Couldn't Verified 04/02/21 09:05 breath, itch lisinopril Allergy Severe Cough Verified 04/02/21 09:05 oxycodone [OXYCODONE] Allergy Severe HIVES AND Verified 04/02/21 09:05 WELTS sertraline [From ZOLOFT] Allergy Severe IMPAIRED Verified 04/02/21 09:05 BALANCE NEUROLOGIST: BECAME TOXIC latex [LATEX] Allergy Intermediate BREATHING Verified 04/02/21 09:05 DIFFICULTIES rofecoxib [From VIOXX] Allergy Intermediate COULDN'T Verified 04/02/21 09:05 URINATE FOR A COUPLE OF DAYS ibuprofen Allergy Mild Impaired Verified 04/02/21 09:05 breathing, worse over time meloxicam Allergy Mild Unknown Verified 04/02/21 09:05 amlodipine Allergy Unknown Rash, Verified 04/02/21 09:05 trouble breathing, bradycardia naproxen Allergy Unknown Unlisted Verified 04/02/21 09:05 nitroglycerin Allergy Unknown Unlisted Verified 04/02/21 09:05 Sulfa (Sulfonamide Allergy Unknown DON'T Verified 04/02/21 09:05 Antibiotics) REMEMBER [SULFA (SULFONAMIDE ANTIBIOTICS)] sulfur dioxide Allergy Unknown Not listed Verified 04/02/21 09:05 alprazolam AdvReac Severe confusion, Verified 04/02/21 09:05 stumbling, suicidal ideation diazepam [From VALIUM] AdvReac Intermediate GOT Verified 04/02/21 09:05 TERRIBLY DEPRESSED zolpidem [From Ambien] AdvReac Intermediate Slept for Verified 04/02/21 09:05 3 hours, then couldn't sleep lithium [LITHIUM] AdvReac Mild ELEVATED Verified 02/11/21 19:01 BP & DELIRIOUS simvastatin [From Zocor] AdvReac Mild Muscle Verified 02/11/21 19:01 cramps hydrochlorothiazide AdvReac Unknown DEPLETED Verified 02/11/21 19:01 [HYDROCHLOROTHIAZIDE] POTASSIUM, IN DAYS, DEHYDRATION meperidine [From Demerol] AdvReac Unknown Falling, Verified 02/11/21 19:01 my arms would flip out Exam Vital Signs (past 8 hours): - 04/02/21 09:14 Temperature 98.1 F Pulse Rate 75 Respiratory Rate 18 Blood Pressure 137/75 Pulse Oximetry 99 Oxygen Delivery Method Room Air Narrative Exam Narrative: General elderly woman alert oriented no acute distress Chest nonlabored respirations Abdomen soft nontender nondistended Extremities warm Assessment & Plan Assessment and plan (1) Personal history of colonic polyps: Status: Acute Assessment & Plan narrative: The patient requires colorectal screening and colonoscopy is recommended. Technical details were discussed. Given her extensive comorbidities will request Anesthesia to provide her sedation. Benefits, alternatives explained. Risks including but not limited to myocardial infarction, aspiration, bleeding, pain, missed lesion, incomplete examination, need for further radiographic studies, colonic perforation, and need for major abdominal surgery were discussed. All questions were answered to their satisfaction, and they are in agreement with this plan. Time Spent With Patient Critical Care time: I spent a total of [] minutes of critical care time on this patient's care today; this time is exclusive of procedural time.
--- NOTE | 2021-04-02 15:20 | PM.OP.COLON ---
Operative Date/Time/Diagnoses Date of procedure: 04/02/21 Time of procedure: 15:20 Pre-op diagnosis: Personal history of colonic polyps Post-op diagnosis: other (Normal colonoscopy) Procedure & Clinicians Study performed: Colonoscopy Same procedure as scheduled: Yes Indications: Personal history of colonic polyps Surgeon: Gualberto Alvarenga Procedure Notes Procedure in detail: The history and physical was performed/updated and the patient is ASA class is 3. The procedure was discussed in detail with the patient. Potential risks complications including infection, bleeding, missed diagnosis, perforation, need for surgery, and were explained. Their questions were answered and informed consent was obtained. Patient was brought to the procedure room and placed standard monitoring equipment. The patient's vital signs were monitored continuously throughout the entire procedure. Prior to starting time-out was performed. The patient was placed in the left lateral recumbent position. Procedural sedation was administered by Anesthesia. Examination began with a thorough inspection of the perianal area there was no evidence of fissures, fistulae, external hemorrhoids or cutaneous malignancy. The colonoscopy scope was then placed into the anal canal and was advanced to the cecum, which was identified by the ileocecal valve, the appendiceal orifice and the confluence of the taenia. The scope was then slowly withdrawn examining colon thoroughly in all directions, irrigating it of any residual stool. FINDINGS 1. No masses or polyps 2. Sigmoid diverticulosis 3. Grade 1-2 internal hemorrhoids The patient tolerated the procedure well. They will be discharged once criteria are met. The prep was of good/excellent quality. The withdrawl time was 6minutes. The sedation time was 17 minutes. Specimen(s): none sent Complications: none Impression: normal colonoscopy Post-procedure Plan for aftercare: No need for further colonoscopy
[2021-04-02 15:21] VITALS: BP 172/84; PULSE 17; RESP 64; TEMP 36.6; O2SAT 17
[2021-04-02 15:26] VITALS: BP 159/59; PULSE 56; RESP 14; O2SAT 99
[2021-04-02 15:31] VITALS: BP 158/72; PULSE 61; RESP 16; O2SAT 98
[2021-04-02 15:48] VITALS: BP 192/78; PULSE 56; RESP 13; O2SAT 100
[2021-04-02 16:05] VITALS: BP 177/74; PULSE 56; RESP 16; TEMP 36.6; O2SAT 99
--- NOTE | 2021-04-02 16:22 | SUR.PHASEII ---
1615-Pt A&O, VSS, iv dcd and site clear, all dc instructions given and pt verbalizes understanding. Pt up and ambulating gait steady and dressed now and ready to go, pt dcd via wc with all belongings and in good spirits, drinking water without problems
== END 2021-04-02 16:15 | disposition home or self-care (01) ==
PROVIDERS: Surgery; PCP Student in an Organized Health Care Education/Training Program; Referring Provider Surgery; Visit Provider Surgery
PROC: 0DJD8ZZ Inspection of Lower Intestinal Tract, Via Natural or Artificial Opening Endoscopic (ICD-10-PCS; CPT 45378; principal; 2021-04-02 10:00)
DX: Z12.11 Encounter for screening for malignant neoplasm of colon (principal); Z86.010 Personal history of colon polyps; I50.9 Heart failure, unspecified; I10 Essential (primary) hypertension; K57.30 Diverticulosis of large intestine without perforation or abscess without bleeding; K64.1 Second degree hemorrhoids
CPT/HCPCS: G0105; 99152; J2704; J3010

== ENCOUNTER 2021-05-06 23:07 | Observation (INO) | payer MEDICARE, SELFPAY ==
[2021-02-11 22:30] VITALS: BMI 28.4
--- NOTE | 2021-05-06 23:13 | DI.RAD.S_ITS ---
PROCEDURE: XR CHEST 1V INDICATIONS: Shortness of breath TECHNIQUE: One view of the chest was acquired. COMPARISON: Located Within [facility], CR, XR CHEST 2 VIEWS, 09/09/2018, 12:20. [facility], CR, XR CHEST 2V, 02/11/2021, 19:02. FINDINGS: Surgical changes and devices: Stable postsurgical changes from prior ACDF. Lungs and pleura: Lungs are clear. No focal consolidations. No pleural effusions or pneumothorax. Mediastinum: Mediastinal contours appear normal. Heart size is normal. Bones and chest wall: No suspicious bony lesions. Overlying soft tissues appear unremarkable. IMPRESSION: No acute cardiopulmonary abnormalities or focal airspace disease. Dictated by: Jake Ordonez M.D. on 05/07/2021 at 0:09 Approved by: Jake Ordonez M.D. on 05/07/2021 at 0:11
[2021-05-06 23:19] VITALS: BP 158/96; PULSE 96; RESP 22; TEMP 37.7; O2SAT 92; BMI 27.3
[2021-05-06 23:48] LABS: Add Manual Diff / Slide Review NO; Basophils Absolute Auto 0 /uL (0-100); Basophils Percent Auto 0.2 % (0-2); Eosinophils Absolute Auto 0 /uL (0-450); Eosinophils Percent Auto 0.1 % (2-4); Hematocrit 34.2 % (36-46); Hemoglobin 11.5 g/dL (12.0-16.0); Lymphocytes Absolute Auto 1400 /uL (1100-4500); Lymphocytes Percent Auto 6.1 % (25-40); Mean Corpuscular HGB Conc 33.7 % (30-36); Mean Corpuscular Hemoglobin 31.6 PG (26-34); Mean Corpuscular Volume 93.8 fL (80-100); Monocytes Absolute Auto 500 /uL (0-900); Neutrophils Absolute Auto 21000 /uL (1500-7000); Neutrophils Percent Auto 91.6 % (50-75); Platelet Count 374 X10^3/uL (150-400); Red Blood Cell Count 3.65 X10^6/uL (4.0-5.2); Red Cell Distribution Width 12.7 % (11.6-14.8); White Blood Cell Count 22.9 X10^3/uL (4.5-11.0)
[2021-05-06 23:49] LABS: D Dimer 1011 ng/mL (<230)
[2021-05-06] MEDS: SODIUM CHLORIDE 0.9% 1,000 ML 150 ML IV (23:50)
[2021-05-06 23:51] LABS: Alanine Aminotransferase 15 IU/L (<35); Albumin 4.8 g/dL (3.5-5.0); Albumin Globulin Ratio 1.3 (1.0-2.8); Alkaline Phosphatase 86 U/L (38-126); Aspartate Aminotransferase 25 IU/L (14-36); BUN Creatinine Ratio 13.3 (6-22); Bilirubin Total 0.9 mg/dL (0.2-1.3); Blood Urea Nitrogen 10 mg/dL (7-17); Calcium 9.8 mg/dL (8.4-10.2); Carbon Dioxide 25 mmol/L (22-32); Chloride 90 mmol/L (98-107); Creatine Kinase 54 U/L (30-135); Estimated Glomerular Filt Rate > 60.0 mL/min (>60); Globulin 3.7 g/dL (1.7-4.1); Glucose 111 mg/dL (80-110); HEMOLYSIS 26 (0-50); Lipase 119 U/L (23-300); Potassium 4.1 mmol/L (3.4-5.1); Sodium 124 mmol/L (137-145); Total Protein 8.5 g/dL (6.3-8.2)
[2021-05-07] VITALS (29 sets, daily range): BP systolic 124–164; BP diastolic 46–93; PULSE 61–88; RESP 14–21; TEMP 36.3–37.1; O2SAT 93–99; BMI 27.3
[2021-05-07] LABS: NT-proBNP (BNP-Adult 18+) 1810 pg/mL (<125)
[2021-05-07 00:02] LABS: Troponin I < 0.012 ng/mL (0.01-0.034)
[2021-05-07 00:06] LABS: COVID19 -Nasal RAPID Negative (Negative)
[2021-05-07 00:08] LABS: Procalcitonin 0.05 ng/mL (<0.5)
--- NOTE | 2021-05-07 00:49 | DI.CT.S_ITS ---
PROCEDURE: CT ANGIO CHEST PE PROTOCOL INDICATIONS: Shortness of breath, tachycardia, critical D Dimer TECHNIQUE: After the administration of intravenous contrast, 2 mm thick sections acquired from the pulmonary apices to the posterior costophrenic angles. 3-dimensional maximum intensity projection (MIP) coronal and sagittal reformats were then acquired through the thorax. For radiation dose reduction, the following was used: automated exposure control, adjustment of mA and/or kV according to patient size. COMPARISON: [facility], CT, CT CHEST ABD PEL WO CON, 02/12/2021, 7:42. [facility], CR, XR CHEST 1V, 05/06/2021, 23:21. FINDINGS: Image quality: Excellent. Pulmonary arteries: Pulmonary arteries are normal in size, and demonstrate no intraluminal filling defects to suggest central pulmonary embolism. Lungs and pleura: There are a few, scattered patchy subtle ground-glass opacities noted predominantly in the periphery of the upper lobes bilaterally. No focal consolidation. Suggestion of minimal peripheral tree-in-bud opacities. No pleural effusions or pneumothorax. Central and peripheral airways are patent. Mediastinum: Heart size is normal, without pericardial effusion. Atherosclerotic calcifications of the coronary arteries are noted. No mediastinal or hilar adenopathy. Thoracic aorta is normal in caliber and enhancement. Esophagus is normal in caliber, without hiatal hernia. Bones and chest wall: No suspicious bony lesions. Ribs and thoracic spine appear intact throughout. Thyroid gland is unremarkable. No axillary or supraclavicular adenopathy. Abdomen: Stable subcentimeter left hepatic lobe hypodensity. Visualized upper abdominal solid organs appear normal in the early arterial phase of enhancement. IMPRESSION: 1. No acute pulmonary emboli identified. 2. A few scattered, ill-defined patchy areas of ground-glass opacities predominantly involving the periphery of the bilateral upper lobes . There is also suggestion of minimal peripheral tree-in-bud opacities. Findings may represent bronchopneumonia with atypical or viral etiology most likely. Other considerations include an inflammatory process such as reactive airway disease. 3. Atherosclerosis. Dictated by: Jake Ordonez M.D. on 05/07/2021 at 1:55 Approved by: Jake Ordonez M.D. on 05/07/2021 at 2:04
[2021-05-07 01:04] LABS: COVID19 - ADMIT (NP swab/PCR) Negative (Negative)
[2021-05-07] MEDS: diphenhydrAMINE 50 MG/ML VIAL 25 MG IV (01:04)
[2021-05-07] MEDS: methylPREDNISolone 125 MG/2 ML VIAL IV (01:04)
[2021-05-07] MEDS: FAMOTIDINE 20 MG/2 ML VIAL IV (01:05)
[2021-05-07] MEDS: FUROSEMIDE 40 MG/4 ML VIAL IV (01:05)
--- NOTE | 2021-05-07 01:10 | ED_ITS ---
HPI - SOB/Dyspnea General Chief Complaint: Upper Respiratory Symptoms Stated Complaint: HTN Time Seen by Provider: 05/06/21 23:12 Source: patient and EMS Mode of arrival: EMS Limitations: no limitations History of Present Illness HPI Narrative: 75F former smoker with history of hypertension presents by EMS for evaluation of shortness of breath. She is not a great historian and most information is through medics. They report that they were called as she was complaining of increased shortness of breath over the course of the day. She had not yet taken her antihypertensives on their arrival her blood pressure is 215 over the 100s. She had no fever or chills and has had some cough and it is unclear if there is any productive sputum or not. She has had no nausea or vomiting and denies any new medications. She was most recently admitted here for hypertensive issue. There is report that she has been exposed to COVID Related Data Home Medications Medication Instructions Recorded Confirmed acetaminophen 650 mg 1,300 mg PO BID 12/27/17 04/02/21 tablet,extended release (Tylenol Arthritis Pain) calcium citrate 200 mg 1 tab PO BEDTIME 12/27/17 02/12/21 calcium-vitamin D3 6.25 mcg (250 unit) tablet (Citracal-D3 Petites) metoprolol succinate 50 mg 50 mg PO 1630 03/31/18 02/12/21 tablet,extended release 24 hr [facility]Med AirSense 10 CPAP #1 ea 05/25/18 02/12/21 irbesartan 75 mg tablet 150 mg DAILY 02/12/21 04/02/21 metoprolol succinate 100 mg 100 mg PO DAILY 02/12/21 04/02/21 tablet,extended release 24 hr Previous Rx's Medication Instructions Recorded hydralazine 25 mg tablet 25 mg PO TID #90 tab 02/13/21 Allergies Allergy/AdvReac Type Severity Reaction Status Date / Time aspirin [ASPIRIN] Allergy Severe SUPRESSES Verified 04/02/21 09:05 BREATHING benazepril Allergy Severe Cough Verified 04/02/21 09:05 erythromycin base Allergy Severe RASH Verified 04/02/21 09:05 [ERYTHROMYCIN BASE] MOVING ABOUT BODY-6 MONTHS iodine Allergy Severe Couldn't Verified 04/02/21 09:05 breath, itch lisinopril Allergy Severe Cough Verified 04/02/21 09:05 oxycodone [OXYCODONE] Allergy Severe HIVES AND Verified 04/02/21 09:05 WELTS sertraline [From ZOLOFT] Allergy Severe IMPAIRED Verified 04/02/21 09:05 BALANCE NEUROLOGIST: BECAME TOXIC latex [LATEX] Allergy Intermediate BREATHING Verified 04/02/21 09:05 DIFFICULTIES rofecoxib [From VIOXX] Allergy Intermediate COULDN'T Verified 04/02/21 09:05 URINATE FOR A COUPLE OF DAYS ibuprofen Allergy Mild Impaired Verified 04/02/21 09:05 breathing, worse over time meloxicam Allergy Mild Unknown Verified 04/02/21 09:05 amlodipine Allergy Unknown Rash, Verified 04/02/21 09:05 trouble breathing, bradycardia naproxen Allergy Unknown Unlisted Verified 04/02/21 09:05 nitroglycerin Allergy Unknown Unlisted Verified 04/02/21 09:05 Sulfa (Sulfonamide Allergy Unknown DON'T Verified 04/02/21 09:05 Antibiotics) REMEMBER [SULFA (SULFONAMIDE ANTIBIOTICS)] sulfur dioxide Allergy Unknown Not listed Verified 04/02/21 09:05 alprazolam AdvReac Severe confusion, Verified 04/02/21 09:05 stumbling, suicidal ideation diazepam [From VALIUM] AdvReac Intermediate GOT Verified 04/02/21 09:05 TERRIBLY DEPRESSED zolpidem [From Ambien] AdvReac Intermediate Slept for Verified 04/02/21 09:05 3 hours, then couldn't sleep lithium [LITHIUM] AdvReac Mild ELEVATED Verified 02/11/21 19:01 BP & DELIRIOUS simvastatin [From Zocor] AdvReac Mild Muscle Verified 02/11/21 19:01 cramps hydrochlorothiazide AdvReac Unknown DEPLETED Verified 02/11/21 19:01 [HYDROCHLOROTHIAZIDE] POTASSIUM, IN DAYS, DEHYDRATION meperidine [From Demerol] AdvReac Unknown Falling, Verified 02/11/21 19:01 my arms would flip out Review of Systems Review of Systems Narrative: GENERAL: See HP a HEENT: Denies sinus pain, ear pain, sore throat, difficulty swallowing, dizziness. RESPIRATORY: See HPI CARDIOVASCULAR: Denies chest pain, palpitations, orthopnea, edema, GASTROINTESTINAL: Denies nausea, vomiting, abdominal pain, diarrhea, constipat ion, melena. : Denies dysuria, frequency, incontinence, hematuria, urinary retention. MUSCULOSKELETAL: denies weakness, joint pain, or bony pain SKIN: Denies rash, skin lesions, or other NEUROLOGIC: Denies weakness, headache, numbness, change in speech, confusion, seizures, incoordination. PSYCHIATRIC: No concerning psychosocial issues. 12 point review of systems is negative except for those stated above Patient History Medical History Abnormal EKG ADHD Anemia Anxiety disorder Arrhythmia Asthma Atrophic vaginitis Benign positional vertigo Bruises easily CAD (coronary artery disease) Cervical spinal stenosis Concussion Difficulty sleeping Disorder of left rotator cuff Familial tremor Fibromyalgia Former smoker Fracture GERD (gastroesophageal reflux disease) History of endometriosis History of frequent headaches History of left heart catheterization History of stomach ulcers Hyperlipidemia Hypertension Impaired hearing Impaired vision Leg weakness Lumbar pain Lumbar spinal stenosis Obstructive sleep apnea of adult Osteoarthritis Osteoarthritis cervical spine Osteomyelitis Palpitations Panic attacks Peripheral sensory neuropathy Precancerous lesion PTSD (post-traumatic stress disorder) PVCs (premature ventricular contractions) Shortness of breath Sleep apnea treated with nocturnal BiPAP Snoring Spastic colon Spinal stenosis of lumbar region at multiple levels Spondylolisthesis at L4-L5 level Spondylolisthesis of cervical region Stenosis of right carotid artery Syncope Surgical History H/O oral surgery H/O thumb surgery History of appendectomy History of breast biopsy History of colonoscopy with polypectomy History of hernia repair History of lumbar spinal fusion (01/13/18) History of tonsillectomy History of total abdominal hysterectomy Status post cervical spinal fusion (~03/20/18) Social History marital status: details: segundo Hansen, lives in [place] number of children: 1 household members: spouse lives independently: Yes caregiver/support person: No housing: house Smoking Status: Former smoker alcohol intake: current Smoking Status: Former smoker alcohol intake frequency: 3 or more drinks per day Substance Use Type: does not use Exam Narrative Exam Narrative: GENERAL: [75] year old patient appears stated age. Well-developed patient, in mild distress. Pleasantly confused, GCS 14 HEAD: Atraumatic. Normocephalic. EYES: Pupils equal round and reactive. Extraocular motions intact. No scleral icterus. No injection or drainage. ENT: Nose without bleeding, purulent drainage. Throat without erythema, tonsillar hypertrophy or exudate. Airway patent. NECK: Trachea midline. Non tender CARDIOVASCULAR: Regular rate and rhythm without murmurs, gallops, or rubs. RESPIRATORY: Occasional wet sounding cough, crackles noted in bilateral bases GASTROINTESTINAL: Abdomen soft, non-tender, nondistended. EXTREMITIES: No edema or joint tenderness. BACK: Nontender without deformity or crepitance. No flank tenderness. NEURO: Cranial nerves 2-12 grossly intact SKIN: No rash or erythema of visible areas Initial Vital Signs Initial Vital Signs: Vital Signs Temperature 99.9 F H 05/06/21 23:19 Pulse Rate 96 H 05/06/21 23:19 Respiratory Rate 22 05/06/21 23:19 Blood Pressure 158/96 H 05/06/21 23:19 Pulse Oximetry 92 05/06/21 23:19 Course Course Course Narrative: Patient slowly becomes increasingly hypoxemic with a room air pulse ox dipping i nto the upper 80s, she responds nicely on 2 L. Patient given Lasix for wet sounding lungs and cough as well as elevated BNP. PE study ordered as a consequence of her critically elevated D-dimer which shows no infiltrate but bilateral patchy changes consistent with potentially viral versus bacterial pneumonia versus other. Patient is symptomatic from her hyponatremia as well as demonstrates a mild hypoxemia from pneumonia. She does have an elevated white blood cell count hence the decision to use antibiotics, it is noted that her procalcitonin is low. Orders Ordered: ED Orders 05/06/21 23:13 XR chest 1V Stat EKG-12 Lead Stat 05/06/21 23:30 Complete Blood Count AUTO DIFF Stat Comprehensive Metabolic Panel Stat D Dimer Stat Lipase Stat NT-proBNP (BNP-Adult 18+) Stat Procalcitonin Stat Troponin & CK Cardiac Panel Stat 05/06/21 23:43 COVID19 -Nasal swab/Pre-Proc Stat 05/07/21 00:10 COVID19 - ADMIT ([facility] swab/PCR) Stat 05/07/21 00:49 CT angio chest PE protocol Stat 05/07/21 02:52 Respiratory Panel (Film Array) Stat Famotidine (Famotidine 20 Mg/2 Ml Vial) 20 mg IV NOW LINETTE Last Admin: 05/07/21 01:05 Dose: 20 mg Documented by: MEIR Sodium Chloride (Normal Saline 0.9%) 1,000 mls @ 150 mls/hr IV CONT LINETTE Last Admin: 05/06/21 23:50 Dose: 150 mls/hr Documented by: MEIR Discontinued Medications Diphenhydramine HCl (Diphenhydramine 50 Mg/Ml Vial) 25 mg IV NOW ONE Stop: 05/07/21 00:59 Last Admin: 05/07/21 01:04 Dose: 25 mg Documented by: MEIR Furosemide (Furosemide 40 Mg/4 Ml Vial) 40 mg IV NOW ONE Stop: 05/07/21 00:59 Last Admin: 05/07/21 01:05 Dose: 40 mg Documented by: MEIR Ceftriaxone Sodium 1,000 mg/ (Sodium Chloride) 100 mls @ 200 mls/hr IV NOW ONE Stop: 05/07/21 03:20 Last Admin: 05/07/21 03:41 Dose: 200 mls/hr Documented by: MEIR Azithromycin 500 mg/ Dextrose 250 mls @ 250 mls/hr IV NOW ONE Stop: 05/07/21 03:20 Methylprednisolone (Methylprednisolone 125 Mg/2 Ml Vial) 125 mg IV NOW ONE Stop: 05/07/21 00:59 Last Admin: 05/07/21 01:04 Dose: 125 mg Documented by: MEIR Vital Signs Vital signs: Vital Signs - 8 hr 05/06/21 23:19 Temperature 99.9 F H Pulse Rate 96 H Respiratory Rate 22 Blood Pressure 158/96 H Pulse Oximetry 92 MDM - SOB/Dyspnea Lab Data Result diagrams: 05/06/21 23:30 05/06/21 23:30 Labs: Lab Results 05/06/21 05/06/21 05/06/21 Range/Units 23:30 23:30 23:30 WBC 22.9 H (4.5-11.0) X10^3/uL RBC 3.65 L (4.0-5.2) X10^6/uL Hgb 11.5 L (12.0-16.0) g/dL Hct 34.2 L (36-46) % MCV 93.8 (80-100) fL MCH 31.6 (26-34) PG MCHC 33.7 (30-36) % RDW 12.7 (11.6-14.8) % Plt Count 374 (150-400) X10^3/uL Neut % (Auto) 91.6 H (50-75) % Lymph % (Auto) 6.1 L (25-40) % [place] % (Auto) 2.0 L (3-14) % Eos % (Auto) 0.1 L (2-4) % Baso % (Auto) 0.2 (0-2) % Neut # (Auto) 29734 H (2350-1175) /uL Lymph # (Auto) 1400 (0040-7573) /uL [place] # (Auto) 500 (0-900) /uL Eos # (Auto) 0 (0-450) /uL Baso # (Auto) 0 (0-100) /uL D-Dimer 1011 H (<230) ng/mL Sodium (137-145) mmol/L Potassium (3.4-5.1) mmol/L Chloride (98-107) mmol/L Carbon Dioxide (22-32) mmol/L BUN (7-17) mg/dL Creatinine (0.52-1.04) mg/dL Estimated GFR (>60) mL/min BUN/Creatinine Ratio (6-22) Glucose (80-110) mg/dL Calcium (8.4-10.2) mg/dL Total Bilirubin (0.2-1.3) mg/dL AST (14-36) IU/L ALT (<35) IU/L Alkaline Phosphatase (38-126) U/L Total Creatine Kinase (30-135) U/L CK-MB (CK-2) CK-MB (CK-2) Rel Index Troponin I (0.01-0.034) ng/mL NT-Pro-B Natriuret Pep 1810 H (<125) pg/mL Total Protein (6.3-8.2) g/dL Albumin (3.5-5.0) g/dL Globulin (1.7-4.1) g/dL Albumin/Globulin Ratio (1.0-2.8) Lipase (23-300) U/L Procalcitonin 0.05 (<0.5) ng/mL SARS-CoV-2 (PCR) (Negative) 05/06/21 05/06/21 05/06/21 Range/Units 23:30 23:30 23:43 WBC (4.5-11.0) X10^3/uL RBC (4.0-5.2) X10^6/uL Hgb (12.0-16.0) g/dL Hct (36-46) % MCV (80-100) fL MCH (26-34) PG MCHC (30-36) % RDW (11.6-14.8) % Plt Count (150-400) X10^3/uL Neut % (Auto) (50-75) % Lymph % (Auto) (25-40) % [place] % (Auto) (3-14) % Eos % (Auto) (2-4) % Baso % (Auto) (0-2) % Neut # (Auto) (5155-9852) /uL Lymph # (Auto) (0839-3318) /uL [place] # (Auto) (0-900) /uL Eos # (Auto) (0-450) /uL Baso # (Auto) (0-100) /uL D-Dimer (<230) ng/mL Sodium 124 L (137-145) mmol/L Potassium 4.1 (3.4-5.1) mmol/L Chloride 90 L (98-107) mmol/L Carbon Dioxide 25 (22-32) mmol/L BUN 10 (7-17) mg/dL Creatinine 0.75 (0.52-1.04) mg/dL Estimated GFR > 60.0 (>60) mL/min BUN/Creatinine Ratio 13.3 (6-22) Glucose 111 H (80-110) mg/dL Calcium 9.8 (8.4-10.2) mg/dL Total Bilirubin 0.9 (0.2-1.3) mg/dL AST 25 (14-36) IU/L ALT 15 (<35) IU/L Alkaline Phosphatase 86 (38-126) U/L Total Creatine Kinase 54 (30-135) U/L CK-MB (CK-2) TNP CK-MB (CK-2) Rel Index TNP Troponin I < 0.012 (0.01-0.034) ng/mL NT-Pro-B Natriuret Pep (<125) pg/mL Total Protein 8.5 H (6.3-8.2) g/dL Albumin 4.8 (3.5-5.0) g/dL Globulin 3.7 (1.7-4.1) g/dL Albumin/Globulin Ratio 1.3 (1.0-2.8) Lipase 119 (23-300) U/L Procalcitonin (<0.5) ng/mL SARS-CoV-2 (PCR) Negative Negative (Negative) Discharge Plan Departure Patient Disposition: Admitted As Inpatient Clinical Impression: Acute hyponatremia, Pneumonia Admit Date/Time: 05/07/21 03:21 Admit Provider: Courtney Melgar
[2021-05-07] MEDS: cefTRIAXone 1,000 MG in SODIUM CHLORIDE 0.9% 100 ML 200 ML IV (03:41)
[2021-05-07 03:55] LABS: Adenovirus Not Detected (Not Detect); B. parapertussis Not Detected (Not Detecte); Bordetella pertussis Not Detected (Not Detecte); Chlamydophila pneumoniae Not Detected (Not Detect); Coronavirus 229E Not Detected (Not Detect); Coronavirus HKU1 Not Detected (Not Detect); Coronavirus NL 63 Not Detected (Not Detect); Coronavirus OC43 Not Detected (Not Detect); Human Metapneumovirus Not Detected (Not Detect); Human Rhinovirus/Enterovirus Not Detected (Not Detect); Influenza A Not Detected (Not Detect); Influenza B Not Detected (Not Detect); Mycoplasma pneumoniae Not Detected (Not Detect); Parainfluenza Virus 1 Not Detected (Not Detect); Parainfluenza Virus 2 Not Detected (Not Detect); Parainfluenza Virus 3 Not Detected (Not Detect); Parainfluenza Virus 4 Not Detected (Not Detect); Respiratory Syncytial Virus Not Detected (Not Detect); SARS- CoV-2 Not Detected (Not Detecte)
[2021-05-07] MEDS: AZITHROMYCIN 500 MG in DEXTROSE 5% IN WATER 250 ML IV (04:11)
--- NOTE | 2021-05-07 04:19 | PM.HP.1 ---
History of Present Illness History of Present Illness Date Patient Seen: 05/07/21 Time Patient Seen: 03:45 Chief complaint: HTN Narrative: Alexsandra Jackson is a 75-year-old female with hypertension and a multitude of orthopedic surgeries, and a history of heavy smoking of which she states she quit in her 20s presented with shortness of breath. She states she has been short of breath for 2-3 days and that she has had sputum for as long and that it has been white colored. She states that she has been taking temperatures at home and has been afebrile however when she did arrive to the emergency department she was febrile. She states she had an exposure to COVID 19 a few months ago while she was visiting family members, she states she is fully vaccinated including the booster. She denies nasal congestion, headache, chest pain, nausea vomiting, abdominal pain, dysuria, diarrhea or constipation. She does endorse having asthma and using inhalers for such. Chest CTA was negative for a PE despite having an elevated D-dimer, patient is mildly febrile at 99.9, blood pressure 158/96, heart rate 96, respiratory rate 22, oxygen saturation 92% on room air, she weighs 69.8 kg with a BMI of 28.4. Her WBC is markedly elevated 22.9, hemoglobin and hematocrit was 11.5 in 34.2 respectively, she has a left shift of 21,000, D-dimer is 1011, sodium 124, potassium 4.1, chloride 90, glucose 111, proBNP was 18 10, procalcitonin is negative and her viral PCR panel including COVID-19 is negative. Patient History Medical History Abnormal EKG ADHD Anemia Anxiety disorder Arrhythmia Asthma Atrophic vaginitis Benign positional vertigo Bruises easily CAD (coronary artery disease) Cervical spinal stenosis Concussion Difficulty sleeping Disorder of left rotator cuff Familial tremor Fibromyalgia Former smoker Fracture GERD (gastroesophageal reflux disease) History of endometriosis History of frequent headaches History of left heart catheterization History of stomach ulcers Hyperlipidemia Hypertension Impaired hearing Impaired vision Leg weakness Lumbar pain Lumbar spinal stenosis Obstructive sleep apnea of adult Osteoarthritis Osteoarthritis cervical spine Osteomyelitis Palpitations Panic attacks Peripheral sensory neuropathy Precancerous lesion PTSD (post-traumatic stress disorder) PVCs (premature ventricular contractions) Shortness of breath Sleep apnea treated with nocturnal BiPAP Snoring Spastic colon Spinal stenosis of lumbar region at multiple levels Spondylolisthesis at L4-L5 level Spondylolisthesis of cervical region Stenosis of right carotid artery Syncope Surgical History H/O oral surgery H/O thumb surgery History of appendectomy History of breast biopsy History of colonoscopy with polypectomy History of hernia repair History of lumbar spinal fusion (01/13/18) History of tonsillectomy History of total abdominal hysterectomy Status post cervical spinal fusion (~03/20/18) Family & Social History Social History: household members spouse lives independently Yes caregiver/support person No Safety & Behavioral: Feels Safe in Current Yes Environment Been Physically Hurt or No Threatened By a Person Tobacco & Substance use: Tobacco type cigarettes Smoking Status Former smoker pre 3 packs per day states quit in her 20s alcohol intake current alcohol intake frequency 3 or more drinks per day Substance Use Type does not use Meds Home Medications and Allergies Home Medications Medication Instructions Recorded Confirmed Type acetaminophen 650 mg 1,300 mg PO BID 12/27/17 04/02/21 History tablet,extended release (Tylenol Arthritis Pain) calcium citrate 200 mg 1 tab PO BEDTIME 12/27/17 02/12/21 History calcium-vitamin D3 6.25 mcg (250 unit) tablet (Citracal-D3 Petites) metoprolol succinate 50 mg 50 mg PO 1630 03/31/18 02/12/21 History tablet,extended release 24 hr ResMed AirSense 10 CPAP #1 ea 05/25/18 02/12/21 History irbesartan 75 mg tablet 150 mg DAILY 02/12/21 04/02/21 History metoprolol succinate 100 mg 100 mg PO DAILY 02/12/21 04/02/21 History tablet,extended release 24 hr hydralazine 25 mg tablet 25 mg PO TID #90 tab 02/13/21 04/02/21 Rx Allergies Allergy/AdvReac Type Severity Reaction Status Date / Time aspirin [ASPIRIN] Allergy Severe SUPRESSES Verified 04/02/21 09:05 BREATHING benazepril Allergy Severe Cough Verified 04/02/21 09:05 erythromycin base Allergy Severe RASH Verified 04/02/21 09:05 [ERYTHROMYCIN BASE] MOVING ABOUT BODY-6 MONTHS iodine Allergy Severe Couldn't Verified 04/02/21 09:05 breath, itch lisinopril Allergy Severe Cough Verified 04/02/21 09:05 oxycodone [OXYCODONE] Allergy Severe HIVES AND Verified 04/02/21 09:05 WELTS sertraline [From ZOLOFT] Allergy Severe IMPAIRED Verified 04/02/21 09:05 BALANCE NEUROLOGIST: BECAME TOXIC latex [LATEX] Allergy Intermediate BREATHING Verified 04/02/21 09:05 DIFFICULTIES rofecoxib [From VIOXX] Allergy Intermediate COULDN'T Verified 04/02/21 09:05 URINATE FOR A COUPLE OF DAYS ibuprofen Allergy Mild Impaired Verified 04/02/21 09:05 breathing, worse over time meloxicam Allergy Mild Unknown Verified 04/02/21 09:05 amlodipine Allergy Unknown Rash, Verified 04/02/21 09:05 trouble breathing, bradycardia naproxen Allergy Unknown Unlisted Verified 04/02/21 09:05 nitroglycerin Allergy Unknown Unlisted Verified 04/02/21 09:05 Sulfa (Sulfonamide Allergy Unknown DON'T Verified 04/02/21 09:05 Antibiotics) REMEMBER [SULFA (SULFONAMIDE ANTIBIOTICS)] sulfur dioxide Allergy Unknown Not listed Verified 04/02/21 09:05 alprazolam AdvReac Severe confusion, Verified 04/02/21 09:05 stumbling, suicidal ideation diazepam [From VALIUM] AdvReac Intermediate GOT Verified 04/02/21 09:05 TERRIBLY DEPRESSED zolpidem [From Ambien] AdvReac Intermediate Slept for Verified 04/02/21 09:05 3 hours, then couldn't sleep lithium [LITHIUM] AdvReac Mild ELEVATED Verified 02/11/21 19:01 BP & DELIRIOUS simvastatin [From Zocor] AdvReac Mild Muscle Verified 02/11/21 19:01 cramps hydrochlorothiazide AdvReac Unknown DEPLETED Verified 02/11/21 19:01 [HYDROCHLOROTHIAZIDE] POTASSIUM, IN DAYS, DEHYDRATION meperidine [From Demerol] AdvReac Unknown Falling, Verified 02/11/21 19:01 my arms would flip out Review of Systems Review of Systems ROS: Yes All systems reviewed with the patient and are negative except as otherwise documented Exam Vital Signs (past 8 hours): - 05/06/21 23:19 Temperature 99.9 F H Pulse Rate 96 H Respiratory Rate 22 Blood Pressure 158/96 H Pulse Oximetry 92 Oxygen Delivery Method Room Air Narrative Exam Narrative: Gen: Alert, oriented, well-developed 75 y.o. female, NAD HEENT: normocephalic, atraumatic, conjunctiva clear, sclera non-icteric, oral mucosa pink and moist Neck: supple, full ROM, no JVD, trachea is midline Resp: Lungs CTA, non-labored breathing, mildly hypoxic however she does get disconnected from oxygen for periods at a time CV: RRR, no murmur or rubs Abd: soft, non-tender, normoactive BTs Skin: no lesions or rashes, dry and intact Neuro: Alert and oriented X 4 w/no focal deficits. Speech clear and coherent. Extremities: moves all 4 extremities, is ambulatory, negative Tammy?s sign Psyche: normal mood and affect. Objective Labs Result Diagrams: 05/06/21 23:30 05/06/21 23:30 Labs: Laboratory Results - last 24 hr 05/06/21 05/06/21 05/06/21 23:30 23:30 23:30 WBC 22.9 H RBC 3.65 L Hgb 11.5 L Hct 34.2 L MCV 93.8 MCH 31.6 MCHC 33.7 RDW 12.7 Plt Count 374 Neut % (Auto) 91.6 H Lymph % (Auto) 6.1 L [place] % (Auto) 2.0 L Eos % (Auto) 0.1 L Baso % (Auto) 0.2 Neut # (Auto) 94811 H Lymph # (Auto) 1400 [place] # (Auto) 500 Eos # (Auto) 0 Baso # (Auto) 0 D-Dimer 1011 H Sodium Potassium Chloride Carbon Dioxide BUN Creatinine Estimated GFR BUN/Creatinine Ratio Glucose Calcium Total Bilirubin AST ALT Alkaline Phosphatase Total Creatine Kinase CK-MB (CK-2) CK-MB (CK-2) Rel Index Troponin I NT-Pro-B Natriuret Pep 1810 H Total Protein Albumin Globulin Albumin/Globulin Ratio Lipase Procalcitonin 0.05 Chlamy pneumoniae PCR Adenovirus (PCR) B. pertussis DNA (PCR) B.parapertussis DNA PCR Coronavirus OC43 (PCR) Coronavirus HKU1 (PCR) Coronavirus 229E (PCR) SARS-CoV-2 (PCR) Coronavirus NL63 (PCR) Human Metapneumovir PCR Influenza Type A (PCR) Influenza Type B (PCR) M. pneumoniae (PCR) Parainfluenza 1 (PCR) Parainfluenza 2 (PCR) Parainfluenza 3 (PCR) Parainfluenza 4 (PCR) RSV (PCR) Entero/Rhino (PCR) 05/06/21 05/06/21 05/06/21 23:30 23:30 23:30 WBC RBC Hgb Hct MCV MCH MCHC RDW Plt Count Neut % (Auto) Lymph % (Auto) [place] % (Auto) Eos % (Auto) Baso % (Auto) Neut # (Auto) Lymph # (Auto) [place] # (Auto) Eos # (Auto) Baso # (Auto) D-Dimer Sodium 124 L Potassium 4.1 Chloride 90 L Carbon Dioxide 25 BUN 10 Creatinine 0.75 Estimated GFR > 60.0 BUN/Creatinine Ratio 13.3 Glucose 111 H Calcium 9.8 Total Bilirubin 0.9 AST 25 ALT 15 Alkaline Phosphatase 86 Total Creatine Kinase 54 CK-MB (CK-2) TNP CK-MB (CK-2) Rel Index TNP Troponin I < 0.012 NT-Pro-B Natriuret Pep Total Protein 8.5 H Albumin 4.8 Globulin 3.7 Albumin/Globulin Ratio 1.3 Lipase 119 Procalcitonin Chlamy pneumoniae PCR Not detected Adenovirus (PCR) Not detected B. pertussis DNA (PCR) Not detected B.parapertussis DNA PCR Not detected Coronavirus OC43 (PCR) Not detected Coronavirus HKU1 (PCR) Not detected Coronavirus 229E (PCR) Not detected SARS-CoV-2 (PCR) Negative Not detected Coronavirus NL63 (PCR) Not detected Human Metapneumovir PCR Not detected Influenza Type A (PCR) Not detected Influenza Type B (PCR) Not detected M. pneumoniae (PCR) Not detected Parainfluenza 1 (PCR) Not detected Parainfluenza 2 (PCR) Not detected Parainfluenza 3 (PCR) Not detected Parainfluenza 4 (PCR) Not detected RSV (PCR) Not detected Entero/Rhino (PCR) Not detected 05/06/21 23:43 WBC RBC Hgb Hct MCV MCH MCHC RDW Plt Count Neut % (Auto) Lymph % (Auto) [place] % (Auto) Eos % (Auto) Baso % (Auto) Neut # (Auto) Lymph # (Auto) [place] # (Auto) Eos # (Auto) Baso # (Auto) D-Dimer Sodium Potassium Chloride Carbon Dioxide BUN Creatinine Estimated GFR BUN/Creatinine Ratio Glucose Calcium Total Bilirubin AST ALT Alkaline Phosphatase Total Creatine Kinase CK-MB (CK-2) CK-MB (CK-2) Rel Index Troponin I NT-Pro-B Natriuret Pep Total Protein Albumin Globulin Albumin/Globulin Ratio Lipase Procalcitonin Chlamy pneumoniae PCR Adenovirus (PCR) B. pertussis DNA (PCR) B.parapertussis DNA PCR Coronavirus OC43 (PCR) Coronavirus HKU1 (PCR) Coronavirus 229E (PCR) SARS-CoV-2 (PCR) Negative Coronavirus NL63 (PCR) Human Metapneumovir PCR Influenza Type A (PCR) Influenza Type B (PCR) M. pneumoniae (PCR) Parainfluenza 1 (PCR) Parainfluenza 2 (PCR) Parainfluenza 3 (PCR) Parainfluenza 4 (PCR) RSV (PCR) Entero/Rhino (PCR) Assessment & Plan Assessment & Plan narrative: Alexsandra Jackson will be admitted for treatment and management of a community acquired pneumonia. 1. Sepsis secondary to community-acquired pneumonia, acute, present on admission Patient had a elevated temperature elevated blood pressure and elevated heart rate on admission in addition to an elevated white count and low sodium She was started on IV ceftriaxone and IV azithromycin in the emergency department and these will both be continued once daily on 05/08. Azithromycin will be provider orally to the patient. Albuterol and DuoNeb nebulizers q.3 hours as needed for shortness of breath and wheezing 2. Hypertension, Continue home medication of metoprolol extended release 100 mg in the morning and 50 mg at 2:00 p.m. Substitute ibesartan with losartan 50 mg p.o. daily Holding hydralazine due to it having a tendency to cause rebound hypertension VTE Prophylaxis: Wells risk score 3 Enoxaparin 40 mg subQ once daily Bilateral SCDs Patient is admitted to the inpatient service due to the severity of disease, risks of further disease progression and this stay is expected to exceed 2 midnights. FEN: IV fluids: she was administered IV NS bolus at 3ml/kg followed by one dose of lasix, continue NS at 100 ml/hour , diet: heart healthy, labs: CBC, C/BMP, liver enzymes, Mag Consultants None Dispo: probable discharge to home Code status: full code as discussed with the patient who identifies her , Tyrone as her surrogate and POA. [X] I have utilized all available immediate resources to obtain, update, or review of the patient's current medications COVID-19 COVID-19 status: Negative Result date/Date tested (Pos, Neg/Pending): 05/07/21 Scores Wells' Criteria for PE Clinical signs and symptoms of DVT: Yes PE is #1 Dx or equally likely: No Heart rate > 100: No Immobilization at least 3 days or surg in previous 4 weeks: No History of PE or DVT: No Hemoptysis: No Malignancy w/Treatment within 6 months or palliative: No Wells' PE Score total: 3 Quality VTE Deep Vein Thrombosis/Pulmonary Embolism Present on Admission: No MIPS - Admit I confirm the patient?s Advance Care Plan is present, Code status is documented, Surrogate decision maker is in patient?s record [If Yes, STOP here]: Yes MIPS - DC The patient has current or prior documentation of left ventricular ejection fraction (LVEF) less than 40%, or moderate or severely depressed left ventricular systolic function.: No
[2021-05-07 05:08] LABS: Lactate (Lactic Acid) 1.2 mmol/L (0.7-2.1)
[2021-05-07 05:24] LABS: Add Manual Diff / Slide Review NO; Basophils Absolute Auto 0 /uL (0-100); Basophils Percent Auto 0.2 % (0-2); Eosinophils Absolute Auto 0 /uL (0-450); Hemoglobin 11.3 g/dL (12.0-16.0); Lymphocytes Absolute Auto 700 /uL (1100-4500); Mean Corpuscular HGB Conc 34.3 % (30-36); Mean Corpuscular Hemoglobin 31.9 PG (26-34); Monocytes Absolute Auto 100 /uL (0-900); Monocytes Percent Auto 0.7 % (3-14); Neutrophils Absolute Auto 17200 /uL (1500-7000); Neutrophils Percent Auto 95.1 % (50-75); Platelet Count 336 X10^3/uL (150-400); Red Blood Cell Count 3.55 X10^6/uL (4.0-5.2); Red Cell Distribution Width 12.9 % (11.6-14.8); White Blood Cell Count 18.1 X10^3/uL (4.5-11.0)
[2021-05-07 05:27] LABS: BUN Creatinine Ratio 13.6 (6-22); Blood Urea Nitrogen 11 mg/dL (7-17); Calcium 9.2 mg/dL (8.4-10.2); Carbon Dioxide 25 mmol/L (22-32); Chloride 89 mmol/L (98-107); Estimated Glomerular Filt Rate > 60.0 mL/min (>60); Glucose 180 mg/dL (80-110); HEMOLYSIS < 15 (0-50); Magnesium 1.4 mg/dL (1.6-2.3); Potassium 3.8 mmol/L (3.4-5.1); Sodium 126 mmol/L (137-145)
[2021-05-07] MEDS: ENOXAPARIN 40 MG/0.4 ML SYRINGE SUBCUT (08:32)
[2021-05-07] MEDS: METOPROLOL ER 50 MG TABLET 100 MG PO (08:50)
[2021-05-07] MEDS: LOSARTAN 50 MG TABLET PO (09:15)
[2021-05-07] MEDS: MAGNESIUM CHLORIDE 64 MG TABLET 128 MG PO (13:56)
[2021-05-07] MEDS: METOPROLOL ER 50 MG TABLET PO (16:26)
[2021-05-07] MEDS: SODIUM CHLORIDE 0.9% FLUSH 10 ML IV (20:37)
[2021-05-07] MEDS: ACETAMINOPHEN 325 MG TABLET 650 MG PO (23:02)
[2021-05-08] MEDS: cefTRIAXone 1,000 MG in SODIUM CHLORIDE 0.9% 100 ML 200 ML IV (02:58)
[2021-05-08] MEDS: SODIUM CHLORIDE 0.9% FLUSH 10 ML IV ×2 (02:58→08:50)
[2021-05-08] MEDS: SODIUM CHLORIDE 0.9% 250 ML 21 ML IV (02:59)
[2021-05-08 03:15] VITALS: BP 151/64; PULSE 88; RESP 18; TEMP 36.2; O2SAT 99
[2021-05-08 05:33] LABS: Add Manual Diff / Slide Review NO; Basophils Absolute Auto 0 /uL (0-100); Basophils Percent Auto 0.3 % (0-2); Eosinophils Absolute Auto 0 /uL (0-450); Eosinophils Percent Auto 0.1 % (2-4); Hematocrit 29.4 % (36-46); Hemoglobin 10.1 g/dL (12.0-16.0); Lymphocytes Absolute Auto 1900 /uL (1100-4500); Lymphocytes Percent Auto 12.4 % (25-40); Mean Corpuscular HGB Conc 34.3 % (30-36); Mean Corpuscular Volume 93.3 fL (80-100); Monocytes Absolute Auto 1000 /uL (0-900); Monocytes Percent Auto 6.3 % (3-14); Neutrophils Absolute Auto 12700 /uL (1500-7000); Neutrophils Percent Auto 80.9 % (50-75); Platelet Count 340 X10^3/uL (150-400); Red Blood Cell Count 3.15 X10^6/uL (4.0-5.2); Red Cell Distribution Width 13.1 % (11.6-14.8); White Blood Cell Count 15.6 X10^3/uL (4.5-11.0)
[2021-05-08 06:07] LABS: BUN Creatinine Ratio 30.3 (6-22); Blood Urea Nitrogen 20 mg/dL (7-17); Calcium 9.4 mg/dL (8.4-10.2); Carbon Dioxide 26 mmol/L (22-32); Chloride 92 mmol/L (98-107); Estimated Glomerular Filt Rate > 60.0 mL/min (>60); Glucose 114 mg/dL (80-110); HEMOLYSIS < 15 (0-50); Magnesium 1.6 mg/dL (1.6-2.3); Potassium 3.9 mmol/L (3.4-5.1); Sodium 126 mmol/L (137-145)
[2021-05-08 07:13] VITALS: O2SAT 97
[2021-05-08] MEDS: AZITHROMYCIN 250 MG TABLET 500 MG PO (08:48)
[2021-05-08 08:49] VITALS: BP 151/64; BP 151/68; PULSE 88
[2021-05-08] MEDS: ENOXAPARIN 40 MG/0.4 ML SYRINGE SUBCUT (08:49)
[2021-05-08] MEDS: METOPROLOL ER 50 MG TABLET 100 MG PO (08:49)
[2021-05-08] MEDS: LOSARTAN 50 MG TABLET PO (08:49)
[2021-05-08 08:50] VITALS: BP 158/63; PULSE 74; RESP 18; TEMP 36.3; O2SAT 97
--- NOTE | 2021-05-08 08:50 | PM.DS.1 ---
History of Present Illness History of Present Illness Date Patient Seen: 05/08/21 Time Patient Seen: 08:50 Chief complaint: HTN Narrative: Alexsandra Jackson is a 75-year-old female with hypertension and a multitude of orthopedic surgeries, and a history of heavy smoking of which she states she quit in her 20s presented with shortness of breath.? She states she has been short of breath for 2-3 days and that she has had sputum for as long and that it has been white colored.? She states that she has been taking temperatures at home and has been afebrile however when she did arrive to the emergency department she was febrile.? She states she had an exposure to COVID 19 a few months ago while she was visiting family members, she states she is fully vaccinated including the booster.? She denies nasal congestion, headache, chest pain, nausea vomiting, abdominal pain, dysuria, diarrhea or constipation.? She does endorse having asthma and using inhalers for such. Chest CTA was negative for a PE despite having an elevated D-dimer, patient is mildly febrile at 99.9, blood pressure 158/96, heart rate 96, respiratory rate 22, oxygen saturation 92% on room air, she weighs 69.8 kg with a BMI of 28.4.? Her WBC is markedly elevated 22.9, hemoglobin and hematocrit was 11.5 in 34.2 respectively, she has a left shift of 21,000, D-dimer is 1011, sodium 124, potassium 4.1, chloride 90, glucose 111, proBNP was 18 10, procalcitonin is negative and her viral PCR panel including COVID-19 is negative. Discharge Providers Provider Date of admission: 05/07/21 03:21 Discharge Date: 05/08/21 Primary care physician: Mariella Guillory PA-C Discharge provider: Brandi Curry MD Summary Hospital Course Discharge Diagnosis: 1. Community-acquired pneumonia 2. Hypertension 3. Hyponatremia 4. Obstructive sleep apnea Hospital Course: Patient was admitted to the hospital for treatment of pneumonia. She was started on ceftriaxone and azithromycin. She had improvement of her shortness of breath, as well as low-grade fever. Patient continued to have white productive sputum but overall felt significantly improved. She did remain hyponatremic. Her blood pressure improved. Would recommend a free water restriction at home. The patient was deemed appropriate for discharge and arrangements were made for her to discharge home. The patient did have noted episodes of hypoxemia at night when sleeping. She does state she has a history of sleep apnea but was not able to tolerate her CPAP machine. She is referred back to her primary care provider for further evaluation. Status at Discharge Cognitive/behavioral status at discharge: oriented Functional status at discharge: independent ambulation Overall status at discharge: patient is progressing back to baseline Exam Vital Signs (past 8 hours): - 05/08/21 03:15 05/08/21 07:13 Temperature 97.1 F L Pulse Rate 88 Respiratory Rate 18 Blood Pressure 151/64 H Pulse Oximetry 99 97 Oxygen Delivery Method Room Air Oxygen Flow Rate 2 Narrative Exam Narrative: Pleasant female sitting up having breakfast Resp Other: Lungs clear to auscultation Cardio Other: Cardiac exam: Regular rate and rhythm normal S1-S2 GI Other: Abdomen soft and nontender Extrem Other: Extremity no edema Objective Labs Result Diagrams: 05/08/21 05:14 05/08/21 05:14 Labs: Laboratory Results - last 24 hr 05/08/21 05/08/21 05:14 05:14 WBC 15.6 H RBC 3.15 L Hgb 10.1 L Hct 29.4 L MCV 93.3 MCH 32.0 MCHC 34.3 RDW 13.1 Plt Count 340 Neut % (Auto) 80.9 H Lymph % (Auto) 12.4 L [place] % (Auto) 6.3 Eos % (Auto) 0.1 L Baso % (Auto) 0.3 Neut # (Auto) 44675 H Lymph # (Auto) 1900 [place] # (Auto) 1000 H Eos # (Auto) 0 Baso # (Auto) 0 Sodium 126 L Potassium 3.9 Chloride 92 L Carbon Dioxide 26 BUN 20 H Creatinine 0.66 Estimated GFR > 60.0 BUN/Creatinine Ratio 30.3 H Glucose 114 H Calcium 9.4 Magnesium 1.6 PFSH Medical History Abnormal EKG ADHD Anemia Anxiety disorder Arrhythmia Asthma Atrophic vaginitis Benign positional vertigo Bruises easily CAD (coronary artery disease) Cervical spinal stenosis Concussion Difficulty sleeping Disorder of left rotator cuff Familial tremor Fibromyalgia Former smoker Fracture GERD (gastroesophageal reflux disease) History of endometriosis History of frequent headaches History of left heart catheterization History of stomach ulcers Hyperlipidemia Hypertension Impaired hearing Impaired vision Leg weakness Lumbar pain Lumbar spinal stenosis Obstructive sleep apnea of adult Osteoarthritis Osteoarthritis cervical spine Osteomyelitis Palpitations Panic attacks Peripheral sensory neuropathy Precancerous lesion PTSD (post-traumatic stress disorder) PVCs (premature ventricular contractions) Shortness of breath Sleep apnea treated with nocturnal BiPAP Snoring Spastic colon Spinal stenosis of lumbar region at multiple levels Spondylolisthesis at L4-L5 level Spondylolisthesis of cervical region Stenosis of right carotid artery Syncope Surgical History H/O oral surgery H/O thumb surgery History of appendectomy History of breast biopsy History of colonoscopy with polypectomy History of hernia repair History of lumbar spinal fusion (01/13/18) History of tonsillectomy History of total abdominal hysterectomy Status post cervical spinal fusion (~03/20/18) Social History marital status: details: segundo Hansen, lives in [place] number of children: 1 household members: spouse lives independently: Yes caregiver/support person: No housing: house Smoking Status: Former smoker alcohol intake: current Discharge Assessment & Plan Assessment and Plan Assessment: 1. Community-acquired pneumonia 2. Hypertension 3. Hyponatremia 4. Obstructive sleep apnea Plan of Treatment: Continue medications as prescribed Follow-up with primary care provider next week Discharge Plan Discharge Plan Patient Disposition: Home Discharge orders & Medications Prescriptions: New azithromycin [Zithromax Z-Abdiel] 250 mg Tablet 500 mg PO DAILY Qty: 4 0RF Continued acetaminophen [Tylenol Arthritis Pain] 650 mg Tablet Extended Release 1,300 mg PO BID 0RF calcium citrate-vitamin D3 [Citracal-D3 Petites] 200 mg calcium -250 unit Tablet 1 tab PO BEDTIME 0RF metoprolol succinate 50 mg Tablet Extended Release 24 Hr 50 mg PO 1530 0RF Rx Instructions: Pt takes this at 1530 daily metoprolol succinate 100 mg tablet extended release 24 hr 150 mg PO DAILY 0RF irbesartan 75 mg tablet 150 mg PO DAILY 0RF hydralazine 25 mg Tablet 25 mg PO TID Qty: 90 0RF No Action (DME) ResMed AirSense 10 CPAP Qty: 1 0RF Dose Instruction: As directed Label Comments: Pressure: 6-12 cmH2O DME: [facility] Rx Instructions: As directed Follow up/Referrals: Mariella Guillory PA-C [Primary Care Provider] - Discharge Health Status Multidrug resistant organism: No MDRO Diet/Activity/Treatments Diet: Low-sodium Diet comment: 1500 free water restriction Oxygen: need to resume CPAP at night or be fitted for an oral appliance Skin/Wound/Dressing Care Report to your healthcare provider any signs of infection, such as:: chills, fever Discharge Data Primary Care Provider: Mariella Guillory Attending Provider: Courtney Melgar VTE Deep Vein Thrombosis/Pulmonary Embolism Present on Admission: No
--- NOTE | 2021-05-08 12:41 | PC.NURSE ---
Pt A&Ox3, VSS, afebrile on RA. She denies any pain or SOB. Ambulating in room independently with a steady gait. She denies any BOYCE, n/v or symtoms of hyponatremia. She is cleared by hospitalist to discharge home this a.m. at bedside. She acknowledges understanding of discharge medications, and follow up instructions. She reports having a rash with azithromycin in the past however no rash or side effects observed after doses this hospitalization. Confirmed with her pharmacy that she did not have sensitivity / side effects/ allergic reaction.She is escorted via w/ch to private vehicle with her for discharge home this a.m. with all of her belongings.
== END 2021-05-08 10:35 | disposition home or self-care (01) ==
LOC: ED 05-07 00:11 → AC 05-07 03:50
PROVIDERS: Admitting Provider Nurse Practitioner Family; Emergency Provider Emergency Medicine; PCP Student in an Organized Health Care Education/Training Program; Referring Provider Emergency Medicine; Visit Provider Nurse Practitioner Family
DX: J18.9 Pneumonia, unspecified organism (principal); E87.1 Hypo-osmolality and hyponatremia; I10 Essential (primary) hypertension; Z87.891 Personal history of nicotine dependence; G47.33 Obstructive sleep apnea (adult) (pediatric); J45.909 Unspecified asthma, uncomplicated; Z20.822 Contact with and (suspected) exposure to COVID-19
CPT/HCPCS: 36415; 71045; 71275; 80048; 80053; 82550; 83605; 83690; 83735; 83880; 84145; 84484; 85025; 85379; 87633; 87635; 93005; 93010; 94762; 96361; 96365; 96366; 96367; 96372; 96375; 99284; 99285; C9803; G0378; J0696; J1200; J1650; J1940; J2930; Q9967

== ENCOUNTER → 2021-05-17 09:06 | Outpatient (CLI) | payer MEDICARE, SELFPAY ==
[2021-05-07 14:24] VITALS: BMI 27.3
--- NOTE | 2021-05-17 09:10 | DI.RAD.S_ITS ---
PROCEDURE: XR CHEST 2V INDICATIONS: Follow-up PNUEMONIA TECHNIQUE: 2 views of the chest were acquired. COMPARISON: [facility], CT, CT ANGIO CHEST PE PROTOCOL, 05/07/2021, 1:02. [facility], CT, CT CHEST ABD PEL WO CON, 02/12/2021, 7:42. [facility], CR, XR CHEST 2V, 02/11/2021, 19:02. [facility], CR, XR CHEST 1V, 05/06/2021, 23:21. FINDINGS: Surgical changes and devices: Cervical spine fixation hardware is seen. Lumbar spine fixation hardware is partially seen. Lungs and pleura: Lungs are clear. No pleural effusions or pneumothorax. Mediastinum: Mediastinal contours are normal. Heart size is normal. Bones and chest wall: No suspicious bony abnormalities. Accentuated thoracic kyphosis is seen. Age-appropriate bony degenerative changes are seen. Soft tissues appear unremarkable. IMPRESSION: Negative for infiltrate on these plain films. Postoperative and degenerative changes are seen. Dictated by: Sherman Corea M.D. on 05/17/2021 at 8:24 Approved by: Sherman Corea M.D. on 05/17/2021 at 8:26
== END ==
PROVIDERS: PCP Student in an Organized Health Care Education/Training Program; Referring Provider Student in an Organized Health Care Education/Training Program; Visit Provider Student in an Organized Health Care Education/Training Program
DX: J18.9 Pneumonia, unspecified organism (principal)
CPT/HCPCS: 71046

== ENCOUNTER → 2021-05-21 11:21 | Outpatient (CLI) | payer MEDICARE, SELFPAY ==
[2021-05-07 14:24] VITALS: BMI 27.3
--- NOTE | 2021-05-21 11:24 | DI.RAD.S_ITS ---
PROCEDURE: XR CHEST 2V INDICATIONS: shortness of breath TECHNIQUE: 2 views of the chest were acquired. COMPARISON: [facility], , XR CHEST 2V, 05/17/2021, 9:01. FINDINGS: Surgical changes and devices: Low anterior cervical fusion has been performed. Lumbar spine fusion hardware is present. Lungs and pleura: Lungs are clear. No pleural effusions or pneumothorax. Mediastinum: Mediastinal contours are normal. Heart size is normal. Bones and chest wall: No suspicious bony abnormalities. Soft tissues appear unremarkable. IMPRESSION: No acute process. Dictated by: Archana Casillas M.D. on 05/21/2021 at 11:32 Approved by: Archana Casillas M.D. on 05/21/2021 at 11:32
== END ==
PROVIDERS: PCP Student in an Organized Health Care Education/Training Program; Referring Provider Nurse Practitioner Family; Visit Provider Nurse Practitioner Family
DX: R06.02 Shortness of breath (principal)
CPT/HCPCS: 71046

== ENCOUNTER → 2022-04-20 11:54 | Outpatient (CLI) | payer MEDICARE, SELFPAY ==
[2021-05-07 14:24] VITALS: BMI 27.3
--- NOTE | 2022-04-20 | DI.RAD.S_ITS ---
PROCEDURE: XR CHEST 2V INDICATIONS: WEIGHT LOSS TECHNIQUE: 2 views of the chest were acquired. COMPARISON: [facility], CR, XR CHEST 2V, 05/21/2021, 12:28. [facility], CR, XR CHEST 2V, 05/17/2021, 9:01. FINDINGS: Surgical changes and devices: None. Lungs and pleura: Lungs are clear. No pleural effusions or pneumothorax. Mediastinum: Mediastinal contours are normal. Heart size is normal. Bones and chest wall: No suspicious bony abnormalities. Soft tissues appear unremarkable. IMPRESSION: No acute cardiopulmonary findings. Dictated by: Courtney Hernandez M.D. on 04/20/2022 at 13:08 Approved by: Courtney Hernandez M.D. on 04/20/2022 at 13:08
== END ==
PROVIDERS: PCP Student in an Organized Health Care Education/Training Program; Referring Provider Student in an Organized Health Care Education/Training Program; Visit Provider Physician Assistant
DX: R63.4 Abnormal weight loss (principal)
CPT/HCPCS: 71046

== ENCOUNTER → 2022-05-25 10:29 | Outpatient (CLI) | payer MEDICARE, SELFPAY ==
[2021-05-07 14:24] VITALS: BMI 27.3
--- NOTE | 2022-05-25 | DI.US.S_ITS ---
LIMITED ULTRASOUND OF RIGHT BREAST: 05/25/2022 CLINICAL: Palpable lump. No prior exams were available for comparison. Ultrasound of the right breast 1 o'clock region was performed. Reyes scale images of the real-time examination were reviewed. No significant abnormalities were seen sonographically in the right breast. Specifically, no finding to correspond to the patient's palpable abnormality. IMPRESSION: NEGATIVE There is no sonographic correlate to the patient's palpable abnormality and no evidence of malignancy. Return to annual mammogram screening schedule is recommended. Findings and recommendations were conveyed to the patient at time of exam. This exam was interpreted at Station ID: [id number]. Electronically Signed By: Jolly lemos/:05/25/2022 11:51:17 letter sent: Normal Exam Ultrasound BI-RADS: 1 Negative
--- NOTE | 2022-05-25 | DI.MG.S_ITS ---
BILATERAL DIGITAL DIAGNOSTIC MAMMOGRAM 3D/2D: 05/25/2022 CLINICAL: Lump in Right breast. Comparison is made to exams dated: 06/15/2017 mammogram - [facility], 09/06/2014 mammogram - [facility], and 08/24/2012 mammogram - [facility]. Both breasts are heterogeneously dense, which may obscure small masses (category c / 51-75% glandular tissue). There are benign vascular calcifications in both breasts that are not significantly changed. No significant masses, calcifications, or other findings are seen in either breast. Specifically, no finding to correspond to the patient's palpable abnormalities in the right breast 1:00 region or left breast posterior 1:00 region. Mammograms are otherwise stable. IMPRESSION: INCOMPLETE: NEEDS ADDITIONAL IMAGING EVALUATION There is no abnormality seen in the right breast to correspond with the palpable abnormality at 1 o'clock in the anterior depth. There is no abnormality seen in the left breast to correspond with the palpable abnormality at 1 o'clock in the posterior depth. Ultrasound is recommended for full evaluation of these areas. This was performed immediately following this exam. Based on the Tyrer Cuzick model (a risk assessment model) the patient's lifetime risk is 6.8% and her 10 year risk is 6.8%. According to the ACR, ACS, and NCCN guidelines, an annual breast MRI exam along with mammogram is recommended if the patient's lifetime risk is 20% or greater. This exam was interpreted at Station ID: [id number]. NOTE: For mammograms, a report in lay terms will be sent to the patient. Approximately 15% of breast malignancies will not be visualized mammographically. In the management of a palpable breast mass, a negative mammogram must not discourage biopsy of a clinically suspicious lesion. Electronically Signed By: Jolly lemos/:05/25/2022 11:49:44 ACR BI-RADS Category 0: Incomplete [id number]
--- NOTE | 2022-05-25 11:20 | DI.US.S_ITS ---
LIMITED ULTRASOUND OF LEFT BREAST: 05/25/2022 CLINICAL: Palpable lump. Comparison is made to exam dated: 05/25/2022 mammogram - [facility]. Ultrasound of the left breast 12 o'clock region was performed. Reyes scale images of the real-time examination were reviewed. No significant abnormalities were seen sonographically in the left breast. Specifically, no finding to correspond to the patient's palpable abnormality. IMPRESSION: NEGATIVE There is no sonographic correlate to the patient's palpable abnormality and no evidence of malignancy. Return to annual mammogram screening schedule is recommended. Findings and recommendations were conveyed to the patient at time of exam. This exam was interpreted at Station ID: [id number]. Electronically Signed By: Jolly lemos/:05/25/2022 11:52:06 letter sent: Normal Exam Ultrasound BI-RADS: 1 Negative
== END ==
PROVIDERS: PCP Student in an Organized Health Care Education/Training Program; Referring Provider Student in an Organized Health Care Education/Training Program; Visit Provider Student in an Organized Health Care Education/Training Program
DX: R92.8 Other abnormal and inconclusive findings on diagnostic imaging of breast (principal); N63.10 Unspecified lump in the right breast, unspecified quadrant
CPT/HCPCS: 76642; 77066; G0279